=== PATIENT | male | born 1950 | race Caucasian/White ===

== ENCOUNTER 2022-07-06 15:49 | Outpatient (CLI) | payer MEDICARE, SELFPAY ==
[2022-07-06 14:02] LABS: Albumin* 4.3 g/dL (3.3-5.0)
[2022-07-06 14:03] LABS: Chloride* 103 mmol/L (96-114); Sodium* 138 mmol/L (135-149)
[2022-07-06 14:05] LABS: Bilirubin Total* 0.8 mg/dL (0.1-1.5); Carbon Dioxide* 25 mmol/L (20-32); Cholesterol* 155 mg/dL (90-199); Creatinine* 0.9 mg/dL (0.5-1.5); Estimated Glomerular Filt Rate 90 ml/min
[2022-07-06 14:06] LABS: Alanine Aminotransferase* 30 U/L (4-50); Alkaline Phosphatase* 89 U/L (40-150); Aspartate Amino Transferase* 33 U/L (12-35); Blood Urea Nitrogen* 20 mg/dL (7-30); Calcium* 9.1 mg/dL (8.4-10.6); Glucose* 194 mg/dL (60-115); Total Protein* 7.5 g/dL (6.0-8.3); Triglycerides* 147 mg/dL (40-149)
[2022-07-06 14:07] LABS: HDL Cholesterol* 41 mg/dL (>=40); LDL Cholesterol Calculated 85 mg/dL (<100)
[2022-07-06 14:35] LABS: PSA Screen* 1.71 ng/mL (0.10-4.00)
[2022-07-06 15:29] LABS: Free T4 Free Thyroxine* 0.85 ng/dL (0.70-1.85)
== END 2022-07-06 15:50 | disposition home or self-care (01) ==
PROVIDERS: PCP Family Medicine; Visit Provider Family Medicine
DX: Z00.00 Encounter for general adult medical examination without abnormal findings (principal); E78.5 Hyperlipidemia, unspecified; E03.9 Hypothyroidism, unspecified; I10 Essential (primary) hypertension; E11.39 Type 2 diabetes mellitus with other diabetic ophthalmic complication; F41.9 Anxiety disorder, unspecified; Z12.5 Encounter for screening for malignant neoplasm of prostate
CPT/HCPCS: 80053; 80061; 82043; 82570; 84153; 84439; 84443

== ENCOUNTER 2022-10-13 09:50 | Outpatient (CLI) | payer MEDICARE, SELFPAY ==
[2022-10-13 11:59] LABS: Creatinine Urine 112.8 mg/dL
[2022-10-13 12:00] LABS: Microalbumin Creatinine Ratio 0 mg/g (0-30); Microalbumin Urine 1 mg/dL
== END 2022-10-13 09:51 | disposition home or self-care (01) ==
LOC: LKVREF 09:54
PROVIDERS: PCP Family Medicine; Visit Provider Family Medicine
DX: Z00.00 Encounter for general adult medical examination without abnormal findings (principal); E11.9 Type 2 diabetes mellitus without complications; E03.9 Hypothyroidism, unspecified; I10 Essential (primary) hypertension; E78.5 Hyperlipidemia, unspecified; F41.9 Anxiety disorder, unspecified; R53.81 Other malaise
CPT/HCPCS: 82043; 82570; 84443

== ENCOUNTER 2022-12-02 07:41 | Day surgery (SDC) | payer MEDICARE, SELFPAY ==
[2022-12-02] VITALS (14 sets, daily range): BP systolic 118–160; BP diastolic 54–86; PULSE 56–84; RESP 12–18; TEMP 36.2–36.6; O2SAT 92–97; BMI 37.0
[2022-12-02] MEDS: LACTATED RINGERS 1000 ML 1,000 ML 100 ML IV ×2 (08:00→10:36)
--- NOTE | 2022-12-02 08:14 | SUR.PREOP ---
Patient provided home covid negative results to RN.
--- NOTE | 2022-12-02 08:15 | SUR.PREOP ---
BS 145 per pt's continuous glucose monitor
[2022-12-02] MEDS: SODIUM CHLORIDE 0.9 % (FLUSH) 10 ML SYRINGE IVF (08:47)
[2022-12-02] MEDS: fentaNYL 100 MCG/2 ML inj IVP (09:58)
[2022-12-02] MEDS: MIDAZOLAM HCL 1 MG/ML inj IVP (09:58)
--- NOTE | 2022-12-02 10:02 | SUR.PREOP ---
TIME?OUT:09:58 PT/RN/MDA?VERIFICATION?OF?SURGICAL?SITE,?PROCEDURE,?AND?CONSENT OBTAINED?PRIOR?TO?INVASIVE?PROCEDURE.
--- NOTE | 2022-12-02 10:08 | W.ANESCHARGE ---
Anesthesia Charges Start Date/Time Anesthesia Start Date: 12/02/22 Anesthesia Start Time: 10:16 Stop Date/Time Anesthesia Stop Date: 12/02/22 Anesthesia Stop Time: 11:57 Summary Extremes of Age - Over 70 or under 1: MDA
--- NOTE | 2022-12-02 10:08 | W.PM.NB ---
Nerve Block Nerve Block Time Seen by Provider: 10:03 Date Seen: 12/02/22 Type of block requested by surgeon for post-operative analgesia: supraclavicular Side: right Time out performed: Yes Verification of patient name: Yes Verification of date of : Yes Site marking: site marked Name of person performing procedure: Ralph Continuous monitoring Was continuous monitoring of O2 sat, B/P, cardiac nurse specialist, recorded every 15 minutes?: Yes Procedure Checklist: sterile prep, needles and gloves Ultrasound guided. Images saved: Yes Medications given in 5ml increments after negative aspiration: Ropivicaine %: 0.5 mL: 20 Needle gauge: 22 Decadron (mg): 10 Precedex (mcg): 25 Patient tolerated procedure well: Yes Block Charges Block Charge (with Pro Fee): Brachial Plexus Use of Ultrasound Machine for Block: Yes- US Guidance/pain block
[2022-12-02] MEDS: EPINEPHrine 1 MG in SODIUM CHLORIDE IRRIG SOLUTION 3,000 ML 9003 MG IRRIGATION ×3 (10:20→10:30)
[2022-12-02] MEDS: CEFAZOLIN 2 GM in 0.9 % SODIUM CHLORIDE Mini-bag 100 ML IVPB (10:35)
--- NOTE | 2022-12-02 11:35 | PM.ORPRC ---
Procedure Note Date of procedure: 12/02/22 Procedure: PREOPERATIVE DIAGNOSES: 1. Right shoulder subacromial impingement syndrome. 2. Right shoulder AC joint osteoarthritis, primary, severe 3. Right shoulder moderate grade partial-thickness supraspinatus rotator cuff tear POSTOPERATIVE DIAGNOSES: 1. Right shoulder subacromial impingement syndrome. 2. Right shoulder AC joint osteoarthritis, primary, severe 3. Right shoulder moderate grade partial-thickness supraspinatus rotator cuff tear (articular sided) 4. Right shoulder anterior labral fraying/tearing NAME OF OPERATION: 1. Right shoulder arthroscopic distal clavicle excision. 2. Right shoulder arthroscopic limited glenohumeral debridement 3. Right shoulder arthroscopic subacromial decompression/partial acromioplasty SURGEON: Seb Driver MD LOCKSTITCH LINING MAKER: Agus VALENTINE. Of note, an records management assistant was critical for this case to aide in patient positioning, suture manipulation, arm positioning, instrument positioning, and closure. ANESTHESIA: General plus preoperative supraclavicular block. IMPLANTS: None COMPLICATIONS: None evident INDICATIONS: The patient is a pleasant, 72-year-old male who has experienced right shoulder pain that has been increasing in recent time. Physical exam and imaging were consistent with a subacromial impingement syndrome and AC arthrosis. MRI was obtained indeed confirmed substantial AC joint capsular hypertrophy and edema of the distal clavicle. Given their findings, as well as the pain, and inadequate response to nonoperative management, recommendation was made for surgery. FINDINGS: Exam under anesthesia revealed stable shoulder with excellent range of motion. The diagnostic arthroscopy revealed healthy chondral surfaces of the glenohumeral joint with the exception of a small grade 4 lesion humeral head anterior superior portion measuring 6 mm in diameter. Stable chondral flaps surrounding this. The Subscapularis tendon was intact with healthy attachment. The long head of the biceps tendon was intact. The deep surface of the supraspinatus showed some partial-thickness tearing with mild lift-off from the greater tuberosity. This was less than 2 mm of lift-off. The anterior labrum also showed degenerative fraying/tearing. No loose bodies were identified within the pouch or subscapularis recess. PROCEDURE: Following a thorough discussion of risks, benefits, and alternatives, consent was obtained and the right shoulder was marked. The patient was brought to the operating room and placed supine on the operating table. Induction of anesthesia was completed after preoperative supraclavicular block was administered in preop holding. Appropriate time out was performed identifying proper patient, site, and procedure. 2 g IV Ancef was administered within 1 hour of incision preoperatively. The right upper extremity was prepped and draped in the appropriate sterile fashion using ChloraPrep prep. This was after the patient was positioned in the beach chair with their head in neutral alignment and all bony prominences well padded. The shoulder was insufflated with 20mL of normal saline via an 18g spinal needle from a posterior approach. An 11 blade skin incision allowed a blunt trochar to be inserted and diagnostic arthroscopy to be performed with the findings as noted above. An anterior portal was established with an outside in technique. This allowed the probe to be inserted and confirm the diagnostic arthroscopic findings. Limited glenohumeral debridement was then performed utilizing the torpedo shaver including debridement of the anterior labral tissue and the deep surface the supraspinatus rotator cuff tissue. We then went into the subacromial space. This revealed abundant bursitis and again a hypertrophied AC joint capsule. The shaver and [place] cautery device were then inserted and allowed debridement of the subacromial bursa/subdeltoid bursa. Following this, the subacromial decompression/partial acromioplasty was performed with a 5.5 mm bur. This bur was then utilized for distal clavicle excision removing approximately 8 mm of distal clavicle. The camera was visualized within the AC joint space and found that the bone was completely removed from the more caudal to the more cephalad position confirming release/excision while sparing the superior and posterior capsule. Thereafter, the shaver was reinserted into the subacromial space and all remaining bony debris was excised. Again thorough inspection of the bursal side of the rotator cuff/supraspinatus was performed including probing, reinspection, further probing, etc.. The rotator cuff tissue remained with good integrity and no tear could be visualized. We did localize the tear with a spinal needle from intra-articular and visualize this in subacromial space and again could not appreciate any significant tearing upon probing. Instruments removed, excess fluid was drained, closure performed with 4 Monocryl and Steri-Strips. Dressings were applied. Sling was applied. The patient was awoken from anesthesia and transferred to the PACU in stable condition. PLAN: 1. Elbow, forearm, wrist and digit range of motion as tolerated. 2. Encouraged ice. 3. Percocet for pain as needed. 4. Sling at all times except for ROM and showering. 5. Follow up with me in 1-2 weeks for wound check. Range of motion as tolerated
--- NOTE | 2022-12-02 12:35 | W.ANESCHARGE ---
Anesthesia Charges Start Date/Time Anesthesia Start Date: 12/02/22 Anesthesia Start Time: 10:16 Stop Date/Time Anesthesia Stop Date: 12/02/22 Anesthesia Stop Time: 11:57
== END 2022-12-02 14:00 | disposition home or self-care (01) ==
PROVIDERS: PCP Family Medicine; Visit Provider Orthopaedic Surgery Sports Medicine
PROC: (CPT 29805; principal; 2022-12-02 09:30)
DX: M75.41 Impingement syndrome of right shoulder (principal); M19.011 Primary osteoarthritis, right shoulder; M75.101 Unspecified rotator cuff tear or rupture of right shoulder, not specified as traumatic
CPT/HCPCS: 29826; 29824; 29822; 01630; 64415; 76942; 99100; J0171; J0330; J0690; J1100; J2250; J2405; J2704; J2710; J2795; J3010; J7120; L3670

== ENCOUNTER 2023-03-10 08:49 | Outpatient (CLI) | payer MEDICARE, SELFPAY | END 2023-03-10 08:50 | disposition home or self-care (01) | LOC: NFLDREF 03-11 10:37 | PROVIDERS: PCP Family Medicine; Referring Provider Family Medicine; Visit Provider Family Medicine | DX: E03.9 Hypothyroidism, unspecified (principal); I10 Essential (primary) hypertension | CPT/HCPCS: 84443 ==

== ENCOUNTER 2023-07-06 10:01 | Outpatient (CLI) | payer MEDICARE, SELFPAY | END 2023-07-06 10:02 | disposition home or self-care (01) | PROVIDERS: PCP Family Medicine; Visit Provider Family Medicine | DX: Z12.5 Encounter for screening for malignant neoplasm of prostate (principal); E11.39 Type 2 diabetes mellitus with other diabetic ophthalmic complication; E78.2 Mixed hyperlipidemia; I10 Essential (primary) hypertension | CPT/HCPCS: 80053; 80061; 84153; 84443 ==

== ENCOUNTER 2023-10-06 09:26 | Outpatient (CLI) | payer MEDICARE, SELFPAY ==
--- OUTSIDE RECORDS SUMMARY | 2023-10-06 09:30 | XMS_ITS | Encounter Summary ---
Author Name Unknown Organization [facility] Address [address] [place] [address]. [place] [address] Care Team Providers Care Retail Sales Consultant Name Role Phone Alberto Stanton MD Primary Care Provider [phone] Jonathan Jaimes MD Unavailable [phone] Reason for Visit * Reason Onset Date Comments Refill Request 01/14/2023 losartan Encounter Details Date Type Department Care Team (Late st Contact Info) Description 01/14/2023 Refill [facility] [address] [place] [address] Jonathan Jaimes MD [address] [facility] [address] [place] [address] Refill Request (losartan) Social History Tobacco Use Types Packs/Day Years Used Date Smoking Tobacco: Never Smokeless Tobacco: Never Alcohol Use Standard Drinks/Week Comments Yes 0 (1 standard drink = 0.6 oz pur e alcohol) 7 drinks per week Sex and Gender Information Value Date Recorded Sex Assigned at Not on file Gender Identity Not on file Sexual Orientation Not on file documented as of this encounter Miscellaneous Notes * Telephone Encounter - Jesika Traore, RN - 01/14/2023 2:58 PM CDT [facility] Cardiology Refill Guideline reviewed. Medication meets criteria for refill. documented in this encounter Plan of Treatment Not on file documented as of this encounter Visit Diagnoses Diagnosis Essential hypertension, benign documented in this encounter Care Teams Retail Sales Consultant Relationship Specialty Start Date End Date Alberto Stanton MD PCP - General Family Practice 04/26/18 Jonathan Jaimes MD [address] [place] [id number] Assigned Heart and Vascular Provider 06/07/20 documented as of this encounter
--- OUTSIDE RECORDS SUMMARY | 2023-10-06 09:30 | XMS_ITS | Encounter Summary ---
Author Name Unknown Organization [facility] Address [address] [place] [address]. [place] [address] Care Team Providers Care Bullet Assembly Press Operator Name Role Phone Alberto Stanton MD Primary Care Provider [phone] Jonathan Jaimes MD Unavailable [phone] Encounter Details Date Type Department Care Team (Latest Contact Info) Description 04/15/2023 Travel Social History Tobacco Use Types Packs/Day Years Used Date Smoking Tobacco: Never Smokeless Tobacco: Never Alcohol Use Standard Drinks/Week Comments Yes 0 (1 standard drink = 0.6 oz pur e alcohol) 10 -12 drinks per week Sex and Gender Information Value Date Recorded Sex Assigned at Not on file Gender Identity Not on file Sexual Orientation Not on file COVID-19 Exposure Response Date Recorded In the last 10 days, have yo u been in contact with someone who was confirmed or suspected to have Coronavirus/COVID-19? No / Unsure 04/15/2023 9:10 AM CDT documented as of this encounter Plan of Treatment Not on file documented as of this encounter Visit Diagnoses Not on filedocumented in this encounter Care Teams Bullet Assembly Press Operator Relationship Specialty Start Date End Date Alberto Stanton MD PCP - General Family Practice 04/26/18 Jonathan Jaimes MD [address] [facility] [address] [place] [phone] Assigned Heart and Vascular Provider 06/07/20 documented as of this encounter
--- OUTSIDE RECORDS SUMMARY | 2023-10-06 09:30 | XMS_ITS | Encounter Summary ---
Author Name Unknown Organization [facility] Address [address] [place] [address]. [place] [address] Care Team Providers Care Boat Captain Name Role Phone Alberto Stanton MD Primary Care Provider [phone] Jonathan Jaimes MD Unavailable [phone] Reason for Referral * Consultation (Routine: Next available opening) - Pending Review Specialty Diagnoses / Procedures Referred By Contac t Referred To Contact Cardiovascular Disease Diagnoses Benign essential hypertension Orthostatic hypotension Jonathan Jaimes MD [address] [place] [address] Referral ID Status Reason Start Date Expiration Date V isits Requested Visits Authorized [id number] Pending Review 04/01/2023 03/31/2024 1 1 Question Answer Follow-up with: Self Scheduling Instructions: [facility] will call you to coordinate your care as prescribed by your provider. If you have concerns about scheduling, please call [phone]. Comments [facility] will call you to coordinate your care as prescribed by your provider. If you have concerns about scheduling, please call [phone]. * Consultation (Routine: Next available opening) - Pending Review Specialty Diagnoses / Procedures Referred By Contac t Referred To Contact Cardiovascular Disease Diagnoses Benign essential hypertension Orthostatic hypotension Jonathan Jaimes MD [address] [place] [address] Referral ID Status Reason Start Date Expiration Date V isits Requested Visits Authorized [id number] Pending Review 04/01/2023 03/31/2024 1 1 Scheduling Instructions May do ELECTRIC TRACK SWITCH MAINTAINER visit over the phone or Lauryn can call results Question Answer Follow-up with: NELY Scheduling Instructions: [facility] will call you to coordinate your care as prescribed by your provider. If you have concerns about scheduling, please call [phone]. Comments [facility] will call you to coordinate your care as prescribed by your provider. If you have concerns about scheduling, please call [phone]. Reason for Visit * Reason Comments Consult Annual follow up Encounter Details Date Type Department Care Team (Latest Contact Info) Description 04/01/2023 9:45 AM CDT Office Visit [facility] [address] [place] [phone] Jonathan Jaimes MD [address] [place] [address] Abnormal electrocardiogram (Primary Dx); Benign essential hypertension; Orthostatic hypotension Social History Tobacco Use Types Packs/Day Years [...] suspected to have Coronavirus/COVID-19? No / Unsure 04/01/2023 9:23 AM CDT documented as of this encounter Last Filed Vital Signs Vital Sign Reading Time Taken Comments Blood Pressure 171/94 04/01/2023 9:54 AM CDT Pulse 71 04/01/2023 9:54 AM CDT Temperature - - Respiratory Rate - - Oxygen Saturation - - Inhaled Oxygen Concentration - - Weight 126.6 kg (279 lb) 04/01/2023 9:54 AM CDT Height 190.5 cm (6' 3) 04/01/2023 9:54 AM CDT Body Mass Index 34.87 04/01/2023 9:54 AM CDT documented in this encounter Patient Instructions * Patient Instructions* Ysabel Holt CMA - 04/01/2023 9:45 AM CDT Your blood pressure was elevated at your appointment today. Elevated blood pressure can increase your risk of a heart attack, stroke and heart failure. For this reason, we feel it is important to monitor your blood pressure closely. If you have access to a home blood pressure monitor or are able tocheck your blood pressure at a local pharmacy in the next week we would like you to do so and call our clinic with those readings. Please call [phone] ([facility]) and leave a message with your name, date of , blood pressure reading, date and location it was completed. If your blood pressure remains elevated your care team will be notified. We appreciate being a part of your healthcare team and look forward to hearing from you soon. documented in this encounter Progress Notes * Jonathan Jaimes MD - 04/01/2023 9:45 AM CDT My care again and his are present today. They are delightful couple Mr. Alfonso's history is been outlined he has diabetic neuropathy with orthostatic hypotension and hypertension please see myprevious notes for his past history including noncompliant arteries diabetes cholesterol. Again we demonstrated orthostatic hypotension it turns out he was off his Aldactone is not clear why it was not restarted but he is now on Jardiance and that might of been the reason why. Patient reports no cardiovascular symptoms whatsoever no chest pain headaches palpitations shortness of breath etc. Today sitting systolic blood pressure 164/84 and 171/82 standing blood pressure 131/76 and repeat 132/70. I have asked the patient to buy a home blood pressure machine and check his blood pressures supine sitting and standing along with heart rate and report back to us in about 2 weeks. I Anayeli add spironolactone 12.5 mg daily. I shift his amlodipine to p.m. and his ARB inhibitor to the morning. He cantake the spironolactone in the morning also We talked about putting the head of the bed elevated so he does not have supine hypertension all night long when he is sleeping. We will adjust his blood pressure medicines after we see his home numbers. Today's visit was 35 minutes during that time I also reviewed his blood work from his primary care doctor including lipids electrolytes hemoglobin A1c and reviewed his previous stress test ECG today stable Orders Placed This Encounter Procedures Follow-Up with Cardiology NELY Follow-Up with Cardiology EKG 12-lead complete w/read - Clinics (performed today) Orders Placed This Encounter Medications HUMALOG KWIKPEN 100 UNIT/ML soln Sig: INJECT 10-40 UNITS (0.1-0.4 ML) SUBCUTANEOUSLY ONCE DAILY JARDIANCE 10 MG TABS tablet Sig: Take 10 mg by mouth every morning LANTUS SOLOSTAR 100 UNIT/ML soln Sig: INJECT UP TO 50 UNITS SUBCUTANEOUSLY DAILY spironolactone (ALDACTONE) 25 MG tablet Sig: Take 0.5 tablets (12.5 mg) by mouth daily Dispense: 30 tablet Refill: 3 There are no discontinued medications. Encounter Diagnoses Name Primary? Abnormal electrocardiogram Yes Benign essential hypertension Orthostatic hypotension CURRENT MEDICATIONS: Current Outpatient Medications Medication Sig Dispense Refill amLODIPine (NORVASC) 5 MG tablet Take 1 tablet (5 mg) by mouth daily 90 tablet 3 atorvastatin (LIPITOR) 40 MG tablet Take 1 tablet (40 mg) by mouth daily No further refills until seen by cardiology--call [phone] to schedule 30 tablet 0 Cholecalciferol (VITAMIN D) 1000 UNIT capsule Take 1 capsule by mouth daily HUMALOG KWIKPEN 100 UNIT/ML soln INJECT 10-40 UNITS (0.1-0.4 ML) SUBCUTANEOUSLY ONCE DAILY hydrOXYzine (ATARAX) 25 MG tablet Take by mouth 3 times daily as needed for itching JARDIANCE 10 MG TABS tablet Take 10 mg by mouth every morning LANTUS SOLOSTAR 100 UNIT/ML soln INJECT UP TO 50 UNITS SUBCUTANEOUSLY DAILY levothyroxine (SYNTHROID/LEVOTHROID) 50 MCG tablet TK 1 T PO D 0 losartan (COZAAR) 100 MG tablet Take 1 tablet (100 mg) by mouth daily 90 tablet 0 sertraline (ZOLOFT) 100 MG tablet Take 1 tablet (100 mg) by mouth daily 30 tablet 0 spironolactone (ALDACTONE) 25 MG tablet Take 0.5 tablets (12.5 mg) by mouth daily 30 tablet 3 glimepiride (AMARYL) 4 MG tablet TK 1 T PO QD (Patient not taking: Reported on 04/01/2023) 1 Insulin NPH Human, Isophane, (NOVOLIN N SC) 40 units in the AM and 24 in the PM (Patient not taking: Reported on 04/01/2023) spironolactone (ALDACTONE) 25 MG tablet Take 0.5 tablets (12.5 mg) by mouth daily (Patient not taking: Reported on 04/01/2023) 45 tablet 3 ALLERGIES Allergies Allergen Reactions Amoxicillin Diarrhea. Hct [Hydrochlorothiazide] Significant orthostasis PAST MEDICAL HISTORY: Past Medical History: Diagnosis Date Arthritis Cellulitis spider bite Cellulitis, toe 2019 MRSA right foot toe Colon polyps 01/2010 2019 benign polypectomy Depressive disorder, not elsewhere classified Diabetic retinopathy associated with type 2 diabetes mellitus (H) gets injections into eye for this OU Hyperlipidemia Hypertension goal BP (blood pressure) < 140/90 11/13/2011 Left anterior hemiblock Metabolic syndrome Orthostatic hypotension med related? syncope Plantar fasciitis of right foot Shingles Sinusitis Skin cancer removed/burned-face, back, R arm Syncope unexplained syncope (negative w/u [place]) cervicle fracture with fall Thoracic or lumbosacral neuritis or radiculitis, unspecified LUMBAR RADICULITIS L5 disk Type II or unspecified type diabetes mellitus without mention of complication, not stated as uncontrolled metabolic syndrome-Dr Hernández, DM neuropathy, retinopathy PAST SURGICAL HISTORY: Past Surgical History: Procedure Laterality Date ARTHROPLASTY HIP Left 08/13/2015 Procedure: ARTHROPLASTY HIP; Surgeon: Viktoria Morse MD; Location: [facility] OR COLONOSCOPY 09/1999 COLONOSCOPY 12/2008; 01/2010 Adenomatous polyps; repeat in 12 months COLONOSCOPY 01/2011 Normal; repeat in 2 years COLONOSCOPY 12/2012 8 polyps; repeat on one year COLONOSCOPY 01/23/2014 Procedure: COLONOSCOPY; Surgeon: Jamey Baker MD; Location: [facility] COLONOSCOPY N/A 03/10/2022 Procedure: COLONOSCOPY (crsal) with polypectomies by using cold snares; Surgeon: Sabina Romeo MD; Location: [facility] GI EXC SKIN BENIG 0.5CM OR LESS FACE,FACIAL 1998 HC REMOVAL OF TONSILS,<12 Y/O 1952 Tonsils <10y.o. HCL MICRODISSECTION, LASER 05/16 LAMINECTOMY LUMBAR ONE LEVEL 1999 FAMILY HISTORY: Family History Problem Relation Age of Onset Diabetes Mother Alzheimer Disease Mother Cancer Sister Lung cancer C.A.D. 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 No Social History Narrative Eats fruits and vegetables every day. Calcium intake is borderline. He takes 5000 units of vitamin D daily. Review of Systems: Skin: Eyes: ENT: Respiratory: Negative Cardiovascular: Gastroenterology: Genitourinary: Musculoskeletal: Neurologic: Psychiatric: Heme/Lymph/Imm: Endocrine: Physical Exam: Vitals: BP (!) 171/94 Pulse 71 Ht 1.905 m (6' 3) Wt 126.6 kg (279 lb) BMI 34.87 kg/m?? Constitutional: Skin: Head: Eyes: Lymph: ENT: Neck: Respiratory: Cardiac: GI: Extremities and Muscular Skeletal: Neurological: Psych: Recent Lab Results: LIPID RESULTS: Lab Results Component Value Date CHOL 98 10/18/2020 HDL 43 10/18/2020 LDL 39 10/18/2020 TRIG 147 07/06/2022 TRIG 81 10/18/2020 CHOLHDLRATIO 2.4 04/27/2014 LIVER ENZYME RESULTS: Lab Results Component Value Date AST 57 (H) 04/27/2014 ALT 41 10/18/2020 CBC RESULTS: Lab Results Component Value Date WBC 9.3 08/13/2015 RBC 5.33 08/13/2015 HGB 12.3 (L) 08/15/2015 HCT 46.6 08/13/2015 MCV 87 08/13/2015 MCH 32.1 08/13/2015 MCHC 36.7 (H) 08/13/2015 RDW 12.4 08/13/2015 PLT 260 08/13/2015 BMP RESULTS: Lab Results Component Value Date NA 139 10/18/2020 POTASSIUM 4.4 10/18/2020 CHLORIDE 105 11/19/2022 CHLORIDE 107 10/18/2020 CO2 26 10/18/2020 ANIONGAP 6 10/18/2020 GLC 192 (H) 03/10/2022 GLC 125 (H) 10/18/2020 BUN 16 10/18/2020 CR 0.88 10/18/2020 GFRESTIMATED 85 10/18/2020 GFRESTBLACK >90 10/18/2020 MATT 9.0 10/18/2020 A1C RESULTS: Lab Results Component Value Date A1C 11.0 (H) 08/14/2015 INR RESULTS: Lab Results Component Value Date INR 0.96 08/13/2015 CC No referring provider defined for this encounter. documented in this encounter Plan of Treatment Scheduled Referrals Name Type Priority Associated Diagnoses Orde r Schedule Follow-Up with Cardiology NELY Referral Routine: Next available opening Benign essential hypertension Orthostatic hypotension Expected: 04/15/2023 (Approximate), Expires: 04/01/2024 Follow-Up with Cardiology Referral Routine: Next available opening Benign essential hypertension Orthostatic hypotension Expected: 04/01/2024 (Approximate), Expires: 04/01/2024 documented as of this encounter Procedures Procedure Name Priority Date/Time Associated Diagnosis Comments EKG 12-LEAD COMPLETE W/READ - CLINICS Routine 04/01/2023 Abnormal electrocardiogram documented in this encounter Results * EKG 12-lead complete w/read - Clinics (performed today) (04/01/2023) Jonathan Jaimes MD ECG ORDERABLES documented in this encounter Visit Diagnoses Diagnosis Abnormal electrocardiogram- Primary Nonspecific abnormal electrocardiogram (ECG) (EKG) Benign essential hypertension Essential hypertension, benign Orthostatic hypotension documented in this encounter Care Teams Boat Captain Relationship Specialty Start Date End Date Alberto Stanton MD PCP - General Family Practice 04/26/18 Jonathan Jaimes MD [address] [facility] [address] [place] [address] Assigned Heart and Vascular Provider 06/07/20 documented as of this encounter
--- OUTSIDE RECORDS SUMMARY | 2023-10-06 09:30 | XMS_ITS | Encounter Summary ---
Author Name Unknown Organization [facility] Address [address] [place] [address] Care Team Providers Care Mine Supervisor Name Role Phone Alberto Stanton MD Primary Care Provider [phone] Jonathan Jaimes MD Unavailable [phone] Encounter Details Date Type Department Care Team (Late st Contact Info) Description 04/15/2023 9:15 AM CDT [facility] [address] [place] [address] Hypertension goal BP (blood pressure) < 140/90 Social History Tobacco Use Types Packs/Day Years [...] on file documented as of this encounter Procedures Procedure Name Priority Date/Time Associated Diagnosis Comments BASIC METABOLIC PANEL Routine 04/15/2023 9:16 AM CDT Hypertension goal BP (blood pressure) < 140/90 documented in this encounter Results * (ABNORMAL) Basic metabolic panel (04/15/2023 9:16 AM CDT) Sodium 136 136 - 145 mmol/L 04/15/2023 9:44 AM CDT LABORATORY Potassium 4.5 3.4 - 5.3 mmol/L 04/15/2023 9:44 AM CDT [facility] LABORATORY Chloride 102 98 - 107 mmol/L 04/15/2023 9:44 AM CDT LABORATORY Carbon Dioxide (CO2) 21(L) 22 - 29 mmol/L 04/15/2023 9:44 AM CDT [facility] Anion Gap 13 7 - 15 mmol/L 04/15/2023 9:44 AM CDT [facility] Urea Nitrogen 17.0 8.0 - 23.0 mg/dL 04/15/2023 9:44 AM CDT LABORATORY Creatinine 1.00 0.67 - 1.17 mg/dL 04/15/2023 9:44 AM CDT LABORATORY Calcium 9.1 8.8 - 10.2 mg/dL 04/15/2023 9:44 AM CDT LABORATORY Glucose 161(H) 70 - 99 mg/dL 04/15/2023 9:44 AM CDT LABORATORY GFR Estimate 78 >60 mL/min/1.7 3m2 04/15/2023 9:44 AM CDT LABORATORY Blood STRUCTURE OF LEFT UPPER LIMB / Unknown Venipuncture / Unknown 04/15/2023 9:16 AM CDT 04/15/2023 9:16 AM CDT Jonathan Jaimes MD LAB - BLOOD ORDERABL ES LABORATORY [facility] [address] Lab (1st floor, no room number) [place] [address], [facility] [place] [phone] documented in this encounter Visit Diagnoses Diagnosis Hypertension goal BP (blood pressure) < 140/90 Unspecified essential hypertension documented in this encounter Care Teams Mine Supervisor Relationship Specialty Start Date End Date Alberto Stanton MD PCP - General Family Practice 04/26/18 Jonathan Jaimes MD [address] [place] [address] Assigned Heart and Vascular Provider 06/07/20 documented as of this encounter
--- OUTSIDE RECORDS SUMMARY | 2023-10-06 09:30 | XMS_ITS | Encounter Summary ---
Author Name Unknown Organization [facility] Address [address] [place] [address]. [place] [address] Care Team Providers Care Well Service Floor Worker Name Role Phone Alberto Stanton MD Primary Care Provider [phone] Jonathan Jaimes MD Unavailable [phone] Reason for Visit * Reason Onset Date Comments Refill Request 04/13/2023 Losartan Encounter Details Date Type Department Care Team (Late st Contact Info) Description 04/13/2023 Refill [facility] [address] [place] [address] Jonathan Jaimes MD [address] [facility] [address] [place] [address] Refill Request (Losartan) Social History Tobacco Use Types Packs/Day Years [...] AM CDT documented as of this encounter Miscellaneous Notes * Telephone Encounter - Roselia Sanchez RN - 04/13/2023 12:40 PM CDT Received refill request from [facility] pharmacy for Losartan 100mg daily. Last OV Dr. Jaimes 8\1723 [facility] Cardiology Refill Guideline reviewed. Medication meets criteria for refill. Roselia Sanchez RN on 04/13/2023 at 12:42 PM documented in this encounter Plan of Treatment Not on file documented as of this encounter Visit Diagnoses Diagnosis Essential hypertension, benign documented in this encounter Care Teams Well Service Floor Worker Relationship Specialty Start Date End Date Alberto Stanton MD PCP - General Family Practice 04/26/18 Jonathan Jaimes MD [address] [place] [address] Assigned Heart and Vascular Provider 06/07/20 documented as of this encounter
--- OUTSIDE RECORDS SUMMARY | 2023-10-06 09:30 | XMS_ITS | Encounter Summary ---
Author Name Unknown Organization [facility] Address [facility] [place] [address] Care Team Providers Care Head Strength And Conditioning Coach Name Role Phone Alberto Stanton MD Primary Care Provider [phone] Jonathan Jaimes MD Unavailable [phone] Encounter Details Date Type Department Care Team (Late st Contact Info) Description 04/05/2023 Orders Only [facility] [place] [address] [facility] [address] [place] [address] Jonathan Jaimes MD [address] [facility] [address] [place] [address] Hypertension goal BP (blood pressure) < 140/90 (Primary Dx) Social History Tobacco Use Types Packs/Day Years [...] AM CDT documented as of this encounter Progress Notes * Lauryn Harmon RN - 04/05/2023 10:51 AM CDT Order in per DR Jaimes for BMPJannet Harmon RN documented in this encounter Plan of Treatment Not on file documented as of this encounter Results * (ABNORMAL) Basic metabolic panel (04/15/2023 9:16 AM CDT) Sodium 136 136 - 145 mmol/L 04/15/2023 9:44 AM CDT LABORATORY Potassium 4.5 3.4 - 5.3 mmol/L 04/15/2023 9:44 AM CDT LABORATORY Chloride 102 98 - 107 mmol/L 04/15/2023 9:44 AM CDT LABORATORY Carbon Dioxide (CO2) 21(L) 22 - 29 mmol/L 04/15/2023 9:44 AM CDT LABORATORY Anion Gap 13 7 - 15 mmol/L 04/15/2023 9:44 AM CDT LABORATORY Urea Nitrogen 17.0 8.0 - 23.0 [...] MD LAB - BLOOD ORDERABL ES LABORATORY [facility] [address] Lab (1st floor, no room number) [place] [address], [facility] [phone] documented in this encounter Visit Diagnoses Diagnosis Hypertension goal BP (blood pressure) < 140/90- Primary Unspecified essential hypertension documented in this encounter Care Teams Head Strength And Conditioning Coach Relationship Specialty Start Date End Date Alberto Stanton MD PCP - General Family Practice 04/26/18 Jonathan Jaimes MD [address] [place] [address] Assigned Heart and Vascular Provider 06/07/20 documented as of this encounter
--- OUTSIDE RECORDS SUMMARY | 2023-10-06 09:30 | XMS_ITS | Encounter Summary ---
Author Name Unknown Organization [facility] Address [address] [place] [address]. [place] [address] Care Team Providers Care Hardwood Faller Name Role Phone Alberto Stanton MD Primary Care Provider [phone] Jonathan Jaimes MD Unavailable [phone] Encounter Details Date Type Department Care Team (Latest Contact Info) Description 04/01/2023 Travel Social History Tobacco Use Types Packs/Day [...] on filedocumented in this encounter Care Teams [place]wood Faller Relationship Specialty Start Date End Date Alberto Stanton MD PCP - General Family Practice 04/26/18 Jonathan Jaimes MD [address] [facility] [address] [place] [address] Assigned Heart and Vascular Provider 06/07/20 documented as of this encounter
--- OUTSIDE RECORDS SUMMARY | 2023-10-06 09:30 | XMS_ITS | Encounter Summary ---
Author Name Unknown Organization [facility] Address [address] [place] [address] Care Team Providers Care Manager Transportation Name Role Phone Alberto Stanton MD Primary Care Provider [phone] Jonathan Jaimes MD Unavailable [phone] Reason for Visit * Reason Onset Date Comments New medication follow up 04/16/2023 Encounter Details Date Type Department Care Team (Late st Contact Info) Description 04/16/2023 Telephone [facility] [address] [place] [address] Lauryn Harmon, RN New medication follow up Social History Tobacco Use Types Packs/Day Years [...] encounter Miscellaneous Notes * Telephone Encounter - Lauryn Harmon RN - 04/16/2023 4:12 PM CDT Left message for Pt everything looks great. T Harmon RN * Telephone Encounter - Lauryn Harmon RN - 04/16/2023 11:08 AM CDT Per last Office visit note: I have asked the patient to buy a home blood pressure machine and checkhis blood pressures supine sitting and standing along with heart rate and report back to us in about 2 weeks. I Anayeli add spironolactone 12.5 mg daily. I shift his amlodipine to p.m. and his ARB inhib itor to the morning. He can take the spironolactone in the morning also Called Pt he had taken some BP's sitting 122/73 and 128/80, standing 128/70, and 130/72 he said he had done others , but did not offer further numbers. Per Pt heart rates in the 70's. Pt said he feltvery well and felt Blood pressures were doing very well. Component Latest Ref Rng 04/15/2023 9:16 AM Sodium 136 - 145 mmol/L 136 Potassium 3.4 - 5.3 mmol/L 4.5 Chloride 98 - 107 mmol/L 102 Carbon Dioxide (CO2) 22 - 29 mmol/L 21 (L) Anion Gap 7 - 15 mmol/L 13 Urea Nitrogen 8.0 - 23.0 mg/dL 17.0 Creatinine 0.67 - 1.17 mg/dL 1.00 Calcium 8.8 - 10.2 mg/dL 9.1 Glucose 70 - 99 mg/dL 161 (H) GFR Estimate >60 mL/min/1.73m2 [address] [place] GOLDEN documented in this encounter Plan of Treatment Not on file documented as of this encounter Visit Diagnoses Not on filedocumented in this encounter Care Teams Manager Transportation Relationship Specialty Start Date End Date Alberto Stanton MD PCP - General Family Practice 04/26/18 Jonathan Jaimes MD [address] [place] [address] Assigned Heart and Vascular Provider 06/07/20 documented as of this encounter
--- OUTSIDE RECORDS SUMMARY | 2023-10-06 09:30 | XMS_ITS | Clinical Summary ---
Author Name Unknown Organization [place] Address [address] [place] [address] Care Team Providers Care Head Cleaning Porter Name Role Phone Alberto Stanton MD Primary Care Provider [phone] Jonathan Jaimes MD Unavailable [phone] Allergies Active Allergy Reactions Criticality Noted Date Comments Amoxicillin 10/22/2003 Diarrhea. Hydrochlorothiazide 01/14/2017 Significant orthostasis Medications Medication Sig Dispensed Refills Start Date End Date Status Cholecalciferol (VITAMIN D) 1000 UNIT capsule Take 1 capsule by mouth daily 0 Active sertraline (ZOLOFT) 100 MG tabletIndications:Dy sthymic disorder Take 1 tablet (100 mg) by mouth daily 30 tablet 0 05/14/2015 Active levothyroxine (SYNTHROID/LEVOTHROI D) 50 MCG tablet TK 1 T PO D 0 04/05/2018 Active glimepiride (AMARYL) 4 MG tablet TK 1 T PO QD 1 03/09/2018 Active Insulin NPH Human, Isophane, (NOVOLIN N SC) 40 units in the AM and 24 in the PM 0 Active hydrOXYzine (ATARAX) 25 MG tablet Take by mouth 3 times daily as needed for itching 0 Active spironolactone (ALDACTONE) 25 MG tabletIndications:Es sential hypertension, benign Take 0.5 tablets (12.5 mg) by mouth daily 45 tablet 3 12/23/2021 Active Additional Information Patient not taking.Reason: has not been able to get, Reported on 04/01/2023 amLODIPine (NORVASC) 5 MG tabletIndications:Es sential hypertension, benign Take 1 tablet (5 mg) by mouth daily 90 tablet 3 01/22/2022 Active atorvastatin (LIPITOR) 40 MG tabletIndications:Mi xed hyperlipidemia Take 1 tablet (40 mg) by mouth daily No further refills until seen by cardiology--call [phone] to schedule 30 tablet 0 06/17/2022 Active HUMALOG KWIKPEN 100 UNIT/ML soln INJECT 10-40 UNITS (0.1-0.4 ML) SUBCUTANEOUSLY ONCE DAILY 0 03/23/2023 Active JARDIANCE 10 MG TABS tablet Take 10 mg by mouth every morning 0 03/22/2023 Active LANTUS SOLOSTAR 100 UNIT/ML soln INJECT UP TO 50 UNITS SUBCUTANEOUSLY DAILY 0 Active spironolactone (ALDACTONE) 25 MG tabletIndications:Be nign essential hypertension Take 0.5 tablets (12.5 mg) by mouth daily 30 tablet 3 04/01/2023 Active losartan (COZAAR) 100 MG tabletIndications:Es sential hypertension, benign Take 1 tablet (100 mg) by mouth daily 90 tablet 3 04/13/2023 Active Active Problems Problem Noted Date Diagnosed Date Morbid obesity 12/02/2020 Localized osteoarthritis of hip 08/13/2015 Obesity 06/14/2015 Tremor 04/22/2013 Hypertension goal BP (blood pressure) < 140/90 0 11/13/2011 Encounter for long-term (current) use of insulin 11/13/2011 Advanced directives, counseling/discussion 09/14 Overview: Advance Directive Problem List Overview: Name Relationship Phone Primary Health Care Agent Alternative Health Care Agent Discussed advance care planning with patient; information given to patient to review. 09/14/2011 Sabina Kim CMA Type 2 diabetes mellitus without complications 1 Hyperlipidemia LDL goal <100 06/15/2010 Colon polyps 01/14/2010 Dysthymic disorder 11/17/2004 Metabolic syndrome Resolved Problems Problem Noted Date Diagnosed Date Resolved Date Hyperlipidemia 10/22/2003 12/26/2010 Overview: Problem list name updated by automated process. Provider to review Diabetes mellitus, type 2 10/22/2003 Overview: Problem list name updated by automated process. Provider to review Immunizations Name Administration Dates Next Due Influenza (IIV3) PF 08/23/2000 TD,PF 7+ (Tenivac) 04/21/2000 TDAP Vaccine (Adacel) 02/17/2010 Family History Medical History Relation Comments Alzheimer Disease Mother Diabetes Mother Cancer Sister 2 Lung cancer Anesthesia Reaction No family hx of Blood Disease No family hx of Breast Cancer No family hx of C.A.D. No family hx of Cancer - colorectal No family hx of Cerebrovascular Disease No family hx of Colon Cancer No family hx of Eye Disorder No family hx of Hypertension No family hx of Neurologic Disorder No family hx of Osteoporosis No family hx of Prostate Cancer No family hx of Thyroid Disease No family hx of Relation Status Comments Father (Age 91) CHF Maternal Grandfather Maternal Grandmother Mother (Age 86) Alzheimer's Paternal Grandfather Paternal Grandmother Sister 1 Alive Claudication; sylvia ng cancer Sister 2 Social History Tobacco Use Types Packs/Day Years Used Date Smoking Tobacco: Never Smokeless Tobacco: Never Alcohol Use Standard Drinks/Week Comments Yes 0 (1 standard drink = 0.6 oz pur e alcohol) 10 -12 drinks per week Adolescent Education Answer Date Record ed Getting School Help Needed Not on file 05/31 Sex and Gender Information Value Date Recorded Sex Assigned at Not on file Gender Identity Not on file Sexual Orientation Not on file Last Filed Vital Signs Vital Sign Reading Time Taken Comments Blood Pressure 171/94 04/01/2023 9:54 AM CDT Pulse 71 04/01/2023 9:54 AM CDT Temperature 36.1 ??C (97 ??F) 03/10/2022 11:39 AM CDT Respiratory Rate 16 03/10/2022 1:00 PM CDT Oxygen Saturation 95% 03/10/2022 1:00 PM CDT Inhaled Oxygen Concentration - - Weight 126.6 kg (279 lb) 04/01/2023 9:54 AM CDT Height 190.5 cm (6' 3) 04/01/2023 9:54 AM CDT Body Mass Index 34.87 04/01/2023 9:54 AM CDT Plan of Treatment Health Maintenance Due Date Last Done Comments ANNUAL REVIEW OF HM ORDERS 1950 CT COLONOGRAPHY 1950 FIT 1950 FLEX SIG 1950 sDNA (Cologuard) 1950 HEPATITIS C SCREENING 01/28/1966 ZOSTER IMMUNIZATION (1 of 2) 01/28/1998 RSV VACCINE ( & 60+) (1 - 1-dose 60+ series) 2008 EYE EXAM 06/16/2013 06/16/2012, 08/2011, 01/19/2011 DIABETIC FOOT EXAM 04/20/2014 04/20/2013, 0 04/12/2012, 03/02/2011 FALL RISK ASSESSMENT 04/20/2014 04/20/2013 PHQ-9 10/25/2014 04/27/2014, 0 12/2012, 06/03/2012 MEDICARE ANNUAL WELLNESS VISIT 04/27/2015 04/27/2014, 04/20/2013, 04/12/2012, Additional history exists MICROALBUMIN 04/27/2015 04/27/2014, 0 12/2012, 04/12/2012, Additional history exists ADVANCE CARE PLANNING 09/14/2016 09/14/2011 COVID-19 Vaccine ( season) 2023 06/23/2021, 11/06/2020, 10/09/2020 INFLUENZA VACCINE (#1) 2023 , 06/20/2018, 06/20/2018, Additional history exists LIPID 07/06/2023 07/06/2022, 03/0 12/2020, 12/18/2019, Additional history exists A1C 09/10/2023 03/10/2023, 04/0 01/2023, 07/06/2022, Additional history exists TSH W/FREE T4 REFLEX 03/10/2024 03/10/2023, 07/06/2022, 07/06/2022, Additional history exists BMP 04/15/2024 04/15/2023, 04/0 01/2023, 07/06/2022, Additional history exists COLONOSCOPY 03/10/2025 03/10/2022, 07/2 01/2022, 01/23/2019, Additional history exists COLORECTAL CANCER SCREENING 03/10/2025 DTAP/TDAP/TD IMMUNIZATION (3 - Td or Tdap) 03/21/2030 03/21/2020, 02/17/2010, 04/21/2000, Additional history exists DEPRESSION ACTION PLAN Completed 04/12/2012 Pneumococcal Vaccine: 65+ Years Completed 06/17/2016, 06/12/2015 HPV IMMUNIZATION Aged Out No longer e ligible based on patient's age to complete this topic IPV IMMUNIZATION Aged Out No longer e ligible based on patient's age to complete this topic MENINGITIS IMMUNIZATION Aged Out No l onger eligible based on patient's age to complete this topic RSV MONOCLONAL ANTIBODY Aged Out No l onger eligible based on patient's age to complete this topic Medical Devices Implanted Type Area Food Service Device Identifier Shelf Expiration Date Model / Serial / Lot Imp Cup Rodger [place] 56mm [id number] Implanted:Qty: 1 on 08/13/2015 by Viktoria Morse MD at [facility] Left: Hip [employer] 05/15/2025 [id number] / / [id number] Imp Bagley Hole Eliminator Hip Depuy Duraloc 1246-03-000 Implanted:Qty: 1 on 08/13/2015 by Viktoria Morse MD at [facility] Left: Hip [employer] 04/15/2025 [id number] / / [id number] Imp Scr Bone Can Rodger 6.5x20mm [id number] Implanted:Qty: 1 on 08/13/2015 by Viktoria Morse MD at [facility] Left: Hip [employer] 06/15/2025 [id number] / / [id number] Acetabular Liner +4 Neutral 36mm Id 56mm Od Implanted:Qty: 1 on 08/13/2015 by Viktoria Morse MD at [facility] Left: Hip Depuy 05/15/2020 [id number] / / [id number] Imp Scr Bone Can Rodger 6.5x25mm [id number] Implanted:Qty: 1 on 08/13/2015 by Viktoria Morse MD at [facility] Left: Hip [employer] 06/15/2025 [id number] / / [id number] Imp Head Femoral Depuy 36mm +1.5 1365-51-000 Implanted:Qty: 1 on 08/13/2015 by Viktoria Morse MD at [facility] Left: Hip [employer] 06/15/2020 [id number] / / [id number] Tri-Lock Bps Femoral Stem 07/29 Taper Tri-Lock Bps W/Gription Size 6 Hi 107mm Implanted:Qty: 1 on 08/13/2015 by Viktoria Morse MD at [facility] Left: Hip Depuy 06/15/2025 1012-14-060 / / [id number] Advance Directives For more information, please contact: [phone] Latest Code Status on File Code Status Date Activated Date Inactivated Comments Full Code 08/15/2015 12:06 PM 01/23/2019 9:15 AM Code Status History Code Status Date Activated Date Inactivated Comments Full Code 08/13/2015 5:56 PM 08/15/2015 12:06 PM None 10/19/2003 11:35 AM 10/19/2003 12:35 PM Care Teams Head Cleaning Porter Relationship Specialty Start Date End Date Alberto Stanton MD PCP - General Family Practice 04/26/18 Jonathan Jaimes MD [address] [place] [id number] Assigned Heart and Vascular Provider 06/07/20
--- OUTSIDE RECORDS SUMMARY | 2023-10-06 09:30 | XMS_ITS | Referral Summary ---
Author Name Unknown Organization [place] Address [address] [place] [address] Care Team Providers Care Electric Range Assembler Name Role Phone Alberto Stanton MD Primary Care Provider [phone] Jonathan Jaimes MD Unavailable [phone] Allergies Active Allergy Reactions Criticality Noted Date [...] No further refills until seen by cardiology--call [phone] to schedule 30 tablet 0 06/17/2022 Active [...] 7+ (Tenivac) 04/21/2000 TDAP Vaccine (Adacel) 02/17/2010 Social History Tobacco Use Types Packs/Day Years [...] 04/01/2023 9:54 AM CDT Plan of Treatment Not on file Medical Devices Implanted Type Area Cardiac Technician Device Identifier Shelf Expiration Date Model / Serial / Lot Imp Cup Rodger [place] 56mm [id number] Implanted:Qty: 1 on 08/13/2015 by Viktoria Morse MD at [facility] Left: Hip [employer] 05/15/2025 [id number] / / [id number] Imp Berry Hole Eliminator Hip Depuy Duraloc 1246-03-000 Implanted:Qty: 1 on 08/13/2015 by Viktoria Morse MD at [facility] Left: Hip [employer] 04/15/2025 [id number] / / [id number] Imp Scr Bone Can Rodger 6.5x20mm 0629-20-500 Implanted:Qty: 1 on 08/13/2015 by Viktoria Morse MD at [facility] Left: Hip [employer] 06/15/2025 [id number] / / [id number] Acetabular Liner +4 Neutral 36mm Id 56mm Od Implanted:Qty: 1 on 08/13/2015 by Viktoria Morse MD at [facility] Left: Hip Depuy 05/15/2020 [id number] / / [id number] Imp Scr Bone Can Rodger 6.5x25mm [id number] Implanted:Qty: 1 on 08/13/2015 by Viktoria Morse MD at [facility] Left: Hip [employer] 06/15/2025 [id number] / / [id number] Imp Head Femoral Depuy 36mm +1.5 1365-51-000 Implanted:Qty: 1 on 08/13/2015 by Viktoria Morse MD at [facility] Left: Hip [employer] 06/15/2020 [id number] / / [id number] Tri-Lock Bps Femoral Stem 07/29 Taper Tri-Lock Bps W/Gription Size 6 Hi 107mm Implanted:Qty: 1 on 08/13/2015 by Viktoria Morse MD at [facility] Left: Hip Depuy 06/15/2025 1012-14-060 / / [id number] Advance Directives For more information, please contact: [phone] Latest Code Status on File Code Status Date Activated Date Inactivated Comments Full Code 08/15/2015 12:06 PM 01/23/2019 9:15 AM Code Status History Code Status Date Activated Date Inactivated Comments Full Code 08/13/2015 5:56 PM 08/15/2015 12:06 PM None 10/19/2003 11:35 AM 10/19/2003 12:35 PM Care Teams Electric Range Assembler Relationship Specialty Start Date End Date Alberto Stanton MD PCP - General Family Practice 04/26/18 Jonathan Jaimes MD [address] [place] [id number] Assigned Heart and Vascular Provider 06/07/20
--- OUTSIDE RECORDS SUMMARY | 2023-10-06 09:31 | XMS_ITS | Encounter Summary ---
Author Name Unknown Organization [place] Address [address] [place] [address]. [place] [address] Care Team Providers Care Commercial Credit Analyst Name Role Phone Salvador Hyatt MD Primary Care Provider [phone] Alberto Stanton MD Primary Care Provider [phone] Jonathan Jaimes MD Unavailable [phone] Encounter Details Date Type Department Care Team (Late st Contact Info) Description 02/22/2004 Office Visit-[facility] [address] [id number] Unknown, MD Naomy Social History Tobacco Use Types Packs/Day Years Used Date Smoking Tobacco: Never Alcohol Use Standard Drinks/Week Comments Yes 0 (1 standard drink = 0.6 oz pur e alcohol) 2/week Sex and Gender Information Value Date Recorded Sex Assigned at Not on file Gender Identity Not on file Sexual Orientation Not on file documented as of this encounter Progress Notes * Unknown, MD Naomy - 02/26/2004 4:36 PM CDT Progress Note Created by: Jonathan Jaimes M.D. DATE: 02/22/2004 GILBERTO ALFONSO DATE OF : 1950 AGE: [age] years old Referring Physician: CHELSEY GARCIA Referring Clinic: [facility] CURRENT DIAGNOSES 1. - Hyperlipidemia, 272.4 2. - Metabolic Syndrome, 277.9 3. - Hypertension, benign, 401.1 4. Diabetes Mellitus-NIDD/circ dis/control, 250.70 ALLERGIES penicillin G potassium, G.i. upset/diarrhea MEDICATIONS 1. Lipitor 40 Mg, 1 p.o. q.d. 2. Glucophage 1000 mg, 1 p.o. b.i.d. 3. Aspirin 81 mg, 1 p.o. q.d. 4. Amaryl 2 mg, Take as Directed 5. Avalide 12.5 mg-300 mg, 1 p.o. q.d. 6. Tricor 160mg, 1 p.o. q.d. 7. Zoloft 100 mg, 1-1/2 p.o. q.d. CHIEF COMPLAINTS Followup of - Hyperlipidemia HISTORY OF PRESENT ILLNESS: Gilberto Alfonso returns in follow up of his metabolic syndrome, hypertension, and hyperlipidemia. Since I saw him last he was seen at [facility] in August for an episode of chest pain. A stress echocardiogram was negative for ischemia and the patient has had no further episodes of chest pain. He has no other heart problems such as palpitations or heart failure. His diabetes has not been well controlled, and Dr. Garcia has since referred him on to see Dr. Hernández from Endocrine service. The patient has an appointment next week. Some of his diabetespills were changed. The list above in my note may be inaccurate. The patient did not remember whichpills he was on. He has gained some weight and has some fluid retention. I do not know if he is on a TDZ medicine. Otherwise he feels well, but he has noted that over the last several visits he has had to the doctors his blood pressure has steadily worsened and indeed today he is running between 150- 160 systolic, with diastolics in the 90-100 range. Given that he has diabetes, I think we need to be much more aggressive on his blood pressure control. I am going to switch his Avapro 150 to Avalide 300/12.5. I will ask him to get an electrolyte check in a couple of weeks and we will have him return for a blood pressure check. OFFICE NOTE PHYSICAL EXAMINATION VITAL SIGNS: Blood Pressure: 160/100 Sitting, Right arm, large cuff 150/90 Retaken by Pulse- 76.00/min. Weight- 283.00 lbs. Height- 75.00 Temperature- .00 CONSTITUTIONAL cooperative, alert and oriented,well developed, well nourished, in no acute distress. SKIN warm and dry to touch, no apparent skin lesions, or masses noted. HEAD normocephalic, atraumatic EYES Pupils equal and round, conjunctivae and lids unremarkable, sclera white, no xanthalasma ENT no pallor or cyanosis, dentition good NECK carotid pulses are full and equal bilaterally, JVP normal, no carotid bruit, no thyromegaly CHEST normal symmetry, no tenderness to palpation, normal respiratory excursion, no intercostal retraction, no use of accessory muscles, clear to auscultation and percussion. CARDIAC regular rhythm, S1 normal, S2 normal, No S3 or S4, Apical impulse not displaced, no murmurs, gallops or rubs detected. ABDOMEN abdomen soft, bowel sounds normoactive, no masses, no hepatosplenomegaly, non- tender, no bruits, obese PERIPHERAL PULSES pulses full and equal in all extremities, no bruits auscultated. EXTREMITIES & BACK trace ankle edema NEUROLOGICAL no gross motor deficits noted, affect appropriate, oriented to time, person and place. MEDICATIONS UPDATED TODAY: Amaryl 2 mg, Take as Directed, DIRECTED Avalide 12.5 mg-300 mg, 1 p.o. q.d., #30 MEDICATION STOPPED TODAY: Avapro 150 Mg IMPRESSIONS/PLAN If he is still not at blood pressure goal I would probably switch his Lipitor to Caduet. Again, we will have to be careful that the Norvasc component does not cause significant ankle edema since he has trace ankle edema now. I am hopeful with Dr. Hernández's help that diabetes numbers will become better controlled, and if so his triglycerides will probably be better controlled. His lipid panel in November was the best he has ever had. He had a remarkable improvement in his HDL, going from 25 up to 43. His LDL is at goal, and his triglycerides which are in the 170s are still markedly better than what we saw previously. Jonathan Jaimes M.D. Electronically signed by [facility] Data Conversion at 12/29/2013 6:09 AM CDT documented in this encounter Plan of Treatment Not on file documented as of this encounter Visit Diagnoses Not on filedocumented in this encounter Care Teams Commercial Credit Analyst Relationship Specialty Start Date End Date Salvador Hyatt MD [facility] [address] [place] [address] PCP - General Family Practice 07/18/15 04/25/18 Alberto Stanton MD [facility] [address] [place] [address] PCP - General Family Practice 04/26/18 Jonathan Jaimes MD [address] [facility] [address] [place] [id number] Assigned Heart and Vascular Provider 06/07/20 documented as of this encounter
--- OUTSIDE RECORDS SUMMARY | 2023-10-06 09:31 | XMS_ITS | Encounter Summary ---
Author Name Unknown Organization [place] Address [address] [place] [address]. [place] [address] Care Team Providers Care Child'S Nurse Name Role Phone Salvador Hyatt MD Primary Care Provider [phone] Alberto Stanton MD Primary Care Provider [phone] Jonathan Jaimes MD Unavailable [phone] Encounter Details Date Type Department Care Team (Late st Contact Info) Description 03/27/2011 Office Visit-[facility] [id number] [place] [address] Unknown, MD Naomy Social History Tobacco [...] Progress Notes * Unknown, MD Naomy - 03/27/2011 10:01 AM CDT Progress Note Created by: Leora Malhotra NJannetPJannet [id number] DATE: 03/26/2011 GILBERTO ALFONSO DATE OF : 1950 AGE: [age] years old Referring Physician: CHELSEY TRAORE Referring Clinic: [facility] CURRENT DIAGNOSES 1. - Metabolic Syndrome, 277.9 2. Chest pain, unspecified, 786.50 3. - Hyperlipidemia, 272.4 4. - Hypertension, benign, 401.1 ALLERGIES Amoxicillin Trihydrate, Gi discomfort penicillin G potassium, G.i. upset/diarrhea MEDICATIONS (prior to changes made today) 1. Hydrochlorothiazide 12.5 mg Tablet, 1 p.o. daily 2. Budeprion XL 150 mg Tablet Sustained Release 24 hr, 1 p.o. daily 3. Sertraline 100 mg Tablet, 1-1/2 p.o. daily 4. Amlodipine 5 mg Tablet, 1 p.o. daily 5. Cozaar 100 mg Tablet, 1 p.o. daily 6. Metformin 1,000 mg Tablet, 1 p.o. twice daily 7. Aspirin 81 mg Tablet, 1 p.o. daily 8. Levemir 100 unit/mL Solution, Take as Directed 9. Lipitor 40 mg Tablet, 1 p.o. daily 10. glimepiride 4 mg Tablet, 1 p.o. twice daily CHIEF COMPLAINTS Follow up bp HISTORY OF PRESENT ILLNESS: I had the pleasure of meeting Gilberto Porter in the clinic today. He is a 61-year-old white male with a history of hypertension, diabetes and dyslipidemia who historically has followed with Dr. Jaimes. He has multiple risk factors for coronary artery disease includinghypertension, obesity and diabetes. A nuclear stress test in February of this year showed normal LV func tion and no ischemia. His blood pressure during the study went up to 218 systolic and at rest he was in the 140-150 range. Over the years his blood pressure is not at goal and when he saw Dr. Elizabeth late February he was given a blood pressure cuff and asked to monitor his blood pressure on a daily basis. Today he returns and the log shows blood pressure ranging 120-140/70s with a pulse in the mid-70s. He is not aware of any chest discomfort or shortness of breath. He has been minimally physically active given the excessive heat but intends to resume his walking program around [facility]. He has dyslipidemia, which his now being managed by his primary care physician. He was recently switched from Zocor to Lipitor 40 mg and is scheduled to have a repeat lipid profile in several weeks. His LDL goal would be at least less than 100 if not less than 70 given his diabetic status and youngage. Today's vital signs include a blood pressure of 150/82 with a pulse of 72. After sitting for 10 minutes I rechecked his blood pressure and found it to be 140/80. Pulse is 72. His weight remains elevated at 272 pounds, which is down a mere 3 pounds from late February. Physical exam is within normal limits. Please see below. PAST HISTORY Past Medical Illnesses: GI reflux, hyperlipidemia, diabetes aiaxvxvw-tzh-gluagod dependent, hypertension, depression, sinusistis, cellulitis, finger, rt leg vericosities, metabolic syndrome, plantar fascitis, diabetes lbiajziv-mit-ggzuqea dependent, depression Infectious History: spider bite-cellulitis, shingles Surgeries/Procedures - General: L5 disk surgery, Nasal cyst surgery Cardiology Procedures-NonInvasive: stress echocardiogram 1997, stress echocardiogram January 2007, myocardial perfusion (Nuc) February 2011 Left Ventricular Ejection Fraction: EF 51 to 54% by nuclear study 02/23 Nuclear Results: no evidence of ischemia 02/23 FAMILY HISTORY: Father - CHF, old age and throat cancer; Mother - Age 86, Alzhiemers; Sister 1 - alive and well; CARDIAC RISK FACTORS Tobacco Abuse: negative; Family History of Heart Disease: negative; Hyperlipidemia: positive; Hypertension: positive; Diabetes Mellitus: positive; Prior History of Heart Disease: negative; Obesity:BMI<GT>30 (Obesity); Sedentary Life Style:negative; Age:positive ; LDL Goal <LT> 100 SOCIAL HISTORY Alcohol Use - drinks occasionally and 3/week; Smoking - does not smoke; Diet - regular diet and caffeine use-rare; Lifestyle - ; Exercise - treadmill, exercises regularly, walking and golf; Seat Belt Use - always; Occupation - retired; Sexual Activity - did not discuss sexual history; Residence - lives with in own home; Place of - [place]; REVIEW OF SYSTEMS GENERAL weight loss, 3 lbs INTEGUMENTARY denies any change in hair or nails, rashes, or skin lesions. EYES wears eye glasses/contact lenses, readers EARS, NOSE, THROAT, MOUTH partial hearing loss RESPIRATORY denies dyspnea, snoring, cough, wheezing or hemoptysis. CARDIOVASCULAR negative for palpitations, chest pain, orthopnea, PND, peripheral edema, syncope or claudication. ABDOMINAL denies ulcer disease, hematochezia or melena. MUSCULOSKELETAL denies any history of arthritic symptoms or back problems. NEUROLOGICAL denies any history of recurrent strokes, TIA, or seizure disorder. PSYCHIATRIC depression ENDOCRINE insulin dependent diabetes mellitus, hyperlipidemia HEMATOLOGICAL/IMMUNOLOGIC medication allergies PHYSICAL EXAMINATION VITAL SIGNS: Blood Pressure: 150/82Sitting, Left arm, large cuff Pulse- 72.00/min. Weight- 272.00 lbs. Height- 75.00 Temperature- .00 CONSTITUTIONAL cooperative, alert and oriented,well developed, well nourished, in no acute distress. SKIN warm and dry to touch, no apparent skin lesions, or masses noted., tanned HEAD normocephalic, atraumatic EYES Pupils equal and [...] extremities, no bruits auscultated. EXTREMITIES & BACK no deformities, clubbing, cyanosis, erythema or edema observed. There are no spinal abnormalities noted. Normal muscle strength and tone., varicose veins NEUROLOGICAL no gross motor deficits noted, affect appropriate, oriented to time, person and place. MEDICATIONS UPDATED/STARTED TODAY: ASSESSMENT AND PLAN: 1. Hypertension. Home blood pressure log shows he is at goal and it is elevated today. After 10 minutes of conversation he revealed that he ran out of his Cozaar two days ago and is going to black pickler a supply today. I suspect this is why the blood pressure is up in the office. He will continue monitoring his blood pressure on a daily basis and return in one week's time. 2. Diabetes mellitus. The patient reports last hemoglobin A1C is 8.6. He is due to see his hadoop application developer next week. 3. NormalLV function per stress thallium February 03, 2011. 4. Obesity with BMI of 33.9. From a cardiovascular standpoint, he is stable. Clearly we want to keep his blood pressure in the 130 systolic range and as noted above he has been off his Cozaar for two days. He will continue to monitor this and return in one week's time. Otherwise he is on appropriate medical therapy with aspirin, ARB and statin. He has no known history of coronary disease and a normal stress test this February. I asked him to discuss his weight and lifestyle with his primary care physician. I am concerned that he is significantly obese at a young age without a clear commitment to weight loss. At this point he is willing to make a few changes in his diet and resume his walking program. Certainly with a weight loss his diabetes, lipids and blood pressure would improve. When he returns in one year I think it would be reasonable to obtain and echocardiogram to assess for any LV function and we will see him sooner should the need arise. TODAYS ORDERS 1. Return Visit 1 week 2. F/U with Jonathan Jaimes MD 1 year 3. 2D, color flow, doppler 1 year Leora Malhotra N.P. documented in this encounter Plan of Treatment Not on file documented as of this encounter Visit Diagnoses Not on filedocumented in this encounter Care Teams Child'S Nurse Relationship Specialty Start Date End Date Salvador Hyatt MD [facility] [address] [place] [address] PCP - General Family Practice 07/18/15 04/25/18 Alberto Stanton MD [facility] [address] [place] [address] PCP - General Family Practice 04/26/18 Jonathan Jaimes MD [address] [facility] [address] [place] [id number] Assigned Heart and Vascular Provider 06/07/20 documented as of this encounter
--- OUTSIDE RECORDS SUMMARY | 2023-10-06 09:31 | XMS_ITS | Encounter Summary ---
Author Name Unknown Organization [facility] Address [address] [place] [address]. [place] [address] Care Team Providers Care Hose Stripper Name Role Phone Salvador Hyatt MD Primary Care Provider [phone] Alberto Stanton MD Primary Care Provider [phone] Jonathan Jaimes MD Unavailable [phone] Encounter Details Date Type Department Care Team (Late st Contact Info) Description 03/24/2012 Office Visit-[facility] [address] [place] [address] Jonathan Jaimes MD [address] [facility] [address] [place] [address] Social History Tobacco Use Types Packs/Day Years Used Date Smoking Tobacco: Never Alcohol Use Standard Drinks/Week Comments Yes 0 (1 standard drink = 0.6 oz pur e alcohol) 2/week Sex and Gender Information Value Date Recorded Sex Assigned at Not on file Gender Identity Not on file Sexual Orientation Not on file documented as of this encounter Progress Notes * Jonathan Jaimes MD - 03/25/2012 2:29 PM CDT Progress Note Created by: Jonathan Jaimes M.D. DATE: 03/24/2012 GILBERTO ALFONSO DATE OF : 1950 AGE: [age] years old Referring Physician: CHELSEY TRAORE Referring Clinic: [facility] CURRENT DIAGNOSES 1. - Hyperlipidemia, 272.4 2. - Hypertension, benign, 401.1 3. - Metabolic Syndrome, 277.9 4. Chest pain, unspecified, 786.50 ALLERGIES Amoxicillin Trihydrate, Gi discomfort penicillin G potassium, G.i. upset/diarrhea MEDICATIONS (prior to changes made today) 1. Amlodipine 5 mg Tablet, 1 p.o. daily 2. Aspirin 81 mg Tablet, 1 p.o. daily 3. Budeprion XL 150 mg Tablet Sustained Release 24 hr, 1 p.o. daily 4. Cozaar 100 mg Tablet, 1 p.o. daily 5. Crestor 40 mg tablet, 1 p.o. daily 6. glimepiride 4 mg Tablet, 1 p.o. twice daily 7. Hydrochlorothiazide 12.5 mg Tablet, 1 p.o. daily 8. Levemir 100 unit/mL Solution, Take as Directed 9. Metformin 1,000 mg Tablet, 1 p.o. twice daily 10. sertraline 100 mg tablet, 1 p.o. daily 11. Vitamin D3 1,000 unit tablet, 1 p.o. daily CHIEF COMPLAINTS Cardiac Assessment HISTORY OF PRESENT ILLNESS Gilberto Alfonso is a delightful gentleman. He is here for primary prevention. As far as we know adalidoes not have any fixed coronary disease. He does have diabetes along with metabolic syndrome, highcholesterol and blood pressure. He has since moved to a [place]. He told me he gained weight, but actually by our scale he is similar to what he has been in the past, but he has had fluctuations over the years that we have known him by as much as 30 pounds. He reports no significant chest pain, no undue shortness of breath, no dizziness or palpations. Today in the office we are getting blood pressures between 150 and 160 systolic with diastolics in the 80 to 90 range. He had a stress test last year. His resting blood pressure was normal, but he had hypertensive response to exercise with his systolic going up to 220. Last year we gave him a Cozi blood pressure machine and althoughhis blood pressure numbers were high in the office, when he took the machine home he was normal. Again we are getting high numbers. I have asked him to actually purchase a home blood pressure machineand to monitor it and to call either ourselves or Dr. Garcia if the systolics are higher than the mid 130s routinely and the diastolic higher than the mid 80s routinely given that he is also diabetic.Also to save money he is going to check with his pharmacist about Tribenzor 40//12.5. That may be more convenient and perhaps cheaper than what he is already taking, if so we will call in a prescription at that time. If it turns out his blood pressure is high we have the option of increasing the HCTZ to 25 or since that drug is not metabolically neutral in a diabetic, the other option would be to increase the amlodipine from 5 up to 10 or add Coreg or Bystolic as a beta glynn for blood pressure, which is also metabolically neutral as opposed to the other beta blockers. I do note that he adrián Wellbutrin for depression and that can raise blood pressure a little bit, but we should be able to work around that. His lipid numbers show good LDL, but the HDL and triglycerides are still a bit of an issue. I would suggest that he have them rechecked within the next six [address]. Harman who has been prescribing his medicine. If they need additional help from our office we wouldbe happy to comment. PAST HISTORY Past Medical Illnesses: GI reflux, hyperlipidemia, diabetes kvwebtcg-cgc-nrluwky dependent, hypertension, depression, sinusistis, cellulitis, finger, rt leg vericosities, metabolic syndrome, plantar fascitis, diabetes gudbzekg-bwj-jutrywp dependent, depression Infectious History: spider bite-cellulitis, shingles Surgeries/Procedures - General: L5 disk surgery, Nasal cyst surgery Cardiology Procedures-NonInvasive: stress echocardiogram 1997, stress echocardiogram January 2007, myocardial perfusion (Nuc) February 2011 Left Ventricular Ejection Fraction: EF 51 to 54% by nuclear study 02/23 Nuclear Results: no evidence of ischemia 02/23 EF 51 to 54% by nuclear study 02/23 FAMILY HISTORY: Father - CHF, old age and throat cancer; Mother - Age 86, Alzhiemers; Sister 1 - alive and well; SOCIAL HISTORY Alcohol Use - drinks occasionally and 3/week; Smoking - does not smoke; Diet - regular diet and caffeine use-rare; Lifestyle - ; Exercise - some exercise; Seat Belt Use - always; Occupation - retired; Sexual Activity - did not discuss sexual history; Residence - lives with in own home; Place of - [place]; REVIEW OF SYSTEMS GENERAL weight gain, 5.4 lbs since last visit, some fatigue INTEGUMENTARY denies any change in hair or nails, rashes, or skin lesions. EYES wears eye glasses/contact lenses, readers EARS, NOSE, THROAT, MOUTH partial hearing loss RESPIRATORY denies dyspnea, snoring, cough, wheezing or hemoptysis. CARDIOVASCULAR negative for palpitations, chest pain, orthopnea, PND, peripheral edema, syncope or claudication. ABDOMINAL denies ulcer disease, hematochezia or melena. MUSCULOSKELETAL pain, groin/hip area NEUROLOGICAL denies any history of recurrent strokes, TIA, or seizure disorder. PSYCHIATRIC depression ENDOCRINE non-insulin dependent diabetes mellitus, hyperlipidemia HEMATOLOGICAL/IMMUNOLOGIC medication allergies PHYSICAL EXAMINATION VITAL SIGNS: Blood Pressure: 164/82Sitting, Right arm, large cuff 150/90Retaken by large cuff Pulse- 84.00/min. Weight- 277.40 lbs. Height- 75 BMI Measurement: [facility] Error: [Microsoft][ODBC SQL Education And Training Manager Tetryl Wringer Operator][SQL Education And Training Manager]Divide by zero error encountered. - [id number] CONSTITUTIONAL cooperative, alert and oriented,well developed, well [...] time, person and place. MEDICATIONS UPDATED/STARTED TODAY: Crestor 40 mg tablet, 1 p.o. daily, #0 (Zero) sertraline 100 mg tablet, 1 p.o. daily, #0 (Zero) Vitamin D3 1,000 unit tablet, 1 p.o. daily, #0 (Zero) MEDICATIONS REFILLED/STOPPED TODAY: Lipitor 40 mg Tablet 1 p.o. daily #0 Substitution and Sertraline 100 mg Tablet 1-1/2 p.o. daily DIRECTED Dosage Decreased IMPRESSIONS/PLAN I will see the patient back in one year. I do not anticipate another stress test for at least two to three years minimum, but I would like to make sure his house is in order in terms of prevention and I will see him back next year to discuss that. This was a 25 minute visit, greater than 50% counseling. TODAYS ORDERS 1. F/U with Jonathan Jaimes MD 1 year Jonathan Jaimes M.D. documented in this encounter Plan of Treatment Not on file documented as of this encounter Visit Diagnoses Not on filedocumented in this encounter Care Teams Hose Stripper Relationship Specialty Start Date End Date Salvador Hyatt MD [facility] [address] [place] [address] PCP - General Family Practice 07/18/15 04/25/18 Alberto Stanton MD [facility] [address] [place] [address] PCP - General Family Practice 04/26/18 Jonathan Jaimes MD [address] [place] [phone] Assigned Heart and Vascular Provider 06/07/20 documented as of this encounter
--- OUTSIDE RECORDS SUMMARY | 2023-10-06 09:31 | XMS_ITS | Encounter Summary ---
Author Name Unknown Organization [place] Address [address] [place] [address] Care Team Providers Care Fountain Pen Turner Name Role Phone Salvador Hyatt MD Primary Care Provider [phone] Alberto Stanton MD Primary Care Provider [phone] Jonathan Jaimes MD Unavailable [phone] Encounter Details Date Type Department Care Team (Late st Contact Info) Description 09/06/[address] [phone] Samuel Garcia MD [address] [place] [address] DR NICK JIMENEZ [place] [id number] Emergency Room Encounter (Primary Dx) Social History Tobacco Use Types [...] as of this encounter Progress Notes * 09/06/2003 11:59 PM [id number] 00:00 Emergency Department Encounter-[facility] [place]) [Entered: 00:00 [facility] ([facility])] : 46 CHIEF COMPLAINT: Chest pain. HISTORY OF PRESENT ILLNESS: Gilberto Alfonso is a 53-year-old male who was sent to the Emergency Department by Dr. Garcia from the clinic. He came into the clinic complaining of chest pain episode since yesterday, sort of a central pressure. He denied any shortness of breath or sweating with the episodes. Currently he denies any chest pain, pressure or tightness. There doesn't seem to be any exacerbating or alleviating factors and no associated dyspnea or dyspnea on exertion and it does not radiate. The patient was transported to the Emergency Department by ambulance. Evidently there was some question about some changes on the EKG. Currently the patient is asymptomatic. He states he had several episodes throughout the day. They did not last long and then would resolve. REVIEW OF SYSTEMS: As in the history of present illness. All other systems are negative. PAST MEDICAL HISTORY: Hypertension, high cholesterol, diabetes. The patient had a stress test five years ago. FAMILY HISTORY: Dad at age 92 of congestive heart failure. Past surgery: Cyst removal from the nose and back surgery. SOCIAL HISTORY: Non smoker. No recent travel. MEDICATIONS: Glucophage, Tricortisol and Lipitor. ALLERGIES: Amoxicillin. PHYSICAL EXAM: Temperature is 96.8. Pulse is 75, blood pressure 152/97. HEENT: Head is atraumatic and normocephalic. NECK: Supple, nontender. CARDIOVASCULAR EXAM: Heart is regular rate and rhythm. No murmur. PULMONARY EXAM: Lungs clear to auscultation bilaterally. ABDOMEN: Soft, nontender. BACK: No costovertebral angle tenderness. EXTREMITIES: No lower extremity edema. Negative Florentino's sign. CHEST WALL EXAM: Nontender. VASCULAR EXAM: Radial pulses, dorsalis pedis pulses equal and full bilaterally. NEURO: Normal. EMERGENCY DEPARTMENT COURSE: I examined the patient. His chest pain symptoms were a little vague but did not sound typical for cardiac chest pain. However, I did not have an alternate explanation, therefore, I felt it warranted further workup. In addition, the patient had multiple risk factors including being overweight, history of hypertension, high cholesterol and diabetes. I, therefore, ordered workup, including Troponin, Myoglobin, CBC, chemistry panel, chest x-ray and EKG. Chest x-ray I interpreted as normal and EKG I interpreted as normal. Troponin was negative. I gave him aspirin 325 mg p.o. I then got him set up for a stress test. He went to the stress test in the afternoon and came back. The stress test I believe was read by Dr. Sandoval and called to me and was interpreted as negative. Therefore, I felt that the patient had a complete workup including rule out for myocardial infarction including a negative Troponin and a negative stress test and no further workup was needed. As the patient never really complained of shortness of breath at any time I did not feel this represented pulmonary embolus. Therefore, I did not do any further workup for that. DIAGNOSIS: Chest pain, uncertain etiology. DISCHARGE PLAN: I would like him to follow-up with his primary care physician within a week. He should return immediately for any symptoms of shortness of breath or if his symptoms worsen at all. [place]LLY [place] MD MT: Document: [id number] [place], [place] Name: GILBERTO ALFONSO EMERGENCY ROOM ENCOUNTER LCN: ER DSC: 09/06/2003 [place], [place] Name: GILBERTO ALFONSO MR#: : Admit Date: [id number] 1950 09/06/2003 Doctor: NELLY [place] MD EMERGENCY ROOM ENCOUNTER Electronically filed by Chantel Marrero 09/19/2003 11:27 AM documented in this encounter Plan of Treatment Not on file documented as of this encounter Visit Diagnoses Diagnosis Emergency Room Encounter- Primary documented in this encounter Care Teams Fountain Pen Turner Relationship Specialty Start Date End Date Salvador Hyatt MD [facility] [address] [place] [address] PCP - General Family Practice 07/18/15 04/25/18 Alberto Stanton MD [facility] [address] [place] [address] PCP - General Family Practice 04/26/18 Jonathan Jaimes MD [address] [place] [phone] Assigned Heart and Vascular Provider 06/07/20 documented as of this encounter
--- OUTSIDE RECORDS SUMMARY | 2023-10-06 09:31 | XMS_ITS | Encounter Summary ---
Author Name Unknown Organization [facility] Address [address] [place] [address]. [place] [address] Care Team Providers Care Counselor Education Professor Name Role Phone Salvador Hyatt MD Primary Care Provider [phone] Alberto Stanton MD Primary Care Provider [phone] Jonathan Jaimes MD Unavailable Encounter Details Date Type Department Care Team (Late st Contact Info) Description 05/28/2009 Office Visit-[facility] [address] [place] [address] Kelly Anglin APRN CNP NO INFO AVAILABLE 06/04/2022 Social History Tobacco Use Types Packs/Day Years Used Date Smoking Tobacco: Never Alcohol Use Standard Drinks/Week Comments Yes 0 (1 standard drink = 0.6 oz pur e alcohol) 2/week Sex and Gender Information Value Date Recorded Sex Assigned at Not on file Gender Identity Not on file Sexual Orientation Not on file documented as of this encounter Progress Notes * Kelly Anglin - 06/03/2009 8:21 AM CDT Progress Note Created by: Kelly Anglin, N.P. DATE: 05/28/2009 GILBERTO ALFONSO DATE OF : 1950 AGE: [age] years old Referring Physician: CHELSEY TRAORE Referring Clinic: [facility] CURRENT DIAGNOSES 1. - Metabolic Syndrome, 277.9 2. Chest pain, unspecified, 786.50 3. - Hyperlipidemia, 272.4 4. - Hypertension, benign, 401.1 ALLERGIES penicillin G potassium, G.i. upset/diarrhea MEDICATIONS (prior to changes made today) 1. Aspirin 81 mg, 1 p.o. q.d. 2. Levemir 100ml, Take as Directed 3. glimepiride 4mg, 1 p.o. daily 4. Metformin 1000mg, 1 p.o. twice daily 5. Simvastatin 80 mg, 1 p.o. daily 6. Cozaar 100 mg, 1 p.o. daily 7. Zoloft 100 mg, 1-1/2 p.o. q.d. 8. HCTZ 12.5 mg, 1 p.o. daily 9. Budeprion XL 150mg, 1 p.o. daily 10. Sertraline Hydrochloride 100 mg, 1-1/2 p.o. daily 11. Amlodipine 5 mg, 1 p.o. daily 12. Fenofibrate 160mg, 1 p.o. daily CHIEF COMPLAINTS Follow up, labs HISTORY OF PRESENT ILLNESS Gilberto Alfonso is a 59-year-old gentleman who had atypical chest pain and unremarkable stress testing. We see him for primary prevention. He is a diabetic. He saw Dr. Jaimes in February and his simvastatin was increased, we thought to 80 mg. However, he was already taking that dose. In addition, he also was on fenofibrate at 160 mg q.d., started in December by Dr. Garcia. He did not tell Dr. Jaimes this, nor did he call and let us know after that visit that he was already on 80 of simvastatin. Therefore, the lipids he had drawn today are drawn on simvastatin 80 mg q.d. which is the same doseas before. However, he is on fenofibrate which was added after his December labs by his primary doctor. His diabetes is being managed by Dr. Hernández and is still not at goal. He sees Dr. Hernández later this week. His blood pressure here is high, but on repeat is normal. At home it is in the 120s, and at Dr. Garcia's it is 120s as well. His lipids look remarkably improved. His HDL is up to 43, triglycerides are now normal at 136, and LDL is 81. Given his diabetes 70 would likely be preferable, but he has lost weight, is exercising, and would like to continue to try to do so. Therefore, I will leave his drugs the same and we will recheck him next summer. PAST HISTORY Past Medical Illnesses: GI reflux, hyperlipidemia, diabetes nrpntowr-igq-mbsxmja dependent, hypertension, depression, sinusistis, cellulitis, finger, rt leg vericosities, metabolic syndrome, plantar fascitis Infectious History: spider bite-cellulitis, shingles Surgeries/Procedures - General: L5 disk surgery, Nasal cyst surgery Cardiology Procedures-Noninvasive: stress echocardiogram 1997, stress echocardiogram January 2007 FAMILY HISTORY: Father - CHF, old age and throat cancer; Mother - Age 86, Alzhiemers; Sister 1 - alive and well; SOCIAL HISTORY Alcohol Use - drinks occasionally and 3/week; Smoking - does not smoke; Diet - regular diet and caffeine use-rare; Lifestyle - ; Exercise - treadmill; Seat Belt Use - always; 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 EYES wears eye glasses/contact lenses, readers EARS, NOSE, THROAT, MOUTH partial hearing loss RESPIRATORY denies dyspnea, cough, wheezing or hemoptysis., waking up congested CARDIOVASCULAR negative for chest pain, negative for palpitations, negative for dizziness ABDOMINAL denies ulcer disease, hematochezia or melena. MUSCULOSKELETAL joint pain right elbow(s) NEUROLOGICAL denies any history of recurrent strokes, TIA, or seizure disorder. PSYCHIATRIC depression, sleep disturbance ENDOCRINE hyperlipidemia, non-insulin dependent diabetes mellitus HEMATOLOGICAL/IMMUNOLOGIC denies any food allergies, seasonal allergies, bleeding disorders. PHYSICAL EXAMINATION VITAL SIGNS: Blood Pressure: 152/78 Sitting, Right arm, large cuff 128/70 Retaken by AVAYA ENGINEER/PA Pulse- 88.00/min. Weight- 277.00 lbs. Height- 75.00 Temperature- .00 CONSTITUTIONAL cooperative, [...] spinal abnormalities noted. Normal muscle strength and tone. NEUROLOGICAL no gross motor deficits noted, affect appropriate, oriented to time, person and place. MEDICATIONS UPDATED/STARTED TODAY: Cozaar 100 mg, 1 p.o. daily, DIRECTED HCTZ 12.5 mg, 1 p.o. daily, DIRECTED Budeprion XL 150mg, 1 p.o. daily, DIRECTED Sertraline Hydrochloride 100 mg, 1-1/2 p.o. daily, DIRECTED Amlodipine 5 mg, 1 p.o. daily, DIRECTED Fenofibrate 160mg, 1 p.o. daily, DIRECTED MEDICATIONS REFILLED/STOPPED TODAY: HCTZ 25 mg 1 p.o. daily 0 Dosage Decreased, Cozaar 25 mg Dose/instruction UNKNOWN 0 Dosage Increased and Amlodipine 10 mg 1 p.o. daily 0 Dosage Decreased IMPRESSIONS/PLAN Metabolic syndrome/diabetes. He is here for primary prevention. He is having no cardiac symptoms. His blood pressure is reasonable and his lipids are reasonable. We will repeat his lipids next summer, and he will see Dr. Jaimes back for followup. It has been a pleasure being involved in his care. TODAYS ORDERS 1. Lipid profile/ALT 1 day 2. F/U with Jonathan Jaimes MD february 2010 3. Lipid profile/ALT february 2010 Kelly Anglin, N.P. documented in this encounter Plan of Treatment Not on file documented as of this encounter Visit Diagnoses Not on filedocumented in this encounter Care Teams Counselor Education Professor Relationship Specialty Start Date End Date Salvador Hyatt MD [facility] [address] [place] [address] PCP - General Family Practice 07/18/15 04/25/18 Alberto Stanton MD [facility] [address] [place] [address] PCP - General Family Practice 04/26/18 Jonathan Jaimes MD [address] [place] [address] Assigned Heart and Vascular Provider 06/07/20 documented as of this encounter
--- OUTSIDE RECORDS SUMMARY | 2023-10-06 09:31 | XMS_ITS | Encounter Summary ---
Author Name Unknown Organization [facility] Address [address] [place] [address]. [place] [address] Care Team Providers Care Industrial Engineering Professor Name Role Phone Salvador Hyatt MD Primary Care Provider [phone] Alberto Stanton MD Primary Care Provider [phone] Jonathan Jaimes MD Unavailable [phone] Encounter Details Date Type Department Care Team (Late st Contact Info) Description 02/19/2010 Office Visit-[facility] [address] [place] [address] Jonathan Jaimes MD [address] [facility] [address] [place] [address] Social History Tobacco Use Types [...] Progress Notes * Jonathan Jaimes MD - 02/24/2010 1:39 PM CDT Progress Note Created by: Jonathan Jaimes M.D. DATE: 02/19/2010 GILBERTO ALFONSO DATE OF : 1950 AGE: [age] years old Referring Physician: CHELSEY TRAORE Referring Clinic: [facility] CURRENT DIAGNOSES 1. - Metabolic Syndrome, [...] 5 mg Tablet, 1 p.o. daily 5. Fenofibrate 160 mg Tablet, 1 p.o. daily 6. Cozaar 100 mg Tablet, 1 p.o. daily 7. Metformin 1,000 mg Tablet, 1 p.o. twice daily 8. Simvastatin 80 mg Tablet, 1 p.o. daily 9. Aspirin 81 mg Tablet, 1 p.o. daily 10. Novolog Mix 70-30 100 unit/mL (70-30) Solution, Take as Directed CHIEF COMPLAINTS Review lab results HISTORY OF PRESENT ILLNESS Gilberto Alfonso is a delightful 60-year-old gentleman. He initially was having chest pain and he does have cardiac risk factors including blood pressure, cholesterol and diabetes. We did do a stresstest a few years ago. It was really negative for ischemia although the image quality was a bit suboptimal. We worked on primary prevention. I am happy to report for the first time his cholesterol numbers are excellent. LDL is 60, HDL 40, triglyceride 114, total cholesterol 123 and ALT 27. He gets his regular blood work including electrolytes and hemoglobin A1C through Dr. Garcia's office. He also sees Dr. Carlos Hernández for his diabetes management. The patient shows excellent blood pressure control. I discussed with him his medication. I briefly brought up the ACCORD Trial. He is on both a statin and a fenofibrate. I told him that there is somequestion if the fenofibrate adds all that much to the statin but he is already on it and the numbers seem good so I am not going to make a change there. PAST HISTORY Past Medical Illnesses: GI reflux, hyperlipidemia, diabetes hcfrrkkt-wjh-veqojjw dependent, hypertension, depression, sinusistis, cellulitis, finger, rt leg vericosities, metabolic syndrome, plantar fascitis Infectious History: spider bite-cellulitis, shingles Surgeries/Procedures - General: L5 disk surgery, Nasal cyst surgery Cardiology Procedures-Noninvasive: stress echocardiogram 1997, stress echocardiogram January 2007 FAMILY HISTORY: Father - CHF, old age and throat cancer; Mother - Age 86, Alzhiemers; Sister 1 - alive and well; REVIEW OF SYSTEMS GENERAL weight loss, 11 lbs, feels well, no change in exercise tolerance. INTEGUMENTARY denies any change in hair or [...] ENDOCRINE hyperlipidemia, non-insulin dependent diabetes mellitus HEMATOLOGICAL/IMMUNOLOGIC medication allergies PHYSICAL EXAMINATION VITAL SIGNS: Blood Pressure: 134/80Sitting, Left arm, large cuff Pulse- 68.00/min. Weight- 266.00 lbs. Height- 75.00 Temperature- .00 CONSTITUTIONAL cooperative, [...] time, person and place. MEDICATIONS UPDATED/STARTED TODAY: Novolog Mix 70-30 100 unit/mL (70-30) Solution, Take as Directed, #0 MEDICATIONS REFILLED/STOPPED TODAY: Levemir 100 unit/mL Solution Take as Directed 0 Patient Request, Glimepiride 4 mg Tablet 1 p.o. daily 0 Patient Request and Zoloft 100 mg Tablet 1-1/2 p.o. daily 0 Patient Request IMPRESSIONS/PLAN From a cardiac standpoint, he is really not having much in the way of any chest pain now and he is feeling quite well. He has lost some weight. I am going to have him come back next year for a nuclear stress test. If the nuclear stress test is normal next year we may either switch him to every other year visits or on a PRN basis based on what Dr. Garcia likes. Total consult time 20 minutes, greater than 50% counseling to discuss the above issues regarding follow-up stress testing, the ACCORD Trial, etc. TODAYS ORDERS 1. Lipid profile/ALT Today 2. F/U with Jonathan Jaimes MD 1 year 3. Lipid profile/ALT 1 year 4. Treadmill Nuclear Study 1 year,MD able to convert to pharm stress if pt unable to exercise Jonathan Jaimes M.D. documented in this encounter Plan of Treatment Not on file documented as of this encounter Visit Diagnoses Not on filedocumented in this encounter Care Teams Industrial Engineering Professor Relationship Specialty Start Date End Date Salvador Hyatt MD [facility] [address] [place] [address] PCP - General Family Practice 07/18/15 04/25/18 Alberto Stanton MD [facility] [address] [place] [address] PCP - General Family Practice 04/26/18 Jonathan Jaimes MD [address] [facility] [address] [place] [address] Assigned Heart and Vascular Provider 06/07/20 documented as of this encounter
--- OUTSIDE RECORDS SUMMARY | 2023-10-06 09:31 | XMS_ITS | Encounter Summary ---
Author Name Unknown Organization [facility] Address [address] [place] [address]. [place] [address] Care Team Providers Care Batch And Furnace Operator Name Role Phone Salvador Hyatt MD Primary Care Provider [phone] Alberto Stanton MD Primary Care Provider [phone] Jonathan Jaimes MD Unavailable [phone] Encounter Details Date Type Department Care Team (Late st Contact Info) Description 01/31/2007 Office Visit-[facility] [address] [place] [address] Jonathan Jaimes MD [address] [facility] [address] [place] [address] Social History Tobacco Use Types [...] Progress Notes * Jonathan Jaimes MD - 02/01/2007 11:18 AM CDT Progress Note Created by: Jonathan Jaimes M.D. DATE: 01/31/2007 GILBERTO ALFONSO DATE OF : 1950 AGE: [age] years old Referring Physician: CHELSEY TRAORE Referring Clinic: [facility] CURRENT DIAGNOSES 1. Chest pain, unspecified, 786.50 2. Psych-Depression, 296.3 3. Diabetes Mellitus-NIDD/circ dis/control, 250.70 4. - Hyperlipidemia, 272.4 5. - Metabolic Syndrome, 277.9 6. - Hypertension, benign, 401.1 ALLERGIES penicillin G potassium, G.i. upset/diarrhea MEDICATIONS (prior to changes made today) 1. Byetta injection mg, Take as Directed 2. Aspirin 81 mg, 1 p.o. q.d. 3. Glucophage 1000 mg, Take as Directed 4. Tricor 145 Mg, 1 p.o. q.d. 5. Caduet 5mg/ 40mg, 1 p.o. q.d. 6. Avalide 12.5 Mg-300 Mg, 1 p.o. q.d. 7. Zoloft 100 mg, 1-1/2 p.o. q.d. CHIEF COMPLAINTS Review echo HISTORY OF PRESENT ILLNESS Gilberto Alfonso is a delightful 57-year-old male who was referred in a number of years ago originally for atypical chest pain; he is now primary cardiac prevention. I understand his diabetes controlhas slipped a little bit and he thinks his hemoglobin A1c is in the 8% range. He had hyperlipidemiaand hypertension. He reports excellent cholesterol numbers with his primary care doctor. His blood pressure shows good control. We reviewed his stress echocardiogram. Although his exercise time was down a bit, the stress echo itself was normal and he had normal vital signs. His exam is unremarkable. PAST HISTORY Past Medical Illnesses: GI reflux, hyperlipidemia, diabetes hpgmdsbq-buw-jabmdbg dependent, hypertension, depression, sinusistis, cellulitis, finger, rt leg vericosities, metabolic syndrome, plantar fascitis, HTN Infectious Diseases: spider bite-cellulitis Surgical Procedures: L5 disk surgery, Nasal cyst surgery Cardiology [...] lives with and children; Place of - [place]; Job Description - 20; REVIEW OF SYSTEMS GENERAL feels well INTEGUMENTARY denies any change in hair or nails, rashes, or skin lesions. EYES wears eye glasses/contact lenses, readers EARS, NOSE, THROAT, MOUTH partial hearing loss RESPIRATORY denies dyspnea, cough, wheezing or hemoptysis., waking up congested CARDIOVASCULAR negative for chest pain, negative for palpitations, negative for dizziness ABDOMINAL denies ulcer disease, hematochezia or melena. MUSCULOSKELETAL denies any history of venous insufficiency, arthritic symptoms or back problems. NEUROLOGICAL denies any history of recurrent strokes, TIA, or seizure disorder. PSYCHIATRIC depression, sleep disturbance ENDOCRINE hyperlipidemia, non-insulin dependent diabetes mellitus HEMATOLOGICAL/IMMUNOLOGIC denies any food allergies, seasonal allergies, bleeding disorders. PHYSICAL EXAMINATION VITAL SIGNS: Blood Pressure: 130/70 Sitting, Left arm, large cuff Pulse- 60.00/min. Weight- 275.00 lbs. Height- 75.00 Temperature- .00 CONSTITUTIONAL cooperative, [...] time, person and place. MEDICATIONS UPDATED/STARTED TODAY: IMPRESSIONS/PLAN Given that he is doing so well with prevention, I am going to recommend that I see him in two yearsand ask him to bring forward any lab tests he has at that point. I have not made any other changes. TODAYS ORDERS 1. F/U with Jonathan Jaimes MD 2 years -Summer 2008 Jonathan Jaimes M.D. documented in this encounter Plan of Treatment Not on file documented as of this encounter Visit Diagnoses Not on filedocumented in this encounter Care Teams Batch And Furnace Operator Relationship Specialty Start Date End Date Salvador Hyatt MD [facility] [address] [place] [address] PCP - General [facility] 07/18/15 04/25/18 Alberto Stanton MD [facility] [address] [place] [address] PCP - General [facility] 04/26/18 Joanthan Jaimes MD [address] [place] [address] Assigned Heart and Vascular Provider 06/07/20 documented as of this encounter
--- OUTSIDE RECORDS SUMMARY | 2023-10-06 09:31 | XMS_ITS | Encounter Summary ---
Author Name Unknown Organization [facility] Address [address] [place] [address]. [place] [address] Care Team Providers Care Hot Box Spotter Name Role Phone Salvador Hyatt MD Primary Care Provider [phone] Alberto Stanton MD Primary Care Provider [phone] Jonathan Jaimes MD Unavailable [phone] Encounter Details Date Type Department Care Team (Late st Contact Info) Description 04/08/2004 Office Visit-[facility] [id number] [place] [address] Unknown, MD Naomy Social History [...] Progress Notes * Unknown, MD Naomy - 04/15/2004 11:19 AM CDT Progress Note Created by: Fidelina Brand PA-C DATE: 04/08/2004 [id number] NEETA ALFONSO DATE OF : 1950 AGE: [age] years old Referring Physician: CHELSEY CHIN Referring Clinic: [facility] CURRENT DIAGNOSES 1. - Metabolic Syndrome, 277.9 2. - Hypertension, benign, 401.1 3. Diabetes Mellitus-NIDD/circ dis/control, 250.70 4. - Hyperlipidemia, 272.4 ALLERGIES penicillin G potassium, G.i. upset/diarrhea MEDICATIONS 1. Amaryl 2 Mg, 1 p.o. b.i.d. 2. Avalide 12.5 mg-150 mg, 2 p.o. q.d. 3. Norvasc 5 mg, 1 p.o. q.d. 4. Lipitor 40 Mg, 1 p.o. q.d. 5. Aspirin 81 mg, 1 p.o. q.d. 6. Tricor 160mg, 1 p.o. q.d. 7. Zoloft 100 mg, 1-1/2 p.o. q.d. CHIEF COMPLAINTS Followup of - Hypertension, benign HISTORY OF PRESENT ILLNESS: Mr. Alfonso is a delightful 54-year-old gentleman who presents to [facility] today for a follow up visit regarding his hypertension. As you recall, this patient was recently seen in our clinic with elevated blood pressure and his Avapro was switched to Avalide 300/12.5. This patient does also have a history of metabolic syndrome, hyperlipidemia, and diabetes mellitus type 2. He seems to be tolerating the Avalide without any difficulty. He currently denies any chest pain or pressure, lightheadedness, dizziness, syncope, near-syncope, dyspnea, orthopnea,PND, or peripheral edema. He has checked his blood pressure a couple of times outside of the clinicand it has remained elevated. All other review of systems, past medical history, and physical exam findings are noted below. PAST HISTORY Past Medical Illnesses: GI reflux, hyperlipidemia, diabetes evucfwtx-pne-xtrmbuy dependent, hypertension, depression, sinusistis, cellulitis, finger, rt leg vericosities, metabolic syndrome, plantar fascitis Infectious Diseases: spider bite-cellulitis Surgical Procedures: L5 disk surgery, Nasal cyst surgery Cardiology Procedures-Noninvasive: stress echocardiogram 1997 FAMILY HISTORY: Father - CHF, old age and throat cancer; Mother - Age 86, Alzhiemers; Sister 1 - alive and well; CARDIAC RISK FACTORS Tobacco Abuse: negative; Family History of Heart Disease: negative; Hyperlipidemia: positive; Hypertension: positive; Diabetes Mellitus: positive; Prior History of Heart Disease: negative; Obesity:BMI30 (Obesity); Sedentary Life Style:negative; Age:positive SOCIAL HISTORY Alcohol Use - drinks occasionally and 3/week; Smoking - does not smoke; Diet - regular diet and caffeine use-rare; Lifestyle - ; Exercise - treadmill; Seat Belt Use - always; 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 INTEGUMENTARY denies any change in hair or nails, rashes, or skin lesions. EYES wears eye glasses/contact lenses, readers EARS, NOSE, THROAT, MOUTH partial hearing loss RESPIRATORY denies dyspnea, cough, wheezing or hemoptysis. CARDIOVASCULAR negative for palpitations, chest pain, orthopnea, PND, peripheral edema, syncope or claudication. ABDOMINAL denies ulcer disease, hematochezia or melena. MUSCULOSKELETAL denies any history of venous insufficiency, arthritic symptoms or back problems. NEUROLOGICAL denies any history of recurrent strokes, TIA, or seizure disorder. PSYCHIATRIC depression ENDOCRINE hyperlipidemia, non-insulin dependent diabetes mellitus HEMATOLOGICAL/IMMUNOLOGIC denies any food allergies, seasonal allergies, bleeding disorders. PHYSICAL EXAMINATION VITAL SIGNS: Blood Pressure: 154/96 Sitting, Left arm, large cuff 158/94 taken by pa Pulse- 76.00/min. Weight- 282.40 lbs. Height- 75.00 Temperature- .00 CONSTITUTIONAL cooperative, [...] and place. MEDICATIONS UPDATED TODAY: Amaryl 2 Mg, 1 p.o. b.i.d., DIRECTED Avalide 12.5 mg-150 mg, 2 p.o. q.d., #60 Norvasc 5 mg, 1 p.o. q.d., samples MEDICATION STOPPED TODAY: Glucophage 1000 mg IMPRESSIONS/PLAN Hypertension. Today the patient's blood pressure remains elevated at 158/92. At this time I am going to increase his Avalide to 25/300, as well as add in Norvasc 5 mg q.d. I will plan on seeing the patient back in approximately one month, or sooner should he have problems. If he tolerates the Norvasc and his blood pressure is within goal we certainly could switch him to Caduet for the combinationof Lipitor and Norvasc. I have reviewed with him the possibility of a side effect of ankle edema. Iwould like him to call if he should have problems. We have also checked a BMP today and the results are pending, will plan to recheck BMP at next OV. TODAYS ORDERS 1. Return Visit with fidelina brand 1 month MENA Omalley documented in this encounter Plan of Treatment Not on file documented as of this encounter Visit Diagnoses Not on filedocumented in this encounter Care Teams Hot Box Spotter Relationship Specialty Start Date End Date Salvador Hyatt MD [facility] [address] [place] [address] PCP - General Family Practice 07/18/15 04/25/18 Alberto Stanton MD [facility] [address] [place] [address] PCP - General Family Practice 04/26/18 Jonathan Jaimes MD [address] [place] [id number] Assigned Heart and Vascular Provider 06/07/20 documented as of this encounter
--- OUTSIDE RECORDS SUMMARY | 2023-10-06 09:31 | XMS_ITS | Encounter Summary ---
Author Name Unknown Organization [facility] Address [address] [place] [address]. [place] [address] Care Team Providers Care Trust Evaluation Supervisor Name Role Phone Salvador Hyatt MD Primary Care Provider [phone] Alberto Stanton MD Primary Care Provider [phone] Jonathan Jaimes MD Unavailable [phone] Encounter Details Date Type Department Care Team (Late st Contact Info) Description 02/04/2006 Office Visit-[facility] [id number] [place] [address] Unknown, MD Naomy Social History [...] Progress Notes * Unknown, MD Naomy - 02/12/2006 9:00 AM CDT Progress Note Created by: Jonathan Jaimes M.D. DATE: 02/04/2006 GILBERTO ALFONSO DATE OF : 1950 AGE: [age] years old Referring Physician: CHELSEY CHIN Referring Clinic: [facility] CURRENT DIAGNOSES 1. - Metabolic Syndrome, 277.9 2. - Hypertension, benign, 401.1 3. - Hyperlipidemia, 272.4 4. Chest pain, unspecified, 786.50 5. Psych-Depression, 296.3 6. Diabetes Mellitus-NIDD/circ dis/control, 250.70 ALLERGIES penicillin G potassium, G.i. upset/diarrhea MEDICATIONS (including any changes made today) 1. Caduet 5mg/ 40mg, 1 p.o. q.d. 2. Byetta injection mg, Take as Directed 3. Avalide 12.5 Mg-300 Mg, 1 p.o. q.d. 4. Aspirin 81 mg, 1 p.o. q.d. 5. Glucophage 1000 mg, Take as Directed 6. Tricor 145 Mg, 1 p.o. q.d. 7. Zoloft 100 mg, 1-1/2 p.o. q.d. CHIEF COMPLAINTS F/u labs and Followup of - Hyperlipidemia HISTORY OF PRESENT ILLNESS Gilberto Alfonso returns for followup for primary prevention. He has no known coronary disease. He has had intermittent chest pain. He had a negative stress echo in 2003. He has metabolic syndrome, diabetes, cholesterol, and blood pressure. Dr. Hernández switched him from TDZ medicine to Byetta and he has lost some weight. I have actually had a discussion with the patient about that last time. His blood pressure shows good control. His lipids from the primary care doctor's office show that his HDL is 40, LDL is in the mid to high 70s with a goal of 70, and his triglycerides are certainly betterbut still up at 199. Symptomwise, the patient feels very well. He is exercising, golfing without dif ficulty. No active chest pain, only occasional fleeting pains which are unlikely to be angina. PAST HISTORY Past Medical Illnesses: GI reflux, hyperlipidemia, diabetes idsqgtfi-yyw-uafluhr dependent, hypertension, depression, sinusistis, cellulitis, finger, rt leg vericosities, metabolic syndrome, plantar fascitis, HTN Infectious Diseases: spider bite-cellulitis Surgical Procedures: L5 disk surgery, Nasal cyst surgery Cardiology Procedures-Noninvasive: stress echocardiogram 1997 SOCIAL HISTORY Alcohol Use - drinks occasionally [...] 20; REVIEW OF SYSTEMS GENERAL weight loss, 16# INTEGUMENTARY denies any change in hair or [...] disorders. PHYSICAL EXAMINATION VITAL SIGNS: Blood Pressure: 130/74 Sitting, Right arm, large cuff Pulse- 76.00/min. Weight- 275.00 lbs. Height- 75.00 Temperature- .00 [...] time, person and place. MEDICATIONS UPDATED TODAY: Byetta injection mg, Take as Directed, 0 MEDICATION STOPPED TODAY: Avandia 2 mg IMPRESSIONS/PLAN I recommended that he try adding fish oil. I gave him directions how to take it, going up from one tablet a day up to three if his stomach tolerates. He can get followup lipids with his primary care doctor. At this point he is so close to goal with regard to HDL and LDL I would not change his Lipitor dose, but certainly a potential option is to go to Caduet . I am going to do a stress echo next year since that will more than three years from the last time we looked. I am going to do a stress echo next year since that will be more than three years from the last time we looked. We talked briefly about CT angiogram, but I do not think that is necessary. I answered his questions about his me dications. We will see the patient back in one year. Total consult time: 25 minutes, greater than 50% counseling. TODAYS ORDERS 1. Return Visit 1 year 2. Treadmill Stress Echo 1 year Jonathan Jaimes M.D. cc:Elmo Hernández M.D. documented in this encounter Plan of Treatment Not on file documented as of this encounter Visit Diagnoses Not on filedocumented in this encounter Care Teams Trust Evaluation Supervisor Relationship Specialty Start Date End Date Salvador Hyatt MD [facility] [address] [place] [address] PCP - General Family Practice 07/18/15 04/25/18 Alberto Stanton MD [facility] [address] [place] [address] PCP - General Family Practice 04/26/18 Jonathan Jaimes MD [address] [facility] [address] [place] [id number] Assigned Heart and Vascular Provider 06/07/20 documented as of this encounter
--- OUTSIDE RECORDS SUMMARY | 2023-10-06 09:31 | XMS_ITS | Encounter Summary ---
Author Name Unknown Organization [facility] Address [address] [place] [address]. [place] [address] Care Team Providers Care Occ Ther Name Role Phone Salvador Hyatt MD Primary Care Provider Alberto Stanton MD Primary Care Provider [phone] Jonathan Jaimes MD Unavailable [phone] Encounter Details Date Type Department Care Team (Late st Contact Info) Description 02/03/2005 Office Visit-[facility] [id number] [place] [address] Unknown, MD Naomy Social History [...] Progress Notes * Unknown, MD Naomy - 01/27/2006 10:55 AM CDT Progress Note Created by: Jonathan Jaimes M.D. DATE: 02/03/2005 NEETA ALFONSO DATE OF : 1950 AGE: [age] years old Referring Physician: CHELSEY CHIN Referring Clinic: [facility] CURRENT DIAGNOSES 1. - Metabolic Syndrome, 277.9 2. - Hypertension, benign, 401.1 3. Diabetes Mellitus-NIDD/circ dis/control, 250.70 4. - Hyperlipidemia, 272.4 ALLERGIES penicillin G potassium, G.i. upset/diarrhea MEDICATIONS (including any changes made today) 1. Amaryl 2 Mg, 1 p.o. b.i.d. 2. Aspirin 81 mg, 1 p.o. q.d. 3. Glucophage 1000 mg, Take as Directed 4. Avandia 2 mg, Take as Directed 5. Avalide 12.5 mg-300 mg, 1 p.o. q.d. 6. Zoloft 100 mg, 1-1/2 p.o. q.d. 7. Tricor 145 mg, 1 p.o. q.d. 8. Caduet 5mg/ 40mg, 1 p.o. q.d. CHIEF COMPLAINTS Followup of - Hyperlipidemia HISTORY OF PRESENT ILLNESS Neeta Alfonso returns for follow up of his metabolic syndrome and primary prevention. He did have some chest pain more than a year ago. His stress test was negative. He has not had any further chest pain. No palpitations, dizziness, or syncope. We are following him mostly for blood pressure and cholesterol management, although he also sees his medical logistics specialist. His blood pressure today is 130 systolic, diastolic in the 80s. This is a far improvement from when we first met him, when his systolics were over 150 and his diastolics were over 100. He did have a lipid profile done a couple of months ago and it is markedly improved. His HDL which was a low of 28 is up to 40. His LDL is down to 86. His triglycerides are still running a bit high in the 170s, but this is a far improvement from the 380s that they were before. He tells me his hemoglobin A1c is in the mid to high 7% range, and we did discuss the fact that with better diabetes control the lipids will improve, especially the triglycerides. We have again talked about weight management. He is on Avandia and has gotten weight gain from that and is upset. He is going to be talking to Dr. Hernández about that. I did tell him it is common for Avandia to increase weight and cause some ankle swelling, but metabolically speaking it is ideal for lipid and coronaries. I am not going to change any of his heart medication. I would not recommend adding niacin to the medicines he is on already because he already has some diabetes controlissue. PAST HISTORY Past Medical Illnesses: GI reflux, hyperlipidemia, diabetes qumjaacq-dsn-gdlvkys dependent, hypertension, depression, sinusistis, cellulitis, finger, rt [...] lives with and children; Place of - [place]; Job Description - 20; REVIEW OF SYSTEMS GENERAL weight gain, 9#, -avandia INTEGUMENTARY denies any change in hair or [...] disorders. PHYSICAL EXAMINATION VITAL SIGNS: Blood Pressure: 138/80 Sitting, Left arm, large cuff 132/80 Retaken by Pulse- 80.00/min. Weight- 291.00 lbs. Height- 75.00 Temperature- .00 CONSTITUTIONAL cooperative, [...] time, person and place. MEDICATIONS UPDATED TODAY: Glucophage 1000 mg, Take as Directed, DIRECTED Avandia 2 mg, Take as Directed, DIRECTED Avalide 12.5 mg-300 mg, 1 p.o. q.d., #60 IMPRESSIONS/PLAN Overall I believe the patient is doing quite well. He had a number of questions about his medicines. I went through each of them individually. I do not think he needs a stress test for at least two years. We talked briefly about CT calcium score and CT angiogram. Since he is really on maximal medical therapy there is no reason to look for plaque. I would only need to know about severe plaque and a stress test will likely pick that up in the next two years. The patient will come back this fall for a cholesterol check, and I will see him back in a year. Total consult time: 30 minutes, greater than 50% counseling. cc:Ernie Lance M.D. TODAYS ORDERS 1. Return Visit 1 year Jonathan Jaimes M.D. Electronically signed by [facility], [employer] Data Conversion at 12/29/2013 6:09 AM CDT documented in this encounter Plan of Treatment Not on file documented as of this encounter Visit Diagnoses Not on filedocumented in this encounter Care Teams Occ Ther Relationship Specialty Start Date End Date Salvador Hyatt MD [facility] [address] [place] [address] PCP - General Family Practice 07/18/15 04/25/18 Alberto Stanton MD [facility] [address] [place] [address] PCP - General Family Practice 04/26/18 Jonathan Jaimes MD [address] [place] [phone] Assigned Heart and Vascular Provider 06/07/20 documented as of this encounter
--- OUTSIDE RECORDS SUMMARY | 2023-10-06 09:31 | XMS_ITS | Encounter Summary ---
Author Name Unknown Organization [facility] Address [address] [place] [address]. [place] [address] Care Team Providers Care Waffle Machine Operator Name Role Phone Salvador Hyatt MD Primary Care Provider [phone] Alberto Stanton MD Primary Care Provider [phone] Jonathan Jaimes MD Unavailable [phone] Encounter Details Date Type Department Care Team (Late st Contact Info) Description 02/22/2004 Office Visit-[facility] [id number] [place] [address] Unknown, MD Naomy Social History [...] Progress Notes * Unknown, MD Naomy - 02/22/2004 10:13 AM CDT Progress Note Created by: Jonathan Jaimes M.D. DATE: 02/22/2004 GILBERTO ALFONSO DATE OF : 1950 AGE: [age] years old Referring Physician: CHELSEY CHIN Referring Clinic: [facility] CURRENT DIAGNOSES 1. - Hyperlipidemia, 272.4 [...] of - Hyperlipidemia HISTORY OF PRESENT ILLNESS PAST HISTORY Past Medical Illnesses: GI reflux, hyperlipidemia, diabetes slxqwzsg-jve-tbmrvsb dependent, hypertension, depression, sinusistis, cellulitis, finger, rt [...] lives with and children; Place of - [place]; Job Description - 20; REVIEW OF SYSTEMS GENERAL weight gain, 11 lbs INTEGUMENTARY denies any change in hair [...] TIA, or seizure disorder. PSYCHIATRIC depression ENDOCRINE denies any history of weight change, heat/cold intolerance, polydipsia, or polyuria HEMATOLOGICAL/IMMUNOLOGIC denies any food allergies, seasonal allergies, bleeding disorders. PHYSICAL EXAMINATION VITAL SIGNS: Blood Pressure: 160/100 [...] MEDICATION STOPPED TODAY: Avapro 150 Mg IMPRESSIONS/PLAN (Enter Doctor Dictated Impressions Here) TODAYS ORDERS 1. Basic Metabolic Panel 2 weeks 2. F/U with David Omalley M.D. documented in this encounter Plan of Treatment Not on file documented as of this encounter Visit Diagnoses Not on filedocumented in this encounter Care Teams Waffle Machine Operator Relationship Specialty Start Date End Date Salvador Hyatt MD [facility] [address] [place] [address] PCP - General Family Practice 07/18/15 04/25/18 Alberto Stanton MD [facility] [address] [place] [address] PCP - General Family Practice 04/26/18 Jonathan Jaimes MD [address] [address] [address] [place] [phone] Assigned Heart and Vascular Provider 06/07/20 documented as of this encounter
--- OUTSIDE RECORDS SUMMARY | 2023-10-06 09:31 | XMS_ITS | Encounter Summary ---
Author Name Unknown Organization [facility] Address [address] [place] [address]. [place] [address] Care Team Providers Care Storage Architect Name Role Phone Salvador Hyatt MD Primary Care Provider [phone] Alberto Stanton MD Primary Care Provider [phone] Jonathan Jaimes MD Unavailable [phone] Encounter Details Date Type Department Care Team (Late st Contact Info) Description 05/25/2013 Office Visit-[facility] [address] [place] [address] Jonathan Jaimes MD [address] [facility] [address] [place] [address] Social History Tobacco Use Types Packs/Day Years Used Date Smoking Tobacco: Never Smokeless Tobacco: Never Alcohol Use Standard Drinks/Week Comments Yes 0 (1 standard drink = 0.6 oz pur e alcohol) 5 Sex and Gender Information Value Date Recorded Sex Assigned at Not on file Gender Identity Not on file Sexual Orientation Not on file documented as of this encounter Progress Notes * Jonathan Jaimes MD - 05/29/2013 10:17 AM CDT Progress Note Created by: Jonathan Jaimes M.D. DATE: 05/25/2013 GILBERTO ALFONSO DATE OF : 1950 AGE: [age] years old Referring Physician: CHELSEY GARCIA Referring Clinic: [facility] CURRENT DIAGNOSES 1. - Hyperlipidemia, 272.4 2. - Hypertension, benign, 401.1 3. - Metabolic Syndrome, 277.9 4. Chest pain, unspecified, 786.50 ALLERGIES Amoxicillin Trihydrate, Gi discomfort penicillin G potassium, G.i. upset/diarrhea MEDICATIONS (prior to changes made today) 1. amlodipine 10 mg tablet, 1 p.o. daily 2. Aspirin 81 mg Tablet, 1 p.o. daily 3. Cozaar 100 mg tablet, 1 p.o. daily 4. Crestor 40 mg tablet, 1 p.o. daily 5. hydrochlorothiazide 12.5 mg tablet, 1 p.o. daily 6. Levemir 100 unit/mL Solution, Take as Directed 7. Metformin 1,000 mg Tablet, 1 p.o. twice daily 8. sertraline 100 mg tablet, 1 p.o. daily 9. Vitamin D3 1,000 unit tablet, 1 p.o. daily CHIEF COMPLAINTS HISTORY OF PRESENT ILLNESS <FONT FACE=SYSTEM>Thank you for referring back Gilberto Alfonso. As you know, he is a most pleasant 63-year-old gentleman. He has metabolic syndrome with diabetes. Fortunately, he does not have any significant coronary artery disease. He continues to feel well. He tells me he has an appointment tomorrow with Dr. Hernández. His hemoglobin A1C was over 11%, and they are working on that. His weight is similar or actually down a little bit from last year. His blood pressure is running high, although he tells me his blood pressure is always normal at 's office. It is high here today. It was high with Dr. Garcia and it is high when he goes to the pharmacist and gets it checked. I am going to increase his amlodipine from 5 mg up to 10 mg. He is also going to check with his pharmacist if it would be cheaper to go to [facility] .12/23. I told him since I am increasing amlodipine, he can take 10 mg a day. He will see Dr. Hernández tomorrow, but that is probably too soon to tell. He will check his blood pressure at home. We are shooting for systolics somewhere between 110 and the mid 130s, a diastolic of 70 to mid 80s, and he will call us if he is not at that goal. <FONT FACE=System> PAST HISTORY Past Medical Illnesses: GI reflux, hyperlipidemia, diabetes fcsmnbns-xcx-ntohrvh dependent, hypertension, depression, sinusistis, cellulitis, finger, rt leg vericosities, metabolic syndrome, plantar fascitis, diabetes przgesit-ndw-uvroeky dependent, depression Infectious History: spider bite-cellulitis, shingles [...] caffeine use-rare; Lifestyle - ; Exercise - exercises regularly; Seat Belt Use - always; Occupation - retired; Sexual Activity - did not discuss sexual history; Residence - lives with in own home; Place of - [place]; REVIEW OF SYSTEMS GENERAL feels well, no change in exercise tolerance., weight loss, 3 lbs since last visit INTEGUMENTARY denies any change in hair or [...] recurrent strokes, TIA, or seizure disorder. PSYCHIATRIC denies any history of depression, substance abuse or change in cognitive functions. ENDOCRINE non-insulin dependent diabetes mellitus, hyperlipidemia HEMATOLOGICAL/IMMUNOLOGIC medication allergies IMPRESSION/PLAN <FONT FACE=SYSTEM>We reviewed the lipids from the outside clinic. His LDL is excellent. He,unfortunately, still has metabolic parameters with low HDL and high triglyceride. I think with a hemoglobin A1C of 11%, more effort should be put into that and his cholesterol numbers may get better on that account. I do not think he needs a stress test for at least a couple of more years. He will n eed electrolytes and lipids at least once a year, and I thank the doctors for forwarding them to us. This was a 30-minute visit, greater than 50% counseling. <FONT FACE=System> TODAYS ORDERS 1. F/U with Jonathan Jaimes MD 1 year Jonathan Jaimes M.D. documented in this encounter Plan of Treatment Not on file documented as of this encounter Visit Diagnoses Not on filedocumented in this encounter Care Teams Storage Architect Relationship Specialty Start Date End Date Salvador Hyatt MD [facility] [address] [place] [address] PCP - General Family Practice 07/18/15 04/25/18 Alberto Stanton MD [facility] [address] [place] [address] PCP - General Family Practice 04/26/18 Jonathan Jaimes MD [address] [place] [phone] Assigned Heart and Vascular Provider 06/07/20 documented as of this encounter
--- OUTSIDE RECORDS SUMMARY | 2023-10-06 09:31 | XMS_ITS | Encounter Summary ---
Author Name Unknown Organization [place] Address [address] [place] [address]. [place] [address] Care Team Providers Care Residential Support Specialist Name Role Phone Salvador Hyatt MD Primary Care Provider [phone] Alberto Stanton MD Primary Care Provider [phone] Jonathan Jaimes MD Unavailable [phone] Encounter Details Date Type Department Care Team (Late st Contact Info) Description 03/12/2011 Office Visit-[facility] [address] [place] [address] Jonathan Jaimes MD [address] [facility] [address] [place] [address] Social History Tobacco Use Types [...] Progress Notes * Jonathan Jaimes MD - 03/19/2011 3:47 PM CDT Progress Note Created by: Jonathan Jaimes M.D. DATE: 03/12/2011 NEETA ALFONSO DATE OF : 1950 AGE: [age] years old Referring Physician: CHELSEY TRAORE Referring Clinic: [facility] CURRENT DIAGNOSES 1. - Metabolic Syndrome, [...] Tablet, 1 p.o. twice daily CHIEF COMPLAINTS Review lab results and Review test results HISTORY OF PRESENT ILLNESS I had the pleasure of following up on Neeta Alfonso. As you know, he is a delightful 85-vxzp[age]pmadhiht[age]lu who is here for primary prevention although he had chest pain and it was felt not to be cardiac. I am happy to report his nuclear stress test was reviewed today. It shows no ischemia and ejection fraction is 54%. One issue we noted was that although his blood pressure at rest was fine, when he exercised he went up to 218 systolic, that is certainly on the high end. Today, however, I am getting repeated blood pressures between 140-150 systolic. As it turns out he did not take any of his blood pressure pills this morning, which is probably the issue but when I look back through our chart over the years, quite often his blood pressure has not been at goal. When he saw Dr. Garcia in the office last time his blood pressure was at goal. The next issue is we had drawn lipids. It is not clear to me who is really managing his lipids and I would actually prefer that Dr. Garcia probably do it since he has been really running the show. It turns out the patient was on a fenofibrate and Zocor [address] Garcia astutely did change that because of the issue about the Zocor 80. Personally I felt that patient's who had been on Zocor 80 and have no problems do not need to change and in fact the FDA did leave that as a potential. The reason Ibring this up is that the patient was switched from fenofibrate and Zocor to Lipitor 40. However the patient tells me he has gotten a stomachache on the Lipitor and has not been taking it regularly. Therefore no surprise his cholesterol numbers today are the worst that we have seen. Triglycerides are 256, total cholesterol 209, HDL 45, LDL 113, KIZZY 31. His exam is otherwise unremarkable. The patient reports no cardiac symptoms, chest pain, etc. I would propose the following: I have taken the liberty of giving him a [employer] blood pressure machine from our office. We will have him come back next week and we will review his blood pressure numbers. If it turns out his blood pressure is not at goal, I would probably add a beta-glynn such as Coreg, that will not only lower his blood pressure but will help with the exercise induced hypertension. Using Coreg or Bystolic is metabolically neutral in a patient who already has a problem with diabetes management and hemoglobin A1C that is over 9%. With regard to the cholesterol, I would ask Dr. Garcia to take command. I told the patient if he cantolerate I would probably use up the Lipitor since it is so expensive and perhaps he can switch to Crestor 20. I think rather than having both myself and Dr. Hernández and Dr. Garcia all checking cholesterol if Dr. Garcia takes the lead, which he has been, I think this would make the most sense. PAST HISTORY Past Medical Illnesses: GI reflux, hyperlipidemia, diabetes cifuvuud-fxk-sbmvgpr dependent, hypertension, depression, sinusistis, cellulitis, finger, rt leg vericosities, metabolic syndrome, plantar fascitis, diabetes oxbwlhte-egq-adxulfi dependent, depression Infectious History: spider bite-cellulitis, shingles [...] with in own home; Place of - [place]; REVIEW OF SYSTEMS GENERAL feels well, no change in exercise tolerance., weight gain, 2.2 lbs since last visit INTEGUMENTARY denies any [...] allergies PHYSICAL EXAMINATION VITAL SIGNS: Blood Pressure: 142/88Sitting, Left arm, large cuff 158/84Retaken by Pulse- 76.00/min. Weight- 275.20 lbs. Height- 75.00 Temperature- .00 CONSTITUTIONAL cooperative, [...] time, person and place. MEDICATIONS UPDATED/STARTED TODAY: glimepiride 4 mg Tablet, 1 p.o. twice daily, #0 MEDICATIONS REFILLED/STOPPED TODAY: glimepiride 2 mg Tablet twice daily/ dose unknown #0 Directions Changed-No Abbrvs IMPRESSIONS/PLAN From a cardiac standpoint, in truth once his cholesterol is controlled, his blood pressure is controlled, we would only need to see him every 2-3 years as a screening for additional heart disease butas I mentioned we will see him back next week to follow-up on his blood pressure issue. We talked extensively about weight today. In fact, his weight is actually par for the course for him but he is 275 pounds with a BMI of 34. Certainly with some weight loss I bit his diabetes, cholesterol, and blood pressure numbers would be improved. He is certainly down from his peak weight that we had listed at 291 back in 2004 but he is still 10 pounds higher than when we first met him in 2002. It is my pleasure to take care of this patient. He is a delight. Total consult time 20 minutes greater than 50% counseling. TODAYS ORDERS 1. F/U with Kike Anglin, MSN, ANP 7-14 days---or any handy worker Jonathan Jaimes M.D. documented in this encounter Plan of Treatment Not on file documented as of this encounter Visit Diagnoses Not on filedocumented in this encounter Care Teams Residential Support Specialist Relationship Specialty Start Date End Date Salvador Hyatt MD [facility] [address] [place] [address] PCP - General Family Practice 07/18/15 04/25/18 Alberto Stanton MD [facility] [address] [place] [address] PCP - General Family Practice 04/26/18 Jonathan Jaimes MD [address] [place] [id number] Assigned Heart and Vascular Provider 06/07/20 documented as of this encounter
--- OUTSIDE RECORDS SUMMARY | 2023-10-06 09:31 | XMS_ITS | Encounter Summary ---
Author Name Unknown Organization [facility] Address [address] [place] [address]. [place] [address] Care Team Providers Care Angio Technologist Name Role Phone Salvador Hyatt MD Primary Care Provider [phone] Alberto Stanton MD Primary Care Provider [phone] Jonathan Jaimes MD Unavailable [phone] Encounter Details Date Type Department Care Team (Late st Contact Info) Description 02/25/2009 Office Visit-[facility] [address] [place] [address] Jonathan Jaimes MD [address] [facility] [address] [place] [address] Social History Tobacco Use Types [...] Progress Notes * Jonathan Jaimes MD - 02/26/2009 4:43 PM CDT Progress Note Created by: Jonathan Jaimes M.D. DATE: 02/25/2009 GILBERTO ALFONSO DATE OF : 1950 AGE: [age] years old Referring Physician: CHELSEY TRAORE Referring Clinic: [facility] CURRENT DIAGNOSES 1. Chest pain, unspecified, 786.50 2. - Hyperlipidemia, 272.4 3. - Metabolic Syndrome, 277.9 4. - Hypertension, benign, 401.1 ALLERGIES penicillin G potassium, G.i. upset/diarrhea MEDICATIONS (prior to changes made today) 1. Aspirin 81 mg, 1 p.o. q.d. 2. HCTZ 25 mg, 1 p.o. daily 3. Levemir 100ml, Take as Directed 4. glimepiride 4mg, 1 p.o. daily 5. Metformin 1000mg, 1 p.o. twice daily 6. Cozaar 25 mg, Dose/instruction UNKNOWN 7. Amlodipine 10 mg, 1 p.o. daily 8. Simvastatin 80 mg, 1 p.o. daily 9. Zoloft 100 mg, 1-1/2 p.o. q.d. CHIEF COMPLAINTS f/u visit HISTORY OF PRESENT ILLNESS: Gilberto Alfonso is a delightful 59-year-old male who first presented with atypical chest pain. It was not likely cardiac in nature and he is also seen for primary prevention. He also sees an instructional materials director and railway switchman. His diabetes numbers unfortunately are not well controlled he tells me and his weight unfortunately is 20 pounds higher than it had been previously. He continues to feel well otherwise. His blood pressure is quite variable. My nurse got 140 and I rechecked it it was 118 but a couple minutes later it was in the mid-130s. He is not sure of exact doseof his medications so I have not made specific changes but I have asked him to get serial checks atthe local pharmacy. We would consider switching Cozaar to Benicar although we do not know what doseof Cozaar he is on. He is on maximum dose Norvasc. He is on HCTZ, which I tend to want to avoid butagain since I do not know what pills he is on I have not made that change. His lipid numbers were forwarded to me and unfortunately they are worse than they were a couple of years ago also. I am going to increase Zocor from 40 up to 80. He is going to get serial blood pressure checks and he will report back in three months and we will recheck his labs. His diabetes is being managed withDr. Hernández and some changes have been made and therefore I suspect that when the diabetes numbers are better the cholesterol numbers will also look better. PAST HISTORY Past Medical Illnesses: GI reflux, hyperlipidemia, diabetes nlwmmdkt-gil-stqsaeu dependent, hypertension, depression, sinusistis, cellulitis, finger, rt [...] lives with and children; Place of - [place]; Job Description - 20; REVIEW OF SYSTEMS GENERAL feels well, weight gain, 8lbs since last visit INTEGUMENTARY denies any change [...] disorders. PHYSICAL EXAMINATION VITAL SIGNS: Blood Pressure: 140/70 Sitting, Right arm, large cuff 118/72 Retaken by Pulse- 70.00/min. Weight- 283.00 lbs. Height- 75.00 Temperature- .00 [...] time, person and place. MEDICATIONS UPDATED/STARTED TODAY: HCTZ 25 mg, 1 p.o. daily, 0 Levemir 100ml, Take as Directed, 0 glimepiride 4mg, 1 p.o. daily, 0 Metformin 1000mg, 1 p.o. twice daily, 0 Cozaar 25 mg, Dose/instruction UNKNOWN, 0 Amlodipine 10 mg, 1 p.o. daily, 0 Simvastatin 80 mg, 1 p.o. daily, #30 or #100 MEDICATIONS REFILLED/STOPPED TODAY: Simvastatin 40 mg 1 p.o. daily 0 Refill IMPRESSION/PLAN: I do not think he needs a stress test for at least another year. We discussed many ways of working on prevention. We will see him back in three months. Total consult time 35 minutes, greater than 50% counseling. TODAYS ORDERS 1. F/U with Kike Anglin, MSN, ANP 3 months 2. Lipid profile/ALT 3 months Jonathan Jaimes M.D. documented in this encounter Plan of Treatment Not on file documented as of this encounter Visit Diagnoses Not on filedocumented in this encounter Care Teams Angio Technologist Relationship Specialty Start Date End Date Salvador Hyatt MD [facility] [address] [place] [address] PCP - General Family Practice 07/18/15 04/25/18 Alberto Stanton MD [facility] [address] [place] [address] PCP - General Family Practice 04/26/18 Jonathan Jaimes MD [address] [facility] [address] [place] [phone] Assigned Heart and Vascular Provider 06/07/20 documented as of this encounter
--- OUTSIDE RECORDS SUMMARY | 2023-10-06 09:31 | XMS_ITS | Encounter Summary ---
Author Name Unknown Organization [facility] Address [address] [place] [address]. [place] [address] Care Team Providers Care Mounter Name Role Phone Salvador Hyatt MD Primary Care Provider [phone] Alberto Stanton MD Primary Care Provider [phone] Jonathan Jaimes MD Unavailable [phone] Encounter Details Date Type Department Care Team (Late st Contact Info) Description 05/08/2004 Office Visit-[facility] [id number] [place] [address] Unknown, DoctorMD Social History Tobacco Use Types Packs/Day Years [...] Progress Notes * Unknown, MD Naomy - 05/13/2004 10:50 AM CDT Progress Note Created by: Fidelina Brand PA-C DATE: 05/08/2004 [id number] GILBERTO ALFONSO DATE OF : 1950 AGE: [age] years old Referring Physician: CHELSEY CHIN Referring Clinic: [facility] CURRENT DIAGNOSES 1. - Metabolic Syndrome, 277.9 2. - Hypertension, benign, 401.1 3. Diabetes Mellitus-NIDD/circ dis/control, 250.70 4. - Hyperlipidemia, 272.4 ALLERGIES penicillin G potassium, G.i. upset/diarrhea MEDICATIONS (including any changes made today) 1. Amaryl 2 Mg, 1 p.o. b.i.d. 2. Avalide 12.5 mg-150 mg, 2 p.o. q.d. 3. Lipitor 40 Mg, 1 p.o. q.d. 4. Aspirin 81 mg, 1 p.o. q.d. 5. Tricor 160mg, 1 p.o. q.d. 6. Norvasc 5 Mg, 1 p.o. q.d. 7. Zoloft 100 mg, 1-1/2 p.o. q.d. CHIEF COMPLAINTS F/u on hypertension HISTORY OF PRESENT ILLNESS Mr. Alfonso is a delightful 54-year-old gentleman who [facility] regarding his hypertension. As you recall, at his last office visit I increased his Avalide to 300/25 mg as well as added Norvasc 5 mg per day. He seems to be tolerating both medications without any difficulty. He has past medical history significant for metabolic syndrome, hyperlipidemia and diabetes mellitus type II as well as hypertension. We did check a basic metabolic profile at his last office visit, which was within normal limits. He denies any lightheadedness or dizziness, syncope or near- syncope, dyspnea, orthopnea, paroxysmal nocturnal dyspnea, or peripheral edema. On examination today, the patient's blood pressure is 118/80. All other review of systems, past medical history and physical examination findings are noted below. PAST HISTORY Past Medical Illnesses: GI reflux, hyperlipidemia, diabetes ijhylwxu-opx-xmakaop dependent, hypertension, depression, sinusistis, cellulitis, finger, rt leg vericosities, metabolic syndrome, plantar fascitis Infectious Diseases: spider bite-cellulitis Surgical Procedures: L5 disk surgery, Nasal cyst surgery Cardiology Procedures-Noninvasive: stress echocardiogram 1997 REVIEW OF SYSTEMS GENERAL feels well, no [...] any food allergies, seasonal allergies, bleeding disorders. IMPRESSION/PLAN: 1. Hypertension. Today the patient's blood pressure is controlled on his current medication regimenand I will not make any further changes today. I will give him prescriptions for both Avalide and Norvasc with the new doses. 2. Hyperlipidemia. The patient is due for a cholesterol check in May of this year and will have that follow up done at our office. I did not discuss it with him today but it certainly could be a possibility to switch him to Caduetfor the combination of Lipitor and Norvasc if his lipid profile is within normal limits. Thank you for allowing me to care for Mr. Alfonso. He will follow up with Jonathan Jaimes M.D. in 9 to 12 months, or sooner should he have problems in the interim. TODAYS ORDERS 1. Return Visit with dr. jaimes 9 months MENA Omalley documented in this encounter Plan of Treatment Not on file documented as of this encounter Visit Diagnoses Not on filedocumented in this encounter Care Teams Mounter Relationship Specialty Start Date End Date Salvador Hyatt MD [facility] [address] [place] [address] PCP - General Family Practice 07/18/15 04/25/18 Alberto Stanton MD [facility] [address] [place] [address] PCP - General Family Practice 04/26/18 Jonathan Jaimes MD [address] [facility] [address] [place] [phone] Assigned Heart and Vascular Provider 06/07/20 documented as of this encounter
--- OUTSIDE RECORDS SUMMARY | 2023-10-06 09:31 | XMS_ITS | Encounter Summary ---
Author Name Unknown Organization [facility] Address [address] [place] [address]. [place] [address] Care Team Providers Care Jet Pilot Name Role Phone Alberto Stanton MD Primary Care Provider [phone] Jonathan Jaimes MD Unavailable Reason for Visit * Reason Onset Date Comments SCHEDULING 10/09/2021 [place] Lexiscan stre ss test (nuc card) AND Echocardiogram Complete Encounter Details Date Type Department Care Team (Late st Contact Info) Description 10/09/2021 [facility] [address] [place] [address] [address] [place] [address] Jonathan Jaimes MD [address] [facility] [address] [place] [address] SCHEDULING (NM Lexiscan stress test (nuc card) AND Echocardiogram Complete) Social History Tobacco Use Types Packs/Day Years Used Date Smoking Tobacco: Never Smokeless Tobacco: Never Alcohol Use Standard Drinks/Week Comments Yes 0 (1 standard drink = 0.6 oz pur e alcohol) 7 per week Sex and Gender Information Value Date Recorded Sex Assigned at Not on file Gender Identity Not on file Sexual Orientation Not on file documented as of this encounter Miscellaneous Notes * Telephone Encounter - Ruma Medel Tim - 10/09/2021 4:09 PM CST [facility] Call Center Phone Message May a detailed message be left on voicemail: no Reason for Call: Other: Caleb called to schedule a [place] Lexiscan stress test (nuc card) AND Echocardiogram Complete, please reach out to him at . Action Taken: Other: [facility] Travel Screening: Not Applicable TAX documented in this encounter Plan of Treatment Not on file documented as of this encounter Visit Diagnoses Not on filedocumented in this encounter Care Teams Jet Pilot Relationship Specialty Start Date End Date Alberto Stanton MD PCP - General Family Practice 04/26/18 Jonathan Jaimes MD [address] [place] [phone] Assigned Heart and Vascular Provider 06/07/20 documented as of this encounter
--- OUTSIDE RECORDS SUMMARY | 2023-10-06 09:31 | XMS_ITS | Encounter Summary ---
Author Name Unknown Organization [place] Address [address] [place] [address]. [place] [address] Care Team Providers Care Lime Kiln Operator Name Role Phone Alberto Stanton MD Primary Care Provider [phone] Jonathan Jaimes MD Unavailable [phone] Encounter Details Date Type Department Care Team (Late st Contact Info) Description 07/06/2022 External Order Results [facility] [address] [place] [address] Outside, Provider Social History Tobacco Use Types Packs/Day Years Used Date Smoking Tobacco: Never Smokeless Tobacco: Never Alcohol Use Standard Drinks/Week Comments Yes 0 (1 standard drink = 0.6 oz pur e alcohol) 7 drinks per week Sex and Gender Information Value Date Recorded Sex Assigned at Not on file Gender Identity Not on file Sexual Orientation Not on file documented as of this encounter Plan of Treatment Not on file documented as of this encounter Procedures Procedure Name Priority Date/Time Associated Diagnosis Comments TSH Routine 07/06/2022 9:56 AM AGENT TELEGRAPHER T4 FREE Routine 07/06/2022 9:56 AM AGENT TELEGRAPHER PSA TUMOR MARKER Routine 07/06/2022 9:56 AM AGENT TELEGRAPHER LIPID PROFILE Routine 07/06/2022 9:56 AM AGENT TELEGRAPHER HEPATIC FUNCTION PANEL Routine 07/06/2022 9:56 AM AGENT TELEGRAPHER BASIC METABOLIC PANEL Routine 07/06/2022 9:56 AM AGENT TELEGRAPHER HEMOGLOBIN A1C Routine 07/06/2022 8:55 AM AGENT TELEGRAPHER CBC WITH PLATELETS Routine 07/06/2022 8: 55 AM AGENT TELEGRAPHER documented in this encounter Results * (ABNORMAL) Basic metabolic panel (07/06/2022 9:56 AM AGENT TELEGRAPHER) Sodium (External) 138 135 - 149 mmol/L NON-INTERFACED (ONBASE SCANS) Potassium (External) 5.0 3.6 - 5.1 mmol/L NON-INTERFACED (ONBASE SCANS) Chloride (External) 103 96 - 114 mmol/L NON-INTERFACED (ONBASE SCANS) CO2 (External) 25 20 - 32 mmol/L NON-INTERFACED (ONBASE SCANS) Urea Nitrogen (External) 20 7 - 30 mmol/L NON-INTERFACED (ONBASE SCANS) Creatinine (External) 0.9 0.5 - 1.5 mg/dL NON-INTERFACED (ONBASE SCANS) GFR Estimated (External) 90 ml/min NON-INTERFACED (ONBASE SCANS) Calcium (External) 9.1 8.4 - 10.6 mg/dL NON-INTERFACED (ONBASE SCANS) Glucose (External) 194(H) 60 - 115 mg/dL NON-INTERFACED (ONBASE SCANS) Blood 07/06/2022 9:56 AM AGENT TELEGRAPHER Narrative GHAZALA PFT - 07/28/2022 9:47 AM AGENT TELEGRAPHER Verified by Juan Francisco Estrada on 07/28/2022. Provider Outside LAB - BLOOD ORDERABL ES AARONISSAC HENRY NON-INTERFACED (ONBASE SCANS) * Hepatic function panel (07/06/2022 9:56 AM AGENT TELEGRAPHER) Protein Total (External) 7.5 6.0 - 8.3 g/dL NON-INTERFACED (ONBASE SCANS) Albumin (External) 4.3 3.3 - 5.0 g/dL NON-INTERFACED (ONBASE SCANS) Bilirubin Total (External) 0.8 0.1 - 1.5 mg/dL NON-INTERFACED (ONBASE SCANS) AST (External) 33 12 - 35 U/L NON-INTERFACED (ONBASE SCANS) ALT (External) 30 4 - 50 U/L NON- INTERFACED (ONBASE SCANS) Alk Phosphatase (External) 89 40 - 150 U/L NON-INTERFACED (ONBASE SCANS) Blood 07/06/2022 9:56 AM AGENT TELEGRAPHER Narrative BREEZE PFT - 07/28/2022 9:47 AM AGENT TELEGRAPHER Verified by Juan Francisco Estrada on 07/28/2022. Provider Outside LAB - BLOOD ORDERABL ES Performing Organization Address [facility] Co de Phone Number BREEZE PFT NON-INTERFACED (ONBASE SCANS) * PSA tumor marker (07/06/2022 9:56 AM AGENT TELEGRAPHER) PSA (External) 1.71 0.10 - 4.00 ng/mL NON-INTERFACED (ONBASE SCANS) Blood 07/06/2022 9:56 AM AGENT TELEGRAPHER Narrative BREEZE PFT - 07/28/2022 9:47 AM AGENT TELEGRAPHER Verified by Juan Francisco Estrada on 07/28/2022. Provider Outside LAB - BLOOD ORDERABL ES Performing Organization Address City/[facility]/ZIP Co de Phone Number BREEZE PFT NON-INTERFACED (ONBASE SCANS) * Lipid Profile (07/06/2022 9:56 AM AGENT TELEGRAPHER) Triglycerides (External) 147 40 - 149 mg/dL NON-INTERFACE D (ONBASE SCANS) Cholesterol (External) 155 98 - 199 mg/dl NON-INTERFACE D (ONBASE SCANS) HDL Cholesterol (External) 41 >=40 mg/dL NON-INTERFACE D (ONBASE SCANS) LDL-Cholesterol (External) 85 <100 mg/dL NON-INTERFACE D (ONBASE SCANS) Blood 07/06/2022 9:56 AM AGENT TELEGRAPHER Narrative BREEZE PFT - 07/28/2022 9:47 AM AGENT TELEGRAPHER Verified by Juan Francisco Estrada on 07/28/2022. Provider Outside LAB - BLOOD ORDERABL ES Performing Organization Address [facility] de Phone Number BREEZE PFT NON-INTERFACED (ONBASE SCANS) * T4 free (07/06/2022 9:56 AM AGENT TELEGRAPHER) Thyroxine Free (External) 0.85 0.70 - 1.85 ng/dL NON-INTERFACED (ONBASE SCANS) Blood 07/06/2022 9:56 AM AGENT TELEGRAPHER Narrative BREEZE PFT - 07/28/2022 9:47 AM AGENT TELEGRAPHER Verified by Juan Francisco Estrada on 07/28/2022. Provider Outside LAB - BLOOD ORDERABL Performing Organization Address [facility] Phone Number BREEZE PFT NON-INTERFACED (ONBASE SCANS) * (ABNORMAL) TSH (07/06/2022 9:56 AM AGENT TELEGRAPHER) TSH (External) 10.300(H) 0.270 - 4.200 uIU/mL NON-INTERFACE D (ONBASE SCANS) Blood 07/06/2022 9:56 AM AGENT TELEGRAPHER Narrative BREEZE PFT - 07/28/2022 9:47 AM AGENT TELEGRAPHER Verified by Juan Francisco Estrada on 07/28/2022. Provider Outside LAB - BLOOD ORDERABL Performing Organization Address [facility] de Phone Number BREEZE PFT NON-INTERFACED (ONBASE SCANS) * CBC with platelets (07/06/2022 8:55 AM AGENT TELEGRAPHER) WBC Count (External) 7.36 4.50 - 11.00 K/UL NON-INTERFACED (ONBASE SCANS) RBC Count (External) 5.12 4.30 - 5.90 m/uL NON-INTERFACED (ONBASE SCANS) Hemoglobin (External) 15.0 13.5 - 17.5 GM/DL NON-INTERFACED (ONBASE SCANS) Hematocrit (External) 45.0 37.0 - 53.0 % NON-INTERFACED (ONBASE SCANS) MCV (External) 88 80 - 100 fL NON-INTERFACED (ONBASE SCANS) MCH (External) 29 26 - 34 pg NON- INTERFACED (ONBASE SCANS) MCHC (External) 33 32 - 36 GM/DL NON-INTERFACED (ONBASE SCANS) Platelet Count (External) 219 140 - 440 K/uL NON-INTERFACED (ONBASE SCANS) Blood 07/06/2022 8:55 AM AGENT TELEGRAPHER Narrative BREEZE PFT - 07/06/2022 8:55 AM AGENT TELEGRAPHER Verified by Juan Francisco Estrada on 07/28/2022. Provider Outside LAB - BLOOD ORDERABL ES BREEZE PFT NON-INTERFACED (ONBASE SCANS) * (ABNORMAL) Hemoglobin A1c (07/06/2022 8:55 AM AGENT TELEGRAPHER) Hemoglobin A1C (External) 7.8(H) 0 - 5.6 % NON-INTERFACED (ONBASE SCANS) Blood 07/06/2022 8:55 AM AGENT TELEGRAPHER Narrative BREEZE PFT - 07/06/2022 8:55 AM AGENT TELEGRAPHER Verified by Juan Francisco Estrada on 07/28/2022. Provider Outside LAB - BLOOD ORDERABL ES BREEZE PFT NON-INTERFACED (ONBASE SCANS) documented in this encounter Visit Diagnoses Not on filedocumented in this encounter Care Teams Lime Kiln Operator Relationship Specialty Start Date End Date Alberto Stanton MD PCP - General Family Practice 04/26/18 Jonathan Jaimes MD [address] [place] [id number] Assigned Heart and Vascular Provider 06/07/20 documented as of this encounter
--- OUTSIDE RECORDS SUMMARY | 2023-10-06 09:31 | XMS_ITS | Encounter Summary ---
Author Name Unknown Organization [place] Address [address] [place] [address]. [place] [address] Care Team Providers Care Doctorate Of Chiropractic Name Role Phone Alberto Stanton MD Primary Care Provider [phone] Jonathan Jaimes MD Unavailable Encounter Details Date Type Department Care Team (Late st Contact Info) Description 11/19/2022 External Order Results [facility] [address] [place] [address] Outside, Provider Social History Tobacco Use Types [...] Priority Date/Time Associated Diagnosis Comments TSH Routine 03/10/2023 8:49 AM CDT HEMOGLOBIN A1C Routine 03/10/2023 8:49 AM CDT CBC WITH PLATELETS & DIFFERENTIAL Routine 11/19/2022 10:40 AM CDT HEMOGLOBIN A1C Routine 11/19/2022 10:40 AM CDT IONIZED CALCIUM Routine 11/19/2022 10:40 AM CDT BASIC METABOLIC PANEL Routine 11/19/2022 10:40 AM CDT documented in this encounter Results * (ABNORMAL) Hemoglobin A1c (03/10/2023 8:49 AM CDT) Hemoglobin A1C (External) 7.9(H) 0 - 5.6 % NON-INTERFACED (ONBASE SCANS) Blood BLOOD SPECIMEN / Unknown 03/10/2023 8:49 AM CDT Narrative BREEZE PFT - 03/29/2023 12:52 PM CDT Verified by Sabina Robertson on 03/29/2023. Provider Outside LAB - BLOOD ORDERABL ES BREEZE PFT NON-INTERFACED (ONBASE SCANS) * TSH (03/10/2023 8:49 AM CDT) TSH (External) 2.510 0.270 - 4.20 uIU/mL NON-INTERFACED (ONBASE SCANS) Blood BLOOD SPECIMEN / Unknown 03/10/2023 8:49 AM CDT Narrative BREEZE PFT - 03/29/2023 12:52 PM CDT Verified by Sabina Robertson on 03/29/2023. Provider Outside LAB - BLOOD ORDERABL ES BREEZE PFT NON-INTERFACED (ONBASE SCANS) * (ABNORMAL) Hemoglobin A1c (11/19/2022 10:40 AM CDT) Hemoglobin A1C (External) 7.7(H) 0 - 5.6 % NON-INTERFACED (ONBASE SCANS) Blood BLOOD SPECIMEN / Unknown 11/19/2022 10:40 AM CDT Narrative BREEZE PFT - 03/29/2023 12:52 PM CDT Verified by Sabina Robertson on 03/29/2023. Provider Outside LAB - BLOOD ORDERABL ES AARONEZEmilia PFT NON-INTERFACED (ONBASE SCANS) * CBC with Platelets & Differential (11/19/2022 10:40 AM CDT) WBC Count (External) 7.64 4.50 - 11.00 K/uL NON-INTERFACED (ONBASE SCANS) RBC Count (External) 4.96 4.30 - 5.90 m/uL NON-INTERFACED (ONBASE SCANS) Hemoglobin (External) 14.6 13.5 - 17.5 gm/dL NON-INTERFACED (ONBASE SCANS) Hematocrit (External) 44.6 37.0 - 53.0 % NON-INTERFACED (ONBASE SCANS) MCV (External) 90 80 - 100 fL NON-INTERFACED (ONBASE SCANS) MCH (External) 29 26 - 34 pg NON- INTERFACED (ONBASE SCANS) MCHC (External) 33 32 - 36 g/dL NON-INTERFACED (ONBASE SCANS) Platelet Count (External) 221 140 - 440 K/uL NON-INTERFACED (ONBASE SCANS) % Neutrophils (External) 57.4 42.0 - 72.0 % NON-INTERFACED (ONBASE SCANS) % Lymphocytes (External) 27.2 20 - 44 % NON-INTERFACED (ONBASE SCANS) % Monocytes (External) 10.1 0.0 - 11.0 % NON-INTERFACED (ONBASE SCANS) % Eosinophils (External) 4.8 0.0 - 7.0 % NON-INTERFACED (ONBASE SCANS) % Basophils (External) 0.5 0.0 - 3.0 % NON-INTERFACED (ONBASE SCANS) Absolute Neutrophils (External) 4.38 1.7 - 7.0 K/uL NON-INTERFACED (ONBASE SCANS) Absolute Lymphocytes (External) 2.08 0.90 - 2.90 K/uL NON-INTERFACED (ONBASE SCANS) Absolute Monocytes (External) 0.77 0.00 - 0.90 K/UL NON-INTERFACED (ONBASE SCANS) Absolute Eosinophils (External) 0.37 0.00 - 0.50 K/uL NON-INTERFACED (ONBASE SCANS) Absolute Basophils (External) 0.04 0.00 - 0.30 K/uL NON-INTERFACED (ONBASE SCANS) Blood BLOOD SPECIMEN / Unknown 11/19/2022 10:40 AM CDT Narrative BREEZE PFT - 03/29/2023 12:52 PM CDT Verified by Sabina Robertson on 03/29/2023. Provider Outside LAB - BLOOD ORDERABL ES Performing Organization Address City/[facility]/ZIP Co de Phone Number BREMALCOME PFT NON-INTERFACED (ONBASE SCANS) * Basic metabolic panel (11/19/2022 10:40 AM CDT) Sodium (External) 139 138 - 146 mmol/L NON-INTERFACED (ONBASE SCANS) Potassium (External) 4.3 3.5 - 4.9 mmol/L NON-INTERFACED (ONBASE SCANS) Chloride (External) 105 98 - 109 mmol/L NON-INTERFACED (ONBASE SCANS) CO2 (External) 24 20 - 32 mmol/L NON-INTERFACED (ONBASE SCANS) Urea Nitrogen (External) 17 8 - 26 mg/dl NON-INTERFACED (ONBASE SCANS) Creatinine (External) 0.9 0.6 - 1.3 mg/dl NON-INTERFACED (ONBASE SCANS) Glucose (External) 102 60 - 115 mg/dl NON-INTERFACED (ONBASE SCANS) Blood BLOOD SPECIMEN / Unknown 11/19/2022 10:40 AM CDT Narrative BREEZE PFT - 03/29/2023 12:52 PM CDT Verified by Sabina Robertson on 03/29/2023. Provider Outside LAB - BLOOD ORDERABL ES AARONEZE PFT NON-INTERFACED (ONBASE SCANS) * Ionized Calcium (11/19/2022 10:40 AM CDT) Calcium Ionized (External) 1.21 1.11 - 1.33 mmol/L NON-INTERFACED (ONBASE SCANS) Blood BLOOD SPECIMEN / Unknown 11/19/2022 10:40 AM CDT Narrative GHAZALA PFT - 03/29/2023 12:52 PM CDT Verified by Sabina Robertson on 03/29/2023. Provider Outside LAB - BLOOD ORDERABL ES GHAZALA PFT NON-INTERFACED (ONBASE SCANS) documented in this encounter Visit Diagnoses Not on filedocumented in this encounter Care Teams Doctorate Of Chiropractic Relationship Specialty Start Date End Date Alberto Stanton MD PCP - General Family Practice 04/26/18 Jonathan Jaimes MD [address] [place] [phone] Assigned Heart and Vascular Provider 06/07/20 documented as of this encounter
--- OUTSIDE RECORDS SUMMARY | 2023-10-06 09:32 | XMS_ITS | Encounter Summary ---
Author Name Unknown Organization [place] Address [address] [place] [address] Care Team Providers Care Wafer Fab Operator Name Role Phone Salvador Hyatt MD Primary Care Provider [phone] Alberto Stanton MD Primary Care Provider [phone] Jonathan Jaimes MD Unavailable [phone] Encounter Details Date Type Department Care Team (Late st Contact Info) Description 10/20/2002 Office Visit-[facility] [address] [address] Unknown, MD Naomy Social History Tobacco Use Types Packs/Day Years Used Date Smoking Tobacco: Never Assessed Sex and Gender Information Value Date Recorded Sex Assigned at Not on file Gender Identity Not on file Sexual Orientation Not on file documented as of this encounter Progress Notes * Unknown, MD Naomy - 10/26/2002 8:22 AM CST DATE: 10/20/2002 GILBERTO ALFONSO DATE OF : 1950 AGE: [age] years old Referring Physician: CHELSEY CHIN CURRENT DIAGNOSES 1. - Metabolic Syndrome, 277.9 2. - Hypertension, benign, 401.1 3. - Hyperlipidemia, 272.4 ALLERGIES penicillin G potassium, G.i. upset/diarrhea MEDICATIONS 1. Lipitor 10 mg, Dose/instruction 2. Avapro 150 mg, Dose/instruction 3. Glucophage 1000 mg, 1 p.o. q.d. 4. Zoloft 20 mg/ml, Dose/instruction 5. Lopid 600 mg, 1 p.o. b.i.d. CHIEF COMPLAINTS Consult cholesterol HISTORY OF PRESENT ILLNESS I had the pleasure of meeting your patient, Mr. Gilberto Alfonso, today at [facility]. As you know, he is a pleasant 52-year-old male referred in for hyperlipidemia. I had a very nice onehour consultation with the patient. The patient himself has no clear heart symptoms, no angina, palpitations, dizzy spells, syncope, or heart failure. In 1997 he had a stress test that was negative. The patient is referred in for lipid management, but it is clear that he has the metabolic syndrome.He is a type 2 diabetic, hypertensive with a low HDL and high triglycerides. He is on Lipitor and his LDL is normal. I should also note that the medication dosages listed on this note are incorrect. The patient could not remember which doses he was on. I talked to this patient in depth about the metabolic syndrome. We talked about the pathophysiology of diabetes, insulin resistance, hyperlipidemia, and its relation to body weight, blood pressure, etc. He is following the ADA diet. I have also talked to him about the [employer] program. I have recommended the following. I will add Lopid 600 mg b.i.d. to his current medicine. This willhopefully help raise his HDL and lower his triglycerides. I do not know that we will ever get his HDL to normal. Niacin is another option and would have perhaps been my first choice, but his diabetes is not well controlled now, and niacin easily could have made it worse. I told him that this is a disease for which he needs to take control. He needs aggressive diet and exercise to reduce his insulin resistance, which then will improve his lipids automatically. As a result, I have talked to him about the fact that he needs to come back and see you for more aggressive diabetes management. The Glucophage was recently increased, and he will be seeing you for afollow up hemoglobin A1c and glucose. He probably will need a second agent. Whether it secretagogueor a more peripherally active medicine such as Actos, etc., I will leave to you, though I would probably favor the addition of actor or Avandia to his Glucophage. There are combination medicines alsoavailable to limit the number of pills he is taking. I fully agree with your addition of Avapro to bring his blood pressure down. In fact, his blood pressure might even be best if it is in the very high 120s or low 130s. Again, I do not know what does of Avapro he is on, but I fully agree with the addition of ARB. PAST HISTORY Past Medical Illnesses: GI reflux, hyperlipidemia, diabetes zxpkasnr-ban-uizoelk dependent, hypertension, depression, sinusistis, cellulitis, finger, rt leg vericosities, metabolic syndrome Surgical Procedures: L5 disk surgery, Nasal cyst surgery Cardiology Procedures-Noninvasive: stress echocardiogram 1997 FAMILY HISTORY: Father - CHF, old age and throat cancer; Mother - Age 86, [place]; Sister 1 - alive and well; SOCIAL HISTORY Alcohol Use - drinks occasionally and 3/week; Smoking - does not smoke; Diet - regular diet; Lifestyle - ; Exercise - treadmill; Seat Belt Use - always; 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 EYES denies diplopia, history of glaucoma or visual field defects. EARS, NOSE, THROAT, MOUTH partial hearing loss [...] PHYSICAL EXAMINATION VITAL SIGNS: Blood Pressure: 138/80 Pulse- 84.00/min. Weight- 269.40 lbs. Height- 75.00 Temperature- .00 CONSTITUTIONAL cooperative, [...] time, person and place. MEDICATIONS UPDATED TODAY: Lipitor 10 mg, Dose/instruction , DIRECTED Avapro 150 mg, Dose/instruction , DIRECTED Glucophage 1000 mg, 1 p.o. q.d., DIRECTED Zoloft 20 mg/ml, Dose/instruction [facility], DIRECTED Lopid 600 mg, 1 p.o. b.i.d., #60 IMPRESSIONS/PLAN I have asked the patient also take a baby aspirin a day for cardioprotection. I will ask the patient to come back in two months for a lipid and liver test. We will decide if any additional medicationchanges need to be made based on those values. Again, I also told him that until the diabetes is tightly controlled, his lipids will be difficult to control. Again, this goes back to both medication and diet and exercise. TODAYS ORDERS 1. Lipid profile/ALT 2 months 2. Return Visit 2 months Jonathan Jaimes M.D. documented in this encounter Plan of Treatment Not on file documented as of this encounter Visit Diagnoses Not on filedocumented in this encounter Care Teams Wafer Fab Operator Relationship Specialty Start Date End Date Salvador Hyatt MD [facility] [address] [place] [address] PCP - General Family Practice 07/18/15 04/25/18 Alberto Stanton MD [facility] [address] [place] [address] PCP - General Family Practice 04/26/18 Jonathan Jaimes MD [address] [place] [phone] Assigned Heart and Vascular Provider 06/07/20 documented as of this encounter
--- OUTSIDE RECORDS SUMMARY | 2023-10-06 09:32 | XMS_ITS | Encounter Summary ---
Author Name Unknown Organization [place] Address [address] [place] [address] Care Team Providers Care Room Maid Name Role Phone Salvador Hyatt MD Primary Care Provider [phone] Alberto Stanton MD Primary Care Provider [phone] Jonathan Jaimes MD Unavailable [phone] Encounter Details Date Type Department Care Team (Late st Contact Info) Description 01/04/2003 Office Visit-[facility] [address] [address] Unknown, MD Naomy Social History Tobacco Use Types Packs/Day Years Used Date Smoking Tobacco: Never Assessed Sex and Gender Information Value Date Recorded Sex Assigned at Not on file Gender Identity Not on file Sexual Orientation Not on file documented as of this encounter Progress Notes * Unknown, MD Naomy - 01/09/2003 10:08 AM CDT DATE: 01/04/2003 GILBERTO ALFONSO DATE OF : 1950 AGE: [age] years old Referring Physician: CHELSEY GARCIA CURRENT DIAGNOSES 1. Diabetes Mellitus-NIDD/circ dis/control, 250.70 2. - Hyperlipidemia, 272.4 3. - Metabolic Syndrome, 277.9 4. - Hypertension, benign, 401.1 ALLERGIES penicillin G potassium, G.i. upset/diarrhea MEDICATIONS 1. Glucophage 1000 mg, 1 p.o. b.i.d. 2. Zoloft 100 mg, 1-1/2 p.o. q.d. 3. Lipitor 40 mg, 1 p.o. q.d. 4. Avapro 150 mg, 1 p.o. q.d. 5. Lopid 600 mg, 1 p.o. b.i.d. CHIEF COMPLAINTS F/u HISTORY OF PRESENT ILLNESS Gilberto Alfonso returns for follow-up of his metabolic syndrome. This was a 30- minute counseling session. Reviewed his lipid profiles. They are still abnormal. His triglycerides have dropped to 170.This is 110 points lower than before. His HDL went from 28 to 30. Unexpectedly, his LDL went from 79 to 135. His liver tested normal. The Lopid explains the slight increase in HDL and the drop in triglycerides. It is difficult to explain the increase the in LDL with a higher dose of Lipitor. The patient has lost 5 pounds of weight. I have again stressed to him that it is going to be diet and exercise as the primary therapy. His home blood sugars are running between 140 and 220. Please see my previous note to Dr. Garcia. The patient will undoubtedly need a second agent to control his diabetes. I would probably use something like Avandia or Actos but I will defer that to Dr. Garcia. The patientmay ultimately need to go on insulin. PAST HISTORY Past Medical Illnesses: GI reflux, hyperlipidemia, diabetes gwyogxhi-brq-gimfeft dependent, hypertension, depression, sinusistis, cellulitis, finger, rt leg vericosities, metabolic syndrome Surgical Procedures: L5 disk surgery, Nasal cyst surgery Cardiology Procedures-Noninvasive: stress echocardiogram 1997 FAMILY HISTORY: Father - CHF, old age and throat cancer; Mother - Age 86, [place]; Sister 1 - alive and well; REVIEW OF SYSTEMS GENERAL weight loss, exercise, 5# loss since last visit INTEGUMENTARY denies any change [...] any food allergies, seasonal allergies, bleeding disorders. IMPRESSION/PLAN For the interim, I am going to increase his Lipitor to 40 mg a day. I will see him back in two months. If he is not at goal with the LDL, we can go up to Lipitor 80; otherwise, the next option would probably be the addition of niacin and/or switching Lopid to Tricor to address his HDL/triglyceride problem. A hemoglobin A1C needs to also be rechecked again. We have emphasized that until the diabetes is well controlled, the lipid abnormality will remain. TODAYS ORDERS 1. Lipid profile/ALT 2 months 2. Return Visit 2 months Jonathan Jaimes M.D. documented in this encounter Plan of Treatment Not on file documented as of this encounter Visit Diagnoses Not on filedocumented in this encounter Care Teams Room Maid Relationship Specialty Start Date End Date Salvador Hyatt MD [facility] [address] [place] [address] PCP - General [facility] Practice 07/18/15 04/25/18 Alberto Stanton MD [facility] [address] [place] [address] PCP - General [facility] Practice 04/26/18 Jonathan Jaimes MD [address] [place] [phone] Assigned Heart and Vascular Provider 06/07/20 documented as of this encounter
--- OUTSIDE RECORDS SUMMARY | 2023-10-06 09:32 | XMS_ITS | Encounter Summary ---
Author Name Unknown Organization [facility] Address [address] [place] [address] Care Team Providers Care Nailing Machine Operator Name Role Phone Salvador Hyatt MD Primary Care Provider [phone] Alberto Stanton MD Primary Care Provider [phone] Jonathan Jaimes MD Unavailable [phone] Encounter Details Date Type Department Care Team (Late st Contact Info) Description 03/16/2003 Office Visit-[facility] [id number] [place] [address] Unknown, MD Naomy Social History Tobacco Use Types Packs/Day Years Used Date Smoking Tobacco: Never Assessed Sex and Gender Information Value Date Recorded Sex Assigned at Not on file Gender Identity Not on file Sexual Orientation Not on file documented as of this encounter Progress Notes * Unknown, MD Naomy - 03/21/2003 4:05 PM CDT Progress Note Created by: Chalo Kamara NP DATE: 03/16/2003 NEETA ALFONSO DATE OF : 1950 AGE: [age] years old Referring Physician: CHELSEY CHIN CURRENT DIAGNOSES 1. Diabetes Mellitus-NIDD/circ dis/control, 250.70 2. - Hyperlipidemia, 272.4 3. - Metabolic Syndrome, 277.9 4. - Hypertension, benign, 401.1 ALLERGIES penicillin G potassium, G.i. upset/diarrhea MEDICATIONS 1. Glucophage 1000 mg, 1 p.o. b.i.d. 2. Aspirin 81 mg, 1 p.o. q.d. 3. Tricor 160mg, 1 p.o. q.d. 4. Zoloft 100 mg, 1-1/2 p.o. q.d. 5. Lipitor 40 mg, 1 p.o. q.d. 6. Avapro 150 mg, 1 p.o. q.d. CHIEF COMPLAINTS F/u HISTORY OF PRESENT ILLNESS Neeta Alfonso is a 53-year-old gentleman who presents today for a follow up regarding his hyperlipidemia. He has a past medical history significant for noninsulin-dependent diabetes mellitus, hypertension, hyperlipidemia, and metabolic syndrome. He normally follows with Dr. Jaimes who is his primary cheese wrapper for control of his lipid profile. At his last office visit in December his Lipitor wasincreased to 40 mg a day. He is here today to discuss his follow up lipid profile. His lipid profile from this morning is as follows: Triglycerides 231, total cholesterol 159, HDL 37, LDL 75, ratio 4.2, ALT 32, and VLDL 46. The patient reports to me today that his blood sugar has not been under very good control recently, with a.m. readings in the 180s-190s. Obviously, poorly controlled blood sugar can contribute to elevated triglycerides. The patient also reports that he is not getting as much exercise as he normally has been in the winter and the fall. He is not using his home exercise machine as much as he used to, and this has been replaced by golf during which he ridesthe cart and does not walk the course. He does not drink a significant amount of alcohol and reports he has approximately five beers per week. He denies any symptoms such as chest pain or discomfort. He also denies any lightheadedness, dizziness, syncope, near-syncope, orthopnea, or PND. He also denies any problems with shortness of breath or dyspnea on exertion. The remainder of the patient's past medical history and review of systems is noted below. PAST HISTORY Past Medical Illnesses: GI reflux, hyperlipidemia, diabetes xioxmziv-rsl-vnutcqi dependent, hypertension, depression, sinusistis, cellulitis, finger, rt [...] Description - 20; REVIEW OF SYSTEMS GENERAL denies recent weight loss, weight gain, fever or chills or change in exercise tolerance. INTEGUMENTARY denies any [...] disorders. PHYSICAL EXAMINATION VITAL SIGNS: Blood Pressure: 110/78 Sitting, Right arm, large cuff Pulse- 72.00/min. Weight- 264.20 lbs. Height- 75.00 Temperature- .00 CONSTITUTIONAL cooperative, [...] time, person and place. MEDICATIONS UPDATED TODAY: Tricor 160mg, 1 p.o. q.d., #30 MEDICATION STOPPED TODAY: Lopid 600 mg IMPRESSIONS/PLAN Mixed hyperlipidemia. His triglycerides today are still elevated and poorly controlled. I have switched his Lopid to Tricor 160 mg a day to see if we can get better control of his triglycerides. His other numbers are excellent including total cholesterol 159, and LDL 75. His HDL is actually improved from 30 to 37 over the last three months. I have encouraged the patient to initiate and maintain aregular aerobic exercise program to further improve his HDL, as well as get better control of his triglycerides. This in turn will ultimately benefit his blood sugars as well. We will repeat a fasting lipid profile in six to eight weeks to determine the effect the medication change has had on his li pid profile. I will have him follow up with Dr. Jaimes in six months time, at which time they can discuss the need for stress testing in this patient whose risk factors are significant for coronary disease including diabetes mellitus, low HDL, and hypertension. Should he have any problems or concerns prior to then, however, he is encouraged to contact us. TODAYS ORDERS 1. Lipid profile/ALT 6 weeks 2. F/U with Jonathan Jaimes MD 6 mos f/u Chalo Kamara NP documented in this encounter Plan of Treatment Not on file documented as of this encounter Visit Diagnoses Not on filedocumented in this encounter Care Teams Nailing Machine Operator Relationship Specialty Start Date End Date Salvador Hyatt MD [facility] [address] [place] [address] PCP - General Family Practice 07/18/15 04/25/18 Alberto Stanton MD [facility] [address] [place] [address] PCP - General Family Practice 04/26/18 Jonathan Jaimes MD [address] [place] [id number] Assigned Heart and Vascular Provider 06/07/20 documented as of this encounter
--- OUTSIDE RECORDS SUMMARY | 2023-10-06 09:32 | XMS_ITS | Encounter Summary ---
Author Name Unknown Organization [facility] Address [address] [place] [address]. [place] [address] Care Team Providers Care Escort Patients Name Role Phone Salvador Hyatt MD Primary Care Provider [phone] Alberto Stanton MD Primary Care Provider [phone] Jonathan Jaimes MD Unavailable [phone] Encounter Details Date Type Department Care Team (Late st Contact Info) Description 09/06/[address] [phone] Samuel Garcia MD [address] [place] [address] [address] NICK JIMENEZ [place] [id number] Emergency Room Encounter (Primary Dx) Social History [...] Primary documented in this encounter Care Teams Escort Patients Relationship Specialty Start Date End Date Salvador Hyatt MD [facility] [address] [place] [address] PCP - General Family Practice 07/18/15 04/25/18 Alberto Stanton MD [facility] [address] [place] [address] PCP - General Family Practice 04/26/18 Jonathan Jaimes MD [address] [facility] [address] [place] [phone] Assigned Heart and Vascular Provider 06/07/20 documented as of this encounter
== END 2023-10-06 09:27 | disposition home or self-care (01) ==
PROVIDERS: PCP Family Medicine; Visit Provider Emergency Medicine
DX: R53.81 Other malaise (principal)
CPT/HCPCS: 80076; 87086; 87186

== ENCOUNTER 2023-10-12 12:07 | Outpatient (CLI) | payer MEDICARE, SELFPAY | END 2023-10-12 12:08 | disposition home or self-care (01) | PROVIDERS: PCP Family Medicine; Visit Provider Emergency Medicine | DX: R31.9 Hematuria, unspecified (principal); R17 Unspecified jaundice | CPT/HCPCS: 80076; 87086 ==

== ENCOUNTER 2023-11-02 15:10 | Outpatient (CLI) | payer MEDICARE, SELFPAY | END 2023-11-02 15:11 | disposition home or self-care (01) | LOC: LKVREF 15:11 | PROVIDERS: PCP Family Medicine; Visit Provider Emergency Medicine | DX: R53.83 Other fatigue (principal); I10 Essential (primary) hypertension; E78.5 Hyperlipidemia, unspecified | CPT/HCPCS: 80053 ==

== ENCOUNTER 2023-11-03 12:41 | Outpatient (CLI) | payer MEDICARE, SELFPAY | END 2023-11-03 12:42 | disposition home or self-care (01) | LOC: LKVREF 12:41 | PROVIDERS: PCP Family Medicine; Visit Provider Emergency Medicine | DX: R35.0 Frequency of micturition (principal) | CPT/HCPCS: 87086; 87186 ==

== ENCOUNTER 2023-11-05 19:30 | Outpatient (CLI) | payer MEDICARE, SELFPAY | END 2023-11-05 19:31 | disposition home or self-care (01) | LOC: AMB 11-09 01:08 | PROVIDERS: PCP Family Medicine; Visit Provider Family Medicine | DX: R53.1 Weakness (principal) | CPT/HCPCS: A0425; A0429 ==

== ENCOUNTER 2024-02-21 14:45 | Outpatient (CLI) | payer MEDICARE, SELFPAY ==
--- OUTSIDE RECORDS SUMMARY | 2024-02-21 23:52 | XMS_ITS | Referral Summary ---
Author Organization [facility] Address [address] [place] [address] Care Team Providers Care Vp Strategic Partnerships Name Role Phone Alberto Stanton MD Primary Care Provider [phone] Jonathan Jaimes MD Unavailable [phone] Allergies Active Allergy Reactions Criticality Noted Date Comments Amoxicillin 10/22/2003 Diarrhea. Hydrochlorothiazide 01/14/2017 Significant orthostasis Medications Medication Sig Dispensed Refills Start Date End Date Status Cholecalciferol (VITAMIN D) 50 MCG (1999) CAPS Take 1 capsule by mouth daily Active sertraline (ZOLOFT) 100 MG tabletIndications:Dy sthymic disorder Take 1 tablet (100 mg) by mouth daily 30 tablet 0 05/14/2015 Active levothyroxine (SYNTHROID/LEVOTHROI D) 125 MCG tablet Take 125 mcg by mouth daily 0 04/05/2018 Active hydrOXYzine (ATARAX) 25 MG tablet Take by mouth 3 times daily as needed for itching Active amLODIPine (NORVASC) 5 MG tabletIndications:Es sential hypertension, benign Take 1 tablet (5 mg) by mouth daily 90 tablet 3 01/22/2022 Active atorvastatin (LIPITOR) 40 MG tabletIndications:Mi xed hyperlipidemia Take 1 tablet (40 mg) by mouth daily No further refills until seen by cardiology--call [phone] to schedule 30 tablet 06/17/2022 Active HUMALOG KWIKPEN 100 UNIT/ML soln Inject 20 Units Subcutaneous 2 times daily (before meals) 03/23/2023 Active empagliflozin (JARDIANCE) 25 MG TABS tablet Take 25 mg by mouth every morning 03/22/2023 Active LANTUS SOLOSTAR 100 UNIT/ML soln Inject 40 Units Subcutaneous at bedtime Active spironolactone (ALDACTONE) 25 MG tabletIndications:Be nign essential hypertension Take 0.5 tablets (12.5 mg) by mouth daily 30 tablet 3 04/01/2023 Active losartan (COZAAR) 100 MG tabletIndications:Es sential hypertension, benign Take 1 tablet (100 mg) by mouth daily 90 tablet 3 04/13/2023 Active acetaminophen (TYLENOL) 325 MG tabletIndications:Ac sree cystitis without hematuria Take 2 tablets (650 mg) by mouth every 4 hours as needed for mild pain or other (and adjunct with moderate or severe pain or per patient request) 10/07/2023 Active Active Problems Problem Noted Date Diagnosed Date RONAL (acute kidney injury) (H24) 10/06/2023 UTI (urinary tract infection) 10/06/2023 Morbid obesity 12/02/2020 Localized osteoarthritis of hip 08/13/2015 Obesity 06/14/2015 Tremor 04/22/2013 Hypertension goal BP (blood pressure) < 140/90 0 11/13/2011 Encounter for long-term (current) use of insulin 11/13/2011 Type 2 diabetes mellitus without complications 1 Hyperlipidemia LDL goal <100 06/15/2010 Colon polyps 01/14/2010 Dysthymic disorder 11/17/2004 Metabolic syndrome Resolved Problems Problem Noted Date Diagnosed Date Resolved Date Pyelonephritis, acute 10/06/20232023 Sepsis, due to unspecified o rganism, unspecified whether acute organ dysfunction present 10/06/2023 10/07/2023 Advanced directives, counseling/discussion 09/14/2011 01/31/2024 Overview: Advance Directive Problem List Overview: Name Relationship Phone Primary Health Care Agent Alternative Health Care Agent Discussed advance care planning with patient; information given to patient to review. 09/14/2011 Deanne Kim CMA Hyperlipidemia 10/22/2003 12/26/2010 Overview: Problem list name [...] Sign Reading Time Taken Comments Blood Pressure 126/66 11/05/2023 9:45 PM CDT Pulse 64 11/05/2023 9:48 PM CDT Temperature 36.5 ??C (97.7 ??F) 11/05/2023 8:22 PM CD T Respiratory Rate 18 11/05/2023 8:22 PM CDT Oxygen Saturation 98% 11/05/2023 9:48 PM CDT Inhaled Oxygen Concentration - - Weight 121.1 kg (267 lb) 11/05/2023 8:22 PM CDT Height 190.5 cm (6' 3) 11/05/2023 8:22 PM CDT Body Mass Index 33.37 11/05/2023 8:22 PM CDT Plan of Treatment Not on file Medical Devices Implanted Type Area Computer Drafter Device Identifier Shelf Expiration Date Model / Serial / Lot Imp Cup Rodger [place] 56mm 1217-22-056 Implanted:Qty: 1 on 08/13/2015 by Viktoria Morse MD at [facility] Left: Hip [employer]- 05/15/2025 [id number] / / [id number] Imp [place] Hole Eliminator Hip Depuy Duraloc 1246-03-000 Implanted:Qty: 1 on 08/13/2015 by Viktoria Morse MD at [facility] Left: Hip [employer]- 04/15/2025 [id number] / / [id number] Imp Scr Bone Can Rodger 6.5x20mm 1217-20-500 Implanted:Qty: 1 on 08/13/2015 by Viktoria Morse MD at [facility] Left: Hip [employer]- 06/15/2025 [id number] / / [id number] Acetabular Liner +4 Neutral 36mm Id 56mm Od Implanted:Qty: 1 on 08/13/2015 by Viktoria Morse MD at [facility] Left: Hip Depuy 05/15/2020 [id number] / / [id number] Imp Scr Bone Can Rodger 6.5x25mm 1217-25-500 Implanted:Qty: 1 on 08/13/2015 by Viktoria Morse MD at [facility] Left: Hip [employer]- 06/15/2025 [id number] / / [id number] Imp Head Femoral Depuy 36mm +1.5 1365-51-000 Implanted:Qty: 1 on 08/13/2015 by Viktoria Morse MD at [facility] Left: Hip [employer]- 06/15/2020 [id number] / / [id number] Tri-Lock Bps Femoral Stem 07/29 Taper Tri-Lock Bps W/Gription Size 6 Hi 107mm Implanted:Qty: 1 on 08/13/2015 by Viktoria Morse MD at [facility] Left: Hip Depuy 06/15/2025 [id number] / / [id number] Procedures Procedure Name Priority Date/Time Associated Diagnosis Comments BASIC METABOLIC PANEL STAT 11/05/2023 8:45 PM CDT TSH Routine 03/10/2023 8:49 AM CDT HEMOGLOBIN A1C Routine 03/10/2023 8:49 AM CDT LIPID PROFILE Routine 07/06/2022 9:56 AM RECRUITER MANAGER COLONOSCOPY Routine 03/10/2022 11:38 AM CDT ALBUMIN RANDOM URINE QUANTITATIVE Routine 04/27/2014 8:56 AM CDT Routine General Medical Examination At A Health Care Facility Type 2 diabetes, HbA1C goal < 7% (H) C FOOT EXAM Routine 04/20/2013 11:55 AM CDT Type 2 diabetes, HbA1C goal < 7% (H) from Last 3 Months or Most Recently Relevant to Health Maintenance Results * (ABNORMAL) Basic metabolic panel (11/05/2023 8:45 PM CDT) [facility] Sodium 132(L) 135 - 145 mmol/L 11/05/2023 9:11 PM CDT [facility] Comment:Reference intervals for this test were updated on 05/11/2023 to more accurately reflect our healthy population. There may be differences in the flagging of prior results with similar values performed with this method. Interpretation of those prior results can be made in the context of the updated reference intervals. Potassium 3.8 3.4 - 5.3 mmol/L 11/05/2023 9:11 PM CDT LABORATORY Chloride 99 98 - 107 mmol/L 11/05/2023 9:11 PM CDT LABORATORY Carbon Dioxide (CO2) 18(L) 22 - 29 mmol/L 11/05/2023 9:11 PM CDT LABORATORY Anion Gap 15 7 - 15 mmol/L 11/05/2023 9:11 PM CDT LABORATORY Urea Nitrogen 20.9 8.0 - 23.0 mg/dL 11/05/2023 9:11 PM CDT LABORATORY Creatinine 1.21(H) 0.67 - 1.17 mg/dL 11/05/2023 9:11 PM CDT LABORATORY GFR Estimate 62 >60 mL/min/1. 73m2 11/05/2023 9:11 PM CDT LABORATORY Calcium 8.7(L) 8.8 - 10.2 mg/dL 11/05/2023 9:11 PM CDT LABORATORY Glucose 197(H) 70 - 99 mg/dL 11/05/2023 9:11 PM CDT LABORATORY Blood STRUCTURE OF LEFT UPPER LIMB / Unknown Venipuncture / Unknown 11/05/2023 8:45 PM CDT 11/05/2023 8:52 PM CDT Ritchie Valladares DO LAB - BLOOD JARAD DELGADO [facility] Acute Care Lab [address] [facility] (1st floor, no room number) [place] [address], [facility] * TSH (03/10/2023 8:49 AM CDT) TSH (External) 2.510 0.270 - 4.20 uIU/mL NON-INTERFACED (ONBASE SCANS) Blood BLOOD SPECIMEN / Unknown 03/10/2023 8:49 AM CDT Narrative AARONEZE PFT - 03/29/2023 12:52 PM CDT Verified by Deanne Robertson on 03/29/2023. Provider Outside LAB - BLOOD ORDERABL ES Performing Organization Address City/[facility]/ZIP Co de Phone Number BREEZE PFT NON-INTERFACED (ONBASE SCANS) * (ABNORMAL) Hemoglobin A1c (03/10/2023 8:49 AM CDT) Hemoglobin A1C (External) 7.9(H) 0 - 5.6 % NON-INTERFACED (ONBASE SCANS) Blood BLOOD SPECIMEN / Unknown 03/10/2023 8:49 AM CDT Narrative AARONEZE PFT - 03/29/2023 12:52 PM CDT Verified by Deanne Robertson on 03/29/2023. Provider Outside LAB - BLOOD ORDERABL ES BREEZE PFT NON-INTERFACED (ONBASE SCANS) * Lipid Profile (07/06/2022 9:56 AM RECRUITER MANAGER) Triglycerides (External) 147 40 - 149 mg/dL NON-INTERFACE D (ONBASE SCANS) Cholesterol (External) 155 98 - 199 mg/dl NON-INTERFACE D (ONBASE SCANS) HDL Cholesterol (External) 41 >=40 mg/dL NON-INTERFACE D (ONBASE SCANS) LDL-Cholesterol (External) 85 <100 mg/dL NON-INTERFACE D (ONBASE SCANS) Blood 07/06/2022 9:56 AM RECRUITER MANAGER Narrative GHAZALA PFRomie - 07/28/2022 9:47 AM RECRUITER MANAGER Verified by Juan Francisco Estrada on 07/28/2022. Provider Outside LAB - BLOOD ORDERABL ES GHAZALA FIGUEROA NON-INTERFACED (ONBASE SCANS) * COLONOSCOPY (03/10/2022 11:38 AM CDT) [facility] COLONOSCOPY [facility] Patient Name: Gilberto Alfonso ? Procedure Date: 03/10/2022 11:38 AM ? Date of : 1950 ?Admit Type: Outpatient Age: 72 ? Gender: Male Attending MD: DEANNE ROMEO MD Total Sedation Time: 26 minutes of continuous bedside 1:1. IT: 2m, WDT: 20 Instrument Name: 257 - Pediatric Colonoscope Procedure: ?Colonoscopy Indications: ?High risk colon cancer surveillance: Personal ?history of colonic polyps (7 polyps in 2019) Providers: ?DEANNE ROMEO MD (Doctor) Referring MD: ? Medicines: ?Fentanyl 100 micrograms IV, Midazolam 2 mg IV Complications: ?No immediate complications. Procedure: ?Pre-Anesthesia Assessment: ?- Prior to the procedure, a History and Physical ?was performed, and patient medications and ?allergies were reviewed. The patient is competent. ?The risks and benefits of the procedure and the ?sedation options and risks were discussed with the ?patient. All questions were answered and informed ?consent was obtained. Patient identification and ?proposed procedure were verified by the physician ?and the nurse in the endoscopy suite. Mental Status ?Examination: alert and oriented. Airway ?Examination: normal oropharyngeal airway and neck ?mobility. Respiratory Examination: clear to ?auscultation. CV Examination: normal. Prophylactic ?Antibiotics: The patient does not require ?prophylactic antibiotics. Prior Anticoagulants: The ?patient has taken no anticoagulant or antiplatelet ?agents. ASA Grade Assessment: II - A patient with ?mild systemic disease. After reviewing the risks ?and benefits, the patient was deemed in ?satisfactory condition to undergo the procedure. ?The anesthesia plan was to use moderate sedation / ?analgesia (conscious sedation). Immediately prior ?to administration of medications, the patient was ?re-assessed for adequacy to receive sedatives. The ?heart rate, respiratory rate, oxygen saturations, ?blood pressure, adequacy of pulmonary ventilation, ?and response to care were monitored throughout the ?procedure. The physical status of the patient was ?re-assessed after the procedure. ?After obtaining informed consent, the colonoscope ?was passed under direct vision. Throughout the ?procedure, the patient's blood pressure, pulse, and ?oxygen saturations were monitored continuously. The ?Olympus Pediatric Colonoscope Model # [id number], ?[place] # 257, SN # [id number] was introduced through ?the anus and advanced to 4 cm into the ileum. The ?colonoscopy was performed with ease. The patient ?tolerated the procedure well. The quality of the ?bowel preparation was adequate to identify polyps. ? Findings: ? The digital rectal exam findings include prostate nodules. Pertinent ? negatives include normal sphincter tone. ? The terminal ileum appeared normal. ? A 4 mm polyp was found in the descending colon. The polyp was sessile. ? The polyp was removed with a cold snare. Resection and retrieval were ? complete. Estimated blood loss: none. ? A 3 mm polyp was found in the mid sigmoid colon. The polyp was sessile. ? The polyp was removed with a cold snare. Resection and retrieval were ? complete. Estimated blood loss was minimal. ? The retroflexed view of the distal rectum and anal verge was normal and ? showed no anal or rectal abnormalities. ? The perianal examination was normal. ? Impression: ? - Prostate nodules found on digital rectal exam. ?- The examined portion of the ileum was normal. ?- One 4 mm polyp in the descending colon, removed ?with a cold snare. Resected and retrieved. ?- One 3 mm polyp in the mid sigmoid colon, removed ?with a cold snare. Resected and retrieved. ?- The distal rectum and anal verge are normal on ?retroflexion view. Recommendation: ? - Repeat colonoscopy in 3 years for surveillance. ? Procedure Code(s): ? --- Professional --- ? 52481, Colonoscopy, flexible; with removal of tumor(s), polyp(s), or ? other lesion(s) by snare technique Diagnosis Code(s): ? --- Professional --- ? Z86.010, Personal history of colonic polyps ? N40.2, Nodular prostate without lower urinary tract symptoms ? K63.5, Polyp of colon CPT copyright 2020 [employer]. All rights reserved. The codes documented in this report are preliminary and upon pressroom worker review may be revised to meet current compliance requirements. ____ DEANNE ROMEO MD 03/10/2022 12:19:51 PM I was physically present for the entire viewing portion of the exam. DEANNE ROMEO MD Number of Addenda: 0 Note Initiated On: 03/10/2022 11:38 AM MRN: ?[id number] Procedure Date: ? 03/10/2022 11:38:32 AM Scope Withdrawal Time: 0 hours 19 minutes 18 seconds Total Procedure Duration: 0 hours 21 minutes 49 seconds Estimated Blood Loss: ? Scope In: 11:48:11 AM Scope Out: 12:10:00 PM RADIOLOGY RESULTS 03/10/2022 11:3 8 AM CDT Deanne Romeo MD PROCEDURES RADIOLOGY RESULTS * Microalbumin quantitative, random urine (04/27/2014 8:56 AM CDT) Creatinine Urine 122 mg/dL [facility] Albumin Urine mg/L 9 mg/L [facility] Albumin Urine mg/g Cr 7.45 0 - 17 mg/g Cr [facility] Urine specimen (specimen) 04/27/2014 8:56 AM CDT 04/27/2014 8:58 AM CDT Rob Robb MD LAB - URINE ORDERABL ES [facility] from Last 3 Months or Most Recently Relevant to Health Maintenance Advance Directives For more information, please contact: [phone] * Full Code (Latest Code Status on File) Date Activated Date Inactivated Comments 10/06/2023 4:20 PM 10/07/2023 12:53 PM All basic a nd advanced life-sustaining interventions are performed as appropriate Question Answer Comments Code status determined by: Discussion with patie nt/ legal decision maker * Full Code Date Activated Date Inactivated Comments 08/15/2015 12:06 PM 01/23/2019 9:15 AM * Full Code Date Activated Date Inactivated Comments 08/13/2015 5:56 PM 08/15/2015 12:06 PM * No Code Status Date Activated Date Inactivated Comments 10/19/2003 11:35 AM 10/19/2003 12:35 PM Care Teams Vp Strategic Partnerships Relationship Specialty Start Date End Date Alberto Stanton MD [facility] [address] [place] [address] PCP - General Family Practice 04/26/18 Jonathan Jaimes MD [address] [place] [phone] Assigned Heart and Vascular Provider 06/07/20
--- OUTSIDE RECORDS SUMMARY | 2024-02-21 23:52 | XMS_ITS | Encounter Summary ---
Author Organization [facility] Address [address] [place] [address]. [place] [address] Care Team Providers Care Supervisor Brake Repair Name Role Phone Salvador Hyatt MD Primary Care Provider [phone] Alberto Stanton MD Primary Care Provider [phone] Jonathan Jaimes MD Unavailable [phone] Encounter Details Date Type Department Care Team (Late st Contact Info) Description 02/19/2010 Office Visit-[facility] [address] [place] [address] Jonathan Jaimes MD [address] [facility] [address] [place] [address] Social History Tobacco Use Types [...] old Referring Physician: CHELSEY TRAORE Referring Clinic: [facility] CURRENT DIAGNOSES 1. - [...] Past Medical Illnesses: GI reflux, hyperlipidemia, diabetes edeqxqqs-zer-bnkakdx dependent, hypertension, depression, sinusistis, cellulitis, finger, rt [...] Diagnoses Not on filedocumented in this encounter Additional Health Concerns Infection Onset Date Last Indicated Resolved Time Rule Out COVID-19 10/06/2023 10/06/2023 10/06/2023 1:51 PM MARKET RESEARCH COORDINATOR Rule Out COVID-19 11/05/2023 11/05/2023 11/05/2023 10:53 PM CDT documented as of this encounter Care Teams Supervisor Brake Repair Relationship Specialty Start Date End Date Salvador Hyatt MD PCP - General Family Practice 07/18/15 04/25/18 Alberto Stanton MD [id number] [address] PCP - General Family Practice 04/26/18 Jonathan Jaimes MD [address] [place] [phone] Assigned Heart and Vascular Provider 06/07/20 documented as of this encounter
--- OUTSIDE RECORDS SUMMARY | 2024-02-21 23:52 | XMS_ITS | Encounter Summary ---
Author Organization [place] Address [address] [place] [address]. [place] [address] Care Team Providers Care Automobile Body Repairer Name Role Phone Alberto Stanton MD Primary Care Provider [phone] Jonathan Jaimes MD Unavailable [phone] Reason for Visit * Reason Onset Date Comments SCHEDULING 10/09/2021 NM Lexiscan stre ss test (nuc card) AND Echocardiogram Complete Encounter Details Date Type Department Care Team (Late st Contact Info) Description 10/09/2021 [facility] [address] [place] [address] Jonathan Jaimes MD [address] [facility] [address] [place] [address] SCHEDULING (NM Lexiscan stress test [...] Medel Tim - 10/09/2021 4:09 PM CST [facility] Phone Message May a detailed message be left on voicemail: no Reason for Call: Other: Caleb called to schedule a NM Lexiscan stress test (nuc card) AND Echocardiogram Complete, please reach out to him at . Action Taken: Other: [facility] Travel Screening: Not Applicable ATTENDANT documented in this encounter Plan of Treatment Not on file documented as of this encounter Visit Diagnoses Not on filedocumented in this encounter Additional Health Concerns Infection Onset Date Last Indicated Resolved Time Rule Out COVID-19 10/06/2023 10/06/2023 10/06/2023 1:51 PM FUEL ATTENDANT Rule Out COVID-19 11/05/2023 11/05/2023 11/05/2023 10:53 PM CDT documented as of this encounter Care Teams Automobile Body Repairer Relationship Specialty Start Date End Date Alberto Stanton MD [facility] [address] [place] [address] PCP - General Family Practice 04/26/18 Jonathan Jaimes MD [address] [place] [phone] Assigned Heart and Vascular Provider 06/07/20 documented as of this encounter
--- OUTSIDE RECORDS SUMMARY | 2024-02-21 23:52 | XMS_ITS | Encounter Summary ---
Author Organization [place] Address [address] [place] [address]. [place] [address] Care Team Providers Care Industrial Manufacturing Technician Name Role Phone Salvador Hyatt MD Primary Care Provider [phone] Alberto Stanton MD Primary Care Provider [phone] Jonathan Jaimes MD Unavailable [phone] Encounter Details Date Type Department Care Team (Late st Contact Info) Description 05/25/2013 Office Visit-[facility] [address] [place] [address] Jonathan Jaimes MD [address] [facility] [address] [place] [address] Social History Tobacco Use Types [...] old Referring Physician: CHELSEY GARCIA Referring Clinic: [facility] CURRENT DIAGNOSES 1. [...] it would be cheaper to go to [facility] .12/23. I told him since I am [...] Past Medical Illnesses: GI reflux, hyperlipidemia, diabetes gqhnxtoc-xjr-dvvkpsm dependent, hypertension, depression, sinusistis, cellulitis, finger, rt leg vericosities, metabolic syndrome, plantar fascitis, diabetes zwuinekt-ffs-hdiznzd dependent, depression Infectious History: spider bite-cellulitis, shingles [...] with in own home; Place of - [place]; REVIEW OF SYSTEMS GENERAL feels well, no [...] Out COVID-19 10/06/2023 10/06/2023 10/06/2023 1:51 PM DISTRIBUTION ENGINEER Rule Out COVID-19 11/05/2023 11/05/2023 11/05/2023 10:53 PM CDT documented as of this encounter Care Teams Industrial Manufacturing Technician Relationship Specialty Start Date End Date Salvador Hyatt MD PCP - General Family Practice 07/18/15 04/25/18 Alberto Stanton MD [facility] [address] [place] [address] PCP - General Family Practice 04/26/18 Jonathan Jaimes MD [address] [place] [address] Assigned Heart and Vascular Provider 06/07/20 documented as of this encounter
--- OUTSIDE RECORDS SUMMARY | 2024-02-21 23:52 | XMS_ITS | Encounter Summary ---
Author Organization [place] Address [address] [place] [address]. [place] [address] Care Team Providers Care Inbound Customer Service Agent Name Role Phone Salvador Hyatt MD Primary Care Provider [phone] Alebrto Stanton MD Primary Care Provider [phone] Jonathan Jaimes MD Unavailable [phone] Encounter Details Date Type Department Care Team (Late st Contact Info) Description 05/28/2009 Office Visit-[facility] [address] [place] [address] Kelly Anglin APRN CNP NO INFO [...] Referring Physician: CHELSEY TRAORE Referring Clinic: [facility] CURRENT DIAGNOSES 1. - Metabolic [...] Past Medical Illnesses: GI reflux, hyperlipidemia, diabetes juoythsq-gel-tphorfe dependent, hypertension, depression, sinusistis, cellulitis, finger, rt [...] lives with and children; Place of - [place]; Job Description - 20; REVIEW OF SYSTEMS [...] Right arm, large cuff 128/70 Retaken by TELEPHOTO ENGINEER/PA Pulse- 88.00/min. Weight- 277.00 lbs. Height- [...] Out COVID-19 10/06/2023 10/06/2023 10/06/2023 1:51 PM MOTOR COACH TOUR OPERATOR Rule Out COVID-19 11/05/2023 11/05/2023 11/05/2023 10:53 PM CDT documented as of this encounter Care Teams Inbound Customer Service Agent Relationship Specialty Start Date End Date Salvador Hyatt MD PCP - General Family Practice 12/3/15 9/10/18 Alberto Stanton MD [facility] [address], [place] [address] PCP - General Family Practice 04/26/18 Jonathan Jaimes MD [address] [place] [address] Assigned Heart and Vascular Provider 06/07/20 documented as of this encounter
--- OUTSIDE RECORDS SUMMARY | 2024-02-21 23:52 | XMS_ITS | Encounter Summary ---
Author Organization [place] Address [address] [place] [address]. [place] [address] Care Team Providers Care Traveling Missionary Name Role Phone Salvador Hyatt MD Primary Care Provider [phone] Alberto Stanton MD Primary Care Provider [phone] Jonathan Jaimes MD Unavailable [phone] Encounter Details Date Type Department Care Team (Late st Contact Info) Description 02/03/2005 Office Visit-[facility] [address] [place] [address] Unknown, MD Naomy Social History [...] Created by: Jonathan Jaimes M.D. DATE: 02/03/2005 GILBERTO ALFONSO DATE OF : 1950 AGE: [age] years old Referring Physician: CHELSEY GARCIA Referring Clinic: [facility] CURRENT DIAGNOSES 1. - [...] OF PRESENT ILLNESS Gilberto Alfonso returns for follow up of his metabolic syndrome and primary prevention. He did have some chest pain more than a year ago. His stress test was negative. He has not had any further chest pain. No palpitations, dizziness, or syncope. We are following him mostly for blood pressure and cholesterol management, although he also sees his magnetic prospecting operator. His blood pressure today is 130 systolic, [...] Past Medical Illnesses: GI reflux, hyperlipidemia, diabetes wwzrthkf-ien-xkjvwid dependent, hypertension, depression, sinusistis, cellulitis, finger, rt [...] lives with and children; Place of - [place]; Job Description - 20; REVIEW OF SYSTEMS [...] time: 30 minutes, greater than 50% counseling. cc:Chelsey Garcia M.D. Elmo Hernández M.D. TODAYS ORDERS 1. Return Visit 1 year Jonathan Jaimes M.D. Electronically signed by [facility] Data Conversion at 12/29/2013 6:09 AM CDT documented in this encounter Plan of Treatment Not on file documented as of this encounter Visit Diagnoses Not on filedocumented in this encounter Additional Health Concerns Infection Onset Date Last Indicated Resolved Time Rule Out COVID-19 10/06/2023 10/06/2023 10/06/2023 1:51 PM REPORTING PROCESS CONSULTANT Rule Out COVID-19 11/05/2023 11/05/2023 11/05/2023 10:53 PM CDT documented as of this encounter Care Teams Traveling Missionary Relationship Specialty Start Date End Date Salvador Hyatt MD PCP - General Family Practice 07/18/15 04/25/18 Alberto Stanton MD [facility] [address] [place] [address] PCP - General Family Practice 04/26/18 Jonathan Jaimes MD [address] [place] [address] Assigned Heart and Vascular Provider 06/07/20 documented as of this encounter
--- OUTSIDE RECORDS SUMMARY | 2024-02-21 23:52 | XMS_ITS | Encounter Summary ---
Author Organization [place] Address [address] [place] [address]. [place] [address] Care Team Providers Care Bad Credit Collector Name Role Phone Salvador Hyatt MD Primary Care Provider [phone] Alberto Stanton MD Primary Care Provider [phone] Jonathan Jaimes MD Unavailable [phone] Encounter Details Date Type Department Care Team (Late st Contact Info) Description 03/27/2011 Office Visit-[facility] [address] [place] [address] Unknown, DoctorMD Social History Tobacco [...] CDT Progress Note Created by: Leora Malhotra N.P. [id number] DATE: 03/26/2011 GILBERTO ALFONSO DATE OF : 1950 AGE: [age] years old Referring Physician: CHELSEY TRAORE Referring Clinic: [facility] CURRENT DIAGNOSES 1. [...] intends to resume his walking program around [facility]. He has dyslipidemia, which his now being [...] Past Medical Illnesses: GI reflux, hyperlipidemia, diabetes ddsyafdm-gxp-odhbxxh dependent, hypertension, depression, sinusistis, cellulitis, finger, rt leg vericosities, metabolic syndrome, plantar fascitis, diabetes irrzhmff-znq-yuodxvc dependent, depression Infectious History: spider bite-cellulitis, shingles [...] with in own home; Place of - [place]; REVIEW OF SYSTEMS GENERAL weight loss, 3 [...] two days ago and is going to picker and packer a supply today. I suspect this is why the blood pressure is up in the office. He will continue monitoring his blood pressure on a daily basis and return in one week's time. 2. Diabetes mellitus. The patient reports last hemoglobin A1C is 8.6. He is due to see his plate put in worker next week. 3. NormalLV function per stress [...] Out COVID-19 10/06/2023 10/06/2023 10/06/2023 1:51 PM LOG OPERATIONS COORDINATOR Rule Out COVID-19 11/05/2023 11/05/2023 11/05/2023 10:53 PM CDT documented as of this encounter Care Teams Bad Credit Collector Relationship Specialty Start Date End Date Salvador Hyatt MD PCP - General Family Practice 07/18/15 04/25/18 Alberto Stanton MD [facility] [address] [place] [address] PCP - General Family Practice 04/26/18 Jonathan Jaimes MD [address] [place] [address] Assigned Heart and Vascular Provider 06/07/20 documented as of this encounter
--- OUTSIDE RECORDS SUMMARY | 2024-02-21 23:52 | XMS_ITS | Encounter Summary ---
Author Organization [place] Address [address] [place] [address]. [place] [address] Care Team Providers Care Sales Marketing Coordinator Name Role Phone Salvador Hyatt MD Primary Care Provider [phone] Alberto Stanton MD Primary Care Provider [phone] Jonathan Jaimes MD Unavailable [phone] Encounter Details Date Type Department Care Team (Late st Contact Info) Description 03/12/2011 Office Visit-[facility] [address] [place] [address] Jonathan Jaimes MD [address] [facility] [address] [place] [address] Social History Tobacco Use Types [...] Created by: Jonathan Jaimes M.D. DATE: 03/12/2011 GILBERTO ALFONSO DATE OF : 1950 AGE: [age] years old Referring Physician: CHELSEY TRAORE Referring Clinic: [facility] CURRENT DIAGNOSES 1. [...] had the pleasure of following up on Gilberto Alfonso. As you know, he is a delightful 65-kxew-vssdztmnkeuk who is here for primary prevention although [...] taken the liberty of giving him a loaner blood pressure machine from our office. We [...] Past Medical Illnesses: GI reflux, hyperlipidemia, diabetes urdprdax-ozh-ovkzalo dependent, hypertension, depression, sinusistis, cellulitis, finger, rt leg vericosities, metabolic syndrome, plantar fascitis, diabetes glkrnsxh-dhh-nkjxelt dependent, depression Infectious History: spider bite-cellulitis, shingles [...] with in own home; Place of - [place]; REVIEW OF SYSTEMS GENERAL feels well, no [...] Kike Anglin, MSN, ANP 7-14 days---or any ccnp Jonathan Jaimes M.D. documented in this encounter Plan of Treatment Not on file documented as of this encounter Visit Diagnoses Not on filedocumented in this encounter Additional Health Concerns Infection Onset Date Last Indicated Resolved Time Rule Out COVID-19 10/06/2023 10/06/2023 10/06/2023 1:51 PM MANAGER DIGITAL Rule Out COVID-19 11/05/2023 11/05/2023 11/05/2023 10:53 PM CDT documented as of this encounter Care Teams Sales Marketing Coordinator Relationship Specialty Start Date End Date Salvador Hyatt MD PCP - General Family Practice 07/18/15 04/25/18 Alberto Stanton MD [facility] [address] [place] [address] PCP - General Family Practice 04/26/18 Jonathan Jaimes MD [address] [place] [address] Assigned Heart and Vascular Provider 06/07/20 documented as of this encounter
--- OUTSIDE RECORDS SUMMARY | 2024-02-21 23:52 | XMS_ITS | Encounter Summary ---
Author Organization [place] Address [address] [place] [address]. [place] [address] Care Team Providers Care Online Retailer Name Role Phone Salvador Hyatt MD Primary Care Provider [phone] Alberto Stanton MD Primary Care Provider [phone] Jonathan Jaimes MD Unavailable [phone] Encounter Details Date Type Department Care Team (Late st Contact Info) Description 02/25/2009 Office Visit-[facility] [address] [place] [address] Jonathan Jaimes MD [address] [facility] [address] [place] [address] Social History Tobacco Use Types [...] old Referring Physician: CHELSEY TRAORE Referring Clinic: [facility] CURRENT DIAGNOSES 1. Chest pain, unspecified, [...] for primary prevention. 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 His diabetes numbers unfortunately are not well [...] Past Medical Illnesses: GI reflux, hyperlipidemia, diabetes exwyjnpr-ehf-fosumpf dependent, hypertension, depression, sinusistis, cellulitis, finger, rt [...] TODAYS ORDERS 1. F/U with Kike Anglin, [place], ANP 3 months 2. Lipid profile/ALT 3 months Jonathan Jaimes M.D. documented in this encounter Plan of Treatment Not on file documented as of this encounter Visit Diagnoses Not on filedocumented in this encounter Additional Health Concerns Infection Onset Date Last Indicated Resolved Time Rule Out COVID-19 10/06/2023 10/06/2023 10/06/2023 1:51 PM CONSERVATION SCIENTIST Rule Out COVID-19 11/05/2023 11/05/2023 11/05/2023 10:53 PM CDT documented as of this encounter Care Teams Online Retailer Relationship Specialty Start Date End Date Salvador Hyatt MD PCP - General Family Practice 07/18/15 04/25/18 Alberto Stanton MD [facility] [address] [place] [address] PCP - General Family Practice 04/26/18 Jonathan Jaimes MD [address] [place] [address] Assigned Heart and Vascular Provider 06/07/20 documented as of this encounter
--- OUTSIDE RECORDS SUMMARY | 2024-02-21 23:52 | XMS_ITS | Encounter Summary ---
Author Organization [place] Address [address] [place] [address]. [place] [address] Care Team Providers Care Property Investor Name Role Phone Salvador Hyatt MD Primary Care Provider Alberto Stanton MD Primary Care Provider [phone] Jonathan Jaimes MD Unavailable [phone] Encounter Details Date Type Department Care Team (Late st Contact Info) Description 02/04/2006 Office Visit-[facility] [address] [place] [address] Unknown, MD Naomy Social History [...] old Referring Physician: CHELSEY CHIN Referring Clinic: [facility] CURRENT DIAGNOSES 1. - Metabolic Syndrome, 277.9 [...] Past Medical Illnesses: GI reflux, hyperlipidemia, diabetes ixflsfca-ksj-vkghsqg dependent, hypertension, depression, sinusistis, cellulitis, finger, rt [...] lives with and children; Place of - [place]; Job Description - 20; REVIEW OF SYSTEMS [...] Out COVID-19 10/06/2023 10/06/2023 10/06/2023 1:51 PM CONCESSION SUPERVISOR Rule Out COVID-19 11/05/2023 11/05/2023 11/05/2023 10:53 PM CDT documented as of this encounter Care Teams Property Investor Relationship Specialty Start Date End Date Salvador Hyatt MD PCP - General Family Practice 07/18/15 04/25/18 Alberto Stanton MD [facility] [address], [place] [address] PCP - General Family Practice 04/26/18 Jonathan Jaimes MD [address] [facility] [address] [place] [address] Assigned Heart and Vascular Provider 06/07/20 documented as of this encounter
--- OUTSIDE RECORDS SUMMARY | 2024-02-21 23:52 | XMS_ITS | Encounter Summary ---
Author Organization [place] Address [address] [place] [address]. [place] [address] Care Team Providers Care Otolaryngology Surgeon Name Role Phone Alberto Stanton MD Primary Care Provider [phone] Jonathan Jaimes MD Unavailable [phone] Encounter Details Date Type Department Care Team (Late st Contact Info) Description 11/19/2022 External Order Results [facility] [address] [place] [address] Outside, Provider Social History Tobacco Use Types [...] ES BREEZE PFT NON-INTERFACED (ONBASE SCANS) * CBC [...] - BLOOD ORDERABL ES Performing Organization Address [facility] Co de Phone Number BREEZE PFT NON-INTERFACED (ONBASE SCANS) * Basic metabolic [...] - BLOOD ORDERABL ES Performing Organization Address [facility]/State/ZIP Co de Phone Number BREEZE PFT NON-INTERFACED (ONBASE SCANS) * Ionized Calcium (11/19/2022 10:40 AM CDT) Calcium Ionized (External) 1.21 1.11 - 1.33 mmol/L NON-INTERFACED (ONBASE SCANS) Blood BLOOD SPECIMEN / Unknown 11/19/2022 10:40 AM CDT Narrative BREEZE PFT - 03/29/2023 12:52 PM CDT Verified by Sabina Robertson on 03/29/2023. Provider Outside LAB - BLOOD ORDERABL ES GHAZALA PFRomie NON-INTERFACED (ONBASE SCANS) documented in this encounter Visit Diagnoses Not on filedocumented in this encounter Additional Health Concerns Infection Onset Date Last Indicated Resolved Time Rule Out COVID-19 10/06/2023 10/06/2023 10/06/2023 1:51 PM FURNACE COMBUSTION TESTER Rule Out COVID-19 11/05/2023 11/05/2023 11/05/2023 10:53 PM CDT documented as of this encounter Care Teams Otolaryngology Surgeon Relationship Specialty Start Date End Date Alberto Stanton MD [facility] [address] [place] [address] PCP - General Family Practice 04/26/18 Jonathan Jaimes MD [address] [place] [address] Assigned Heart and Vascular Provider 06/07/20 documented as of this encounter
--- OUTSIDE RECORDS SUMMARY | 2024-02-21 23:52 | XMS_ITS | Encounter Summary ---
Author Organization [place] Address [address] [place] [address]. [place] [address] Care Team Providers Care Charge Master Specialist Name Role Phone Salvador Hyatt MD Primary Care Provider [phone] Alberto Stanton MD Primary Care Provider [phone] Jonathan Jaimes MD Unavailable [phone] Encounter Details Date Type Department Care Team (Late st Contact Info) Description 01/31/2007 Office Visit-[facility] [address] [place] [address] Jonathan Jaimes MD [address] [facility] [address] [place] [address] Social History Tobacco Use Types [...] old Referring Physician: CHELSEY TRAORE Referring Clinic: [facility] CURRENT DIAGNOSES 1. Chest pain, [...] Past Medical Illnesses: GI reflux, hyperlipidemia, diabetes aaclaxmn-edy-zejaonk dependent, hypertension, depression, sinusistis, cellulitis, finger, rt [...] lives with and children; Place of - [place]; Job Description - 20; REVIEW OF SYSTEMS [...] Indicated Resolved Time Rule Out COVID-19 10/06/2023 10/06/202310/06/2023 1:51 PM BAD CLOTH CHECKER Rule Out COVID-19 11/05/2023 11/05/2023 11/05/2023 10:53 PM CDT documented as of this encounter Care Teams Charge Master Specialist Relationship Specialty Start Date End Date Salvador Hyatt MD PCP - General Family Practice 07/18/15 04/25/18 Alberto Stanton MD [facility] [address] [place] [address] PCP - General Family Practice 04/26/18 Jonathan Jaimes MD [address] [place] [address] Assigned Heart and Vascular Provider 06/07/20 documented as of this encounter
--- OUTSIDE RECORDS SUMMARY | 2024-02-21 23:52 | XMS_ITS | Encounter Summary ---
Author Organization [place] Address [address] [place] [address]. [place] [address] Care Team Providers Care Legal Transcriber Name Role Phone Salvador Hyatt MD Primary Care Provider [phone] Alberto Stanton MD Primary Care Provider [phone] Jonathan Jaimes MD Unavailable [phone] Encounter Details Date Type Department Care Team (Late st Contact Info) Description 03/24/2012 Office Visit-[facility] [address] [place] [address] Jonathan Jaimes MD [address] [facility] [address] [place] [address] Social History Tobacco Use Types [...] old Referring Physician: CHELSEY TRAORE Referring Clinic: [facility] CURRENT DIAGNOSES 1. - Hyperlipidemia, [...] pressure. He has since moved to a [employer]. He told me he gained weight, but [...] 220. Last year we gave him a Tengah blood pressure machine and althoughhis blood pressure [...] Past Medical Illnesses: GI reflux, hyperlipidemia, diabetes vkntxogo-mhv-dtvkeuo dependent, hypertension, depression, sinusistis, cellulitis, finger, rt leg vericosities, metabolic syndrome, plantar fascitis, diabetes wgdkfxbn-gdf-lfjyllf dependent, depression Infectious History: spider bite-cellulitis, shingles [...] with in own home; Place of - [place]; REVIEW OF SYSTEMS GENERAL weight gain, 5.4 [...] Weight- 277.40 lbs. Height- 75 BMI Measurement: [facility] Error: [Microsoft][ODBC SQL Hospital Television Rental Clerk Human Resource Officer][SQL Hospital Television Rental Clerk]Divide by zero error encountered. - [id number] CONSTITUTIONAL cooperative, alert and oriented,well developed, well [...] Out COVID-19 10/06/2023 10/06/2023 10/06/2023 1:51 PM MEDICAID BILLING CLERK Rule Out COVID-19 11/05/2023 11/05/2023 11/05/2023 10:53 PM CDT documented as of this encounter Care Teams Legal Transcriber Relationship Specialty Start Date End Date Salvador Hyatt MD PCP - General Family Practice 07/18/15 04/25/18 Alberto Stanton MD [facility] [address] [place] [address] PCP - General Family Practice 04/26/18 Jonathan Jaimes MD [address] [place] [address] Assigned Heart and Vascular Provider 06/07/20 documented as of this encounter
--- OUTSIDE RECORDS SUMMARY | 2024-02-21 23:52 | XMS_ITS | Clinical Summary ---
Author Organization [place] Address [address] [place] [address] Care Team Providers Care Station Engineer Main Line Name Role Phone Alberto Stanton MD Primary Care Provider [phone] Jonathan Jaimes MD Unavailable [phone] Allergies Active Allergy Reactions Criticality Noted Date [...] No further refills until seen by cardiology--call [phone] to schedule 30 tablet 06/17/2022 Active HUMALOG [...] 11/05/2023 8:22 PM CDT Plan of Treatment Health Maintenance Due Date Last Done Comments ANNUAL REVIEW OF HM ORDERS 1950 HEPATITIS C SCREENING 01/28/1966 ZOSTER IMMUNIZATION (1 of 2) 01/28/1998 RSV VACCINE ( & 60+) (1 - 1-dose 60+ series) 2008 EYE EXAM 06/16/2013 06/16/2012, 08/2011, 01/19/2011 DIABETIC FOOT EXAM 04/20/2014 04/20/2013, 0 04/12/2012, 03/02/2011 FALL RISK ASSESSMENT 04/20/2014 04/20/2013 PHQ-9 10/25/2014 04/27/2014, 090 12/2012, 06/03/2012 MEDICARE ANNUAL WELLNESS VISIT 04/27/2015 04/27/2014, 04/20/2013, 04/12/2012, Additional history exists MICROALBUMIN 04/27/2015 04/27/2014, 090 12/2012, 04/12/2012, Additional history exists ADVANCE CARE PLANNING 09/14/2016 09/14/2011, 012 LIPID 07/06/2023 07/06/2022, 03/0 12/2020, 12/18/2019, Additional history exists A1C 09/10/2023 03/10/2023, 04/0 01/2023, 07/06/2022, Additional history exists COVID-19 Vaccine (2022- season) 2023 06/30/2023, 06/23/2021, 11/06/2020, Additional history exists TSH W/FREE T4 REFLEX 03/10/2024 03/10/2023, 07/06/2022, 07/06/2022, Additional history exists BMP 11/04/2024 11/05/2023, 09/17, 10/06/2023, Additional history exists DTAP/TDAP/TD IMMUNIZATION (3 - Td or Tdap) 03/21/2030 03/21/2020, 02/17/2010, 04/21/2000 DEPRESSION ACTION PLAN Completed 04/12/2012 Pneumococcal Vaccine: 65+ Years Completed 06/17/2016, 06/12/2015 COLONOSCOPY Discontinued 03/10/2022, 02/14, 01/23/2019, Additional history exists COLORECTAL CANCER SCREENING Discontinued INFLUENZA VACCINE Completed 06/30/2023, , 06/20/2018, Additional history exists CT COLONOGRAPHY Discontinued FIT Discontinued FLEX SIG Discontinued HPV IMMUNIZATION Aged Out No longer e [...] on patient's age to complete this topic sDNA (Cologuard) Discontinued Medical Devices Implanted Type Area Ems Director Device Identifier Shelf Expiration Date Model / Serial / Lot Imp Cup Rodger [place] 56mm [id number] Implanted:Qty: 1 on 08/13/2015 by Viktoria Morse MD at [facility] Left: Hip [employer] 05/15/2025 [id number] / / [id number] Imp [place] Hole Eliminator Hip Depuy Duraloc 1246-03-000 Implanted:Qty: 1 on 08/13/2015 by Viktoria Morse MD at [facility] Left: Hip [employer] 04/15/2025 [id number] / / [id number] Imp Scr Bone Can Rodger 6.5x20mm 1217--500 Implanted:Qty: 1 on 08/13/2015 by Viktoria Morse MD at [facility] Left: Hip [employer] 06/15/2025 [id number] / / [id number] Acetabular Liner +4 Neutral 36mm Id 56mm Od Implanted:Qty: 1 on 08/13/2015 by Viktoria Morse MD at [facility] Left: Hip Depuy 05/15/2020 [id number] / / [id number] Imp Scr Bone Can Rodger 6.5x25mm 1217-25-500 Implanted:Qty: 1 on 08/13/2015 by Viktoria Morse MD at [facility] Left: Hip [employer] 06/15/2025 [id number] / / [id number] Imp Head Femoral Depuy 36mm +1.5 1365-51-000 Implanted:Qty: 1 on 08/13/2015 by Viktoria Morse MD at [facility] Left: Hip [employer] 06/15/2020 [id number] / / [id number] Tri-Lock Bps Femoral Stem 07/29 Taper Tri-Lock Bps W/Gription Size 6 Hi 107mm Implanted:Qty: 1 on 08/13/2015 by Viktoria Morse MD at [facility] Left: Hip Depuy 06/15/2025 [id number] / / [id number] Procedures Procedure Name Priority Date/Time Associated Diagnosis Comments BASIC METABOLIC PANEL STAT 11/05/2023 8:45 PM CDT TSH Routine 03/10/2023 8:49 AM CDT HEMOGLOBIN A1C Routine 03/10/2023 8:49 AM CDT LIPID PROFILE Routine 07/06/2022 9:56 AM SCRAP BURNER COLONOSCOPY Routine 03/10/2022 11:38 AM CDT ALBUMIN [...] Basic metabolic panel (11/05/2023 8:45 PM CDT) [facility] Sodium 132(L) 135 - 145 mmol/L 11/05/2023 9:11 PM CDT LABORATORY Comment:Reference intervals for this test were [...] CDT Ritchie Valladares DO LAB - BLOOD ANGÉLICAE [facility] [address] [facility] Lab (1st floor, no room number) [place] [address], [facility] * TSH (03/10/2023 8:49 AM CDT) TSH (External) 2.510 0.270 - 4.20 uIU/mL NON-INTERFACED (ONBASE SCANS) Blood BLOOD SPECIMEN / Unknown 03/10/2023 8:49 AM CDT Narrative GHAZALA PFT - 03/29/2023 12:52 PM CDT Verified by Deanne Robertson on 03/29/2023. Provider Outside LAB - BLOOD ORDERABL ES GHAZALA PFT NON-INTERFACED (ONBASE SCANS) * (ABNORMAL) Hemoglobin A1c (03/10/2023 8:49 AM CDT) Hemoglobin A1C (External) 7.9(H) 0 - 5.6 % NON-INTERFACED (ONBASE SCANS) Blood BLOOD SPECIMEN / Unknown 03/10/2023 8:49 AM CDT Narrative BREEZE PFT - 03/29/2023 12:52 PM CDT Verified by Deanne Robertson on 03/29/2023. Provider Outside LAB - BLOOD ORDERABL ES Performing Organization Address City/[facility]/ZIP Co de Phone Number BREEZE PFT NON-INTERFACED (ONBASE SCANS) * Lipid Profile (07/06/2022 9:56 AM SCRAP BURNER) Triglycerides (External) 147 40 - 149 mg/dL NON-INTERFACE D (ONBASE SCANS) Cholesterol (External) 155 98 - 199 mg/dl NON-INTERFACE D (ONBASE SCANS) HDL Cholesterol (External) 41 >=40 mg/dL NON-INTERFACE D (ONBASE SCANS) LDL-Cholesterol (External) 85 <100 mg/dL NON-INTERFACE D (ONBASE SCANS) Blood 07/06/2022 9:56 AM SCRAP BURNER Narrative BREEZE PFT - 07/28/2022 9:47 AM SCRAP BURNER Verified by Juan Francisco Estrada on 07/28/2022. Provider Outside LAB - BLOOD ORDERABL ES BREEZE PFT NON-INTERFACED (ONBASE SCANS) * COLONOSCOPY (03/10/2022 11:38 AM CDT) COLONOSCOPY [employer] Patient Name: Gilberto Alfonso ? Procedure Date: [...] continuously. The ?Olympus Pediatric Colonoscope Model # [id number]-VF639U, ?[place] # 257, SN # [id number] was introduced through ?the anus and advanced [...] Procedure Code(s): ? --- Professional --- ? 00891, Colonoscopy, flexible; with removal of tumor(s), polyp(s), or ? other lesion(s) by snare technique Diagnosis Code(s): ? --- Professional --- ? Z86.010, Personal history of colonic polyps ? N40.2, Nodular prostate without lower urinary tract symptoms ? K63.5, Polyp of colon CPT copyright 2020 [employer]. All rights reserved. The codes documented in this report are preliminary and upon outpatient surgery rn review may be revised to meet current compliance requirements. ____ DEANNE ROMEO MD 03/10/2022 12:19:51 PM I was physically present for the entire viewing portion of the exam. DEANNE ROMEO MD Number of Addenda: 0 Note Initiated On: 03/10/2022 11:38 AM MRN: ?[id number] Procedure Date: ? 03/10/2022 11:38:32 AM Scope Withdrawal Time: 0 hours 19 minutes 18 seconds Total Procedure Duration: 0 hours 21 minutes 49 seconds Estimated Blood Loss: ? Scope In: 11:48:11 AM Scope Out: 12:10:00 PM RADIOLOGY RESULTS 03/10/2022 11:3 8 AM CDT Deanne Romeo MD PROCEDURES RADIOLOGY RESULTS * Microalbumin quantitative, random urine (04/27/2014 8:56 AM CDT) Creatinine Urine 122 mg/dL [facility] Albumin Urine mg/L 9 mg/L [facility] Albumin Urine mg/g Cr 7.45 0 - 17 mg/g Cr [facility] Urine specimen (specimen) 04/27/2014 8:56 AM CDT 04/27/2014 8:58 AM CDT Rob Robb MD LAB - URINE ORDERABL ES [facility] from Last 3 Months or Most Recently Relevant to Health Maintenance Advance Directives For more information, please contact: [phone] * Full Code (Latest Code Status on [...] 11:35 AM 10/19/2003 12:35 PM Care Teams Station Engineer Main Line Relationship Specialty Start Date End Date Alberto Stanton MD [facility] [address] [place] [address] PCP - General Family Practice 04/26/18 Jonathan Jaimes MD [address] [place] [address] Assigned Heart and Vascular Provider 06/07/20
--- OUTSIDE RECORDS SUMMARY | 2024-02-21 23:52 | XMS_ITS | Encounter Summary ---
Author Organization [place] Address [address] [place] [address]. [place] [address] Care Team Providers Care Vulnerability Assessment Analyst Name Role Phone Alberto Stanton MD Primary Care Provider [phone] Jonathan Jaimes MD Unavailable [phone] Encounter Details Date Type Department Care Team (Late st Contact Info) Description 07/06/2022 External Order Results [facility] [address] [place] [address] Outside, Provider Social History Tobacco Use Types [...] Diagnosis Comments TSH Routine 07/06/2022 9:56 AM REHAB NURSING TECH T4 FREE Routine 07/06/2022 9:56 AM REHAB NURSING TECH PSA TUMOR MARKER Routine 07/06/2022 9:56 AM REHAB NURSING TECH LIPID PROFILE Routine 07/06/2022 9:56 AM REHAB NURSING TECH HEPATIC FUNCTION PANEL Routine 07/06/2022 9:56 AM REHAB NURSING TECH BASIC METABOLIC PANEL Routine 07/06/2022 9:56 AM REHAB NURSING TECH HEMOGLOBIN A1C Routine 07/06/2022 8:55 AM REHAB NURSING TECH CBC WITH PLATELETS Routine 07/06/2022 8: 55 AM REHAB NURSING TECH documented in this encounter Results * (ABNORMAL) Basic metabolic panel (07/06/2022 9:56 AM REHAB NURSING TECH) Pathologist [facility] Sodium (External) 138 135 - 149 mmol/L [...] NON-INTERFACED (ONBASE SCANS) Blood 07/06/2022 9:56 AM REHAB NURSING TECH Narrative GHAZALA FIGUEROA - 07/28/2022 9:47 AM REHAB NURSING TECH Verified by Juan Francisco Estrada on 07/28/2022. Provider Outside LAB - BLOOD ORDERABL ES AARONISSAC HENRY NON-INTERFACED (ONBASE SCANS) * Hepatic function panel (07/06/2022 9:56 AM REHAB NURSING TECH) Pathologist [facility] Protein Total (External) 7.5 6.0 - 8.3 [...] NON-INTERFACED (ONBASE SCANS) Blood 07/06/2022 9:56 AM REHAB NURSING TECH Narrative BREEZE PFT - 07/28/2022 9:47 AM REHAB NURSING TECH Verified by Juan Francisco Estrada on 07/28/2022. Provider Outside LAB - BLOOD ORDERABL ES Performing Organization Address [facility] Co de Phone Number BREEZE PFT NON-INTERFACED (ONBASE SCANS) * PSA tumor marker (07/06/2022 9:56 AM REHAB NURSING TECH) PSA (External) 1.71 0.10 - 4.00 ng/mL NON-INTERFACED (ONBASE SCANS) Blood 07/06/2022 9:56 AM REHAB NURSING TECH Narrative BREEZE PFT - 07/28/2022 9:47 AM REHAB NURSING TECH Verified by Juan Francisco Estrada on 07/28/2022. Provider Outside LAB - BLOOD ORDERABL ES BREEZE PFT NON-INTERFACED (ONBASE SCANS) * Lipid Profile (07/06/2022 9:56 AM REHAB NURSING TECH) Triglycerides (External) 147 40 - 149 mg/dL NON-INTERFACE D (ONBASE SCANS) Cholesterol (External) 155 98 - 199 mg/dl NON-INTERFACE D (ONBASE SCANS) HDL Cholesterol (External) 41 >=40 mg/dL NON-INTERFACE D (ONBASE SCANS) LDL-Cholesterol (External) 85 <100 mg/dL NON-INTERFACE D (ONBASE SCANS) Blood 07/06/2022 9:56 AM REHAB NURSING TECH Narrative BREEZE PFT - 07/28/2022 9:47 AM REHAB NURSING TECH Verified by Juan Francisco Estrada on 07/28/2022. Provider Outside LAB - BLOOD ORDERABL ES Performing Organization Address [facility] de Phone Number BREEZE PFT NON-INTERFACED (ONBASE SCANS) * T4 free (07/06/2022 9:56 AM REHAB NURSING TECH) Thyroxine Free (External) 0.85 0.70 - 1.85 ng/dL NON-INTERFACED (ONBASE SCANS) Blood 07/06/2022 9:56 AM REHAB NURSING TECH Narrative BREEZE PFT - 07/28/2022 9:47 AM REHAB NURSING TECH Verified by Juan Francisco Estrada on 07/28/2022. Provider Outside LAB - BLOOD ORDERABL Performing Organization Address [facility] Phone Number BREEZE PFT NON-INTERFACED (ONBASE SCANS) * (ABNORMAL) TSH (07/06/2022 9:56 AM REHAB NURSING TECH) TSH (External) 10.300(H) 0.270 - 4.200 uIU/mL NON-INTERFACE D (ONBASE SCANS) Blood 07/06/2022 9:56 AM REHAB NURSING TECH Narrative BREEZE PFT - 07/28/2022 9:47 AM REHAB NURSING TECH Verified by Juan Francisco Estrada on 07/28/2022. Provider Outside LAB - BLOOD ORDERABL Performing Organization Address [facility] de Phone Number BREEZE PFT NON-INTERFACED (ONBASE SCANS) * CBC with platelets (07/06/2022 8:55 AM REHAB NURSING TECH) WBC Count (External) 7.36 4.50 - 11.00 [...] NON-INTERFACED (ONBASE SCANS) Blood 07/06/2022 8:55 AM REHAB NURSING TECH Narrative BREEZE PFT - 07/06/2022 8:55 AM REHAB NURSING TECH Verified by Juan Francisco Esrtada on 07/28/2022. Provider Outside LAB - BLOOD ORDERABL ES BREEZE PFT NON-INTERFACED (ONBASE SCANS) * (ABNORMAL) Hemoglobin A1c (07/06/2022 8:55 AM REHAB NURSING TECH) Hemoglobin A1C (External) 7.8(H) 0 - 5.6 % NON-INTERFACED (ONBASE SCANS) Blood 07/06/2022 8:55 AM REHAB NURSING TECH Narrative BREEZE PFT - 07/06/2022 8:55 AM REHAB NURSING TECH Verified by Juan Francisco Estrada on 07/28/2022. Provider Outside LAB - BLOOD ORDERABL ES BREEZE PFT NON-INTERFACED (ONBASE SCANS) documented in this encounter Visit Diagnoses Not on filedocumented in this encounter Additional Health Concerns Infection Onset Date Last Indicated Resolved Time Rule Out COVID-19 10/06/2023 10/06/2023 10/06/2023 1:51 PM REHAB NURSING TECH Rule Out COVID-19 11/05/2023 11/05/2023 11/05/2023 10:53 PM CDT documented as of this encounter Care Teams Vulnerability Assessment Analyst Relationship Specialty Start Date End Date Alberto Stanton MD [facility] [address] [place] [address] PCP - General Family Practice 04/26/18 Jonathan Jaimes MD [address] [place] [address] Assigned Heart and Vascular Provider 06/07/20 documented as of this encounter
--- OUTSIDE RECORDS SUMMARY | 2024-02-21 23:53 | XMS_ITS | Encounter Summary ---
Author Organization [place] Address [address] [place] [address]. [place] [address] Care Team Providers Care Metal Cut Off Saw Tender Name Role Phone Salvador Hyatt MD Primary Care Provider [phone] Alberto Stanton MD Primary Care Provider [phone] Jonathan Jaimes MD Unavailable [phone] Encounter Details Date Type Department Care Team (Late st Contact Info) Description 04/08/2004 Office Visit-[facility] [address] [place] [address] Unknown, DoctorMD Social History Tobacco [...] Created by: Fidelina Brand PA-C DATE: 04/08/2004 [id number] GILBERTO ALFONSO DATE OF : 1950 AGE: [age] years old Referring Physician: CHELSEY CHIN Referring Clinic: [facility] CURRENT DIAGNOSES 1. 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 [...] Out COVID-19 10/06/2023 10/06/2023 10/06/2023 1:51 PM MOSQUITO SPRAYER Rule Out COVID-19 11/05/2023 11/05/2023 11/05/2023 10:53 PM CDT documented as of this encounter Care Teams Metal Cut Off Saw Tender Relationship Specialty Start Date End Date Salvador Hyatt MD PCP - General Family Practice 07/18/15 04/25/18 Alberto Stanton MD [facility] [address] [place] [address] PCP - General Family Practice 04/26/18 Jonathan Jaimes MD [address] [place] [id number] Assigned Heart and Vascular Provider 06/07/20 documented as of this encounter
--- OUTSIDE RECORDS SUMMARY | 2024-02-21 23:53 | XMS_ITS | Encounter Summary ---
Author Organization [place] Address [address] [place] [address]. [place] [address] Care Team Providers Care Corporate Communications Associate Name Role Phone Salvador Hyatt MD Primary Care Provider [phone] Alberto Stanton MD Primary Care Provider [phone] Jonathan Jaimes MD Unavailable [phone] Encounter Details Date Type Department Care Team (Late st Contact Info) Description 02/22/2004 Office Visit-[facility] [address] [place] [address] Unknown, MD Naomy Social History [...] AM CDT Progress Note Created by: Jonathan Jaiems M.D. DATE: 02/22/2004 GILBERTO ALFONSO DATE OF : 1950 AGE: [age] years old Referring Physician: CHELSEY CHIN Referring Clinic: [facility] CURRENT DIAGNOSES 1. - Hyperlipidemia, 272.4 2. 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
--- OUTSIDE RECORDS SUMMARY | 2024-02-21 23:53 | XMS_ITS | Encounter Summary ---
Author Organization [place] Address [address] [place] [address] Care Team Providers Care Director Oracle Database Name Role Phone Salvador Hyatt MD Primary Care Provider [phone] Alberto Stanton MD Primary Care Provider [phone] Jonathan Jaimes MD Unavailable [phone] Encounter Details Date Type Department Care Team (Late st Contact Info) Description 01/04/2003 Office Visit-[facility] [address] [address] Unknown, MD Naomy Social History [...] Past Medical Illnesses: GI reflux, hyperlipidemia, diabetes ylirtdid-afw-qddsbji dependent, hypertension, depression, sinusistis, cellulitis, finger, rt [...] Out COVID-19 10/06/2023 10/06/2023 10/06/2023 1:51 PM WATERMELON HARVESTING SUPERVISOR Rule Out COVID-19 11/05/2023 11/05/2023 11/05/2023 10:53 PM CDT documented as of this encounter Care Teams Director Oracle Database Relationship Specialty Start Date End Date Salvador Hyatt MD PCP - General Family Practice 07/18/15 04/25/18 Alberto Stanton MD [facility] [address] [place] [address] PCP - General Family Practice 04/26/18 Jonathan Jaimes MD [address] [place] [address] Assigned Heart and Vascular Provider 06/07/20 documented as of this encounter
--- OUTSIDE RECORDS SUMMARY | 2024-02-21 23:53 | XMS_ITS | Encounter Summary ---
Author Organization [facility] Address [address] [place] [address]. [place] [address] Care Team Providers Care Chain Dyer Name Role Phone Salvador Hyatt MD Primary Care Provider [phone] Alberto Stanton MD Primary Care Provider [phone] Jonathan Jaimes MD Unavailable Encounter Details Date Type Department Care Team (Late st Contact Info) Description 02/22/2004 Office Visit-[facility] [address] [place] [address] Unknown, DoctorMD Social History Tobacco [...] old Referring Physician: CHELSEY GARCIA Referring Clinic: [facility] CURRENT DIAGNOSES 1. - Hyperlipidemia, 272.4 2. [...] saw him last he was seen at [facility] in August for an episode of [...] what we saw previously. Jonathan Jaimes M.D. documented in this encounter Plan of Treatment Not on file documented as of this encounter Visit Diagnoses Not on filedocumented in this encounter Additional Health Concerns Infection Onset Date Last Indicated Resolved Time Rule Out COVID-19 10/06/2023 10/06/2023 10/06/2023 1:51 PM BRAID PATTERN SETTER Rule Out COVID-19 11/05/2023 11/05/2023 11/05/2023 10:53 PM CDT documented as of this encounter Care Teams Chain Dyer Relationship Specialty Start Date End Date Salvador Hyatt MD PCP - General Family Practice 07/18/15 04/25/18 Alberto Stanton MD [facility] [place] 2[facility] [address] [place] [address] PCP - General Family Practice 04/26/18 Jonathan Jaimes MD [address] [place] [phone] Assigned Heart and Vascular Provider 06/07/20 documented as of this encounter
--- OUTSIDE RECORDS SUMMARY | 2024-02-21 23:53 | XMS_ITS | Encounter Summary ---
Author Organization [place] Address [address] [place] [address] Care Team Providers Care Retail Representative Name Role Phone Salvador Hyatt MD Primary Care Provider [phone] Alberto Stanton MD Primary Care Provider [phone] Jonathan Jaimes MD Unavailable [phone] Encounter Details Date Type Department Care Team (Late st Contact Info) Description 09/06/[address] [address] Samuel Garcia MD [address] [place] [address] DR NICK JIMENEZ [place] [id number] Emergency Room Encounter (Primary Dx) Social History [...] encounter Progress Notes * 09/06/2003 11:59 PM [id number] 00:00 Emergency Department Encounter-[facility] [place]) [Entered: 00:00 Handicraft Or Hobby Shop Manager ([facility])] : 46 CHIEF COMPLAINT: Chest pain. [...] at all. NELLY [place] MD MT: Document: [id number] [place], [place] Name: GILBERTO ALFONSO EMERGENCY ROOM ENCOUNTER LCN: ER DSC: 09/06/2003 [place], [place] Name: GILBERTO ALFONSO MR#: : Admit Date: -1950 09/06/2003 Doctor: NELLY [place] MD EMERGENCY ROOM ENCOUNTER Electronically filed by Chantel Marrero 09/19/2003 11:27 AM documented in this encounter Plan of Treatment Not on file documented as of this encounter Visit Diagnoses Diagnosis Emergency Room Encounter- Primary documented in this encounter Additional Health Concerns Infection Onset Date Last Indicated Resolved Time Rule Out COVID-19 10/06/2023 10/06/2023 10/06/2023 1:51 PM CERAMIC PLATER Rule Out COVID-19 11/05/2023 11/05/2023 11/05/2023 10:53 PM CDT documented as of this encounter Care Teams Retail Representative Relationship Specialty Start Date End Date Salvador Hyatt MD PCP - General Family Practice 07/18/15 04/25/18 Alberto Stanton MD [place] [address] [address] [place] [address] PCP - General Family Practice 04/26/18 Jonathan Jaimes MD [address] [place] [phone] Assigned Heart and Vascular Provider 06/07/20 documented as of this encounter
--- OUTSIDE RECORDS SUMMARY | 2024-02-21 23:53 | XMS_ITS | Encounter Summary ---
Author Organization [place] Address [address] [place] [address] Care Team Providers Care Avionics Test Technician Name Role Phone Salvador Hyatt MD Primary Care Provider [phone] Alberto Stanton MD Primary Care Provider [phone] Jonathan Jaimes MD Unavailable [phone] Encounter Details Date Type Department Care Team (Late st Contact Info) Description 03/16/2003 Office Visit-[facility] [id number] [place] [address] Unknown, MD Naomy Social History [...] Created by: Chalo Kamara NP DATE: 03/16/2003 GILBERTO ALFONSO DATE OF : 1950 AGE: [age] [...] F/u HISTORY OF PRESENT ILLNESS Gilberto Alfonso is a 53-year-old gentleman who presents today for a follow up regarding his hyperlipidemia. He has a past medical history significant for noninsulin-dependent diabetes mellitus, hypertension, hyperlipidemia, and metabolic syndrome. He normally follows with Dr. Jaimes who is his primary locksmith apprentice for control of his lipid profile. At [...] Past Medical Illnesses: GI reflux, hyperlipidemia, diabetes jnelcttp-lhn-vhqgeja dependent, hypertension, depression, sinusistis, cellulitis, finger, rt [...] Out COVID-19 10/06/2023 10/06/2023 10/06/2023 1:51 PM OPAL MINER Rule Out COVID-19 11/05/2023 11/05/2023 11/05/2023 10:53 PM CDT documented as of this encounter Care Teams Avionics Test Technician Relationship Specialty Start Date End Date Salvador Hyatt MD PCP - General Family Practice 07/18/15 04/25/18 Alberto Stanton MD [facility] [address] [place] [address] PCP - General Family Practice 04/26/18 Jonathan Jaimes MD [address] [place] [address] Assigned Heart and Vascular Provider 06/07/20 documented as of this encounter
--- OUTSIDE RECORDS SUMMARY | 2024-02-21 23:53 | XMS_ITS | Encounter Summary ---
Author Organization [place] Address [address] [place] [address]. [place] [address] Care Team Providers Care Program Support Clerk Name Role Phone Salvdaor Hyatt MD Primary Care Provider [phone] Alberto Stanton MD Primary Care Provider [phone] Jonathan Jaimes MD Unavailable [phone] Encounter Details Date Type Department Care Team (Late st Contact Info) Description 05/08/2004 Office Visit-[facility] [address] [place] [address] Unknown, DoctorMD Social History Tobacco [...] Created by: Fidelina Brand PA-C DATE: 05/08/2004 [id number] GILBERTO ALFONSO DATE OF : 1950 AGE: [age] years old Referring Physician: CHELSEY CHIN Referring Clinic: [facility] CURRENT DIAGNOSES 1. - Metabolic Syndrome, 277.9 [...] delightful 54-year-old gentleman who presents to [facility] todayfor a follow up visit [...] Past Medical Illnesses: GI reflux, hyperlipidemia, diabetes rrjtynuu-pao-juphiwu dependent, hypertension, depression, sinusistis, cellulitis, finger, rt [...] Out COVID-19 10/06/2023 10/06/2023 10/06/2023 1:51 PM CO FOUNDER AND CTO Rule Out COVID-19 11/05/2023 11/05/2023 11/05/2023 10:53 PM CDT documented as of this encounter Care Teams Program Support Clerk Relationship Specialty Start Date End Date Salvador Hyatt MD PCP - General Family Practice 07/18/15 04/25/18 Alberto Stanton MD [facility] [address] [place] [address] PCP - General Family Practice 04/26/18 Jonathan Jaimes MD [address] [place] [address] Assigned Heart and Vascular Provider 06/07/20 documented as of this encounter
--- OUTSIDE RECORDS SUMMARY | 2024-02-21 23:53 | XMS_ITS | Encounter Summary ---
Author Organization [place] Address [address] [place] [address] Care Team Providers Care Assistant Program Manager Name Role Phone Salvador Hyatt MD Primary Care Provider [phone] Alberto Stanton MD Primary Care Provider [phone] Jonathan Jaimes MD Unavailable [phone] Encounter Details Date Type Department Care Team (Late st Contact Info) Description 10/20/2002 Office Visit-[facility] [address] [place] [address] Unknown, MD Naomy Social History [...] your patient, Mr. Gilberto Alfonso, today at [facility]. As you know, he is a pleasant [...] also talked to him about the [email or web address] program. I have recommended the following. 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
--- OUTSIDE RECORDS SUMMARY | 2024-02-21 23:53 | XMS_ITS | Encounter Summary ---
Author Organization [place] Address [address] [place] [address] Care Team Providers Care Trailer Truck Driver Name Role Phone Salvador Hyatt MD Primary Care Provider [phone] Alberto Stanton MD Primary Care Provider Jonathan Jaimes MD Unavailable [phone] Encounter Details Date Type Department Care Team (Late st Contact Info) Description 09/06/[address] [address] Samuel Garcia MD [address] [place] [address] [address] NICK JIMENEZ [place] [id number] Emergency Room Encounter (Primary Dx) Social History [...] Out COVID-19 10/06/2023 10/06/2023 10/06/2023 1:51 PM TRAFFIC CHECKER Rule Out COVID-19 11/05/2023 11/05/2023 11/05/2023 10:53 PM CDT documented as of this encounter Care Teams Trailer Truck Driver Relationship Specialty Start Date End Date Salvador Hyatt MD PCP - General Family Practice 07/18/15 04/25/18 Alberto Stanton MD [facility] [address], [place] [address] PCP - General Family Practice 04/26/18 Jonathan Jaimes MD [address] [place] [phone] Assigned Heart and Vascular Provider 06/07/20 documented as of this encounter
== END 2024-02-21 14:46 | disposition home or self-care (01) ==
LOC: NFLDREF 23:50
PROVIDERS: PCP Family Medicine; Referring Provider Family Medicine; Visit Provider Family Medicine
DX: E11.65 Type 2 diabetes mellitus with hyperglycemia (principal); I10 Essential (primary) hypertension; Z79.4 Long term (current) use of insulin
CPT/HCPCS: 82043; 82570

== ENCOUNTER 2024-06-26 08:28 | Outpatient (CLI) | payer MEDICARE, SELFPAY ==
--- OUTSIDE RECORDS SUMMARY | 2024-06-29 06:01 | XMS_ITS | Encounter Summary ---
Author Organization [place] Address [address] [place] [address]. [place] [address] Care Team Providers Care Vegetable I Farmworker Name Role Phone Alberto Stanton MD Primary Care Provider [phone] Jonathan Jaimes MD Unavailable [phone] Reason for Visit * Reason Onset Date Comments Refill Request 05/11/2024 losartan Encounter Details Date Type Department Care Team (Late st Contact Info) Description 05/11/2024 Refill [facility] [address] [place] [address] Jonathan Jaimes MD [address] [facility] [address] [place] [address] Refill Request (losartan) Social History Tobacco [...] Recorded Sex Assigned at Not on file Legal Sex Male 3:39 AM YOUTH DIRECTOR Gender Identity Not on file Sexual Orientation Not on file 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 Medication meets criteria for refill. documented in this encounter Plan of Treatment Upcoming Encounters Date Type Department Care Team (Late st Contact Info) Description 09/01/2024 8:00 AM YOUTH DIRECTOR Office Visit [facility] [address] [facility] [address] [place] [address] Jonathan Jaimes MD [address] [place] [phone] documented as of this encounter Visit Diagnoses Diagnosis Essential hypertension, benign documented in this encounter Care Teams Vegetable I Farmworker Relationship Specialty Start Date End Date Alberto Stanton MD [facility] [address] [place] [address] PCP - General Family Practice 04/26/18 Jonathan Jaimes MD [address] [place] [phone] Assigned Heart and Vascular Provider 06/07/20 documented as of this encounter
--- OUTSIDE RECORDS SUMMARY | 2024-06-29 06:01 | XMS_ITS | Clinical Summary ---
Author Organization [place] Address [address] [place] [address] Care Team Providers Care Deckhand Oyster Dredge Name Role Phone Alberto Stanton MD Primary Care Provider [phone] Jonathan Jaimes MD Unavailable [phone] Allergies Active Allergy Reactions Criticality Noted Date Comments Amoxicillin 10/22/2003 Diarrhea. Hydrochlorothiazide 01/14/2017 Significant orthostasis Medications Cholecalciferol (VITAMIN D) 50 MCG (1999) CAPS Take 1 capsule by mouth daily Active sertraline (ZOLOFT) 100 MG tabletIndications: Dysthymic disorder Take 1 tablet (100 mg) by mouth daily 30 tablet 0 05/14/20 15 Active levothyroxine (SYNTHROID/LEVOTHR OID) 125 MCG tablet Take 125 mcg by mouth daily 0 04/05/20 18 Active hydrOXYzine (ATARAX) 25 MG tablet Take by mouth 3 times daily as needed for itching Active amLODIPine (NORVASC) 5 MG tabletIndications: Essential hypertension, benign Take 1 tablet (5 mg) by mouth daily 90 tablet 3 01/23/20 22 Active atorvastatin (LIPITOR) 40 MG tabletIndications: Mixed hyperlipidemia Take 1 tablet (40 mg) by mouth daily No further refills until seen by cardiology--call [phone] to schedule 30 tablet 06/17/20 22 Active HUMALOG KWIKPEN 100 UNIT/ML soln Inject 20 Units Subcutaneous 2 times daily (before meals) 03/23/20 23 Active empagliflozin (JARDIANCE) 25 MG TABS tablet Take 25 mg by mouth every morning 03/22/20 23 Active LANTUS SOLOSTAR 100 UNIT/ML soln Inject 40 Units Subcutaneous at bedtime Active spironolactone (ALDACTONE) 25 MG tabletIndications: Benign essential hypertension Take 0.5 tablets (12.5 mg) by mouth daily 30 tablet 3 04/01/20 23 Active acetaminophen (TYLENOL) 325 MG tabletIndications: Acute cystitis without hematuria Take 2 tablets (650 mg) by mouth every 4 hours as needed for mild pain or other (and adjunct with moderate or severe pain or per patient request) 10/07/19 24 Active losartan (COZAAR) 100 MG tabletIndications: Essential hypertension, benign Take 1 tablet (100 mg) by mouth daily. 90 tablet 1 05/11/20 24 Active Active Problems Problem Noted Date Diagnosed Date RONAL (acute kidney injury) 10/06/2023 UTI (urinary tract infection) 10/06/2023 Morbid [...] 10/06/2023 10/07/2023 Advanced directives, counseling/discussion 09/14/2011 01/31/2024 Overview (09/14/2011): Advance Directive Problem List Overview: Name Relationship Phone Primary Health Care Agent Alternative Health Care Agent Discussed advance care planning with patient; information given to patient to review. 09/14/2011 Deanne Kim CMA Hyperlipidemia 10/22/2003 12/26/2010 Overview (05/16/2015): Problem list name updated by automated process. Provider to review Diabetes mellitus, type 2 10/22/2003 Overview (05/16/2015): Problem list name updated by automated process. Provider to review Encounters Date Type Department Care Team Description 05/11/[address] 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 [address] [facility] [address] [place] [address] Jonathan Jaimes MD [address] [place] [address] Health Maintenance Due Date Last Done Comments ANNUAL REVIEW OF HM ORDERS 1950 HEPATITIS C SCREENING 01/28/1966 ZOSTER IMMUNIZATION (1 of 2) 01/28/1998 EYE EXAM 06/16/2013 06/16/2012, 0 08/2011, 01/19/2011 DIABETIC FOOT EXAM 04/20/2014 04/20/2013, 0 04/12/2012, 03/02/2011 FALL RISK ASSESSMENT 04/20/2014 04/20/2013 PHQ-9 10/25/2014 04/27/2014, 090 12/2012, 06/03/2012 MEDICARE ANNUAL WELLNESS VISIT 04/27/2015 04/27/2014, 04/20/2013, 04/12/2012, Additional history exists MICROALBUMIN 04/27/2015 04/27/2014, 09/0 12/2012, 04/12/2012, Additional history exists ADVANCE CARE PLANNING 09/14/2016 09/14/2011, 012 RSV VACCINE (1 - 1-dose 75+ series) 01/28/2023 LIPID 07/06/2023 07/06/2022, 03/0 12/2020, 12/18/2019, Additional history exists A1C 09/10/2023 03/10/2023, 04/0 01/2023, 07/06/2022, Additional history exists TSH W/FREE T4 REFLEX 03/10/2024 03/10/2023, 07/06/2022, 07/06/2022, Additional history exists COVID-19 Vaccine ( season) 2024 06/30/2023, 06/23/2021, 11/06/2020, Additional history exists INFLUENZA VACCINE (#1) 2024 , 07/10/2022, 06/20/2018, Additional history exists BMP 11/04/2024 11/05/2023, 09/17, 10/06/2023, Additional history exists DTAP/TDAP/TD IMMUNIZATION (3 - Td or Tdap) 03/21/2030 03/21/2020, 02/17/2010, 04/21/2000 DEPRESSION ACTION PLAN Completed 04/12/2012 Pneumococcal Vaccine: 65+ Years Completed 06/17/2016, 06/12/2015 COLONOSCOPY Discontinued 03/10/2022, 02/14, 01/23/2019, Additional history exists COLORECTAL CANCER SCREENING Discontinued CT COLONOGRAPHY Discontinued FIT Discontinued FLEX SIG [...] (Cologuard) Discontinued Medical Devices Implanted Type Area Tunnel Heading Supervisor Device Identifier Shelf Expiration Date Model / Serial / Lot Imp Cup Rodger Camargo 56mm [id number] Implanted:Qty: 1 on 08/13/2015 by Viktoria Morse MD at [facility] Left: Hip [employer] 05/15/2025 [id number] / / [id number] Imp [place] Hole Eliminator Hip Depuy Duraloc 1246-03-000 Implanted:Qty: 1 on 08/13/2015 by Viktoria Morse MD at [facility] Left: Hip [employer] 04/15/2025 [id number] / / [id number] Imp Scr Bone Can Rodger 6.5x20mm 1218-20-703 Implanted:Qty: 1 on 08/13/2015 by Viktoria Morse MD at [facility] Left: Hip [employer] 06/15/2025 [id number] / / [id number] Acetabular Liner +4 Neutral 36mm Id 56mm Od Implanted:Qty: 1 on 08/13/2015 by Viktoria Mosre MD at [facility] Left: Hip Depuy 05/15/2020 [id number] / / [id number] Imp Scr Bone Can Rodger 6.5x25mm 1210-17-500 Implanted:Qty: 1 on 08/13/2015 by Viktoria Morse MD at [facility] Left: Hip [employer] 06/15/2025 [id number] / / [id number] Imp Head Femoral Depuy 36mm +1.5 1361-17-000 Implanted:Qty: 1 on 08/13/2015 by Viktoria Morse MD at [facility] Left: Hip [employer] 06/15/2020 [id number] / / [id number] Tri-Lock Bps Femoral Stem 07/29 Taper Tri-Lock Bps W/Gription Size 6 Hi 107mm Implanted:Qty: 1 on 08/13/2015 by Viktoria Morse MD at [facility] Left: Hip Depuy 06/15/2025 [id number] / / [id number] Procedures Procedure Name Priority Date/Time Associated Diagnosis Comments BASIC METABOLIC PANEL STAT 11/05/2023 8:45 PM CDT TSH Routine 03/10/2023 8:49 AM CDT HEMOGLOBIN A1C Routine 03/10/2023 8:49 AM CDT LIPID PROFILE Routine 07/06/2022 9:56 AM INTERNATIONAL REPRESENTATIVE COLONOSCOPY Routine 03/10/2022 11:38 AM CDT ALBUMIN [...] Basic metabolic panel (11/05/2023 8:45 PM CDT) Sodium 132(L) 135 - 145 mmol/L 11/05/2023 [...] - 107 mmol/L 11/05/2023 9:11 PM CDT [facility] Carbon Dioxide (CO2) 18(L) 22 - 29 mmol/L 11/05/2023 9:11 PM CDT [facility] Anion Gap 15 7 - 15 mmol/L 11/05/2023 9:11 PM CDT [facility] Urea Nitrogen 20.9 8.0 - 23.0 mg/dL 11/05/2023 9:11 PM CDT [facility] Creatinine 1.21(H) 0.67 - 1.17 mg/dL 11/05/2023 9:11 PM CDT LABORATORY GFR Estimate 62 >60 mL/min/1. 73m2 11/05/2023 9:11 PM CDT LABORATORY Calcium 8.7(L) 8.8 - 10.2 mg/dL 11/05/2023 9:11 PM CDT LABORATORY Glucose 197(H) 70 - 99 mg/dL 11/05/2023 9:11 PM CDT [facility] Blood STRUCTURE OF LEFT UPPER LIMB / Unknown Venipuncture / Unknown 11/05/2023 8:45 PM CDT 11/05/2023 8:52 PM CDT Ritchie Valladares DO LAB - BLOOD ORDERABLES F inal Result [facility] [address] [facility] (1st floor, no room number) [place] [address] * TSH (03/10/2023 8:49 AM CDT) Pathologist [facility] TSH (External) 2.510 0.270 - 4.20 uIU/mL NON-INTERFACED (ONBASE SCANS) Blood BLOOD SPECIMEN / Unknown 03/10/2023 8:49 AM CDT Narrative BREEZE PFT - 03/29/2023 12:52 PM CDT Verified by Deanne Robertson on 03/29/2023. Provider Outside LAB - BLOOD ORDERABLES Edited R octoScope - Final Performing Organization Address [facility] Co de Phone Number BREEZE PFT NON-INTERFACED (ONBASE SCANS) * (ABNORMAL) Hemoglobin A1c (03/10/2023 8:49 AM CDT) Pathologist [facility] Hemoglobin A1C (External) 7.9(H) 0 - 5.6 % NON-INTERFACED (ONBASE SCANS) Blood BLOOD SPECIMEN / Unknown 03/10/2023 8:49 AM CDT Narrative BREEZE PFT - 03/29/2023 12:52 PM CDT Verified by Deanne Robertson on 03/29/2023. Provider Outside LAB - BLOOD ORDERABLES Edited R octoScope - [employer] Performing Organization Address [place]/[facility]/ZIP Co de Phone Number BREEZE PFT NON-INTERFACED (ONBASE SCANS) * Lipid Profile (07/06/2022 9:56 AM INTERNATIONAL REPRESENTATIVE) Pathologist [facility] Triglycerides (External) 147 40 - 149 mg/dL NON-INTERFACE D (ONBASE SCANS) Cholesterol (External) 155 98 - 199 mg/dl NON-INTERFACE D (ONBASE SCANS) HDL Cholesterol (External) 41 >=40 mg/dL NON-INTERFACE D (ONBASE SCANS) LDL-Cholesterol (External) 85 <100 mg/dL NON-INTERFACE D (ONBASE SCANS) Blood 07/06/2022 9:56 AM INTERNATIONAL REPRESENTATIVE Narrative GHAZALA PFRomie - 07/28/2022 9:47 AM INTERNATIONAL REPRESENTATIVE Verified by Juan Francisco Estrada on 07/28/2022. us Provider Outside LAB - BLOOD ORDERABLES Edited R esult - Final GHAZALA FIGUEROA NON-INTERFACED (ONBASE SCANS) * COLONOSCOPY (03/10/2022 11:38 AM CDT) [facility] [place] [facility] COLONOSCOPY [facility] Patient Name: Gilberto Alfonso ? Procedure Date: [...] continuously. The ?Olympus Pediatric Colonoscope Model # PCF-TC859N, ?[place] # 257, SN # [id number] was introduced through ?the anus and advanced [...] Procedure Code(s): ? --- Professional --- ? 49380, Colonoscopy, flexible; with removal of tumor(s), polyp(s), or ? other lesion(s) by snare technique Diagnosis Code(s): ? --- Professional --- ? Z86.010, Personal history of colonic polyps ? N40.2, Nodular prostate without lower urinary tract symptoms ? K63.5, Polyp of colon CPT copyright 2020 [employer]. All rights reserved. The codes documented in this report are preliminary and upon stock house worker review may be revised to meet current compliance requirements. ____ DEANNE ROMEO MD 03/10/2022 12:19:51 PM I was physically present for the entire viewing portion of the exam. DEANNE ROMEO MD Number of Addenda: 0 Note Initiated On: 03/10/2022 11:38 AM MRN: ?[id number] Procedure Date: ? 03/10/2022 11:38:32 AM Scope Withdrawal Time: 0 hours 19 minutes 18 seconds Total Procedure Duration: 0 hours 21 minutes 49 seconds Estimated Blood Loss: ? Scope In: 11:48:11 AM Scope Out: 12:10:00 PM RADIOLOGY RESULTS 03/10/2022 11:3 8 AM CDT us Deanne Romeo MD PROCEDURES Final Resu lt RADIOLOGY RESULTS * Microalbumin quantitative, random urine (04/27/2014 8:56 AM CDT) Creatinine Urine 122 mg/dL [facility] Albumin Urine mg/L 9 mg/L [facility] Albumin Urine mg/g Cr 7.45 0 - 17 mg/g Cr [facility] Urine specimen (specimen) 04/27/2014 8:56 AM CDT 04/27/2014 8:58 AM CDT us Rob Robb MD LAB - URINE ORDERABLES Final Res ult [facility] [address] [address], [facility] [phone] from Last 3 Months or Most Recently Relevant to Health Maintenance Insurance [employer] Advance Directives For more information, please contact: [phone] * Full Code (Latest Code Status on [...] 11:35 AM 10/19/2003 12:35 PM Care Teams Deckhand Oyster Dredge Relationship Specialty Start Date End Date Alberto Stanton MD [facility] [address] [place] [address] PCP - General Family Practice 04/26/18 Jonathan Jaimes MD [address] [place] [address] Assigned Heart and Vascular Provider 06/07/20
--- OUTSIDE RECORDS SUMMARY | 2024-06-29 06:01 | XMS_ITS | Encounter Summary ---
Author Organization [place] Address [address] [place] [address]. [place] [address] Care Team Providers Care Cigar Inspector Name Role Phone Alberto Stanton MD Primary Care Provider [phone] Jonathan Jaimes MD Unavailable [phone] Encounter Details Date Type Department Care Team (Late st Contact Info) Description 07/06/2022 External Order Results [facility] [address] [place] [address] Outside, Provider Social History Tobacco Use Types Packs/Day Years Used Date Smoking Tobacco: Never Smokeless Tobacco: Never Alcohol Use Standard Drinks/Week Comments Yes 0 (1 standard drink = 0.6 oz pur e alcohol) 7 drinks per week Sex and Gender Information Value Date Recorded Sex Assigned at Not on file Legal Sex Male 3:39 AM CUSTOMS AND IMMIGRATION OFFICER Gender Identity Not on file Sexual Orientation Not on file 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 Not on jose e documented as of this encounter Plan of Treatment Upcoming Encounters Date Type Department Care Team (Late st Contact Info) Description 09/01/2024 8:00 AM CUSTOMS AND IMMIGRATION OFFICER Office Visit [facility] [place] [id number] [place] [address] [address] [place] [address] Jonathan Jaimes MD [address] [facility] [address] [place] [address] documented as of this encounter Procedures Procedure Name Priority Date/Time Associated Diagnosis Comments TSH Routine 07/06/2022 9:56 AM CUSTOMS AND IMMIGRATION OFFICER T4 FREE Routine 07/06/2022 9:56 AM CUSTOMS AND IMMIGRATION OFFICER PSA TUMOR MARKER Routine 07/06/2022 9:56 AM CUSTOMS AND IMMIGRATION OFFICER LIPID PROFILE Routine 07/06/2022 9:56 AM CUSTOMS AND IMMIGRATION OFFICER HEPATIC FUNCTION PANEL Routine 07/06/2022 9:56 AM CUSTOMS AND IMMIGRATION OFFICER BASIC METABOLIC PANEL Routine 07/06/2022 9:56 AM CUSTOMS AND IMMIGRATION OFFICER HEMOGLOBIN A1C Routine 07/06/2022 8:55 AM CUSTOMS AND IMMIGRATION OFFICER CBC WITH PLATELETS Routine 07/06/2022 8: 55 AM CUSTOMS AND IMMIGRATION OFFICER documented in this encounter Results * (ABNORMAL) Basic metabolic panel (07/06/2022 9:56 AM CUSTOMS AND IMMIGRATION OFFICER) Sodium (External) 138 135 - 149 mmol/L [...] NON-INTERFACED (ONBASE SCANS) Blood 07/06/2022 9:56 AM CUSTOMS AND IMMIGRATION OFFICER Katie VIVAR PFT - 07/28/2022 9:47 AM CUSTOMS AND IMMIGRATION OFFICER Verified by Juan Francisco Estrada on 07/28/2022. Provider Outside LAB - BLOOD ORDERABLES Edited R Fluentify Britely Performing Organization Address [facility] Co de Phone Number GHAZALA PFT NON-INTERFACED (ONBASE SCANS) * Hepatic function panel (07/06/2022 9:56 AM CUSTOMS AND IMMIGRATION OFFICER) Protein Total (External) 7.5 6.0 - 8.3 [...] NON-INTERFACED (ONBASE SCANS) Blood 07/06/2022 9:56 AM CUSTOMS AND IMMIGRATION OFFICER Narrative BREEZE PFT - 07/28/2022 9:47 AM CUSTOMS AND IMMIGRATION OFFICER Verified by Juan Francisco Estrada on 07/28/2022. Result [place] [facility] Provider Outside LAB - BLOOD ORDERABLES Edited Colatris Performing Organization Address [facility] de Phone Number GHAZALA PFT NON-INTERFACED (ONBASE SCANS) * PSA tumor marker (07/06/2022 9:56 AM CUSTOMS AND IMMIGRATION OFFICER) PSA (External) 1.71 0.10 - 4.00 ng/mL NON-INTERFACED (ONBASE SCANS) Blood 07/06/2022 9:56 AM CUSTOMS AND IMMIGRATION OFFICER Narrative BREEZE PFT - 07/28/2022 9:47 AM CUSTOMS AND IMMIGRATION OFFICER Verified by Juan Francisco Estrada on 07/28/2022. Provider Outside LAB - BLOOD ORDERABLES Edited Colatris Performing Organization Address [facility]/ZIP Co de Phone Number BREEZE PFT NON-INTERFACED (ONBASE SCANS) * Lipid Profile (07/06/2022 9:56 AM CUSTOMS AND IMMIGRATION OFFICER) Triglycerides (External) 147 40 - 149 mg/dL NON-INTERFACE D (ONBASE SCANS) Cholesterol (External) 155 98 - 199 mg/dl NON-INTERFACE D (ONBASE SCANS) HDL Cholesterol (External) 41 >=40 mg/dL NON-INTERFACE D (ONBASE SCANS) LDL-Cholesterol (External) 85 <100 mg/dL NON-INTERFACE D (ONBASE SCANS) Blood 07/06/2022 9:56 AM CUSTOMS AND IMMIGRATION OFFICER Narrative BREEZE PFT - 07/28/2022 9:47 AM CUSTOMS AND IMMIGRATION OFFICER Verified by Juan Francisco Estrada on 07/28/2022. Provider Outside LAB - BLOOD ORDERABLES Edited R Fluentify - Final Performing Organization Address [facility] Phone Number BREEZE PFT NON-INTERFACED (ONBASE SCANS) * T4 free (07/06/2022 9:56 AM CUSTOMS AND IMMIGRATION OFFICER) Thyroxine Free (External) 0.85 0.70 - 1.85 ng/dL NON-INTERFACED (ONBASE SCANS) Blood 07/06/2022 9:56 AM CUSTOMS AND IMMIGRATION OFFICER Narrative BREEZE PFT - 07/28/2022 9:47 AM CUSTOMS AND IMMIGRATION OFFICER Verified by Juan Francisco Estrada on 07/28/2022. us Provider Outside LAB - BLOOD ORDERABLES Edited R Brainlikeult - Final Performing Organization Address [facility] Co de Phone Number BREEZE PFT NON-INTERFACED (ONBASE SCANS) * (ABNORMAL) TSH (07/06/2022 9:56 AM CUSTOMS AND IMMIGRATION OFFICER) TSH (External) 10.300(H) 0.270 - 4.200 uIU/mL NON-INTERFACE D (ONBASE SCANS) Blood 07/06/2022 9:56 AM CUSTOMS AND IMMIGRATION OFFICER Narrative BREEZE PFT - 07/28/2022 9:47 AM CUSTOMS AND IMMIGRATION OFFICER Verified by Juan Francisco Estrada on 07/28/2022. Provider Outside LAB - BLOOD ORDERABLES Edited [facility] Performing Organization Address [facility] Co de Phone Number GHAZALA PFT NON-INTERFACED (ONBASE SCANS) * CBC with platelets (07/06/2022 8:55 AM CUSTOMS AND IMMIGRATION OFFICER) WBC Count (External) 7.36 4.50 - 11.00 [...] NON-INTERFACED (ONBASE SCANS) Blood 07/06/2022 8:55 AM CUSTOMS AND IMMIGRATION OFFICER Narrative BREEZE PFT - 07/06/2022 8:55 AM CUSTOMS AND IMMIGRATION OFFICER Verified by Juan Francisco Estrada on 07/28/2022. Provider Outside LAB - BLOOD ORDERABLES Edited [facility] Performing Organization Address City/[facility]/ZIP Co de Phone Number GHAZALA PFT NON-INTERFACED (ONBASE SCANS) * (ABNORMAL) Hemoglobin A1c (07/06/2022 8:55 AM CUSTOMS AND IMMIGRATION OFFICER) Hemoglobin A1C (External) 7.8(H) 0 - 5.6 % NON-INTERFACED (ONBASE SCANS) Blood 07/06/2022 8:55 AM CUSTOMS AND IMMIGRATION OFFICER Narrative BREEZE PFT - 07/06/2022 8:55 AM CUSTOMS AND IMMIGRATION OFFICER Verified by Juan Francisco Estrada on 07/28/2022. us Provider Outside LAB - BLOOD ORDERABLES Edited R esult - Final AARONEZE PFT NON-INTERFACED (ONBASE SCANS) documented in this encounter Visit Diagnoses Not on filedocumented in this encounter Additional Health Concerns Infection Onset Date Last Indicated Resolved Time Rule Out COVID-19 10/06/2023 10/06/2023 10/06/2023 1:51 PM CUSTOMS AND IMMIGRATION OFFICER Rule Out COVID-19 11/05/2023 11/05/2023 11/05/2023 10:53 PM CDT documented as of this encounter Care Teams Cigar Inspector Relationship Specialty Start Date End Date Alberto Stanton MD [facility] [address] [place] [address] PCP - General Family Practice 04/26/18 Jonathan Jaimes MD [address] [place] [address] Assigned Heart and Vascular Provider 06/07/20 documented as of this encounter
--- OUTSIDE RECORDS SUMMARY | 2024-06-29 06:01 | XMS_ITS | Referral Summary ---
Author Organization [place] Address [address] [place] [address] Care Team Providers Care School Patrol Name Role Phone Alberto Stanton MD Primary Care Provider [phone] Jonathan Jaimes MD Unavailable [phone] Encounters Date Type Department Care Team Description 05/11/2024 Refill [facility] [address] [facility] [address] [place] [address] Jonathan Jaimes MD Refill Request (losartan) from Last 3 Months Allergies Active Allergy Reactions Criticality Noted Date [...] No further refills until seen by cardiology--call [phone] to schedule 30 tablet 06/17/20 22 Active [...] given to patient to review. 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 Left: Hip [employer] 05/15/2025 [id number] / / [id number] Imp [place] Hole Eliminator Hip Depuy Duraloc 1246-03-000 Implanted:Qty: 1 on 08/13/2015 by Viktoria Morse MD at [facility] Left: Hip [employer] 04/15/2025 [id number] / / [id number] Imp Scr Bone Can Rodger 6.5x20mm 1217-20-500 Implanted:Qty: 1 on 08/13/2015 by Viktoria Morse MD at [facility] Left: Hip [employer] 06/15/2025 [id number] / / [id number] Acetabular Liner +4 Neutral 36mm Id 56mm Od Implanted:Qty: 1 on 08/13/2015 by Viktoria Morse MD at [facility] Left: Hip Depuy 05/15/2020 [id number] / / [id number] Imp Scr Bone Can Rodger 6.5x25mm 1217-25-500 Implanted:Qty: 1 on 08/13/2015 by Viktoria Morse MD at [facility] Left: Hip [employer] 06/15/2025 [id number] / / [id number] Imp Head Femoral Depuy 36mm +1.5 1365-51-000 Implanted:Qty: 1 on 08/13/2015 by Viktoria Morse MD at [facility] Left: Hip [employer] 06/15/2020 [id number] / / [id number] Tri-Lock Bps Femoral Stem 07/29 Taper Tri-Lock Bps W/Gription Size 6 Hi 107mm Implanted:Qty: 1 on 08/13/2015 by Viktoria Morse MD at [facility] Left: Hip Depuy 06/15/2025 [id number] / / [id number] Procedures Procedure Name Priority Date/Time Associated Diagnosis Comments BASIC METABOLIC PANEL STAT 11/05/2023 8:45 PM CDT TSH Routine 03/10/2023 8:49 AM CDT HEMOGLOBIN A1C Routine 03/10/2023 8:49 AM CDT LIPID PROFILE Routine 07/06/2022 9:56 AM PROJECT MANAGER/DESIGN MANAGER COLONOSCOPY Routine 03/10/2022 11:38 AM CDT ALBUMIN RANDOM URINE QUANTITATIVE Routine 04/27/2014 8:56 AM CDT Routine General Medical Examination At A [facility] Type 2 diabetes, HbA1C goal [...] - 5.3 mmol/L 11/05/2023 9:11 PM CDT [facility] Chloride 99 98 - 107 mmol/L 11/05/2023 9:11 PM CDT [facility] Carbon Dioxide (CO2) 18(L) 22 - 29 mmol/L 11/05/2023 9:11 PM CDT [facility] Anion Gap 15 7 - 15 mmol/L 11/05/2023 9:11 PM CDT [facility] Urea Nitrogen 20.9 8.0 - 23.0 mg/dL 11/05/2023 9:11 PM CDT [facility] Creatinine 1.21(H) 0.67 - 1.17 mg/dL 11/05/2023 9:11 PM CDT [facility] GFR Estimate 62 >60 mL/min/1. 73m2 11/05/2023 9:11 PM CDT LABORATORY Calcium 8.7(L) 8.8 - 10.2 mg/dL 11/05/2023 9:11 PM CDT LABORATORY Glucose 197(H) 70 - 99 mg/dL 11/05/2023 9:11 PM CDT LABORATORY Blood STRUCTURE OF LEFT UPPER LIMB / Unknown Venipuncture / Unknown 11/05/2023 8:45 PM CDT 11/05/2023 8:52 PM CDT Ritchie Valladares DO LAB - BLOOD ORDERABLES F inal Result LABORATORY [facility] [address] [facility] Lab (1st floor, no room number) [place] [address] * TSH (03/10/2023 8:49 AM CDT) TSH (External) 2.510 0.270 - 4.20 uIU/mL NON-INTERFACED (ONBASE SCANS) Blood BLOOD SPECIMEN / Unknown 03/10/2023 8:49 AM CDT Narrative GHAZALA PFT - 03/29/2023 12:52 PM CDT Verified by Deanne Robertson on 03/29/2023. us Provider Outside LAB - BLOOD ORDERABLES Edited R esult - Final BREEZE PFT NON-INTERFACED (ONBASE SCANS) * (ABNORMAL) Hemoglobin A1c (03/10/2023 8:49 AM CDT) Hemoglobin A1C (External) 7.9(H) 0 - 5.6 % NON-INTERFACED (ONBASE SCANS) Blood BLOOD SPECIMEN / Unknown 03/10/2023 8:49 AM CDT Narrative BREEZE PFT - 03/29/2023 12:52 PM CDT Verified by Deanne Robertson on 03/29/2023. Provider Outside LAB - BLOOD ORDERABLES Edited Meggat[employer] ShopReply Performing Organization Address [facility] de Phone Number AARONEZE PFT NON-INTERFACED (ONBASE SCANS) * Lipid Profile (07/06/2022 9:56 AM PROJECT MANAGER/DESIGN MANAGER) Triglycerides (External) 147 40 - 149 mg/dL NON-INTERFACE D (ONBASE SCANS) Cholesterol (External) 155 98 - 199 mg/dl NON-INTERFACE D (ONBASE SCANS) HDL Cholesterol (External) 41 >=40 mg/dL NON-INTERFACE D (ONBASE SCANS) LDL-Cholesterol (External) 85 <100 mg/dL NON-INTERFACE D (ONBASE SCANS) Blood 07/06/2022 9:56 AM PROJECT MANAGER/DESIGN MANAGER Narrative BREEZE PFT - 07/28/2022 9:47 AM PROJECT MANAGER/DESIGN MANAGER Verified by Juan Francisco Estrada on 07/28/2022. Provider Outside LAB - BLOOD ORDERABLES Edited Huan Xiong Performing Organization Address [facility] de Phone Number AARONEZE PFT NON-INTERFACED (ONBASE SCANS) * COLONOSCOPY (03/10/2022 11:38 AM CDT) COLONOSCOPY [facility] Patient Name: Gilberto Alfonso ? Procedure [...] and ?oxygen saturations were monitored continuously. The ?[employer] [place] Pediatric Colonoscope Model # [id number], ?Endora # [id number], SN # [id number] was introduced through ?the anus and advanced [...] Procedure Code(s): ? --- Professional --- ? 88619, Colonoscopy, flexible; with removal of tumor(s), polyp(s), or ? other lesion(s) by snare technique Diagnosis Code(s): ? --- Professional --- ? Z86.010, Personal history of colonic polyps ? N40.2, Nodular prostate without lower urinary tract symptoms ? K63.5, Polyp of colon CPT copyright 2020 [employer]. All rights reserved. The codes documented in this report are preliminary and upon seat cover cutter review may be revised to meet current compliance requirements. ____ DEANNE ROMEO MD 03/10/2022 12:19:51 PM I was physically present for the entire viewing portion of the exam. DEANNE ROMEO MD Number of Addenda: 0 Note Initiated On: 03/10/2022 11:38 AM MRN: ?[id number] Procedure Date: ? 03/10/2022 11:38:32 AM Scope [...] 8:56 AM CDT) Creatinine Urine 122 mg/dL [facility] Albumin Urine mg/L 9 mg/L [facility] Albumin Urine mg/g Cr 7.45 0 - 17 mg/g Cr [facility] Urine specimen (specimen) 04/27/2014 8:56 AM CDT 04/27/2014 8:58 AM CDT us Rob Robb MD LAB - URINE ORDERABLES Final Res ult [facility] [address] [place] [address], [facility] [phone] from Last 3 Months or Most Recently Relevant to Health Maintenance Insurance BCBS MEDICARE ADVANTAGE [facility] MEDICARE ADVANTAGE Advance Directives For more information, please contact: [phone] * Full Code (Latest Code Status on [...] 11:35 AM 10/19/2003 12:35 PM Care Teams School Patrol Relationship Specialty Start Date End Date Alberto Stanton MD [facility] [address] [place] [address] PCP - General Family Practice 04/26/18 Jonathan Jaimes MD [address] [place] [phone] Assigned Heart and Vascular Provider 06/07/20
--- OUTSIDE RECORDS SUMMARY | 2024-06-29 06:01 | XMS_ITS | Encounter Summary ---
Author Organization [facility] Address [address] [place] [address]. [place] [address] Care Team Providers Care Fulfillment Representative Name Role Phone Alberto Stanton MD Primary Care Provider [phone] Jonathan Jaimes MD Unavailable [phone] Encounter Details Date Type Department Care Team (Late st Contact Info) Description 11/19/2022 External Order Results [facility] [address] [place] [address] Outside, Provider Social History Tobacco Use Types Packs/Day Years Used Date Smoking Tobacco: Never Smokeless Tobacco: Never Alcohol Use Standard Drinks/Week Comments Yes 0 (1 standard drink = 0.6 oz pur e alcohol) 7 drinks per week Sex and Gender Information Value Date Recorded Sex Assigned at Not on file Legal Sex Male 3:39 AM CONTRACTS LAW PROFESSOR Gender Identity Not on file Sexual Orientation Not on file 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 jose e documented as of this encounter Plan of Treatment Upcoming Encounters Date Type Department Care Team (Late st Contact Info) Description 09/01/2024 8:00 AM CONTRACTS LAW PROFESSOR Office Visit [facility] [place] [id number] [place] [address] [address] [place] [address] Jonathan Jaimes MD [address] [facility] [address] [place] [address] documented as of [...] Outside LAB - BLOOD ORDERABLES Edited R [employer] [facility] Organization Address City/State/ZIP Co de Phone Number BREEZE PFT NON-INTERFACED (ONBASE SCANS) * TSH (03/10/2023 8:49 AM CDT) TSH (External) 2.510 0.270 - 4.20 uIU/mL NON-INTERFACED (ONBASE SCANS) Blood BLOOD SPECIMEN / Unknown 03/10/2023 8:49 AM CDT Narrative BREEZE PFT - 03/29/2023 12:52 PM CDT Verified by Sabina Robertson on 03/29/2023. us Provider Outside LAB - BLOOD ORDERABLES Edited R [employer] Performing Organization Address City/[facility]/ZIP Co de Phone Number GHAZALA PFT NON-INTERFACED (ONBASE SCANS) * (ABNORMAL) Hemoglobin A1c (11/19/2022 10:40 AM CDT) Pathologist [facility] Hemoglobin A1C (External) 7.7(H) 0 - 5.6 % NON-INTERFACED (ONBASE SCANS) Blood BLOOD SPECIMEN / Unknown 11/19/2022 10:40 AM CDT Narrative GHAZALA PFT - 03/29/2023 12:52 PM CDT Verified by Sabina Robertson on 03/29/2023. us Provider Outside LAB - BLOOD ORDERABLES Edited eGood Performing Organization Address [facility] Co de Phone Number GHAZALA PFT NON-INTERFACED (ONBASE SCANS) * CBC with Platelets & Differential (11/19/2022 10:40 AM CDT) Pathologist [facility] WBC Count (External) 7.64 4.50 - 11.00 [...] CDT Verified by Sabina Robertson on 03/29/2023. us Provider Outside LAB - BLOOD ORDERABLES Edited R esult - Final GHAZALA PFRomie NON-INTERFACED (ONBASE SCANS) * Basic metabolic panel [...] Provider Outside LAB - BLOOD ORDERABLES Edited [facility] BREEZE PFT NON-INTERFACED (ONBASE SCANS) * Ionized Calcium (11/19/2022 10:40 AM CDT) Calcium Ionized (External) 1.21 1.11 - 1.33 mmol/L NON-INTERFACED (ONBASE SCANS) Blood BLOOD SPECIMEN / Unknown 11/19/2022 10:40 AM CDT Narrative BREEZE PFT - 03/29/2023 12:52 PM CDT Verified by Sabina Robertson on 03/29/2023. Provider Outside LAB - BLOOD ORDERABLES Edited [facility] GHAZALA PFT NON-INTERFACED (ONBASE SCANS) documented in this encounter Visit Diagnoses Not on filedocumented in this encounter Additional Health Concerns Infection Onset Date Last Indicated Resolved Time Rule Out COVID-19 10/06/2023 10/06/2023 10/06/2023 1:51 PM CONTRACTS LAW PROFESSOR Rule Out COVID-19 11/05/2023 11/05/2023 11/05/2023 10:53 PM CDT documented as of this encounter Care Teams Fulfillment Representative Relationship Specialty Start Date End Date Alberto Stanton MD [facility] [address] [place] [address] PCP - General Family Practice 04/26/18 Jonathan Jaimes MD [address] [place] [phone] Assigned Heart and Vascular Provider 06/07/20 documented as of this encounter
--- OUTSIDE RECORDS SUMMARY | 2024-06-29 06:02 | XMS_ITS | Encounter Summary ---
Author Organization [place] Address [address] [place] [address]. [place] [address] Care Team Providers Care Rim Fire Priming Tool Setter Name Role Phone Salvador Hyatt MD Primary Care Provider [phone] Alberto Stanton MD Primary Care Provider [phone] Jonathan Jaimes MD Unavailable [phone] Encounter Details Date Type Department Care Team (Late st Contact Info) Description 10/20/2002 Office Visit-[facility] [address] [address] Unknown, DoctorMD Social History Tobacco Use Types Packs/Day Years Used Date Smoking Tobacco: Never Assessed Sex and Gender Information Value Date Recorded Sex Assigned at Not on file Legal Sex Male 3:39 AM VACUUM CLEANER MECHANIC Gender Identity Not on file Sexual Orientation [...] upset/diarrhea MEDICATIONS 1. Lipitor 10 mg, Dose/instruction [facility] 2. Avapro 150 mg, Dose/instruction [facility] 3. Glucophage 1000 mg, 1 p.o. q.d. 4. Zoloft 20 mg/ml, Dose/instruction [facility] 5. Lopid 600 mg, 1 p.o. b.i.d. CHIEF COMPLAINTS Consult cholesterol HISTORY OF PRESENT ILLNESS I had the pleasure of meeting your patient, Mr. Gilberto Alfonso, today at [facility]. As you know, he is a pleasant [...] medication dosages listed on this note are incorrect.The patient could not remember which doses he was on. I talked to this patient in depth about the metabolic syndrome. We talked about the pathophysiology of diabetes, insulin resistance, hyperlipidemia, and its relation to body weight, blood pressure, etc. He is following the ADA diet. I have also talked to him about the [place] [employer] program. I have recommended the following. I [...] Past Medical Illnesses: GI reflux, hyperlipidemia, diabetes htddlrmf-abf-xjonymh dependent, hypertension, depression, sinusistis, cellulitis, finger, rt [...] st Contact Info) Description 09/01/2024 8:00 AM VACUUM CLEANER MECHANIC Office Visit [facility] [address] [facility] [address] [place] [address] Jonathan Jaimes MD [address] [place] [phone] documented as of this encounter Visit Diagnoses Not on filedocumented in this encounter Additional Health Concerns Infection Onset Date Last Indicated Resolved Time Rule Out COVID-19 10/06/2023 10/06/2023 10/06/2023 1:51 PM VACUUM CLEANER MECHANIC Rule Out COVID-19 11/05/2023 11/05/2023 11/05/2023 10:53 PM CDT documented as of this encounter Care Teams Rim Fire Priming Tool Setter Relationship Specialty Start Date End Date Salvador Hyatt MD PCP - General Family Practice 07/18/15 04/25/18 Alberto Stanton MD [facility] [address] [place] [address] PCP - General Family Practice 04/26/18 Jonathan Jaimes MD [address] [place] [address] Assigned Heart and Vascular Provider 06/07/20 documented as of this encounter
--- OUTSIDE RECORDS SUMMARY | 2024-06-29 06:02 | XMS_ITS | Encounter Summary ---
Author Organization [place] Address [address] [place] [address]. [place] [address] Care Team Providers Care Shared Services And Outsourcing Manager Name Role Phone Salvador Hyatt MD Primary Care Provider Alberto Stanton MD Primary Care Provider [phone] Jonathan Jaimes MD Unavailable Encounter Details Date Type Department Care Team (Late st Contact Info) Description 03/24/2012 Office Visit-[facility] [address] [place] [address] Jonathan Jaimes MD [address] [facility] [address] [place] [address] Social History Tobacco Use Types Packs/Day Years Used Date Smoking Tobacco: Never Alcohol Use Standard Drinks/Week Comments Yes 0 (1 standard drink = 0.6 oz pur e alcohol) 2/week Sex and Gender Information Value Date Recorded Sex Assigned at Not on file Legal Sex Male 3:39 AM UTILITY WORKER ROLLER SHOP Gender Identity Not on file Sexual Orientation Not on file 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 DATE: 03/24/2012 GILBERTO ALFONSO DATE OF : 1950 AGE: [age] years old Referring Physician: CHELSEY TRAORE Referring Clinic: [facility] CURRENT DIAGNOSES 1. - Hyperlipidemia, [...] primary prevention. As far as we know hedoes not have any fixed coronary disease. He does have diabetes along with metabolic syndrome, highcholesterol and blood pressure. He has since moved to a senior high rise. He told me he gained weight, but [...] 220. Last year we gave him a Spacenet blood pressure machine and althoughhis blood pressure [...] Past Medical Illnesses: GI reflux, hyperlipidemia, diabetes ehikkjxr-xzk-douttbu dependent, hypertension, depression, sinusistis, cellulitis, finger, rt leg vericosities, metabolic syndrome, plantar fascitis, diabetes azkjcvdt-qsa-jewlfdp dependent, depression Infectious History: spider bite-cellulitis, shingles [...] with in own home; Place of - [place]; REVIEW OF SYSTEMS GENERAL weight gain, 5.4 [...] Weight- 277.40 lbs. Height- 75 BMI Measurement: [facility] Error: [Microsoft][ODBC SQL Theology Professor Operator Catalyst Concentration][SQL Theology Professor]Divide by zero error encountered. - 75802 CONSTITUTIONAL cooperative, alert and oriented,well developed, well [...] #0 Substitution and Sertraline 100 mg Tablet 1-/2 p.o. daily DIRECTED Dosage Decreased IMPRESSIONS/PLAN I [...] st Contact Info) Description 09/01/2024 8:00 AM UTILITY WORKER ROLLER SHOP Office Visit [facility] [address] [place] [address] [address] [place] [address] Jonathan Jaimes MD [address] [place] [phone] documented as of this encounter Visit Diagnoses Not on filedocumented in this encounter Additional Health Concerns Infection Onset Date Last Indicated Resolved Time Rule Out COVID-19 10/06/2023 10/06/2023 10/06/2023 1:51 PM UTILITY WORKER ROLLER SHOP Rule Out COVID-19 11/05/2023 11/05/2023 11/05/2023 10:53 PM CDT documented as of this encounter Care Teams Shared Services And Outsourcing Manager Relationship Specialty Start Date End Date Salvador Hyatt MD PCP - General Family Practice 07/18/15 04/25/18 Alberto Stanton MD [facility] [address] [place] [address] PCP - General Family Practice 04/26/18 Jonathan Jaimes MD [address] [place] [phone] Assigned Heart and Vascular Provider 06/07/20 documented as of this encounter
--- OUTSIDE RECORDS SUMMARY | 2024-06-29 06:02 | XMS_ITS | Encounter Summary ---
Author Organization [place] Address [address] [place] [address]. [place] [address] Care Team Providers Care Warehouse Receiving Supervisor Name Role Phone Salvador Hyatt MD Primary Care Provider [phone] Alberto Stanton MD Primary Care Provider [phone] Jonathan Jaimes MD Unavailable Encounter Details Date Type Department Care Team (Late st Contact Info) Description 05/28/2009 Office Visit-[facility] [id number] [place] [address] Kelly Anglin APRN CNP NO INFO AVAILABLE 06/04/2022 Social History Tobacco Use Types Packs/Day Years Used Date Smoking Tobacco: Never Alcohol Use Standard Drinks/Week Comments Yes 0 (1 standard drink = 0.6 oz pur e alcohol) 2/week Sex and Gender Information Value Date Recorded Sex Assigned at Not on file Legal Sex Male 3:39 AM DIRECTOR STARS Gender Identity Not on file Sexual Orientation Not on file 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 DATE: 05/28/2009 GILBERTO ALFONSO DATE OF : 1950 AGE: [age] years old Referring Physician: CHELSEY TRAORE Referring Clinic: [facility] CURRENT DIAGNOSES 1. - Metabolic Syndrome, [...] Past Medical Illnesses: GI reflux, hyperlipidemia, diabetes lqfrcswg-ghf-cikycvf dependent, hypertension, depression, sinusistis, cellulitis, finger, rt [...] Right arm, large cuff 128/70 Retaken by PIT SUPERVISOR/PA Pulse- 88.00/min. Weight- 277.00 lbs. Height- 75.00 [...] st Contact Info) Description 09/01/2024 8:00 AM DIRECTOR STARS Office Visit [facility] [address] [facility] [address] [place] [address] Jonathan Jaimes MD [address] [place] [address] documented as of this encounter Visit Diagnoses Not on filedocumented in this encounter Additional Health Concerns Infection Onset Date Last Indicated Resolved Time Rule Out COVID-19 10/06/2023 10/06/2023 10/06/2023 1:51 PM DIRECTOR STARS Rule Out COVID-19 11/05/2023 11/05/2023 11/05/2023 10:53 PM CDT documented as of this encounter Care Teams Warehouse Receiving Supervisor Relationship Specialty Start Date End Date Salvador Hyatt MD PCP - General Family Practice 07/18/15 04/25/18 Alberto Stanton MD [facility] [address] [place] [address] PCP - General Family Practice 04/26/18 Jonathan Jaimes MD [address] [place] [phone] Assigned Heart and Vascular Provider 06/07/20 documented as of this encounter
--- OUTSIDE RECORDS SUMMARY | 2024-06-29 06:02 | XMS_ITS | Encounter Summary ---
Author Organization [place] Address [address] [place] [address]. [place] [address] Care Team Providers Care Endo Tech Name Role Phone Salvador Hyatt MD Primary Care Provider Alberto Stanton MD Primary Care Provider [phone] Jonathan Jaimes MD Unavailable [phone] Encounter Details Date Type Department Care Team (Late st Contact Info) Description 01/31/2007 Office Visit-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 DATE: 01/31/2007 GILBERTO ALFONSO DATE OF : 1950 AGE: [age] years old Referring Physician: CHELSEY TRAORE Referring Clinic: [facility] CURRENT DIAGNOSES 1. Chest pain, [...] Past Medical Illnesses: GI reflux, hyperlipidemia, diabetes undbcxdj-njs-vavjkvf dependent, hypertension, depression, sinusistis, cellulitis, finger, rt [...] lives with and children; Place of - [place]; Job Description - 20; REVIEW OF SYSTEMS [...] st Contact Info) Description 09/01/2024 8:00 AM BANKING REPRESENTATIVE Office Visit [facility] [address] [facility] [address] [place] [phone] Jonathan Jaimes MD [address] [place] [phone] documented as of this encounter Visit Diagnoses Not on filedocumented in this encounter Additional Health Concerns Infection Onset Date Last Indicated Resolved Time Rule Out COVID-19 10/06/2023 10/06/2023 10/06/2023 1:51 PM BANKING REPRESENTATIVE Rule Out COVID-19 11/05/2023 11/05/2023 11/05/2023 10:53 PM CDT documented as of this encounter Care Teams Endo Tech Relationship Specialty Start Date End Date Salvador Hyatt MD PCP - General Family Practice 07/18/15 04/25/18 Alberto Stanton MD [facility] [address] [place] [address] PCP - General Family Practice 04/26/18 Jonathan Jaimes MD [address] [place] [phone] Assigned Heart and Vascular Provider 06/07/20 documented as of this encounter
--- OUTSIDE RECORDS SUMMARY | 2024-06-29 06:02 | XMS_ITS | Encounter Summary ---
Author Organization [place] Address [address] [place] [address]. [place] [address] Care Team Providers Care Earth Moving Technician Name Role Phone Salvador Hyatt MD Primary Care Provider Alberto Stanton MD Primary Care Provider [phone] Jonathan Jaimes MD Unavailable [phone] Encounter Details Date Type Department Care Team (Late st Contact Info) Description 02/25/2009 Office Visit-[facility] [address] [place] [address] Jonathan Jaimes MD [address] [facility] [address] [place] [address] Social History Tobacco Use Types Packs/Day Years Used Date Smoking Tobacco: Never Alcohol Use Standard Drinks/Week Comments Yes 0 (1 standard drink = 0.6 oz pur e alcohol) 2/week Sex and Gender Information Value Date Recorded Sex Assigned at Not on file Legal Sex Male 3:39 AM FITTING SUPERVISOR Gender Identity Not on file Sexual Orientation [...] old Referring Physician: CHELSEY TRAORE Referring Clinic: [facility] CURRENT DIAGNOSES 1. Chest pain, [...] 1 p.o. daily 9. Zoloft 100 mg, 1-/2 p.o. q.d. CHIEF COMPLAINTS f/u visit HISTORY OF PRESENT ILLNESS: Gilberto Alfonso is a delightful 59-year-old male who first presented with atypical chest pain. It was not likely cardiac in nature and he is also seen for primary prevention. He also sees an button sewer hand and dredge pipe installer. 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 [...] st Contact Info) Description 09/01/2024 8:00 AM FITTING SUPERVISOR Office Visit [facility] [address] [place] [address] [address] [place] [address] Jonathan Jaimes MD [address] [facility] [address] [place] [address] documented as of this encounter Visit Diagnoses Not on filedocumented in this encounter Additional Health Concerns Infection Onset Date Last Indicated Resolved Time Rule Out COVID-19 10/06/2023 10/06/2023 10/06/2023 1:51 PM FITTING SUPERVISOR Rule Out COVID-19 11/05/2023 11/05/202311/05/2023 10:53 PM CDT documented as of this encounter Care Teams Earth Moving Technician Relationship Specialty Start Date End Date Salvador Hyatt MD PCP - General Family Practice 07/18/15 04/25/18 Alberto Stanton MD [facility] [address], [place] [address] PCP - General Family Practice 04/26/18 Jonathan Jaimes MD [address] [place] [address] Assigned Heart and Vascular Provider 06/07/20 documented as of this encounter
--- OUTSIDE RECORDS SUMMARY | 2024-06-29 06:02 | XMS_ITS | Encounter Summary ---
Author Organization [place] Address [address] [place] [address]. [place] [address] Care Team Providers Care Marketing Development Representative Name Role Phone Salvador Hyatt MD Primary Care Provider [phone] Alberto Stanton MD Primary Care Provider [phone] Jonathan Jaimes MD Unavailable [phone] Encounter Details Date Type Department Care Team (Late st Contact Info) Description 02/04/2006 Office Visit-[facility] [address] [address] Unknown, MD Naomy Social History Tobacco Use Types Packs/Day Years Used Date Smoking Tobacco: Never Alcohol Use Standard Drinks/Week Comments Yes 0 (1 standard drink = 0.6 oz pur e alcohol) 2/week Sex and Gender Information Value Date Recorded Sex Assigned at Not on file Legal Sex Male 3:39 AM DICTAPHONE OPERATOR Gender Identity Not on file Sexual Orientation Not on file 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 DATE: 02/04/2006 NEETA ALFONSO DATE OF : 1950 AGE: [age] years old Referring Physician: CHELSEY CHIN Referring Clinic: [facility] CURRENT DIAGNOSES 1. - [...] OF PRESENT ILLNESS Neeta Alfonso returns for followup for primary prevention. [...] Past Medical Illnesses: GI reflux, hyperlipidemia, diabetes gynacinn-jyh-xexqqkq dependent, hypertension, depression, sinusistis, cellulitis, finger, rt [...] st Contact Info) Description 09/01/2024 8:00 AM DICTAPHONE OPERATOR Office Visit [facility] [address] [facility] [address] [place] [address] Jonathan Jaimes MD [address] [place] [phone] documented as of this encounter Visit Diagnoses Not on filedocumented in this encounter Additional Health Concerns Infection Onset Date Last Indicated Resolved Time Rule Out COVID-19 10/06/2023 10/06/2023 10/06/2023 1:51 PM DICTAPHONE OPERATOR Rule Out COVID-19 11/05/2023 11/05/2023 11/05/2023 10:53 PM CDT documented as of this encounter Care Teams Marketing Development Representative Relationship Specialty Start Date End Date Salvador Hyatt MD PCP - General Family Practice 07/18/15 04/25/18 Alberto Stanton MD [facility] [address] [place] [address] PCP - General Family Practice 04/26/18 Jonathan Jaimes MD [address] [place] [phone] Assigned Heart and Vascular Provider 06/07/20 documented as of this encounter
--- OUTSIDE RECORDS SUMMARY | 2024-06-29 06:02 | XMS_ITS | Encounter Summary ---
Author Organization [place] Address [address] [place] [address]. [place] [address] Care Team Providers Care Recreation Assistant Name Role Phone Salvador Hyatt MD Primary Care Provider [phone] Alberto Stanton MD Primary Care Provider [phone] Jonathan Jaimes MD Unavailable [phone] Encounter Details Date Type Department Care Team (Late st Contact Info) Description 02/03/2005 Office Visit-[facility] [address] [address] Unknown, MD Naomy Social History Tobacco Use Types Packs/Day Years Used Date Smoking Tobacco: Never Alcohol Use Standard Drinks/Week Comments Yes 0 (1 standard drink = 0.6 oz pur e alcohol) 2/week Sex and Gender Information Value Date Recorded Sex Assigned at Not on file Legal Sex Male 3:39 AM GRAPHICS MANAGER Gender Identity Not on file Sexual Orientation Not on file 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 DATE: 02/03/2005 GILBERTO ALFONSO DATE OF : 1950 AGE: [age] years old Referring Physician: CHELSEY CHIN Referring Clinic: [facility] CURRENT DIAGNOSES 1. - Metabolic [...] are following him mostly for blood pressure andcholesterol management, although he also sees his flight test shop mechanic. His blood pressure today is 130 systolic, [...] the mid to high 7% range, and wedid discuss the fact that with better diabetes control the lipids will improve, especially the triglycerides. We have again talked about weight management. He is on Avandia and has gotten weight gainfrom that and is upset. He is going to be talking to Dr. Hernández about that. I did tell him it is common for Avandia to increase weight and cause some ankle swelling, but metabolically speaking it isideal for lipid and coronaries. I am not going to change any of his heart medication. I would not recommend adding niacin to the medicines he is on already because he already has some diabetes control issue. PAST HISTORY Past Medical Illnesses: GI reflux, hyperlipidemia, diabetes fgwfwyzq-bzg-xzpxusd dependent, hypertension, depression, sinusistis, cellulitis, finger, rt [...] Return Visit 1 year Jonathan Jaimes M.D. documented in this encounter Plan of Treatment Upcoming Encounters Date Type Department Care Team (Late st Contact Info) Description 09/01/2024 8:00 AM GRAPHICS MANAGER Office Visit [facility] [address] [place] [address] Jonathan Jaimes MD [address] [place] [phone] documented as of this encounter Visit Diagnoses Not on filedocumented in this encounter Additional Health Concerns Infection Onset Date Last Indicated Resolved Time Rule Out COVID-19 10/06/2023 10/06/2023 10/06/2023 1:51 PM GRAPHICS MANAGER Rule Out COVID-19 11/05/2023 11/05/2023 11/05/2023 10:53 PM CDT documented as of this encounter Care Teams Recreation Assistant Relationship Specialty Start Date End Date Salvador Hyatt MD PCP - General Family Practice 07/18/15 04/25/18 Alberto Stanton MD [facility] [address] [place] [address] PCP - General Family Practice 04/26/18 Jonathan Jaimes MD [address] [place] [phone] Assigned Heart and Vascular Provider 06/07/20 documented as of this encounter
--- OUTSIDE RECORDS SUMMARY | 2024-06-29 06:02 | XMS_ITS | Encounter Summary ---
Author Organization [place] Address [address] [place] [address]. [place] [address] Care Team Providers Care Head Men'S Golf Coach Name Role Phone Alberto Stanton MD Primary Care Provider [phone] Jonathan Jaimes MD Unavailable Reason for Visit * Reason Onset Date Comments SCHEDULING 10/09/2021 NM Lexiscan stre ss test (nuc card) AND Echocardiogram Complete Encounter Details Date Type Department Care Team (Late st Contact Info) Description 10/09/[address] 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 Action Taken: Other: [facility] Travel Screening: Not Applicable VERY TECHNICIAN documented in this encounter Plan of Treatment Upcoming Encounters Date Type Department Care Team (Late st Contact Info) Description 09/01/2024 8:00 AM DELIVERY TECHNICIAN Office Visit [facility] [address] [facility] [address] [place] [phone] Jonathan Jaimes MD [address] [place] [phone] documented as of this encounter Visit Diagnoses Not on filedocumented in this encounter Additional Health Concerns Infection Onset Date Last Indicated Resolved Time Rule Out COVID-19 10/06/2023 10/06/2023 10/06/2023 1:51 PM DELIVERY TECHNICIAN Rule Out COVID-19 11/05/2023 11/05/2023 11/05/2023 10:53 PM CDT documented as of this encounter Care Teams Head Men'S Golf Coach Relationship Specialty Start Date End Date Alberto Stanton MD [facility] [address] [place] [address] PCP - General Family Practice 04/26/18 Jonathan Jaimes MD [address] [place] [phone] Assigned Heart and Vascular Provider 06/07/20 documented as of this encounter
--- OUTSIDE RECORDS SUMMARY | 2024-06-29 06:02 | XMS_ITS | Encounter Summary ---
Author Organization [place] Address [address] [place] [address]. [place] [address] Care Team Providers Care Parachute Marker Name Role Phone Salvador Hyatt MD Primary Care Provider [phone] Alberto Stanton MD Primary Care Provider [phone] Jonathan Jaimes MD Unavailable [phone] Encounter Details Date Type Department Care Team (Late st Contact Info) Description 05/08/2004 Office Visit-[facility] [address] [address] Unknown, MD Naomy Social History Tobacco Use Types Packs/Day Years Used Date Smoking Tobacco: Never Alcohol Use Standard Drinks/Week Comments Yes 0 (1 standard drink = 0.6 oz pur e alcohol) 2/week Sex and Gender Information Value Date Recorded Sex Assigned at Not on file Legal Sex Male 3:39 AM SUB ASSEMBLY TEAM WORKER Gender Identity Not on file Sexual Orientation Not on file 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 - [...] delightful 54-year-old gentleman who [facility] todayfor a follow up visit [...] Past Medical Illnesses: GI reflux, hyperlipidemia, diabetes atdmxtgf-mpl-pyplcso dependent, hypertension, depression, sinusistis, cellulitis, finger, rt [...] st Contact Info) Description 09/01/2024 8:00 AM SUB ASSEMBLY TEAM WORKER Office Visit [facility] [address] [facility] [address] [place] [address] Jonathan Jaimes MD [address] [place] [phone] documented as of this encounter Visit Diagnoses Not on filedocumented in this encounter Additional Health Concerns Infection Onset Date Last Indicated Resolved Time Rule Out COVID-19 10/06/2023 10/06/2023 10/06/2023 1:51 PM SUB ASSEMBLY TEAM WORKER Rule Out COVID-19 11/05/2023 11/05/2023 11/05/2023 10:53 PM CDT documented as of this encounter Care Teams Parachute Marker Relationship Specialty Start Date End Date Salvador Hyatt MD PCP - General Family Practice 07/18/15 04/25/18 Alberto Stanton MD [facility] [address], [place] [address] PCP - General Family Practice 04/26/18 oJnathan Jaimes MD [address] [place] [phone] Assigned Heart and Vascular Provider 06/07/20 documented as of this encounter
--- OUTSIDE RECORDS SUMMARY | 2024-06-29 06:02 | XMS_ITS | Encounter Summary ---
Author Organization [place] Address [address] [place] [address]. [place] [address] Care Team Providers Care Steam And Gas Turbines Assembler Name Role Phone Salvador Hyatt MD Primary Care Provider Alberto Stanton MD Primary Care Provider [phone] Jonathan Jaimes MD Unavailable Encounter Details Date Type Department Care Team (Late st Contact Info) Description 05/25/2013 Office Visit-[facility] [address] [place] [address] Jonathan Jaimes MD [address] [facility] [address] [place] [address] Social History Tobacco Use Types Packs/Day Years Used Date Smoking Tobacco: Never Smokeless Tobacco: Never Alcohol Use Standard Drinks/Week Comments Yes 0 (1 standard drink = 0.6 oz pur e alcohol) 5 Sex and Gender Information Value Date Recorded Sex Assigned at Not on file Legal Sex Male 3:39 AM MUCK MINER Gender Identity Not on file Sexual Orientation Not on file 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 DATE: 05/25/2013 GILBERTO ALFONSO DATE OF : 1950 AGE: [age] years old Referring Physician: CHELSEY GARCIA Referring Clinic: [facility] CURRENT DIAGNOSES 1. - Hyperlipidemia, 272.4 [...] it would be cheaper to go to [facility] 40/12.5. I told him since I am increasing amlodipine, he can take 10 mg a day. He will see Dr. Hernández tomorrow, but that is probably too soon to tell. He will check his blood pressure at home. We are shooting for systolics somewhere between 110 and the mid 130s, a diastolic of 70 to mid 80s, and he will callus if he is not at that goal. <FONT FACE=System> PAST HISTORY Past Medical Illnesses: GI reflux, hyperlipidemia, diabetes wemdhubc-pji-vxmtajm dependent, hypertension, depression, sinusistis, cellulitis, finger, rt leg vericosities, metabolic syndrome, plantar fascitis, diabetes khjevulu-usb-uslpswv dependent, depression Infectious History: spider bite-cellulitis, shingles [...] st Contact Info) Description 09/01/2024 8:00 AM MUCK MINER Office Visit [facility] [address] [facility] [address] [place] [address] Jonathan Jaimes MD [address] [place] [phone] documented as of this encounter Visit Diagnoses Not on filedocumented in this encounter Additional Health Concerns Infection Onset Date Last Indicated Resolved Time Rule Out COVID-19 10/06/2023 10/06/2023 10/06/2023 1:51 PM MUCK MINER Rule Out COVID-19 11/05/2023 11/05/2023 11/05/2023 10:53 PM CDT documented as of this encounter Care Teams Steam And Gas Turbines Assembler Relationship Specialty Start Date End Date Salvador Hyatt MD PCP - General Family Practice 07/18/15 04/25/18 Alberto Stanton MD [facility] [address] [place] [address] PCP - General Family Practice 04/26/18 Jonathan Jaimes MD [address] [place] [phone] Assigned Heart and Vascular Provider 06/07/20 documented as of this encounter
--- OUTSIDE RECORDS SUMMARY | 2024-06-29 06:02 | XMS_ITS | Encounter Summary ---
Author Organization [place] Address [address] [place] [address]. [place] [address] Care Team Providers Care Mill Laborer Name Role Phone Salvador Hyatt MD Primary Care Provider [phone] Alberto Stanton MD Primary Care Provider [phone] Jonathan Jaimes MD Unavailable [phone] Encounter Details Date Type Department Care Team (Late st Contact Info) Description 04/08/2004 Office Visit-[facility] [address] [address] Unknown, MD Naomy Social History Tobacco Use Types Packs/Day Years Used Date Smoking Tobacco: Never Alcohol Use Standard Drinks/Week Comments Yes 0 (1 standard drink = 0.6 oz pur e alcohol) 2/week Sex and Gender Information Value Date Recorded Sex Assigned at Not on file Legal Sex Male 3:39 AM CRIPPLE CUTTER Gender Identity Not on file Sexual Orientation Not on file 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 [...] st Contact Info) Description 09/01/2024 8:00 AM CRIPPLE CUTTER Office Visit [facility] [address] [facility] [address] [place] [phone] Jonathan Jaimes MD [address] [facility] [facility] [address] [place] [phone] documented as of this encounter Visit Diagnoses Not on filedocumented in this encounter Additional Health Concerns Infection Onset Date Last Indicated Resolved Time Rule Out COVID-19 10/06/2023 10/06/2023 10/06/2023 1:51 PM CRIPPLE CUTTER Rule Out COVID-19 11/05/2023 11/05/2023 11/05/2023 10:53 PM CDT documented as of this encounter Care Teams Mill Laborer Relationship Specialty Start Date End Date Salvador Hyatt MD PCP - General Family Practice 07/18/15 04/25/18 Alberto Stanton MD [facility] [address] [place] [address] PCP - General Family Practice 04/26/18 Jonathan Jaimes MD [address] [place] [address] Assigned Heart and Vascular Provider 06/07/20 documented as of this encounter
--- OUTSIDE RECORDS SUMMARY | 2024-06-29 06:02 | XMS_ITS | Encounter Summary ---
Author Organization [place] Address [address] [place] [address]. [place] [address] Care Team Providers Care Folding Machine Operator Name Role Phone Salvador Hyatt MD Primary Care Provider [phone] Alberto Stanton MD Primary Care Provider [phone] Jonathan Jaimes MD Unavailable [phone] Encounter Details Date Type Department Care Team (Late st Contact Info) Description 03/16/2003 Office Visit-[facility] [address] [address] Unknown, MD Naomy Social History Tobacco Use Types Packs/Day Years Used Date Smoking Tobacco: Never Assessed Sex and Gender Information Value Date Recorded Sex Assigned at Not on file Legal Sex Male 3:39 AM PRIMER CHARGER Gender Identity Not on file Sexual Orientation [...] with Dr. Jaimes who is his primary neck band operator for control of his lipid profile. At [...] Past Medical Illnesses: GI reflux, hyperlipidemia, diabetes ktxnoikm-elu-kutlfmk dependent, hypertension, depression, sinusistis, cellulitis, finger, rt [...] st Contact Info) Description 09/01/2024 8:00 AM PRIMER CHARGER Office Visit [facility] [address] [place] [address] [address] [place] [phone] Jonathan Jaimes MD [address] [facility] [address] [place] [phone] documented as of this encounter Visit Diagnoses Not on filedocumented in this encounter Additional Health Concerns Infection Onset Date Last Indicated Resolved Time Rule Out COVID-19 10/06/2023 10/06/2023 10/06/2023 1:51 PM PRIMER CHARGER Rule Out COVID-19 11/05/2023 11/05/2023 11/05/2023 10:53 PM CDT documented as of this encounter Care Teams Folding Machine Operator Relationship Specialty Start Date End Date Salvador Hyatt MD PCP - General Family Practice 07/18/15 04/25/18 Alberto Stanton MD [facility] [address] [place] [address] PCP - General Family Practice 04/26/18 Jonathan Jaimes MD [address] [place] [address] Assigned Heart and Vascular Provider 06/07/20 documented as of this encounter
--- OUTSIDE RECORDS SUMMARY | 2024-06-29 06:02 | XMS_ITS | Encounter Summary ---
Author Organization [facility] Address [address] [place] [address]. [place] [address] Care Team Providers Care Window Shade Ring Sewer Name Role Phone Salvador Hyatt MD Primary Care Provider [phone] Alberto Stanton MD Primary Care Provider [phone] Jonathan Jaimes MD Unavailable [phone] Encounter Details Date Type Department Care Team (Late st Contact Info) Description 02/22/2004 Office Visit-[facility] [address] [address] Unknown, MD Naomy Social History Tobacco Use Types Packs/Day Years Used Date Smoking Tobacco: Never Alcohol Use Standard Drinks/Week Comments Yes 0 (1 standard drink = 0.6 oz pur e alcohol) 2/week Sex and Gender Information Value Date Recorded Sex Assigned at Not on file Legal Sex Male 3:39 AM SOLUTION DESIGNER Gender Identity Not on file Sexual Orientation Not on file 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 DATE: 02/22/2004 GILBERTO ALFONSO DATE OF : 1950 AGE: [age] years old Referring Physician: CHELSEY CHIN Referring Clinic: [facility] CURRENT DIAGNOSES 1. 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 F/U with aDvid Omalley M.D. documented in this encounter Plan of Treatment Upcoming Encounters Date Type Department Care Team (Late st Contact Info) Description 09/01/2024 8:00 AM SOLUTION DESIGNER Office Visit [facility] [id number] [place] [address] [address] [place] [address] Jonathan Jaimes MD [address] [place] [address] documented as of this encounter Visit Diagnoses Not on filedocumented in this encounter Additional Health Concerns Infection Onset Date Last Indicated Resolved Time Rule Out COVID-19 10/06/2023 10/06/2023 10/06/2023 1:51 PM SOLUTION DESIGNER Rule Out COVID-19 11/05/2023 11/05/2023 11/05/2023 10:53 PM CDT documented as of this encounter Care Teams Window Shade Ring Sewer Relationship Specialty Start Date End Date Salvador Hyatt MD PCP - General Family Practice 07/18/15 04/25/18 Alberto Stanton MD [facility] [address], [place] [address] PCP - General Family Practice 04/26/18 Jonathan Jaimes MD [address] [place] [address] Assigned Heart and Vascular Provider 06/07/20 documented as of this encounter
--- OUTSIDE RECORDS SUMMARY | 2024-06-29 06:02 | XMS_ITS | Encounter Summary ---
Author Organization [place] Address [address] [place] [address]. [place] [address] Care Team Providers Care Wastewater Treatment Operator Name Role Phone Salvador Hyatt MD Primary Care Provider [phone] Alberto Stanton MD Primary Care Provider [phone] Jonathan Jaimes MD Unavailable [phone] Encounter Details Date Type Department Care Team (Late st Contact Info) Description 03/12/2011 Office Visit-[facility] [address] [place] [address] Jonathan Jaimes MD [address] [facility] [address] [place] [address] Social History Tobacco Use Types Packs/Day Years Used Date Smoking Tobacco: Never Alcohol Use Standard Drinks/Week Comments Yes 0 (1 standard drink = 0.6 oz pur e alcohol) 2/week Sex and Gender Information Value Date Recorded Sex Assigned at Not on file Legal Sex Male 3:39 AM SPEECH SCIENTIST Gender Identity Not on file Sexual Orientation Not on file 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 DATE: 03/12/2011 GILBERTO ALFONSO DATE OF : 1950 AGE: [age] years old Referring Physician: CHELSEY TRAORE Referring Clinic: [facility] CURRENT DIAGNOSES 1. - [...] As you know, he is a delightful 71-vdyq[age]cdqiyuuibbfw who is here for primary prevention although [...] taken the liberty of giving him a Executive Channelaner blood pressure machine from our office. We [...] Past Medical Illnesses: GI reflux, hyperlipidemia, diabetes xjfblfpb-dxk-gsasanz dependent, hypertension, depression, sinusistis, cellulitis, finger, rt leg vericosities, metabolic syndrome, plantar fascitis, diabetes cobpxpjx-nci-fcjetqh dependent, depression Infectious History: spider bite-cellulitis, shingles [...] with in own home; Place of - [place]; REVIEW OF SYSTEMS GENERAL feels well, no [...] Kike Anglin, MSN, ANP 7-14 days---or any journeyman powerhouse operator Jonathan Jaimes M.D. documented in this encounter Plan of Treatment Upcoming Encounters Date Type Department Care Team (Late st Contact Info) Description 09/01/2024 8:00 AM SPEECH SCIENTIST Office Visit [facility] [address] [place] [address] [address] [place] [address] Jonathan Jaimes MD [address] [facility] [address] [place] [address] documented as of this encounter Visit Diagnoses Not on filedocumented in this encounter Additional Health Concerns Infection Onset Date Last Indicated Resolved Time Rule Out COVID-19 10/06/2023 10/06/2023 10/06/2023 1:51 PM SPEECH SCIENTIST Rule Out COVID-19 11/05/2023 11/05/2023 11/05/2023 10:53 PM CDT documented as of this encounter Care Teams Wastewater Treatment Operator Relationship Specialty Start Date End Date Salvador Hyatt MD PCP - General Family Practice 07/18/15 04/25/18 Alberto Stanton MD [facility] [address] [place] [address] PCP - General Family Practice 04/26/18 Jonathan Jaimes MD [address] [place] [address] Assigned Heart and Vascular Provider 06/07/20 documented as of this encounter
--- OUTSIDE RECORDS SUMMARY | 2024-06-29 06:02 | XMS_ITS | Encounter Summary ---
Author Organization [place] Address [address] [place] [address]. [place] [address] Care Team Providers Care Integrated Circuit Ic Layout Designer Name Role Phone Salvador Hyatt MD Primary Care Provider Alberto Stanton MD Primary Care Provider Jonathan Jaimes MD Unavailable Encounter Details Date Type Department Care Team (Late st Contact Info) Description 09/06/[address] [phone] Samuel Garcia MD [address] [place] [address] [address] NICK JIMENEZ [place] [id number] Emergency Room Encounter (Primary Dx) Social History Tobacco Use Types Packs/Day Years Used Date Smoking Tobacco: Never Smokeless Tobacco: Never Alcohol Use Standard Drinks/Week Comments Yes 0 (1 standard drink = 0.6 oz pur e alcohol) 10 -12 drinks per week Sex and Gender Information Value Date Recorded Sex Assigned at Not on file Legal Sex Male 3:39 AM STATION MECHANIC APPRENTICE Gender Identity Not on file Sexual Orientation Not on file 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)] : 46 CHIEF COMPLAINT: Chest pain. HISTORY OF PRESENT ILLNESS: Neeta Alfonso is a 53-year-old male who was [...] at all. NELLY [place] MD [place]: Document: [id number] [place], [place] Name: NEETA ALFONSO EMERGENCY ROOM ENCOUNTER LCN: ER DSC: 09/06/2003 [place], [place] Name: NEETA ALFONSO MR#: : Admit Date: -15 1950 09/06/2003 Doctor: NELLY [place] MD EMERGENCY ROOM ENCOUNTER Electronically filed by Chantel Marrero 09/19/2003 11:27 AM documented in this encounter Plan of Treatment Upcoming Encounters Date Type Department Care Team (Late st Contact Info) Description 09/01/2024 8:00 AM STATION MECHANIC APPRENTICE Office Visit [facility] [place] [address] [facility] [address] [place] [address] Jonathan Jaimes MD [address] [place] [address] documented as of this encounter Visit Diagnoses Diagnosis Emergency Room Encounter- Primary documented in this encounter Additional Health Concerns Infection Onset Date Last Indicated Resolved Time Rule Out COVID-19 10/06/2023 10/06/2023 10/06/2023 1:51 PM STATION MECHANIC APPRENTICE Rule Out COVID-19 11/05/2023 11/05/2023 11/05/2023 10:53 PM CDT documented as of this encounter Care Teams Integrated Circuit Ic Layout Designer Relationship Specialty Start Date End Date Salvador Hyatt MD PCP - General Family Practice 07/18/15 04/25/18 Alberto Stanton MD [facility] [address] [place] [address] PCP - [facility] Practice 04/26/18 Jonathan Jaimes MD [address] [place] [phone] Assigned Heart and Vascular Provider 06/07/20 documented as of this encounter
--- OUTSIDE RECORDS SUMMARY | 2024-06-29 06:02 | XMS_ITS | Encounter Summary ---
Author Organization [place] Address [address] [place] [address]. [place] [address] Care Team Providers Care Software Development Test Engineer Name Role Phone Salvador Hyatt MD Primary Care Provider [phone] Alberto Stanton MD Primary Care Provider [phone] Jonathan Jaimes MD Unavailable Encounter Details Date Type Department Care Team (Late st Contact Info) Description 02/19/2010 Office Visit-[facility] [address] [place] [address] Jonathan Jaimes MD [address] [facility] [address] [place] [address] Social History Tobacco Use Types Packs/Day Years Used Date Smoking Tobacco: Never Alcohol Use Standard Drinks/Week Comments Yes 0 (1 standard drink = 0.6 oz pur e alcohol) 2/week Sex and Gender Information Value Date Recorded Sex Assigned at Not on file Legal Sex Male 3:39 AM MOBILE MARKETING MANAGER Gender Identity Not on file Sexual Orientation Not on file 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 DATE: 02/19/2010 GILBERTO ALFONSO DATE OF : 1950 AGE: [age] years old Referring Physician: CHELSEY TRAORE Referring Clinic: [facility] CURRENT DIAGNOSES 1. - [...] hemoglobin A1C through Dr. Garcia's office. He alsosees Dr. Carlos Hernández for his diabetes management. [...] Past Medical Illnesses: GI reflux, hyperlipidemia, diabetes romrzgkr-ntx-dgugrap dependent, hypertension, depression, sinusistis, cellulitis, finger, rt [...] st Contact Info) Description 09/01/2024 8:00 AM MOBILE MARKETING MANAGER Office Visit [facility] [address] [facility] [address] [place] [address] Jonathan Jaimes MD [address] [facility] [address] [place] [address] documented as of this encounter Visit Diagnoses Not on filedocumented in this encounter Additional Health Concerns Infection Onset Date Last Indicated Resolved Time Rule Out COVID-19 10/06/2023 10/06/2023 10/06/2023 1:51 PM MOBILE MARKETING MANAGER Rule Out COVID-19 11/05/2023 11/05/2023 11/05/2023 10:53 PM CDT documented as of this encounter Care Teams Software Development Test Engineer Relationship Specialty Start Date End Date Salvador Hyatt MD PCP - General Family Practice 07/18/15 04/25/18 Alberto Stanton MD [facility] [address], [place] [address] PCP - General Family Practice 04/26/18 Jonathan Jaimes MD [address] [place] [phone] Assigned Heart and Vascular Provider 06/07/20 documented as of this encounter
--- OUTSIDE RECORDS SUMMARY | 2024-06-29 06:02 | XMS_ITS | Encounter Summary ---
Author Organization [place] Address [address] [place] [address]. [place] [address] Care Team Providers Care Self Defense Instructor Name Role Phone Salvador Hyatt MD Primary Care Provider [phone] Alberto Stanton MD Primary Care Provider [phone] Jonathan Jaimes MD Unavailable [phone] Encounter Details Date Type Department Care Team (Late st Contact Info) Description 03/27/2011 Office Visit-[facility] [address] [address] Unknown, MD Naomy Social History Tobacco Use Types Packs/Day Years Used Date Smoking Tobacco: Never Alcohol Use Standard Drinks/Week Comments Yes 0 (1 standard drink = 0.6 oz pur e alcohol) 2/week Sex and Gender Information Value Date Recorded Sex Assigned at Not on file Legal Sex Male 3:39 AM STAPLING MACHINE OPERATOR Gender Identity Not on file Sexual Orientation Not on file 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 [id number] DATE: 03/26/2011 GILBERTO ALFONSO DATE OF : 1950 AGE: [age] years old Referring Physician: CHELSEY TRAORE Referring Clinic: [facility] CURRENT DIAGNOSES 1. - Metabolic [...] intends to resume his walking program around [facility]. He has dyslipidemia, which his [...] Past Medical Illnesses: GI reflux, hyperlipidemia, diabetes cmsmjzdm-jrc-oyampxo dependent, hypertension, depression, sinusistis, cellulitis, finger, rt leg vericosities, metabolic syndrome, plantar fascitis, diabetes pzlcfzld-mqv-bpnguvc dependent, depression Infectious History: spider bite-cellulitis, shingles [...] in own home; Place of - [place]; REVIEW OF SYSTEMS GENERAL weight loss, 3 [...] two days ago and is going to cotton picker operator a supply today. I suspect this is why the blood pressure is up in the office. He will continue monitoring his blood pressure on a daily basis and return in one week's time. 2. Diabetes mellitus. The patient reports last hemoglobin A1C is 8.6. He is due to see his die cast technician next week. 3. NormalLV function per stress [...] st Contact Info) Description 09/01/2024 8:00 AM STAPLING MACHINE OPERATOR Office Visit [facility] [address] [facility] [address] [place] [phone] Jonathan Jaimes MD [address] [place] [address] documented as of this encounter Visit Diagnoses Not on filedocumented in this encounter Additional Health Concerns Infection Onset Date Last Indicated Resolved Time Rule Out COVID-19 10/06/2023 10/06/2023 10/06/2023 1:51 PM STAPLING MACHINE OPERATOR Rule Out COVID-19 11/05/2023 11/05/2023 11/05/2023 10:53 PM CDT documented as of this encounter Care Teams Self Defense Instructor Relationship Specialty Start Date End Date Salvador Hyatt MD PCP - General Family Practice 07/18/15 04/25/18 Alberto Stanton MD [facility] [address] [place] [address] PCP - General Family Practice 04/26/18 Jonathan Jaimes MD [address] [place] [phone] Assigned Heart and Vascular Provider 06/07/20 documented as of this encounter
--- OUTSIDE RECORDS SUMMARY | 2024-06-29 06:02 | XMS_ITS | Encounter Summary ---
Author Organization [place] Address [address] [place] [address]. [place] [address] Care Team Providers Care Commercial Review Appraiser Name Role Phone Salvador Hyatt MD Primary Care Provider [phone] Alberto Stanton MD Primary Care Provider [phone] Jonathan Jaimes MD Unavailable [phone] Encounter Details Date Type Department Care Team (Late st Contact Info) Description 02/22/2004 Office Visit-[facility] [address] [address] Unknown, MD Naomy Social History Tobacco Use Types Packs/Day Years Used Date Smoking Tobacco: Never Alcohol Use Standard Drinks/Week Comments Yes 0 (1 standard drink = 0.6 oz pur e alcohol) 2/week Sex and Gender Information Value Date Recorded Sex Assigned at Not on file Legal Sex Male 3:39 AM CLEARING DISTRIBUTION CLERK Gender Identity Not on file Sexual Orientation Not on file 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 DATE: 02/22/2004 GILBERTO ALFONSO DATE OF : 1950 AGE: [age] years old Referring Physician: CHELSEY GARCIA Referring Clinic: [facility] CURRENT DIAGNOSES 1. - Hyperlipidemia, [...] saw him last he was seen at [facility] in August for an episode of chest [...] st Contact Info) Description 09/01/2024 8:00 AM CLEARING DISTRIBUTION CLERK Office Visit [facility] [address] [facility] [address] [place] [address] Jonathan Jaimes MD [address] [place] [address] documented as of this encounter Visit Diagnoses Not on filedocumented in this encounter Additional Health Concerns Infection Onset Date Last Indicated Resolved Time Rule Out COVID-19 10/06/2023 10/06/2023 10/06/2023 1:51 PM CLEARING DISTRIBUTION CLERK Rule Out COVID-19 11/05/2023 11/05/2023 11/05/2023 10:53 PM CDT documented as of this encounter Care Teams Commercial Review Appraiser Relationship Specialty Start Date End Date Salvador Hyatt MD PCP - General Family Practice 07/18/15 04/25/18 Alberto Stanton MD [facility] [address] [place] [address] PCP - General Family Practice 04/26/18 Jonathan Jaimes MD [address] [place] [address] Assigned Heart and Vascular Provider 06/07/20 documented as of this encounter
--- OUTSIDE RECORDS SUMMARY | 2024-06-29 06:02 | XMS_ITS | Encounter Summary ---
Author Organization [facility] Address [address] [place] [address]. [place] [address] Care Team Providers Care Oxygen System Tester Name Role Phone Salvador Hyatt MD Primary Care Provider [phone] Alberto Stanton MD Primary Care Provider [phone] Jonathan Jaimes MD Unavailable [phone] Encounter Details Date Type Department Care Team (Late st Contact Info) Description 09/06/[address] [phone] Samuel Garcia MD [address] [place] [address] DR NICK JIMENEZ [place] [id number] Emergency Room Encounter (Primary Dx) Social History Tobacco Use Types Packs/Day Years Used Date Smoking Tobacco: Never Smokeless Tobacco: Never Alcohol Use Standard Drinks/Week Comments Yes 0 (1 standard drink = 0.6 oz pur e alcohol) 10 -12 drinks per week Sex and Gender Information Value Date Recorded Sex Assigned at Not on file Legal Sex Male 3:39 AM RESIDENTIAL DOOR INSTALLER Gender Identity Not on file Sexual Orientation Not on file 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 Not on file Not on jose e documented as of this encounter Plan of Treatment Upcoming Encounters Date Type Department Care Team (Late st Contact Info) Description 09/01/2024 8:00 AM RESIDENTIAL DOOR INSTALLER Office Visit [facility] [address] [facility] [address] [place] [address] Jonathan Jaimes MD [address] [place] [phone] documented as of this encounter Visit Diagnoses Diagnosis Emergency Room Encounter- Primary documented in this encounter Additional Health Concerns Infection Onset Date Last Indicated Resolved Time Rule Out COVID-19 10/06/2023 10/06/2023 10/06/2023 1:51 PM RESIDENTIAL DOOR INSTALLER Rule Out COVID-19 11/05/2023 11/05/2023 11/05/2023 10:53 PM CDT documented as of this encounter Care Teams Oxygen System Tester Relationship Specialty Start Date End Date Salvador Hyatt MD PCP - General Family Practice 07/18/15 04/25/18 Alberto Stanton MD [facility] [address] [place] [address] PCP - General Family Practice 04/26/18 Jonathan Jaimes MD [address] [place] [phone] Assigned Heart and Vascular Provider 06/07/20 documented as of this encounter
--- OUTSIDE RECORDS SUMMARY | 2024-06-29 06:02 | XMS_ITS | Encounter Summary ---
Author Organization [facility] Address [address] [place] [address]. [place] [address] Care Team Providers Care Package Dye Stand Loader Name Role Phone Salvador Hyatt MD Primary Care Provider [phone] Alberto Stanton MD Primary Care Provider [phone] Jonathan Jaimes MD Unavailable Encounter Details Date Type Department Care Team (Late st Contact Info) Description 01/04/2003 Office Visit-[facility] [address] [address] Unknown, DoctorMD Social History Tobacco Use Types Packs/Day Years Used Date Smoking Tobacco: Never Assessed Sex and Gender Information Value Date Recorded Sex Assigned at Not on file Legal Sex Male 3:39 AM BESSEMER CONVERTER OPERATOR Gender Identity Not on file Sexual [...] Past Medical Illnesses: GI reflux, hyperlipidemia, diabetes vlnvlaow-bnx-nmoqezm dependent, hypertension, depression, sinusistis, cellulitis, finger, rt [...] st Contact Info) Description 09/01/2024 8:00 AM BESSEMER CONVERTER OPERATOR Office Visit [facility] [address] [facility] [address] [place] [phone] Jonathan Jaimes MD [address] [place] [phone] documented as of this encounter Visit Diagnoses Not on filedocumented in this encounter Additional Health Concerns Infection Onset Date Last Indicated Resolved Time Rule Out COVID-19 10/06/2023 10/06/2023 10/06/2023 1:51 PM BESSEMER CONVERTER OPERATOR Rule Out COVID-19 11/05/2023 11/05/2023 11/05/2023 10:53 PM CDT documented as of this encounter Care Teams Package Dye Stand Loader Relationship Specialty Start Date End Date Salvador Hyatt MD PCP - General Family Practice 07/18/15 04/25/18 Alberto Stanton MD [facility] [address] [place] [address] PCP - General Family Practice 04/26/18 Jonathan Jaimes MD [address] [place] [phone] Assigned Heart and Vascular Provider 06/07/20 documented as of this encounter
== END 2024-06-26 08:29 | disposition home or self-care (01) ==
LOC: NFLDREF 06-29 06:00
PROVIDERS: PCP Family Medicine; Referring Provider Family Medicine; Visit Provider Family Medicine
DX: Z00.00 Encounter for general adult medical examination without abnormal findings (principal); E11.39 Type 2 diabetes mellitus with other diabetic ophthalmic complication; I10 Essential (primary) hypertension; E78.5 Hyperlipidemia, unspecified; Z12.5 Encounter for screening for malignant neoplasm of prostate; Z79.4 Long term (current) use of insulin
CPT/HCPCS: 80053; 80061; G0103

== ENCOUNTER 2024-06-29 09:13 | Outpatient (CLI) | payer MEDICARE, SELFPAY ==
--- OUTSIDE RECORDS SUMMARY | 2024-06-29 09:19 | XMS_ITS | Clinical Summary ---
Author Organization [facility] Address [address] [place] [address] Care Team Providers Care Glass Presser Name Role Phone Alberto Stanton MD Primary Care Provider [phone] Jonathan Jaimes MD Unavailable [phone] Allergies Active Allergy Reactions Criticality Noted Date [...] No further refills until seen by cardiology--call [phone] to schedule 30 tablet 06/17/20 22 Active [...] Department Care Team Description 05/11/[address] 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 [address] [facility] [address] [place] [address] Jonathan Jaimes MD [address] [place] [address] Health Maintenance Due Date Last Done [...] (Cologuard) Discontinued Medical Devices Implanted Type Area Legal Recruiter Device Identifier Shelf Expiration Date Model / Serial / Lot Imp Cup Rodger [place] 56mm [id number] Implanted:Qty: 1 on 08/13/2015 by Viktoria Morse MD at [facility] Left: Hip [employer] 05/15/2025 [id number] / / [id number] Imp [place] Hole Eliminator Hip Depuy Duraloc 1246-03-000 Implanted:Qty: 1 on 08/13/2015 by Viktoria Morse MD at [facility] Left: Hip [employer] 04/15/2025 [id number] / / [id number] Imp Scr Bone Can Rodger 6.5x20mm 1219-20-035 Implanted:Qty: 1 on 08/13/2015 by Viktoria Morse MD at [facility] Left: Hip [employer] 06/15/2025 [id number] / / [id number] Acetabular Liner +4 Neutral 36mm Id 56mm Od Implanted:Qty: 1 on 08/13/2015 by Viktoria Morse MD at [facility] Left: Hip Depuy 05/15/2020 [id number] / / [id number] Imp Scr Bone Can Rodger 6.5x25mm 1212-22-500 Implanted:Qty: 1 on 08/13/2015 by Viktoria Morse MD at [facility] Left: Hip [employer] 06/15/2025 [id number] / / [id number] Imp Head Femoral Depuy 36mm +1.5 1365-65-000 Implanted:Qty: 1 on 08/13/2015 by Viktoria Morse MD at [facility] Left: Hip [employer] 06/15/2020 [id number] / / [id number] Tri-Lock Bps Femoral Stem 07/29 Taper Tri-Lock Bps W/Gription Size 6 Hi 107mm Implanted:Qty: 1 on 08/13/2015 by Viktoria Morse MD at [facility] Left: Hip Depuy 06/15/2025 [id number] / / [id number] Procedures Procedure Name Priority Date/Time Associated Diagnosis Comments BASIC METABOLIC PANEL STAT 11/05/2023 8:45 PM CDT TSH Routine 03/10/2023 8:49 AM CDT HEMOGLOBIN A1C Routine 03/10/2023 8:49 AM CDT LIPID PROFILE Routine 07/06/2022 9:56 AM BOOK REPAIRER COLONOSCOPY Routine 03/10/2022 11:38 AM CDT ALBUMIN [...] LAB - BLOOD ORDERABLES F inal Result [facility] [address] [facility] ([facility]st floor, no room number) [place] [address] * TSH (03/10/2023 8:49 AM CDT) Pathologist [facility] TSH (External) 2.510 0.270 - 4.20 uIU/mL NON-INTERFACED (ONBASE SCANS) Blood BLOOD SPECIMEN / Unknown 03/10/2023 8:49 AM CDT Narrative B[facility] PFT - 03/29/2023 12:52 PM CDT Verified by Deanne Robertson on 03/29/2023. Provider Outside LAB - BLOOD ORDERABLES Edited R [employer] - Final Performing Organization Address [facility] Co de Phone Number [facility] PFT NON-INTERFACED (ONBASE SCANS) * (ABNORMAL) Hemoglobin A1c (03/10/2023 8:49 AM CDT) Pathologist [facility] Hemoglobin A1C (External) 7.9(H) 0 - 5.6 % NON-INTERFACED (ONBASE SCANS) Blood BLOOD SPECIMEN / Unknown 03/10/2023 8:49 AM CDT Narrative [facility] PFT - 03/29/2023 12:52 PM CDT Verified by Deanne Robertson on 03/29/2023. Provider Outside LAB - BLOOD ORDERABLES Edited R [employer] - [place] Performing Organization Address City/[facility]/ZIP Co de Phone Number [facility] PFT NON-INTERFACED (ONBASE SCANS) * Lipid Profile (07/06/2022 9:56 AM BOOK REPAIRER) Pathologist [facility] Triglycerides (External) 147 40 - 149 mg/dL NON-INTERFACE D (ONBASE SCANS) Cholesterol (External) 155 98 - 199 mg/dl NON-INTERFACE D (ONBASE SCANS) HDL Cholesterol (External) 41 >=40 mg/dL NON-INTERFACE D (ONBASE SCANS) LDL-Cholesterol (External) 85 <100 mg/dL NON-INTERFACE D (ONBASE SCANS) Blood 07/06/2022 9:56 AM BOOK REPAIRER Narrative GHAZALA PFRomie - 07/28/2022 9:47 AM BOOK REPAIRER Verified by Juan Francisco Estrada on 07/28/2022. us Provider Outside LAB - BLOOD ORDERABLES Edited R esult - Final GHAZALA FIGUEROA NON-INTERFACED (ONBASE SCANS) * COLONOSCOPY (03/10/2022 11:38 AM CDT) [facility] COLONOSCOPY [facility] Patient Name: Gilberto Alfonso ? Procedure Date: [...] continuously. The ?Olympus Pediatric Colonoscope Model # [id number]-GC716G, ?[place] # 257, SN # [id number] was introduced through ?the anus and advanced [...] Procedure Code(s): ? --- Professional --- ? 29899, Colonoscopy, flexible; with removal of tumor(s), polyp(s), or ? other lesion(s) by snare technique Diagnosis Code(s): ? --- Professional --- ? Z86.010, Personal history of colonic polyps ? N40.2, Nodular prostate without lower urinary tract symptoms ? K63.5, Polyp of colon CPT copyright 2020 [employer]. All rights reserved. The codes documented in this report are preliminary and upon canine service instructor trainer review may be revised to meet current compliance requirements. ____ DEANNE ROMEO MD 03/10/2022 12:19:51 PM I was physically present for the entire viewing portion of the exam. DEANNE ROMEO MD Number of Addenda: 0 Note Initiated On: 03/10/2022 11:38 AM MRN: ?[id number] Procedure Date: ? 03/10/2022 11:38:32 AM Scope [...] 8:56 AM CDT) Creatinine Urine 122 mg/dL [facility] Albumin Urine mg/L 9 mg/L [facility] Albumin Urine mg/g Cr 7.45 0 - 17 mg/g Cr [facility] Urine specimen (specimen) 04/27/2014 8:56 AM CDT 04/27/2014 8:58 AM CDT us Rob Robb MD LAB - URINE ORDERABLES Final Res ult [facility] [address] [address], [facility] [phone] from Last 3 Months or Most Recently Relevant to Health Maintenance Insurance [facility] MEDICARE ADVANTAGE [facility] MEDICARE ADVANTAGE Advance Directives For more information, please contact: [phone] * Full Code (Latest Code Status on [...] 11:35 AM 10/19/2003 12:35 PM Care Teams Glass Presser Relationship Specialty Start Date End Date Alberto Stanton MD [facility] [address] [place] [address] PCP - General Family Practice 04/26/18 Jonathan Jaimes MD [address] [place] [address] Assigned Heart and Vascular Provider 06/07/20
--- OUTSIDE RECORDS SUMMARY | 2024-06-29 09:20 | XMS_ITS | Encounter Summary ---
Author Organization [facility] Address [address] [place] [address]. [place] [address] Care Team Providers Care Conveyor Worker Name Role Phone Alberto Stanton MD Primary Care Provider [phone] Jonathan Jaimes MD Unavailable [phone] Reason for Visit * Reason Onset Date Comments Refill Request 05/11/2024 losartan Encounter Details Date Type Department Care Team (Late st Contact Info) Description 05/11/2024 Refill [facility] [address] [place] [address] Jonathan Jaimes MD [address] [facility] [address] [place] [address] Refill Request (losartan) Social History [...] on file Legal Sex Male 3:39 AM PLANT SECURITY GUARD Gender Identity Not on file Sexual Orientation Not on file 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 Medication meets criteria for refill. documented in this encounter Plan of Treatment Upcoming Encounters Date Type Department Care Team (Late st Contact Info) Description 09/01/2024 8:00 AM PLANT SECURITY GUARD Office Visit [facility] [address] [facility] [address] [place] [phone] Jonathan Jaimes MD [address] [place] [phone] documented as of this encounter Visit Diagnoses Diagnosis Essential hypertension, benign documented in this encounter Care Teams Conveyor Worker Relationship Specialty Start Date End Date Alberto Stanton MD [facility] [address] [place] [address] PCP - General Family Practice 04/26/18 Jonathan Jaimes MD [address] [place] [phone] Assigned Heart and Vascular Provider 06/07/20 documented as of this encounter
--- OUTSIDE RECORDS SUMMARY | 2024-06-29 09:20 | XMS_ITS | Encounter Summary ---
Author Organization [place] Address [address] [place] [address]. [place] [address] Care Team Providers Care Livestock Buyer Name Role Phone Salvador Hyatt MD Primary Care Provider [phone] Alberto Stanton MD Primary Care Provider [phone] Jonathan Jaimes MD Unavailable [phone] Encounter Details Date Type Department Care Team (Late st Contact Info) Description 10/20/2002 Office Visit-[facility] [address] [address] Unknown, DoctorMD Social History Tobacco Use Types Packs/Day Years Used Date Smoking Tobacco: Never Assessed Sex and Gender Information Value Date Recorded Sex Assigned at Not on file Legal Sex Male 3:39 AM PHYSICS FACULTY MEMBER Gender Identity Not on file Sexual Orientation [...] your patient, Mr. Gilberto Alfonso, today at [facility]. As you know, he is a pleasant [...] also talked to him about the [facility]. I have recommended the following. I [...] Past Medical Illnesses: GI reflux, hyperlipidemia, diabetes meldrmvl-odt-tjtblga dependent, hypertension, depression, sinusistis, cellulitis, finger, rt [...] st Contact Info) Description 09/01/2024 8:00 AM PHYSICS FACULTY MEMBER Office Visit [facility] [address] [facility] [address] [place] [address] Jonathan Jaimes MD [address] [place] [phone] documented as of this encounter Visit Diagnoses Not on filedocumented in this encounter Additional Health Concerns Infection Onset Date Last Indicated Resolved Time Rule Out COVID-19 10/06/2023 10/06/2023 10/06/2023 1:51 PM PHYSICS FACULTY MEMBER Rule Out COVID-19 11/05/2023 11/05/2023 11/05/2023 10:53 PM CDT documented as of this encounter Care Teams Livestock Buyer Relationship Specialty Start Date End Date Salvador Hyatt MD PCP - General Family Practice 07/18/15 04/25/18 Alberto Stanton MD [facility] [address] [place] [address] PCP - General Family Practice 04/26/18 Jonathan Jaimes MD [address] [place] [address] Assigned Heart and Vascular Provider 06/07/20 documented as of this encounter
--- OUTSIDE RECORDS SUMMARY | 2024-06-29 09:20 | XMS_ITS | Encounter Summary ---
Author Organization [facility] Address [address] [place] [address]. [place] [address] Care Team Providers Care Open Hearth Furnace Operator Name Role Phone Alberto Stanton MD Primary Care Provider [phone] Jonathan Jaimes MD Unavailable [phone] Encounter Details Date Type Department Care Team (Late st Contact Info) Description 11/19/2022 External Order Results [facility] [address] [place] [address] Outside, Provider Social History Tobacco Use Types Packs/Day Years Used Date Smoking Tobacco: Never Smokeless Tobacco: Never Alcohol Use Standard Drinks/Week Comments Yes 0 (1 standard drink = 0.6 oz pur e alcohol) 7 drinks per week Sex and Gender Information Value Date Recorded Sex Assigned at Not on file Legal Sex Male 3:39 AM COMBINATION WELDER Gender Identity Not on file Sexual Orientation Not on file 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 Not on jose e documented as of this encounter Plan of Treatment Upcoming Encounters Date Type Department Care Team (Late st Contact Info) Description 09/01/2024 8:00 AM COMBINATION WELDER Office Visit [facility] [place] [address] [place] [address] [address] [place] [address] Jonathan Jaimes MD [address] [facility] [address] [place] [address] documented as of [...] Outside LAB - BLOOD ORDERABLES Edited R Bycler [facility] Organization Address City/State/ZIP Co de Phone Number [facility] PFT NON-INTERFACED (ONBASE SCANS) * TSH (03/10/2023 8:49 AM CDT) TSH (External) 2.510 0.270 - 4.20 uIU/mL NON-INTERFACED (ONBASE SCANS) Blood BLOOD SPECIMEN / Unknown 03/10/2023 8:49 AM CDT Narrative [facility] P[facility] - 03/29/2023 12:52 PM CDT Verified by Sabina Robertson on 03/29/2023. us Provider Outside LAB - BLOOD ORDERABLES Edited R [employer] Performing Organization Address City/[facility]/ZIP Co de Phone Number GHAZALA PFT NON-INTERFACED (ONBASE SCANS) * (ABNORMAL) Hemoglobin A1c (11/19/2022 10:40 AM CDT) Pathologist [facility] Hemoglobin A1C (External) 7.7(H) 0 - 5.6 % NON-INTERFACED (ONBASE SCANS) Blood BLOOD SPECIMEN / Unknown 11/19/2022 10:40 AM CDT Narrative GHAZALA PFT - 03/29/2023 12:52 PM CDT Verified by Sabina Robertson on 03/29/2023. us Provider Outside LAB - BLOOD ORDERABLES Edited [employer] Performing Organization Address [facility] Co de Phone Number GHAZALA PFT NON-INTERFACED (ONBASE SCANS) * CBC with Platelets & Differential (11/19/2022 10:40 AM CDT) Pathologist [facility] WBC Count (External) 7.64 4.50 - 11.00 [...] Provider Outside LAB - BLOOD ORDERABLES Edited [facility] BREEZE PFT NON-INTERFACED (ONBASE SCANS) * Ionized Calcium (11/19/2022 10:40 AM CDT) Calcium Ionized (External) 1.21 1.11 - 1.33 mmol/L NON-INTERFACED (ONBASE SCANS) Blood BLOOD SPECIMEN / Unknown 11/19/2022 10:40 AM CDT Narrative [facility] PFT - 03/29/2023 12:52 PM CDT Verified by Sabina Robertson on 03/29/2023. Provider Outside LAB - BLOOD ORDERABLES Edited [facility] GHAZALA PFT NON-INTERFACED (ONBASE SCANS) documented in this encounter Visit Diagnoses Not on filedocumented in this encounter Additional Health Concerns Infection Onset Date Last Indicated Resolved Time Rule Out COVID-19 10/06/2023 10/06/2023 10/06/2023 1:51 PM COMBINATION WELDER Rule Out COVID-19 11/05/2023 11/05/2023 11/05/2023 10:53 PM CDT documented as of this encounter Care Teams Open Hearth Furnace Operator Relationship Specialty Start Date End Date Alberto Stanton MD [facility] [address] [place] [address] PCP - General Family Practice 04/26/18 Jonathan Jaimes MD [address] [place] [phone] Assigned Heart and Vascular Provider 06/07/20 documented as of this encounter
--- OUTSIDE RECORDS SUMMARY | 2024-06-29 09:20 | XMS_ITS | Encounter Summary ---
Author Organization [place] Address [address] [place] [address]. [place] [address] Care Team Providers Care Handkerchief Folder Name Role Phone Salvador Hyatt MD Primary Care Provider Alberto Stanton MD Primary Care Provider [phone] Jonathan Jaimes MD Unavailable Encounter Details Date Type Department Care Team (Late st Contact Info) Description 05/25/2013 Office Visit-[facility] [address] [place] [address] Jonathan Jaimes MD [address] [facility] [address] [place] [address] Social History Tobacco Use Types Packs/Day Years Used Date Smoking Tobacco: Never Smokeless Tobacco: Never Alcohol Use Standard Drinks/Week Comments Yes 0 (1 standard drink = 0.6 oz pur e alcohol) 5 Sex and Gender Information Value Date Recorded Sex Assigned at Not on file Legal Sex Male 3:39 AM DOUGHNUT FRYER Gender Identity Not on file Sexual Orientation Not on file 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 DATE: 05/25/2013 GILBERTO ALFONSO DATE OF : 1950 AGE: [age] years old Referring Physician: CHELSEY GARCIA Referring Clinic: [facility] CURRENT DIAGNOSES 1. - Hyperlipidemia, 272.4 [...] [facility] I told him since I am [...] Past Medical Illnesses: GI reflux, hyperlipidemia, diabetes ujibihou-spk-mowewue dependent, hypertension, depression, sinusistis, cellulitis, finger, rt leg vericosities, metabolic syndrome, plantar fascitis, diabetes umthdrnh-vaw-yhxskqp dependent, depression Infectious History: spider bite-cellulitis, shingles [...] with in own home; Place of - [place]; REVIEW OF SYSTEMS GENERAL feels well, no [...] st Contact Info) Description 09/01/2024 8:00 AM DOUGHNUT FRYER Office Visit [facility] [address] [facility] [address] [place] [address] Jonathan Jaimes MD [address] [place] [phone] documented as of this encounter Visit Diagnoses Not on filedocumented in this encounter Additional Health Concerns Infection Onset Date Last Indicated Resolved Time Rule Out COVID-19 10/06/2023 10/06/2023 10/06/2023 1:51 PM DOUGHNUT FRYER Rule Out COVID-19 11/05/2023 11/05/2023 11/05/2023 10:53 PM CDT documented as of this encounter Care Teams Handkerchief Folder Relationship Specialty Start Date End Date Salvador Hyatt MD PCP - General Family Practice 07/18/15 04/25/18 Alberto Stanton MD [facility] [address] [place] [address] PCP - General Family Practice 04/26/18 Jonathan Jaimes MD [address] [place] [phone] Assigned Heart and Vascular Provider 06/07/20 documented as of this encounter
--- OUTSIDE RECORDS SUMMARY | 2024-06-29 09:20 | XMS_ITS | Encounter Summary ---
Author Organization [place] Address [address] [place] [address]. [place] [address] Care Team Providers Care Construction Equipment Technician Name Role Phone Salvador Hyatt MD Primary Care Provider [phone] Alberto Stanton MD Primary Care Provider [phone] Jonathan Jaimes MD Unavailable [phone] Encounter Details Date Type Department Care Team (Late st Contact Info) Description 05/28/2009 Office Visit-[facility] [address] [id number] [place] [address] Kelly Anglin APRN CNP NO INFO AVAILABLE 06/04/2022 Social History Tobacco Use Types Packs/Day Years Used Date Smoking Tobacco: Never Alcohol Use Standard Drinks/Week Comments Yes 0 (1 standard drink = 0.6 oz pur e alcohol) 2/week Sex and Gender Information Value Date Recorded Sex Assigned at Not on file Legal Sex Male 3:39 AM VISUAL TRAINING AIDE Gender Identity Not on file Sexual Orientation Not on file 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 DATE: 05/28/2009 GILBERTO ALFONSO DATE OF : 1950 AGE: [age] years old Referring Physician: CHELSEY TRAORE Referring Clinic: [facility] CURRENT DIAGNOSES 1. - Metabolic Syndrome, [...] Past Medical Illnesses: GI reflux, hyperlipidemia, diabetes bwughywq-mqz-jpzyidv dependent, hypertension, depression, sinusistis, cellulitis, finger, rt [...] Right arm, large cuff 128/70 Retaken by HEALTHCARE ADVISORY SERVICES MANAGER/PA Pulse- 88.00/min. Weight- 277.00 lbs. Height- 75.00 [...] st Contact Info) Description 09/01/2024 8:00 AM VISUAL TRAINING AIDE Office Visit [facility] [address] [facility] [address] [place] [address] Jonathan Jaimes MD [address] [place] [address] documented as of this encounter Visit Diagnoses Not on filedocumented in this encounter Additional Health Concerns Infection Onset Date Last Indicated Resolved Time Rule Out COVID-19 10/06/2023 10/06/2023 10/06/2023 1:51 PM VISUAL TRAINING AIDE Rule Out COVID-19 11/05/2023 11/05/2023 11/05/2023 10:53 PM CDT documented as of this encounter Care Teams Construction Equipment Technician Relationship Specialty Start Date End Date Salvador Hyatt MD PCP - General Family Practice 07/18/15 04/25/18 Alberto Stanton MD [facility] [address] [place] [address] PCP - General Family Practice 04/26/18 Jonathan Jaimes MD [address] [place] [phone] Assigned Heart and Vascular Provider 06/07/20 documented as of this encounter
--- OUTSIDE RECORDS SUMMARY | 2024-06-29 09:20 | XMS_ITS | Encounter Summary ---
Author Organization [place] Address [address] [place] [address]. [place] [address] Care Team Providers Care Hydraulic Tester Name Role Phone Salvador Hyatt MD Primary Care Provider [phone] Alberto Stanton MD Primary Care Provider [phone] Jonathan Jaimes MD Unavailable Encounter Details Date Type Department Care Team (Late st Contact Info) Description 02/19/2010 Office Visit-[facility] [address] [place] [address] Jonathan Jaimes MD [address] 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 DATE: 02/19/2010 GILBERTO ALFONSO DATE OF : 1950 AGE: [age] years old Referring Physician: CHELSEY TRAORE Referring Clinic: [facility] CURRENT DIAGNOSES 1. - [...] Past Medical Illnesses: GI reflux, hyperlipidemia, diabetes skvhbybr-ppm-iubxhwj dependent, hypertension, depression, sinusistis, cellulitis, finger, rt [...] st Contact Info) Description 09/01/2024 8:00 AM OUTSIDE SALES CONSULTANT Office Visit [facility] [address] [facility] [address] [place] [address] Jonathan Jaimes MD [address] [facility] [address] [place] [phone] documented as of this encounter Visit Diagnoses Not on filedocumented in this encounter Additional Health Concerns Infection Onset Date Last Indicated Resolved Time Rule Out COVID-19 10/06/2023 10/06/2023 10/06/2023 1:51 PM OUTSIDE SALES CONSULTANT Rule Out COVID-19 11/05/2023 11/05/2023 11/05/2023 10:53 PM CDT documented as of this encounter Care Teams Hydraulic Tester Relationship Specialty Start Date End Date Salvador Hyatt MD PCP - General Family Practice 07/18/15 04/25/18 Alberto Stanton MD [facility] [address], [place] [address] PCP - General Family Practice 04/26/18 Jonathan Jaimes MD [address] [place] [phone] Assigned Heart and Vascular Provider 06/07/20 documented as of this encounter
--- OUTSIDE RECORDS SUMMARY | 2024-06-29 09:20 | XMS_ITS | Encounter Summary ---
Author Organization [place] Address [address] [place] [address]. [place] [address] Care Team Providers Care Manufacturing Storeperson Name Role Phone Salvador Hyatt MD Primary Care Provider [phone] Alberto Stanton MD Primary Care Provider [phone] Jonathan Jaimes MD Unavailable [phone] Encounter Details Date Type Department Care Team (Late st Contact Info) Description 03/27/2011 Office Visit-[facility] [address] [address] Unknown, MD Naomy Social History Tobacco Use Types Packs/Day Years Used Date Smoking Tobacco: Never Alcohol Use Standard Drinks/Week Comments Yes 0 (1 standard drink = 0.6 oz pur e alcohol) 2/week Sex and Gender Information Value Date Recorded Sex Assigned at Not on file Legal Sex Male 3:39 AM TEAR DOWN MAN Gender Identity Not on file Sexual Orientation Not on file 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 [address] DATE: 03/26/2011 GILBERTO ALFONSO DATE OF : 1950 AGE: [age] years old Referring Physician: CHELSEY TRAORE Referring Clinic: [facility] CURRENT DIAGNOSES 1. - [...] intends to resume his walking program around [facility]. He has dyslipidemia, which his now [...] Past Medical Illnesses: GI reflux, hyperlipidemia, diabetes ctubdhdp-ovg-tpmmgid dependent, hypertension, depression, sinusistis, cellulitis, finger, rt leg vericosities, metabolic syndrome, plantar fascitis, diabetes sfegdnyn-ght-xowevxq dependent, depression Infectious History: spider bite-cellulitis, shingles [...] of - [place]; REVIEW OF SYSTEMS GENERAL weight loss, 3 [...] two days ago and is going to bean picker machine operator a supply today. I suspect this is why the blood pressure is up in the office. He will continue monitoring his blood pressure on a daily basis and return in one week's time. 2. Diabetes mellitus. The patient reports last hemoglobin A1C is 8.6. He is due to see his olive brine tester next week. 3. NormalLV function per stress [...] st Contact Info) Description 09/01/2024 8:00 AM TEAR DOWN MAN Office Visit [facility] [address] [facility] [address] [place] [phone] Jonathan Jaimes MD [address] [place] [address] documented as of this encounter Visit Diagnoses Not on filedocumented in this encounter Additional Health Concerns Infection Onset Date Last Indicated Resolved Time Rule Out COVID-19 10/06/2023 10/06/2023 10/06/2023 1:51 PM TEAR DOWN MAN Rule Out COVID-19 11/05/2023 11/05/2023 11/05/2023 10:53 PM CDT documented as of this encounter Care Teams Manufacturing Storeperson Relationship Specialty Start Date End Date Salvador Hyatt MD PCP - General Family Practice 07/18/15 04/25/18 Alberto Stanton MD [facility] [address] [place] [address] PCP - General Family Practice 04/26/18 Jonathan Jaimes MD [address] [place] [phone] Assigned Heart and Vascular Provider 06/07/20 documented as of this encounter
--- OUTSIDE RECORDS SUMMARY | 2024-06-29 09:20 | XMS_ITS | Encounter Summary ---
Author Organization [place] Address [address] [place] [address]. [place] [address] Care Team Providers Care Principal Trainer Name Role Phone Salvador Hyatt MD Primary Care Provider [phone] Alberto Stanton MD Primary Care Provider [phone] Jonathan Jaimes MD Unavailable Encounter Details Date Type Department Care Team (Late st Contact Info) Description 03/24/2012 Office Visit-[facility] [address] [place] [address] Jonathan Jaimes MD [address] 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 DATE: 03/24/2012 GILBERTO ALFONSO DATE OF : 1950 AGE: [age] years old Referring Physician: CHELSEY TRAORE Referring Clinic: [facility] CURRENT DIAGNOSES 1. - Hyperlipidemia, [...] 220. Last year we gave him a Flumes blood pressure machine and althoughhis blood pressure [...] Past Medical Illnesses: GI reflux, hyperlipidemia, diabetes fuouoeug-wli-yxnytmr dependent, hypertension, depression, sinusistis, cellulitis, finger, rt leg vericosities, metabolic syndrome, plantar fascitis, diabetes ecwgcudw-kqy-bdqhtvm dependent, depression Infectious History: spider bite-cellulitis, shingles [...] with in own home; Place of - [place]; REVIEW OF SYSTEMS GENERAL weight gain, 5.4 [...] Weight- 277.40 lbs. Height- 75 BMI Measurement: [facility] Error: [Microsoft][ODBC SQL Wood Setter Jeep Mechanic][SQL Wood Setter]Divide by zero error encountered. - 84865 CONSTITUTIONAL cooperative, alert and oriented,well developed, well [...] st Contact Info) Description 09/01/2024 8:00 AM REBAR FABRICATOR Office Visit [facility] [address] [place] [address] [address] [place] [phone] Jonathan Jaimes MD [address] [place] [phone] documented as of this encounter Visit Diagnoses Not on filedocumented in this encounter Additional Health Concerns Infection Onset Date Last Indicated Resolved Time Rule Out COVID-19 10/06/2023 10/06/2023 10/06/2023 1:51 PM REBAR FABRICATOR Rule Out COVID-19 11/05/2023 11/05/2023 11/05/2023 10:53 PM CDT documented as of this encounter Care Teams Principal Trainer Relationship Specialty Start Date End Date Salvador Hyatt MD PCP - General Family Practice 07/18/15 04/25/18 Alberto Stanton MD [facility] [address] [place] [address] PCP - General Family Practice 04/26/18 Jonathan Jaimes MD [address] [place] [phone] Assigned Heart and Vascular Provider 06/07/20 documented as of this encounter
--- OUTSIDE RECORDS SUMMARY | 2024-06-29 09:20 | XMS_ITS | Encounter Summary ---
Author Organization [place] Address [address] [place] [address]. [place] [address] Care Team Providers Care Antisqueak Chalker Name Role Phone Salvador Hyatt MD Primary Care Provider [phone] Alberto Stanton MD Primary Care Provider [phone] Jonathan Jaimes MD Unavailable Encounter Details Date Type Department Care Team (Late st Contact Info) Description 02/25/2009 Office Visit-[facility] [address] [place] [address] Jonathan Jaimes MD [address] [facility] [address] [place] [address] Social History Tobacco Use Types Packs/Day Years Used Date Smoking Tobacco: Never Alcohol Use Standard Drinks/Week Comments Yes 0 (1 standard drink = 0.6 oz pur e alcohol) 2/week Sex and Gender Information Value Date Recorded Sex Assigned at Not on file Legal Sex Male 3:39 AM INSIDE HORTICULTURAL SPECIALTY GROWER Gender Identity Not on file Sexual Orientation Not on file 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 DATE: 02/25/2009 GILBERTO ALFONSO DATE OF : 1950 AGE: [age] years old Referring Physician: CHELSEY TRAORE Referring Clinic: [facility] CURRENT DIAGNOSES 1. Chest pain, [...] for primary prevention. He also sees an roller pneumatic and lead informatica developer. His diabetes numbers unfortunately are not well [...] Past Medical Illnesses: GI reflux, hyperlipidemia, diabetes azvssufi-gle-pdcuruq dependent, hypertension, depression, sinusistis, cellulitis, finger, rt [...] lives with and children; Place of - [place]; Job Description - 20; REVIEW OF SYSTEMS [...] st Contact Info) Description 09/01/2024 8:00 AM INSIDE HORTICULTURAL SPECIALTY GROWER Office Visit [facility] [address] [place] [address] [address] [place] [address] Jonathan Jaimes MD [address] [facility] [address] [place] [address] documented as of this encounter Visit Diagnoses Not on filedocumented in this encounter Additional Health Concerns Infection Onset Date Last Indicated Resolved Time Rule Out COVID-19 10/06/2023 10/06/2023 10/06/2023 1:51 PM INSIDE HORTICULTURAL SPECIALTY GROWER Rule Out COVID-19 11/05/2023 11/05/202311/05/2023 10:53 PM CDT documented as of this encounter Care Teams Antisqueak Chalker Relationship Specialty Start Date End Date Salvador Hyatt MD PCP - General Family Practice 07/18/15 04/25/18 Alberto Stanton MD [facility] [address] [address] PCP - General Family Practice 04/26/18 Jonathan Jaimes MD [address] [place] [address] Assigned Heart and Vascular Provider 06/07/20 documented as of this encounter
--- OUTSIDE RECORDS SUMMARY | 2024-06-29 09:20 | XMS_ITS | Encounter Summary ---
Author Organization [place] Address [address] [place] [address]. [place] [address] Care Team Providers Care Receptionist Telephone Operator Name Role Phone Salvador Hyatt MD Primary Care Provider [phone] Alberto Stanton MD Primary Care Provider [phone] Jonathan Jaimes MD Unavailable [phone] Encounter Details Date Type Department Care Team (Late st Contact Info) Description 03/12/2011 Office Visit-[facility] [address] [place] [address] Jonathan Jaimes MD [address] [facility] [address] [place] [address] Social History Tobacco Use Types Packs/Day Years Used Date Smoking Tobacco: Never Alcohol Use Standard Drinks/Week Comments Yes 0 (1 standard drink = 0.6 oz pur e alcohol) 2/week Sex and Gender Information Value Date Recorded Sex Assigned at Not on file Legal Sex Male 3:39 AM ASSOCIATE PROFESSOR OF RADIOLOGY Gender Identity Not on file Sexual Orientation Not on file 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 DATE: 03/12/2011 GILBERTO ALFONSO DATE OF : 1950 AGE: [age] years old Referring Physician: CHELSEY TRAORE Referring Clinic: [facility] CURRENT DIAGNOSES 1. - Metabolic [...] As you know, he is a delightful 89-mpwf-mhxtklqsratg who is here for primary prevention although [...] taken the liberty of giving him a Timelyaner blood pressure machine from our office. We [...] Past Medical Illnesses: GI reflux, hyperlipidemia, diabetes baeitpsu-wxe-zeisbet dependent, hypertension, depression, sinusistis, cellulitis, finger, rt leg vericosities, metabolic syndrome, plantar fascitis, diabetes wprqydjr-nei-gvkpyxe dependent, depression Infectious History: spider bite-cellulitis, shingles [...] with in own home; Place of - [place]; REVIEW OF SYSTEMS GENERAL feels well, no [...] Kike Anglin, MSN, ANP 7-14 days---or any shake sawyer Jonathan Jaimes M.D. documented in this encounter Plan of Treatment Upcoming Encounters Date Type Department Care Team (Late st Contact Info) Description 09/01/2024 8:00 AM ASSOCIATE PROFESSOR OF RADIOLOGY Office Visit [facility] [address] [place] [address] [address] [place] [address] Jonathan Jaimes MD [address] [facility] [address] [place] [phone] documented as of this encounter Visit Diagnoses Not on filedocumented in this encounter Additional Health Concerns Infection Onset Date Last Indicated Resolved Time Rule Out COVID-19 10/06/2023 10/06/2023 10/06/2023 1:51 PM ASSOCIATE PROFESSOR OF RADIOLOGY Rule Out COVID-19 11/05/2023 11/05/2023 11/05/2023 10:53 PM CDT documented as of this encounter Care Teams Receptionist Telephone Operator Relationship Specialty Start Date End Date Salvador Hyatt MD PCP - General Family Practice 07/18/15 04/25/18 Alberto Stanton MD [facility] [address] [place] [address] PCP - General Family Practice 04/26/18 Jonathan Jaimes MD [address] [place] [phone] Assigned Heart and Vascular Provider 06/07/20 documented as of this encounter
--- OUTSIDE RECORDS SUMMARY | 2024-06-29 09:20 | XMS_ITS | Encounter Summary ---
Author Organization [facility] Address [address] [place] [address]. [place] [address] Care Team Providers Care Brakeshoe Repairer Name Role Phone Salvador Hyatt MD Primary Care Provider Alberto Stanton MD Primary Care Provider Jonathan Jaimes MD Unavailable [phone] Encounter Details Date Type Department Care Team (Late st Contact Info) Description 09/06/[address] [phone] Samuel Garcia MD [address] [place] [address] DR NICK JIMENEZ [place] [id number] Emergency Room Encounter (Primary Dx) Social History Tobacco Use Types Packs/Day Years Used Date Smoking Tobacco: Never Smokeless Tobacco: Never Alcohol Use Standard Drinks/Week Comments Yes 0 (1 standard drink = 0.6 oz pur e alcohol) 10 -12 drinks per week Sex and Gender Information Value Date Recorded Sex Assigned at Not on file Legal Sex Male 3:39 AM DOG TRAINER Gender Identity Not on file Sexual Orientation Not on file 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 HISTORY [...] at all. [place]LLY [place] MD MT: Document: [id number] [place] Name: NEETA ALFONSO EMERGENCY ROOM ENCOUNTER LCN: ER DSC: 09/06/2003 [place] Name: NEETA ALFONSO MR#: : Admit Date: -15 1950 09/06/2003 Doctor: NELLY [place] MD EMERGENCY ROOM ENCOUNTER Electronically filed by Chantel Marrero 09/19/2003 11:27 AM documented in this encounter Plan of Treatment Upcoming Encounters Date Type Department Care Team (Late st Contact Info) Description 09/01/2024 8:00 AM DOG TRAINER Office Visit [facility] [place] [address] [facility] [address] [place] [address] Jonathan Jaimes MD [address] [place] [phone] documented as of this encounter Visit Diagnoses Diagnosis Emergency Room Encounter- Primary documented in this encounter Additional Health Concerns Infection Onset Date Last Indicated Resolved Time Rule Out COVID-19 10/06/2023 10/06/2023 10/06/2023 1:51 PM DOG TRAINER Rule Out COVID-19 11/05/2023 11/05/2023 11/05/2023 10:53 PM CDT documented as of this encounter Care Teams Brakeshoe Repairer Relationship Specialty Start Date End Date Salvador Hyatt MD PCP - General Family Practice 07/18/15 04/25/18 Alberto Stanton MD [facility] [address] [place] [address] PCP - [facility] 04/26/18 Jonathan Jaimes MD [address] [place] [phone] Assigned Heart and Vascular Provider 06/07/20 documented as of this encounter
--- OUTSIDE RECORDS SUMMARY | 2024-06-29 09:20 | XMS_ITS | Encounter Summary ---
Author Organization [facility] Address [address] [place] [address]. [place] [address] Care Team Providers Care Communications Tower Technician Name Role Phone Salvador Hyatt MD Primary Care Provider [phone] Alberto Stanton MD Primary Care Provider [phone] Jonathan Jaimes MD Unavailable Encounter Details Date Type Department Care Team (Late st Contact Info) Description 01/31/2007 Office Visit-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 DATE: 01/31/2007 GILBERTO ALFONSO DATE OF : 1950 AGE: [age] years old Referring Physician: CHELSEY TRAORE Referring Clinic: [facility] CURRENT DIAGNOSES 1. Chest [...] Past Medical Illnesses: GI reflux, hyperlipidemia, diabetes hhqdnymt-zip-rfhzuzv dependent, hypertension, depression, sinusistis, cellulitis, finger, rt [...] lives with and children; Place of - [place]; Job Description - 20; REVIEW OF SYSTEMS [...] st Contact Info) Description 09/01/2024 8:00 AM ASPHALT HEATER OPERATOR Office Visit [facility] [address] [facility] [address] [place] [address] Jonathan Jaimes MD [address] [place] [phone] documented as of this encounter Visit Diagnoses Not on filedocumented in this encounter Additional Health Concerns Infection Onset Date Last Indicated Resolved Time Rule Out COVID-19 10/06/2023 10/06/2023 10/06/2023 1:51 PM ASPHALT HEATER OPERATOR Rule Out COVID-19 11/05/2023 11/05/2023 11/05/2023 10:53 PM CDT documented as of this encounter Care Teams Communications Tower Technician Relationship Specialty Start Date End Date Salvador Hyatt MD PCP - General Family Practice 07/18/15 04/25/18 Alberto Stanton MD [facility] [address] [place] [address] PCP - General Family Practice 04/26/18 Jonathan Jaimes MD [address] [place] [phone] Assigned Heart and Vascular Provider 06/07/20 documented as of this encounter
--- OUTSIDE RECORDS SUMMARY | 2024-06-29 09:20 | XMS_ITS | Encounter Summary ---
Author Organization [facility] Address [address] [place] [address]. [place] [address] Care Team Providers Care Case Management Associate Name Role Phone Salvador Hyatt MD Primary Care Provider [phone] Alberto Stanton MD Primary Care Provider [phone] Jonathan Jaimes MD Unavailable Encounter Details Date Type Department Care Team (Late st Contact Info) Description 02/03/2005 Office Visit-[facility] [address] [address] Unknown, MD Naomy Social History Tobacco Use Types Packs/Day Years Used Date Smoking Tobacco: Never Alcohol Use Standard Drinks/Week Comments Yes 0 (1 standard drink = 0.6 oz pur e alcohol) 2/week Sex and Gender Information Value Date Recorded Sex Assigned at Not on file Legal Sex Male 3:39 AM CONVEYOR OPERATOR Gender Identity Not on file Sexual Orientation Not on file 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 DATE: 02/03/2005 GILBERTO ALFONSO DATE OF : 1950 AGE: [age] years old Referring Physician: CHELSEY CHIN Referring Clinic: [facility] CURRENT DIAGNOSES 1. - [...] andcholesterol management, although he also sees his medical support specialist. His blood pressure today is 130 [...] Past Medical Illnesses: GI reflux, hyperlipidemia, diabetes enwohmnb-aqq-tezliuk dependent, hypertension, depression, sinusistis, cellulitis, finger, rt [...] lives with and children; Place of - [place]; Job Description - 20; REVIEW OF SYSTEMS [...] year Jonathan Jaimes M.D. Electronically signed by [facility], Em[employer] Data Conversion at 12/29/2013 6:09 AM CDT documented in this encounter Plan of Treatment Upcoming Encounters Date Type Department Care Team (Late st Contact Info) Description 09/01/2024 8:00 AM CONVEYOR OPERATOR Office Visit [facility] [address] [facility] [address] [place] [address] Jonathan Jaimes MD [address] [place] [phone] documented as of this encounter Visit Diagnoses Not on filedocumented in this encounter Additional Health Concerns Infection Onset Date Last Indicated Resolved Time Rule Out COVID-19 10/06/2023 10/06/2023 10/06/2023 1:51 PM CONVEYOR OPERATOR Rule Out COVID-19 11/05/2023 11/05/2023 11/05/2023 10:53 PM CDT documented as of this encounter Care Teams Case Management Associate Relationship Specialty Start Date End Date Salvador Hyatt MD PCP - General Family Practice 07/18/15 04/25/18 Alberto Stanton MD [facility] [address] [place] [address] PCP - General Family Practice 04/26/18 Jonathan Jaimes MD [address] [place] [address] Assigned Heart and Vascular Provider 06/07/20 documented as of this encounter
--- OUTSIDE RECORDS SUMMARY | 2024-06-29 09:20 | XMS_ITS | Encounter Summary ---
Author Organization [facility] Address [address] [place] [address]. [place] [address] Care Team Providers Care Licensed Bondsman Name Role Phone Salvador Hyatt MD Primary Care Provider [phone] Alberto Stanton MD Primary Care Provider [phone] Jonathan Jaimes MD Unavailable [phone] Encounter Details Date Type Department Care Team (Late st Contact Info) Description 02/04/2006 Office Visit-[facility] [address] [address] Unknown, MD Naomy Social History Tobacco Use Types Packs/Day Years Used Date Smoking Tobacco: Never Alcohol Use Standard Drinks/Week Comments Yes 0 (1 standard drink = 0.6 oz pur e alcohol) 2/week Sex and Gender Information Value Date Recorded Sex Assigned at Not on file Legal Sex Male 3:39 AM MIDDLE SCHOOL PE TEACHER Gender Identity Not on file Sexual Orientation [...] old Referring Physician: CHELSEY CHIN Referring Clinic: [facility] CURRENT DIAGNOSES 1. - Metabolic Syndrome, [...] Past Medical Illnesses: GI reflux, hyperlipidemia, diabetes yoerpajs-fvw-fousbor dependent, hypertension, depression, sinusistis, cellulitis, finger, rt [...] lives with and children; Place of - [place]; Job Description - 20; REVIEW OF [...] st Contact Info) Description 09/01/2024 8:00 AM MIDDLE SCHOOL PE TEACHER Office Visit [facility] [address] [facility] [address] [place] [phone] Jonathan Jaimes MD [address] [place] [phone] documented as of this encounter Visit Diagnoses Not on filedocumented in this encounter Additional Health Concerns Infection Onset Date Last Indicated Resolved Time Rule Out COVID-19 10/06/2023 10/06/2023 10/06/2023 1:51 PM MIDDLE SCHOOL PE TEACHER Rule Out COVID-19 11/05/2023 11/05/2023 11/05/2023 10:53 PM CDT documented as of this encounter Care Teams Licensed Bondsman Relationship Specialty Start Date End Date Salvador Hyatt MD PCP - General Family Practice 07/18/15 04/25/18 Alberto Stanton MD [facility] [address] [place] [address] PCP - General Family Practice 04/26/18 Jonathan Jaimes MD [address] [place] [phone] Assigned Heart and Vascular Provider 06/07/20 documented as of this encounter
--- OUTSIDE RECORDS SUMMARY | 2024-06-29 09:20 | XMS_ITS | Encounter Summary ---
Author Organization [facility] Address [address] [place] [address]. [place] [address] Care Team Providers Care Billet Driller Name Role Phone Salvador Hyatt MD Primary Care Provider [phone] Alberto Stanton MD Primary Care Provider [phone] Jonathan Jaimes MD Unavailable Encounter Details Date Type Department Care Team (Late st Contact Info) Description 01/04/2003 Office Visit-[facility] [address] [address] Unknown, DoctorMD Social History Tobacco Use Types Packs/Day Years Used Date Smoking Tobacco: Never Assessed Sex and Gender Information Value Date Recorded Sex Assigned at Not on file Legal Sex Male 3:39 AM TREE FRUIT AND NUT CROPS FARMER Gender Identity Not on file Sexual Orientation [...] Past Medical Illnesses: GI reflux, hyperlipidemia, diabetes qrplxqtu-ixg-ewtbzwg dependent, hypertension, depression, sinusistis, cellulitis, finger, rt [...] st Contact Info) Description 09/01/2024 8:00 AM TREE FRUIT AND NUT CROPS FARMER Office Visit [facility] [address] [facility] [address] [place] [address] Jonathan Jaimes MD [address] [place] [phone] documented as of this encounter Visit Diagnoses Not on filedocumented in this encounter Additional Health Concerns Infection Onset Date Last Indicated Resolved Time Rule Out COVID-19 10/06/2023 10/06/2023 10/06/2023 1:51 PM TREE FRUIT AND NUT CROPS FARMER Rule Out COVID-19 11/05/2023 11/05/2023 11/05/2023 10:53 PM CDT documented as of this encounter Care Teams Billet Driller Relationship Specialty Start Date End Date Salvador Hyatt MD PCP - General Family Practice 07/18/15 04/25/18 Alberto Stanton MD [facility] [address] [place] [address] PCP - General Family Practice 04/26/18 Jonathan Jaimes MD [address] [place] [phone] Assigned Heart and Vascular Provider 06/07/20 documented as of this encounter
--- OUTSIDE RECORDS SUMMARY | 2024-06-29 09:20 | XMS_ITS | Encounter Summary ---
Author Organization [facility] Address [address] [place] [address]. [place] [address] Care Team Providers Care Pressurizer Name Role Phone Salvador Hyatt MD Primary Care Provider [phone] Alberto Stanton MD Primary Care Provider [phone] Jonathan Jaimes MD Unavailable [phone] Encounter Details Date Type Department Care Team (Late st Contact Info) Description 03/16/2003 Office Visit-[facility] [address] [address] Unknown, MD Naomy Social History Tobacco Use Types Packs/Day Years Used Date Smoking Tobacco: Never Assessed Sex and Gender Information Value Date Recorded Sex Assigned at Not on file Legal Sex Male 3:39 AM FINANCIAL REPORTING ANALYST Gender Identity Not on file Sexual Orientation [...] with Dr. Jaimes who is his primary coverage specialist rn for control of his lipid profile. At [...] Past Medical Illnesses: GI reflux, hyperlipidemia, diabetes nmpvdbke-qvv-qevtotc dependent, hypertension, depression, sinusistis, cellulitis, finger, rt [...] lives with and children; Place of - [place]; Job Description - 20; REVIEW OF SYSTEMS [...] st Contact Info) Description 09/01/2024 8:00 AM FINANCIAL REPORTING ANALYST Office Visit [facility] [address] [place] [address] [address] [place] [phone] Jonathan Jaimes MD [address] [facility] [address] [place] [phone] documented as of this encounter Visit Diagnoses Not on filedocumented in this encounter Additional Health Concerns Infection Onset Date Last Indicated Resolved Time Rule Out COVID-19 10/06/2023 10/06/2023 10/06/2023 1:51 PM FINANCIAL REPORTING ANALYST Rule Out COVID-19 11/05/2023 11/05/2023 11/05/2023 10:53 PM CDT documented as of this encounter Care Teams Pressurizer Relationship Specialty Start Date End Date Salvador Hyatt MD PCP - General Family Practice 07/18/15 04/25/18 Alberto Stanton MD [facility] [address] [place] [address] PCP - General Family Practice 04/26/18 Jonathan Jaimes MD [address] [place] [address] Assigned Heart and Vascular Provider 06/07/20 documented as of this encounter
--- OUTSIDE RECORDS SUMMARY | 2024-06-29 09:20 | XMS_ITS | Encounter Summary ---
Author Organization [facility] Address [address] [place] [address]. [place] [address] Care Team Providers Care Basket Hand Weaver Name Role Phone Salvador Hyatt MD Primary Care Provider [phone] Alberto Stanton MD Primary Care Provider [phone] Jonathan Jaimes MD Unavailable [phone] Encounter Details Date Type Department Care Team (Late st Contact Info) Description 02/22/2004 Office Visit-[facility] [address] [address] Unknown, MD Naomy Social History Tobacco Use Types Packs/Day Years Used Date Smoking Tobacco: Never Alcohol Use Standard Drinks/Week Comments Yes 0 (1 standard drink = 0.6 oz pur e alcohol) 2/week Sex and Gender Information Value Date Recorded Sex Assigned at Not on file Legal Sex Male 3:39 AM ARMAMENT REPAIRER Gender Identity Not on file Sexual Orientation Not on file 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 DATE: 02/22/2004 GILBERTO ALFONSO DATE OF : 1950 AGE: [age] years old Referring Physician: CHELSEY CHIN Referring Clinic: [facility] CURRENT DIAGNOSES 1. - Hyperlipidemia, 272.4 [...] Past Medical Illnesses: GI reflux, hyperlipidemia, diabetes piazbrri-map-nomnrbe dependent, hypertension, depression, sinusistis, cellulitis, finger, rt [...] lives with and children; Place of - [place]; Job Description - 20; REVIEW OF SYSTEMS [...] st Contact Info) Description 09/01/2024 8:00 AM ARMAMENT REPAIRER Office Visit [facility] [address] [place] [address] [address] [place] [address] Jonathan Jaimes MD [address] [place] [address] documented as of this encounter Visit Diagnoses Not on filedocumented in this encounter Additional Health Concerns Infection Onset Date Last Indicated Resolved Time Rule Out COVID-19 10/06/2023 10/06/2023 10/06/2023 1:51 PM ARMAMENT REPAIRER Rule Out COVID-19 11/05/2023 11/05/2023 11/05/2023 10:53 PM CDT documented as of this encounter Care Teams Basket Hand Weaver Relationship Specialty Start Date End Date Salvador Hyatt MD PCP - General Family Practice 07/18/15 04/25/18 Alberto Stanton MD [facility] [address] [address] PCP - General Family Practice 04/26/18 Jonathan Jaimes MD [address] [place] [address] Assigned Heart and Vascular Provider 06/07/20 documented as of this encounter
--- OUTSIDE RECORDS SUMMARY | 2024-06-29 09:20 | XMS_ITS | Encounter Summary ---
Author Organization [facility] Address [address] [place] [address]. [place] [address] Care Team Providers Care Sports Team Marketing Intern Name Role Phone Salvador Hyatt MD Primary Care Provider [phone] Alberto Stanton MD Primary Care Provider [phone] Jonathan Jaimes MD Unavailable [phone] Encounter Details Date Type Department Care Team (Late st Contact Info) Description 05/08/2004 Office Visit-[facility] [address] [address] Unknown, MD Naomy Social History Tobacco Use Types Packs/Day Years Used Date Smoking Tobacco: Never Alcohol Use Standard Drinks/Week Comments Yes 0 (1 standard drink = 0.6 oz pur e alcohol) 2/week Sex and Gender Information Value Date Recorded Sex Assigned at Not on file Legal Sex Male 3:39 AM BUSINESS INFORMATION MANAGER Gender Identity Not on file Sexual Orientation Not on file 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 - Metabolic Syndrome, [...] delightful 54-year-old gentleman who [facility] a follow [facility] [...] Past Medical Illnesses: GI reflux, hyperlipidemia, diabetes iwxapvso-tam-puydcqy dependent, hypertension, depression, sinusistis, cellulitis, finger, rt [...] st Contact Info) Description 09/01/2024 8:00 AM BUSINESS INFORMATION MANAGER Office Visit [facility] [address] [facility] [address] [place] [address] Jonathan Jaimes MD [address] [place] [phone] documented as of this encounter Visit Diagnoses Not on filedocumented in this encounter Additional Health Concerns Infection Onset Date Last Indicated Resolved Time Rule Out COVID-19 10/06/2023 10/06/2023 10/06/2023 1:51 PM BUSINESS INFORMATION MANAGER Rule Out COVID-19 11/05/2023 11/05/2023 11/05/2023 10:53 PM CDT documented as of this encounter Care Teams Sports Team Marketing Intern Relationship Specialty Start Date End Date Salvador Hyatt MD PCP - General Family Practice 07/18/15 04/25/18 Alberto Stanton MD [facility] [address], [place] [address] PCP - General Family Practice 04/26/18 Jonathan Jaimes MD [address] [place] [phone] Assigned Heart and Vascular Provider 06/07/20 documented as of this encounter
--- OUTSIDE RECORDS SUMMARY | 2024-06-29 09:20 | XMS_ITS | Encounter Summary ---
Author Organization [facility] Address [address] [place] [address]. [place] [address] Care Team Providers Care Couturiere Name Role Phone Salvador Hyatt MD Primary Care Provider Alberto Stanton MD Primary Care Provider Jonathan Jaimes MD Unavailable [phone] Encounter Details Date Type Department Care Team (Late st Contact Info) Description 09/06/[address] [phone] Samuel Garcia MD [address] [place] [address] [address] NICK JIMENZE [place] [id number] Emergency Room Encounter (Primary Dx) Social History Tobacco Use Types Packs/Day Years Used Date Smoking Tobacco: Never Smokeless Tobacco: Never Alcohol Use Standard Drinks/Week Comments Yes 0 (1 standard drink = 0.6 oz pur e alcohol) 10 -12 drinks per week Sex and Gender Information Value Date Recorded Sex Assigned at Not on file Legal Sex Male 3:39 AM MORTGAGE COUNSELOR Gender Identity Not on file Sexual Orientation Not on file 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 Not on file Not on jose e documented as of this encounter Plan of Treatment Upcoming Encounters Date Type Department Care Team (Late st Contact Info) Description 09/01/2024 8:00 AM MORTGAGE COUNSELOR Office Visit [facility] [address] [facility] [address] [place] [address] Jonathan Jaimes MD [address] [place] [phone] documented as of this encounter Visit Diagnoses Diagnosis Emergency Room Encounter- Primary documented in this encounter Additional Health Concerns Infection Onset Date Last Indicated Resolved Time Rule Out COVID-19 10/06/2023 10/06/2023 10/06/2023 1:51 PM MORTGAGE COUNSELOR Rule Out COVID-19 11/05/2023 11/05/2023 11/05/2023 10:53 PM CDT documented as of this encounter Care Teams Couturiere Relationship Specialty Start Date End Date Salvador Hyatt MD PCP - General Family Practice 07/18/15 04/25/18 Alberto Stanton MD [facility] [address] [place] [address] PCP - General Family Practice 04/26/18 Jonathan Jaimes MD [address] [place] [phone] Assigned Heart and Vascular Provider 06/07/20 documented as of this encounter
--- OUTSIDE RECORDS SUMMARY | 2024-06-29 09:20 | XMS_ITS | Encounter Summary ---
Author Organization [facility] Address [address] [place] [address]. [place] [address] Care Team Providers Care C Software Engineer Name Role Phone Alberto Stanton MD Primary Care Provider [phone] Jonathan Jaimes MD Unavailable [phone] Reason for Visit * Reason Onset Date Comments SCHEDULING 10/09/2021 NM Lexiscan stre ss test (nuc card) AND Echocardiogram Complete Encounter Details Date Type Department Care Team (Late st Contact Info) Description 10/09/2021 Telephone [facility] [id number] [place] [address] [address] [place] [address] Jontahan Jaimes MD [address] [facility] [address] [place] [address] SCHEDULING (NM Lexiscan stress test [...] on file Legal Sex Male 3:39 AM EYEGLASS ASSEMBLER Gender Identity Not on file Sexual Orientation Not on file 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 Action Taken: Other: [facility] Travel Screening: Not Applicable LASS ASSEMBLER documented in this encounter Plan of Treatment Upcoming Encounters Date Type Department Care Team (Late st Contact Info) Description 09/01/2024 8:00 AM EYEGLASS ASSEMBLER Office Visit [facility] [address] [facility] [address] [place] [phone] Jonathan Jaimes MD [address] [place] [phone] documented as of this encounter Visit Diagnoses Not on filedocumented in this encounter Additional Health Concerns Infection Onset Date Last Indicated Resolved Time Rule Out COVID-19 10/06/2023 10/06/2023 10/06/2023 1:51 PM EYEGLASS ASSEMBLER Rule Out COVID-19 11/05/2023 11/05/2023 11/05/2023 10:53 PM CDT documented as of this encounter Care Teams C Software Engineer Relationship Specialty Start Date End Date Alberto Stanton MD [facility] [address] [place] [address] PCP - General Family Practice 04/26/18 Jonathan Jaimes MD [address] [place] [phone] Assigned Heart and Vascular Provider 06/07/20 documented as of this encounter
--- OUTSIDE RECORDS SUMMARY | 2024-06-29 09:20 | XMS_ITS | Encounter Summary ---
Author Organization [facility] Address [address] [place] [address]. [place] [address] Care Team Providers Care Netbackup Admin Name Role Phone Alberto Stanton MD Primary Care Provider [phone] Jonathan Jaimes MD Unavailable [phone] Encounter Details Date Type Department Care Team (Late st Contact Info) Description 07/06/2022 External Order Results [facility] [address] [place] [address] Outside, Provider Social History Tobacco Use Types Packs/Day Years Used Date Smoking Tobacco: Never Smokeless Tobacco: Never Alcohol Use Standard Drinks/Week Comments Yes 0 (1 standard drink = 0.6 oz pur e alcohol) 7 drinks per week Sex and Gender Information Value Date Recorded Sex Assigned at Not on file Legal Sex Male 3:39 AM TONNAGE COMPILATION CLERK Gender Identity Not on file Sexual Orientation Not on file 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 Not on jose e documented as of this encounter Plan of Treatment Upcoming Encounters Date Type Department Care Team (Late st Contact Info) Description 09/01/2024 8:00 AM TONNAGE COMPILATION CLERK Office Visit [facility] [address] [place] [address] [address] [place] [address] Jonathan Jaimes MD [address] [facility] [address] [place] [address] documented as of this encounter Procedures Procedure Name Priority Date/Time Associated Diagnosis Comments TSH Routine 07/06/2022 9:56 AM TONNAGE COMPILATION CLERK T4 FREE Routine 07/06/2022 9:56 AM TONNAGE COMPILATION CLERK PSA TUMOR MARKER Routine 07/06/2022 9:56 AM TONNAGE COMPILATION CLERK LIPID PROFILE Routine 07/06/2022 9:56 AM TONNAGE COMPILATION CLERK HEPATIC FUNCTION PANEL Routine 07/06/2022 9:56 AM TONNAGE COMPILATION CLERK BASIC METABOLIC PANEL Routine 07/06/2022 9:56 AM TONNAGE COMPILATION CLERK HEMOGLOBIN A1C Routine 07/06/2022 8:55 AM TONNAGE COMPILATION CLERK CBC WITH PLATELETS Routine 07/06/2022 8: 55 AM TONNAGE COMPILATION CLERK documented in this encounter Results * (ABNORMAL) Basic metabolic panel (07/06/2022 9:56 AM TONNAGE COMPILATION CLERK) Sodium (External) 138 135 - 149 mmol/L [...] NON-INTERFACED (ONBASE SCANS) Blood 07/06/2022 9:56 AM TONNAGE COMPILATION CLERK Katie VIVAR PFT - 07/28/2022 9:47 AM TONNAGE COMPILATION CLERK Verified by Juan Francisco Estrada on 07/28/2022. Provider Outside LAB - BLOOD ORDERABLES Edited R [employer] Performing Organization Address [facility] Co de Phone Number GHAZALA PFT NON-INTERFACED (ONBASE SCANS) * Hepatic function panel (07/06/2022 9:56 AM TONNAGE COMPILATION CLERK) Protein Total (External) 7.5 6.0 - 8.3 [...] NON-INTERFACED (ONBASE SCANS) Blood 07/06/2022 9:56 AM TONNAGE COMPILATION CLERK Narrative BREEZE PFT - 07/28/2022 9:47 AM TONNAGE COMPILATION CLERK Verified by Juan Francisco Estrada on 07/28/2022. Result [facility] Provider Outside LAB - BLOOD ORDERABLES Edited [employer] Performing Organization Address [facility] de Phone Number GHAZALA PFT NON-INTERFACED (ONBASE SCANS) * PSA tumor marker (07/06/2022 9:56 AM TONNAGE COMPILATION CLERK) PSA (External) 1.71 0.10 - 4.00 ng/mL NON-INTERFACED (ONBASE SCANS) Blood 07/06/2022 9:56 AM TONNAGE COMPILATION CLERK Narrative BREEZE PFT - 07/28/2022 9:47 AM TONNAGE COMPILATION CLERK Verified by Juan Francisco Estrada on 07/28/2022. Provider Outside LAB - BLOOD ORDERABLES Edited [employer] Performing Organization Address [facility]/ZIP Co de Phone Number BREEZE PFT NON-INTERFACED (ONBASE SCANS) * Lipid Profile (07/06/2022 9:56 AM TONNAGE COMPILATION CLERK) Triglycerides (External) 147 40 - 149 mg/dL NON-INTERFACE D (ONBASE SCANS) Cholesterol (External) 155 98 - 199 mg/dl NON-INTERFACE D (ONBASE SCANS) HDL Cholesterol (External) 41 >=40 mg/dL NON-INTERFACE D (ONBASE SCANS) LDL-Cholesterol (External) 85 <100 mg/dL NON-INTERFACE D (ONBASE SCANS) Blood 07/06/2022 9:56 AM TONNAGE COMPILATION CLERK Narrative BREEZE PFT - 07/28/2022 9:47 AM TONNAGE COMPILATION CLERK Verified by Juan Francisco Estrada on 07/28/2022. Provider Outside LAB - BLOOD ORDERABLES Edited R Zumbl - Final Performing Organization Address [facility] Phone Number BREEZE PFT NON-INTERFACED (ONBASE SCANS) * T4 free (07/06/2022 9:56 AM TONNAGE COMPILATION CLERK) Thyroxine Free (External) 0.85 0.70 - 1.85 ng/dL NON-INTERFACED (ONBASE SCANS) Blood 07/06/2022 9:56 AM TONNAGE COMPILATION CLERK Narrative BREEZE PFT - 07/28/2022 9:47 AM TONNAGE COMPILATION CLERK Verified by Juan Francisco Estrada on 07/28/2022. us Provider Outside LAB - BLOOD ORDERABLES Edited R [employer] - Final Performing Organization Address [facility] Co de Phone Number BREEZE PFT NON-INTERFACED (ONBASE SCANS) * (ABNORMAL) TSH (07/06/2022 9:56 AM TONNAGE COMPILATION CLERK) TSH (External) 10.300(H) 0.270 - 4.200 uIU/mL NON-INTERFACE D (ONBASE SCANS) Blood 07/06/2022 9:56 AM TONNAGE COMPILATION CLERK Narrative BREEZE PFT - 07/28/2022 9:47 AM TONNAGE COMPILATION CLERK Verified by Juan Francisco Estrada on 07/28/2022. Provider Outside LAB - BLOOD ORDERABLES Edited [facility] Performing Organization Address [facility] Co de Phone Number GHAZALA PFT NON-INTERFACED (ONBASE SCANS) * CBC with platelets (07/06/2022 8:55 AM TONNAGE COMPILATION CLERK) WBC Count (External) 7.36 4.50 - 11.00 [...] NON-INTERFACED (ONBASE SCANS) Blood 07/06/2022 8:55 AM TONNAGE COMPILATION CLERK Narrative BREEZE PFT - 07/06/2022 8:55 AM TONNAGE COMPILATION CLERK Verified by Juan Francisco Estrada on 07/28/2022. Provider Outside LAB - BLOOD ORDERABLES Edited [facility] Performing Organization Address City/[facility]/ZIP Co de Phone Number GHAZALA PFT NON-INTERFACED (ONBASE SCANS) * (ABNORMAL) Hemoglobin A1c (07/06/2022 8:55 AM TONNAGE COMPILATION CLERK) Hemoglobin A1C (External) 7.8(H) 0 - 5.6 % NON-INTERFACED (ONBASE SCANS) Blood 07/06/2022 8:55 AM TONNAGE COMPILATION CLERK Narrative BREEZE PFT - 07/06/2022 8:55 AM TONNAGE COMPILATION CLERK Verified by Juan Francisco Estrada on 07/28/2022. us Provider Outside LAB - BLOOD ORDERABLES Edited R esult - Final AARONEZE PFT NON-INTERFACED (ONBASE SCANS) documented in this encounter Visit Diagnoses Not on filedocumented in this encounter Additional Health Concerns Infection Onset Date Last Indicated Resolved Time Rule Out COVID-19 10/06/2023 10/06/2023 10/06/2023 1:51 PM TONNAGE COMPILATION CLERK Rule Out COVID-19 11/05/2023 11/05/2023 11/05/2023 10:53 PM CDT documented as of this encounter Care Teams Netbackup Admin Relationship Specialty Start Date End Date Alberto Stanton MD [facility] [address] [place] [address] PCP - General Family Practice 04/26/18 Jonathan Jaimes MD [address] [place] [phone] Assigned Heart and Vascular Provider 06/07/20 documented as of this encounter
--- OUTSIDE RECORDS SUMMARY | 2024-06-29 09:20 | XMS_ITS | Encounter Summary ---
Author Organization [facility] Address [address] [place] [address]. [place] [address] Care Team Providers Care Pastry Cook Apprentice Name Role Phone Salvador Hyatt MD Primary Care Provider [phone] Alberto Stanton MD Primary Care Provider [phone] Jonathan Jaimes MD Unavailable [phone] Encounter Details Date Type Department Care Team (Late st Contact Info) Description 04/08/2004 Office Visit-[facility] [address] [address] Unknown, MD Naomy Social History Tobacco Use Types Packs/Day Years Used Date Smoking Tobacco: Never Alcohol Use Standard Drinks/Week Comments Yes 0 (1 standard drink = 0.6 oz pur e alcohol) 2/week Sex and Gender Information Value Date Recorded Sex Assigned at Not on file Legal Sex Male 3:39 AM INFORMATION SYSTEMS CONSULTANT Gender Identity Not on file Sexual Orientation Not on file 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 - Metabolic [...] a delightful 54-year-old gentleman who presents to [facility] today for a follow up [...] Past Medical Illnesses: GI reflux, hyperlipidemia, diabetes ikyhtwfu-wqk-jruhzjk dependent, hypertension, depression, sinusistis, cellulitis, finger, rt [...] st Contact Info) Description 09/01/2024 8:00 AM INFORMATION SYSTEMS CONSULTANT Office Visit [facility] [address] [facility] [address] [place] [phone] Jonathan Jaimes MD [address] [facility] [address] [place] [phone] documented as of this encounter Visit Diagnoses Not on filedocumented in this encounter Additional Health Concerns Infection Onset Date Last Indicated Resolved Time Rule Out COVID-19 10/06/2023 10/06/2023 10/06/2023 1:51 PM INFORMATION SYSTEMS CONSULTANT Rule Out COVID-19 11/05/2023 11/05/2023 11/05/2023 10:53 PM CDT documented as of this encounter Care Teams Pastry Cook Apprentice Relationship Specialty Start Date End Date Salvador Hyatt MD PCP - General Family Practice 07/18/15 04/25/18 Alberto Stanton MD [facility] [address] [place] [address] PCP - General Family Practice 04/26/18 Jonathan Jaimes MD [address] [place] [address] Assigned Heart and Vascular Provider 06/07/20 documented as of this encounter
--- OUTSIDE RECORDS SUMMARY | 2024-06-29 09:20 | XMS_ITS | Encounter Summary ---
Author Organization [facility] Address [address] [place] [address]. [place] [address] Care Team Providers Care Band Top Maker Name Role Phone Salvador Hyatt MD Primary Care Provider [phone] Alberto Stanton MD Primary Care Provider [phone] Jonathan Jaimes MD Unavailable [phone] Encounter Details Date Type Department Care Team (Late st Contact Info) Description 02/22/2004 Office Visit-[facility] [address] [address] Unknown, MD Naomy Social History Tobacco Use Types Packs/Day Years Used Date Smoking Tobacco: Never Alcohol Use Standard Drinks/Week Comments Yes 0 (1 standard drink = 0.6 oz pur e alcohol) 2/week Sex and Gender Information Value Date Recorded Sex Assigned at Not on file Legal Sex Male 3:39 AM FREIGHT BROKER AGENT Gender Identity Not on file Sexual Orientation Not on file 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 DATE: 02/22/2004 GILBERTO ALFONSO DATE OF : 1950 AGE: [age] years old Referring Physician: CHELSEY GARCIA Referring Clinic: [facility] CURRENT DIAGNOSES 1. [...] saw him last he was seen at [facility] in August for an episode of [...] st Contact Info) Description 09/01/2024 8:00 AM FREIGHT BROKER AGENT Office Visit [facility] [address] [facility] [address] [place] [address] Jonathan Jaimes MD [address] [place] [phone] documented as of this encounter Visit Diagnoses Not on filedocumented in this encounter Additional Health Concerns Infection Onset Date Last Indicated Resolved Time Rule Out COVID-19 10/06/2023 10/06/2023 10/06/2023 1:51 PM FREIGHT BROKER AGENT Rule Out COVID-19 11/05/2023 11/05/2023 11/05/2023 10:53 PM CDT documented as of this encounter Care Teams Band Top Maker Relationship Specialty Start Date End Date Salvador Hyatt MD PCP - General Family Practice 07/18/15 04/25/18 Alberto Stanton MD [facility] [address], [place] [address] PCP - General Family Practice 04/26/18 Jonathan Jaimes MD [address] [place] [phone] Assigned Heart and Vascular Provider 06/07/20 documented as of this encounter
--- OUTSIDE RECORDS SUMMARY | 2024-06-29 09:20 | XMS_ITS | Referral Summary ---
Author Organization [facility] Address [address] [place] [address] Care Team Providers Care Try On Baster Name Role Phone Alberto Stanton MD Primary Care Provider [phone] Jonathan Jaimes MD Unavailable [phone] Encounters Date Type Department Care Team Description 05/11/2024 Refill [facility] [address] [facility] [address] [place] [address] Jonathan Jaimes MD Refill Request [...] No further refills until seen by cardiology--call [phone] to schedule 30 tablet 06/17/20 22 Active [...] to patient to review. 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 Not on file Not on file [...] st Contact Info) Description 09/01/2024 8:00 AM BACTERIOLOGIST SOIL Office Visit [address] [phone] Jonathan Jaimes MD [address] [place] [phone] Medical Devices Implanted Type Area Publication Specialist Device Identifier Shelf Expiration Date Model / Serial / Lot Imp Cup Rodger [place] 56mm 3316-22-316 Implanted:Qty: 1 on 08/13/2015 by Viktoria Morse MD at [facility] Left: Hip [employer] 05/15/2025 [id number] / / [id number] Imp Oakman Hole Eliminator Hip Depuy Duraloc 1246-03-000 Implanted:Qty: 1 on 08/13/2015 by Viktoria Morse MD at [facility] Left: Hip [employer] 04/15/2025 [id number] / / [id number] Imp Scr Bone Can Rodger 6.5x20mm 1217-20-500 Implanted:Qty: 1 on 08/13/2015 by Viktoria Morse MD at [facility] Left: Hip [employer] 06/15/2025 [id number] / / [id number] Acetabular Liner +4 Neutral 36mm Id 56mm Od Implanted:Qty: 1 on 08/13/2015 by Viktoria Morse MD at [facility] Left: Hip Depuy 05/15/2020 [id number] / / [id number] Imp Scr Bone Can Rodger 6.5x25mm 1217-25-500 Implanted:Qty: 1 on 08/13/2015 by iVktoria Morse MD at [facility] Left: Hip [employer] 06/15/2025 [id number] / / [id number] Imp Head Femoral Depuy 36mm +1.5 1365-51-000 Implanted:Qty: 1 on 08/13/2015 by Viktoria Morse MD at [facility] Left: Hip [employer] 06/15/2020 [id number] / / [id number] Tri-Lock Bps Femoral Stem 07/29 Taper Tri-Lock Bps W/Gription Size 6 Hi 107mm Implanted:Qty: 1 on 08/13/2015 by Viktoria Morse MD at [facility] Left: Hip Depuy 06/15/2025 [id number] / / [id number] Procedures Procedure Name Priority Date/Time Associated Diagnosis Comments BASIC METABOLIC PANEL STAT 11/05/2023 8:45 PM CDT TSH Routine 03/10/2023 8:49 AM CDT HEMOGLOBIN A1C Routine 03/10/2023 8:49 AM CDT LIPID PROFILE Routine 07/06/2022 9:56 AM BACTERIOLOGIST SOIL COLONOSCOPY Routine 03/10/2022 11:38 AM CDT ALBUMIN RANDOM URINE QUANTITATIVE Routine 04/27/2014 8:56 AM CDT Routine General Medical Examination At A [facility] Type 2 diabetes, HbA1C goal [...] - BLOOD ORDERABLES F inal Result LABORATORY [facility] [address] [facility] Lab (1st floor, no room number) [place] [address] * TSH (03/10/2023 8:49 AM CDT) [...] Provider Outside LAB - BLOOD ORDERABLES Edited [facility] Performing Organization Address [facility] de Phone Number AARONEZE PFT NON-INTERFACED (ONBASE SCANS) * Lipid Profile (07/06/2022 9:56 AM BACTERIOLOGIST SOIL) Triglycerides (External) 147 40 - 149 mg/dL NON-INTERFACE D (ONBASE SCANS) Cholesterol (External) 155 98 - 199 mg/dl NON-INTERFACE D (ONBASE SCANS) HDL Cholesterol (External) 41 >=40 mg/dL NON-INTERFACE D (ONBASE SCANS) LDL-Cholesterol (External) 85 <100 mg/dL NON-INTERFACE D (ONBASE SCANS) Blood 07/06/2022 9:56 AM BACTERIOLOGIST SOIL Narrative BREEZE PFT - 07/28/2022 9:47 AM BACTERIOLOGIST SOIL Verified by Juan Francisco Estrada on 07/28/2022. Provider Outside LAB - BLOOD ORDERABLES Edited [employer] Performing Organization Address [facility] de Phone Number AARONEZE PFT NON-INTERFACED (ONBASE SCANS) * COLONOSCOPY (03/10/2022 11:38 AM CDT) COLONOSCOPY [facility] Patient Name: Gilberto Alfonso ? Procedure [...] and ?oxygen saturations were monitored continuously. The ?Trovit Pediatric Colonoscope Model # PCF-AE206L, ?Endora # [id number], SN # [id number] was introduced through ?the anus and advanced [...] Procedure Code(s): ? --- Professional --- ? 03582, Colonoscopy, flexible; with removal of tumor(s), polyp(s), or ? other lesion(s) by snare technique Diagnosis Code(s): ? --- Professional --- ? Z86.010, Personal history of colonic polyps ? N40.2, Nodular prostate without lower urinary tract symptoms ? K63.5, Polyp of colon CPT copyright 2020 [employer]. All rights reserved. The codes documented in this report are preliminary and upon regional administrative assistant review may be revised to meet current compliance requirements. ____ DEANNE ROMEO MD 03/10/2022 12:19:51 PM I was physically present for the entire viewing portion of the exam. DEANNE ROMEO MD Number of Addenda: 0 Note Initiated On: 03/10/2022 11:38 AM MRN: ?[id number] Procedure Date: ? 03/10/2022 11:38:32 AM Scope [...] Urine 122 mg/dL [facility] Albumin Urine mg/L 9 mg/L [facility] Albumin Urine mg/g Cr 7.45 0 - 17 mg/g Cr [facility] Urine specimen (specimen) 04/27/2014 8:56 AM CDT 04/27/2014 8:58 AM CDT us Rob Robb MD LAB - URINE ORDERABLES Final Res ult [facility] [address] [place] [address], [facility] [phone] from Last 3 Months or Most Recently Relevant to Health Maintenance Insurance BCBS MEDICARE ADVANTAGE [facility] MEDICARE ADVANTAGE Advance Directives For more information, please contact: [phone] * Full Code (Latest Code Status on [...] 11:35 AM 10/19/2003 12:35 PM Care Teams Try On Baster Relationship Specialty Start Date End Date Alberto Stanton MD [facility] [address] [place] [address] PCP - General Family Practice 04/26/18 Jonathan Jaimes MD [address] [place] [phone] Assigned Heart and Vascular Provider 06/07/20
== END 2024-06-29 09:14 | disposition home or self-care (01) ==
LOC: LKVREF 09:17
PROVIDERS: PCP Family Medicine; Visit Provider Family Medicine
DX: E03.9 Hypothyroidism, unspecified (principal)
CPT/HCPCS: 84443

== ENCOUNTER 2024-09-25 17:11 | Outpatient (CLI) | payer MEDICARE, SELFPAY | END 2024-09-25 17:12 | disposition home or self-care (01) | LOC: LKVREF 17:11 | PROVIDERS: PCP Family Medicine; Visit Provider Physician Assistant Medical | DX: L08.9 Local infection of the skin and subcutaneous tissue, unspecified (principal); B96.20 Unspecified Escherichia coli [E. coli] as the cause of diseases classified elsewhere; B95.61 Methicillin susceptible Staphylococcus aureus infection as the cause of diseases classified elsewhere | CPT/HCPCS: 87070; 87186 ==

== ENCOUNTER 2024-09-27 12:38 | Outpatient (CLI) | payer MEDICARE, SELFPAY | END 2024-09-27 12:39 | disposition home or self-care (01) | PROVIDERS: PCP Family Medicine; Visit Provider Surgery | DX: L03.032 Cellulitis of left toe (principal); E11.40 Type 2 diabetes mellitus with diabetic neuropathy, unspecified; Z79.4 Long term (current) use of insulin; Z22.322 Carrier or suspected carrier of Methicillin resistant Staphylococcus aureus | CPT/HCPCS: G0463 ==

== ENCOUNTER 2024-10-30 10:22 | Outpatient (CLI) | payer MEDICARE, SELFPAY | END 2024-10-30 10:23 | disposition home or self-care (01) | LOC: LKVREF 10:23 | PROVIDERS: PCP Family Medicine; Visit Provider Family Medicine | DX: I10 Essential (primary) hypertension (principal) | CPT/HCPCS: 80048 ==

== ENCOUNTER 2025-05-25 10:40 | Outpatient (CLI) | payer MEDICARE, SELFPAY | END 2025-05-25 10:41 | disposition home or self-care (01) | LOC: NFLDREF 05-28 18:17 | PROVIDERS: PCP Family Medicine; Referring Provider Family Medicine; Visit Provider Family Medicine | DX: R25.1 Tremor, unspecified (principal); E11.39 Type 2 diabetes mellitus with other diabetic ophthalmic complication; Z79.4 Long term (current) use of insulin | CPT/HCPCS: 82043; 82570 ==

== ENCOUNTER 2025-06-21 11:18 | Outpatient (CLI) | payer MEDICARE, SELFPAY | END 2025-06-21 11:19 | disposition home or self-care (01) | LOC: NFLDREF 06-25 04:28 | PROVIDERS: PCP Family Medicine; Referring Provider Family Medicine; Visit Provider Family Medicine | DX: E11.9 Type 2 diabetes mellitus without complications (principal); E78.5 Hyperlipidemia, unspecified; I10 Essential (primary) hypertension; E03.9 Hypothyroidism, unspecified; N40.0 Benign prostatic hyperplasia without lower urinary tract symptoms; R53.83 Other fatigue; Z79.4 Long term (current) use of insulin | CPT/HCPCS: 80053; 80061; 82306; 84439; 84443; G0103 ==